=== PATIENT | male | born 1945 | race Caucasian/White ===

== ENCOUNTER → 2016-11-18 | Outpatient (CLI) | payer MEDICARE ==
--- NOTE | 2016-11-18 10:12 | US ---
EXAMINATION TYPE: US abdomen complete DATE OF EXAM: 11/18/2016 COMPARISON: NONE CLINICAL HISTORY: R10.0 Abdominal Pain. EXAM MEASUREMENTS: Liver Length: 15.4 cm Gallbladder Wall: 0.2 cm CBD: 0.5 cm Spleen: 8.6 cm Right Kidney: 9.5 x 4.6 x 5.7 cm Left Kidney: 10.1 x 4.3 x 6.9 cm overlying bowel gas limits exam Pancreas: limited views appear wnl Liver: intercostal imaging only, wnl Gallbladder: single mobile stone seen with sludge noted, no wall thickness Evidence for sonographic Powell's sign: no CBD: wnl Spleen: unable to fully assess due to gas even with inspiration and rolled patient Right Kidney: 2.2cm mid/inferior pole cyst seen Left Kidney: limited views due to bowel gas, otherwise wnl Upper IVC: wnl Abd Aorta: wnl Limited views of the pancreas are unremarkable. The liver is normal in size without biliary dilatation. There is a solitary 1.4 cm calculus within the gallbladder. The gallbladder wall measures 2 mm. The d istal common hepatic duct measures 5 mm. There is no sonographic Powell's sign. The spleen is normal in size. There is a 2.2 cm cystic lesion in the mid polar region of the right kidney. This does not meet the r equirements of a simple cyst. The left kidney is normal. Visualized portions of aorta and IVC are unremarkable. IMPRESSION: 1. CHOLELITHIASIS. 2. CYSTIC LESION IN THE MID POLAR REGION OF THE RIGHT KIDNEY DOES NOT MEET THE REQUIREMENTS OF A SIMP LE CYST. FURTHER INVESTIGATION WITH CT OR MR WOULD BE SUGGESTED.
== END | disposition home or self-care (01) ==
LOC: RADUSWWP 09:24
PROVIDERS: ATTEND Family Medicine
DX: K80.20 Calculus of gallbladder without cholecystitis without obstruction (principal); N28.9 Disorder of kidney and ureter, unspecified
CPT/HCPCS: 76700

== ENCOUNTER 2017-01-01 08:46 | Day surgery (SDC) | payer MEDICARE ==
[2016-12-28 15:14] VITALS: BMI 25.8
[~2017-01-01 08:46] MED LIST: LACTATED RINGERS 1,000 ML IV SCH; SODIUM CHLORIDE 0.9% 1,000 ML IV SCH
[2017-01-01 09:46] LABS: INR 3.6 (<1.2); Prothrombin Time 35.3 sec (9.0-12.0)
[2017-01-01] MEDS ORDERED: PROPOFOL 10 MG/ML 20 ML VIAL IV ONE (10:13)
[2017-01-01] MEDS ORDERED: MIDAZOLAM 2 MG/2 ML VIAL ONE (10:13)
[2017-01-01] MEDS ORDERED: LIDOCAINE 1% INJ 10MG/ML (20 ML MDV) ONE (10:13)
[2017-01-01] MEDS ORDERED: IV FLUID CONTINUATION 500 ML IV ONE (10:31)
[2017-01-01 10:44] VITALS: TEMP 98.1
[2017-01-01 10:56] VITALS: RESP 16
[2017-01-01 12:21] VITALS: BP 132/78; PULSE 75
--- NOTE | 2017-01-02 10:16 | PCN ---
PROCEDURE: Electrical cardioversion. DATE OF SERVICE: 01/01/2017 INDICATION: Persistent atrial fibrillation, unresponsive to pharmacological efforts. Mr. Aubrey Harris is a gentleman with a persistent atrial fib who was advised to have electrical cardioversion. Risks, benefits, options and rationale were explained. He was well anticoagulated. PROCEDURE NOTE: Under the influence of an ultra short acting intravenous anesthetic agent, with the anesthesiologist in attendance, a single 200 joule synchronized shock was delivered with anterior and posterior patches. Patient converted to sinus rhythm. He remained neurologically intact, hemodynamically stable. This was a successful cardioversion. He will be discharged later on today if he remains stable. He has an office visit with me He has an office visit with me next Wednesday. He will be going home on the same medications except metoprolol tartrate will be 50 mg daily instead of b.i.d. MTDD
== END 2017-01-01 13:11 | disposition home or self-care (01) ==
LOC: CATHCVL 08:46
PROVIDERS: ATTEND Internal Medicine Interventional Cardiology
DX: I48.1 Persistent atrial fibrillation (principal); I10 Essential (primary) hypertension; E07.9 Disorder of thyroid, unspecified; Z87.891 Personal history of nicotine dependence; Z79.01 Long term (current) use of anticoagulants; Z79.899 Other long term (current) drug therapy
CPT/HCPCS: 93005; 92960; 85610; J2250; J2001; J2704

== ENCOUNTER 2017-01-17 08:45 | Emergency (ER) | payer MEDICARE ==
[2017-01-17] MEDS ORDERED: DILTIAZEM 5 MG/ML 5 ML VIAL IV STA (09:19)
--- NOTE | 2017-01-17 09:22 | ED ---
General Adult HPI - General Chief complaint: Arrhythmia/Palpitations Stated complaint: irreg pulse Time Seen by Provider: 01/17/17 09:08 Source: patient, RN notes reviewed Mode of arrival: ambulatory Limitations: no limitations - History of Present Illness Initial comments: Patient is a pleasant 71-year-old male with history of atrial fibrillation presenting to the emergency department for palpitations. Patient is on Coumadin. Patient was cardioverted 3 weeks ago atrial fibrillation. Patient states the past 3 days his heart rate has been high. Heart rate has been as high as 140. Patient does have palpitations. No chest pain. No dyspnea. No other complaints. - Related Data Home Medications Medication Instructions Recorded Confirmed ALPRAZolam [Xanax] 0.25 mg PO TID PRN 12/28/16 01/17/17 Levothyroxine Sodium [Synthroid] 150 mcg PO DAILY 12/28/16 01/17/17 Metoprolol Tartrate [Lopressor] 25 mg PO DAILY 12/28/16 01/17/17 Multivitamin [Men's Multi-Vitamin] 1 tab PO DAILY 12/28/16 01/17/17 Warfarin [Coumadin] 5 mg PO HS 12/28/16 01/17/17 Allergies Allergy/AdvReac Type Severity Reaction Status Date / Time No Known Allergies Allergy Verified 01/17/17 09:34 Review of Systems ROS Statement: Those systems with pertinent positive or pertinent negative responses have been documented in the HPI. ROS Other: All systems not noted in ROS Statement are negative. Constitutional: Denies: fever Eyes: Denies: eye pain ENT: Denies: ear pain Respiratory: Denies: cough, dyspnea Cardiovascular: Reports: palpitations. Denies: chest pain Endocrine: Denies: fatigue Gastrointestinal: Denies: abdominal pain Genitourinary: Denies: dysuria Musculoskeletal: Denies: back pain Skin: Denies: rash Neurological: Denies: weakness Past Medical History Past Medical History: Hypertension, Pneumonia, Thyroid Disorder Additional Past Medical History / Comment(s): irregular heartbeat History of Any Multi-Drug Resistant Organisms: None Reported Additional Past Surgical History / Comment(s): CYST REMOVED,COLONOSCOPY, CATARACT SURGERY BILATERAL EYES Past Anesthesia/Blood Transfusion Reactions: No Reported Reaction Past Psychological History: Anxiety Smoking Status: Former smoker Past Alcohol Use History: Daily Past Drug Use History: None Reported - Past Family History Mother Family Medical History: No Reported History General Exam Limitations: no limitations General appearance: alert, in no apparent distress Head exam: Present: atraumatic Eye exam: Present: normal appearance, PERRL ENT exam: Present: normal oropharynx Neck exam: Present: normal inspection Respiratory exam: Present: normal lung sounds bilaterally Cardiovascular Exam: Present: tachycardia, irregular rhythm GI/Abdominal exam: Present: soft. Absent: tenderness Extremities exam: Present: normal inspection. Absent: pedal edema, calf tenderness Neurological exam: Present: alert Psychiatric exam: Present: normal affect, normal mood Skin exam: Present: normal color Course Vital Signs 01/17/17 01/17/17 01/17/17 08:45 09:11 09:37 Temperature 97.8 F Pulse Rate 134 H 115 H Pulse Rate [ 135 H Brim Shaper ] Respiratory 18 20 Rate Blood Pressure 162/106 143/100 O2 Sat by Pulse 97 96 Oximetry EKG Findings - EKG Comments: EKG Findings:: Atrial flutter with a rate of 111. QRS 94. QT 336. QTc 46. Left axis. Q wave in leads V1 and V3. No acute ST change. Medical Decision Making - Medical Decision Making Patient reevaluated and symptom-free. Patient does remain in atrial flutter however heart rate is between 70 and 87. Patient requests discharge home. Patient is updated on results and the fact that he still is in atrial flutter and need for follow-up. - Lab Data Result diagrams: 01/17/17 09:03 01/17/17 09:03 Lab Results 01/17/17 01/17/17 01/17/17 Range/Units 09:03 09:03 09:03 WBC 12.5 H (3.8-10.6) k/uL RBC 5.49 (4.30-5.90) m/uL Hgb 17.2 (13.0-17.5) gm/dL Hct 52.4 (39.0-53.0) % MCV 95.5 (80.0-100.0) fL MCH 31.3 (25.0-35.0) pg MCHC 32.8 (31.0-37.0) g/dL RDW 14.3 (11.5-15.5) % Plt Count 456 H (150-450) k/uL Neutrophils % 67 % Lymphocytes % 18 % Monocytes % 9 % Eosinophils % 3 % Basophils % 1 % Neutrophils # 8.4 H (1.3-7.7) k/uL Lymphocytes # 2.2 (1.0-4.8) k/uL Monocytes # 1.1 H (0-1.0) k/uL Eosinophils # 0.3 (0-0.7) k/uL Basophils # 0.1 (0-0.2) k/uL PT (9.0-12.0) sec INR (<1.2) APTT (22.0-30.0) sec Sodium 143 (137-145) mmol/L Potassium 4.5 (3.5-5.1) mmol/L Chloride 108 H (98-107) mmol/L Carbon Dioxide 25 (22-30) mmol/L Anion Gap 10 mmol/L BUN 11 (9-20) mg/dL Creatinine 0.70 (0.66-1.25) mg/dL Est GFR (MDRD) Af Amer >60 (>60 ml/min/1.73 sqM) Est GFR (MDRD) Non-Af >60 (>60 ml/min/1.73 sqM) Glucose 76 (74-99) mg/dL Calcium 9.3 (8.4-10.2) mg/dL Magnesium 1.6 (1.6-2.3) mg/dL Total Bilirubin 0.8 (0.2-1.3) mg/dL AST 29 (17-59) U/L ALT 37 (21-72) U/L Alkaline Phosphatase 79 (38-126) U/L Total Creatine Kinase 63 (55-170) U/L CK-MB (CK-2) 2.1 (0.0-2.4) ng/mL CK-MB (CK-2) Rel Index 3.3 Troponin I <0.012 (0.000-0.034) ng/mL Total Protein 7.5 (6.3-8.2) g/dL Albumin 4.2 (3.5-5.0) g/dL TSH <0.015 L (0.465-4.680) mIU/L Free T4 1.41 (0.78-2.19) ng/dL 01/17/17 Range/Units 09:03 WBC (3.8-10.6) k/uL RBC (4.30-5.90) m/uL Hgb (13.0-17.5) gm/dL Hct (39.0-53.0) % MCV (80.0-100.0) fL MCH (25.0-35.0) pg MCHC (31.0-37.0) g/dL RDW (11.5-15.5) % Plt Count (150-450) k/uL Neutrophils % % Lymphocytes % % Monocytes % % Eosinophils % % Basophils % % Neutrophils # (1.3-7.7) k/uL Lymphocytes # (1.0-4.8) k/uL Monocytes # (0-1.0) k/uL Eosinophils # (0-0.7) k/uL Basophils # (0-0.2) k/uL PT 19.0 H (9.0-12.0) sec INR 2.0 H (<1.2) APTT 30.3 H (22.0-30.0) sec Sodium (137-145) mmol/L Potassium (3.5-5.1) mmol/L Chloride (98-107) mmol/L Carbon Dioxide (22-30) mmol/L Anion Gap mmol/L BUN (9-20) mg/dL Creatinine (0.66-1.25) mg/dL Est GFR (MDRD) Af Amer (>60 ml/min/1.73 sqM) Est GFR (MDRD) Non-Af (>60 ml/min/1.73 sqM) Glucose (74-99) mg/dL Calcium (8.4-10.2) mg/dL Magnesium (1.6-2.3) mg/dL Total Bilirubin (0.2-1.3) mg/dL AST (17-59) U/L ALT (21-72) U/L Alkaline Phosphatase (38-126) U/L Total Creatine Kinase (55-170) U/L CK-MB (CK-2) (0.0-2.4) ng/mL CK-MB (CK-2) Rel Index Troponin I (0.000-0.034) ng/mL Total Protein (6.3-8.2) g/dL Albumin (3.5-5.0) g/dL TSH (0.465-4.680) mIU/L Free T4 (0.78-2.19) ng/dL - Radiology Data Radiology results: image reviewed (Chest x-ray shows right perihilar atelectasis or infiltrate.) Disposition Clinical Impression: Atrial flutter Disposition: HOME SELF-CARE Condition: Stable Instructions: Atrial Fibrillation (ED) Additional Instructions: Please follow-up with Dr. Alfonso and your primary care physician tomorrow. Please keep a log of your heart rate to provide and follow-up. Return for increased heart rate, chest pain or difficulty breathing, worsening symptoms or other concerns. If heart rate does increase extra dose of metoprolol. Referrals: Duy De Leon MD [Primary Care Provider] - 1-2 days Logan Alfonso MD [STAFF PHYSICIAN] - 1-2 days Time of Disposition: 10:51
[2017-01-17 09:46] LABS: Basophils # (A) 0.1 k/uL (0-0.2); Basophils % (A) 1 %; CH 32.4; CHCM 34.1; Eosinophils # (A) 0.3 k/uL (0-0.7); Eosinophils % (A) 3 %; HCT 52.4 % (39.0-53.0); HDW 2.25; HGB 17.2 gm/dL (13.0-17.5); Luc % (Auto) 3; Lymphocytes # (A) 2.2 k/uL (1.0-4.8); Lymphocytes % (A) 18 %; MCH 31.3 pg (25.0-35.0); MCHC 32.8 g/dL (31.0-37.0); MCV 95.5 fL (80.0-100.0); Mean Platelet Volume 7.3; Monocytes # (A) 1.1 k/uL (0-1.0); Monocytes % (A) 9 %; Neutrophils # (A) 8.4 k/uL (1.3-7.7); Neutrophils % (A) 67 %; RBC 5.49 m/uL (4.30-5.90); RDW 14.3 % (11.5-15.5); WBC 12.5 k/uL (3.8-10.6); WBC (Perox) 11.78
[2017-01-17 09:55] LABS: Partial Thromboplastin Time 30.3 sec (22.0-30.0)
--- NOTE | 2017-01-17 09:56 | XR ---
EXAMINATION TYPE: XR chest 2V DATE OF EXAM: 01/17/2017 COMPARISON: NONE TECHNIQUE: PA and lateral views submitted. HISTORY: Dysrhythmia and hypertension FINDINGS: Hyperinflation suggests COPD and there is right perihilar infiltrate. No pleural effusion or pneumoth orax. Arthropathy of the shoulders. Heart is within normal size and is atherosclerotic change aorta. Degenerative change spine. IMPRESSION: 1. Linear right perihilar changes may be on the basis of atelectasis rather than pneumonia. Correlate clinically. Correlate for COPD
[2017-01-17 10:00] LABS: ALT 37 U/L (21-72); AST 29 U/L (17-59); Alkaline Phosphatase 79 U/L (38-126); Anion Gap 10 mmol/L; Blood Urea Nitrogen 11 mg/dL (9-20); Calcium 9.3 mg/dL (8.4-10.2); Carbon Dioxide 25 mmol/L (22-30); Chloride 108 mmol/L (98-107); Glucose 76 mg/dL (74-99); Magnesium 1.6 mg/dL (1.6-2.3); Non-African American GFR(MDRD) >60 (>60 ml/min/1.73 sqM); Potassium 4.5 mmol/L (3.5-5.1); Sodium 143 mmol/L (137-145); Total Bilirubin 0.8 mg/dL (0.2-1.3); Total Protein 7.5 g/dL (6.3-8.2)
[2017-01-17 10:04] LABS: Creatine Kinase 63 U/L (55-170)
[2017-01-17 10:17] LABS: Creatine Kinase MB 2.1 ng/mL (0.0-2.4); Troponin I <0.012 ng/mL (0.000-0.034)
[2017-01-17 10:52] VITALS: RESP 18
[2017-01-17 10:58] VITALS: BP 155/70; PULSE 82; TEMP 97.4
== END 2017-01-17 10:58 | disposition home or self-care (01) ==
LOC: EC 08:45
DX: I48.92 Unspecified atrial flutter (principal); R00.2 Palpitations; I10 Essential (primary) hypertension; E07.9 Disorder of thyroid, unspecified; F41.9 Anxiety disorder, unspecified; Z87.891 Personal history of nicotine dependence; Z79.01 Long term (current) use of anticoagulants; Z79.899 Other long term (current) drug therapy
CPT/HCPCS: 36415; 71020; 80053; 82550; 82553; 83735; 84439; 84443; 84481; 84484; 85025; 85610; 85730; 93005; 96374; 99285

== ENCOUNTER 2017-02-12 06:04 | Day surgery (SDC) | payer MEDICARE ==
[~2017-02-12 06:04] MED LIST changes: -LACTATED RINGERS 1,000 ML IV SCH
[2017-02-12] MEDS ORDERED: LACTATED RINGERS 1,000 ML IV SCH (06:07)
[2017-02-12 06:53] LABS: INR 3.5 (<1.2); Prothrombin Time 34.2 sec (9.0-12.0)
[2017-02-12] MEDS ORDERED: PROPOFOL 10 MG/ML 20 ML VIAL IV ONE (07:21)
[2017-02-12] MEDS ORDERED: LIDOCAINE 1% INJ 10MG/ML (20 ML MDV) ONE (07:21)
[2017-02-12] MEDS ORDERED: SODIUM CHLORIDE 0.9% 1,000 ML IV SCH (07:30)
[2017-02-12 07:37] VITALS: TEMP 98
--- NOTE | 2017-02-12 07:43 | CE ---
CARDIAC ELECTROPHYSIOLOGY REPORT ELECTRICAL CARDIOVERSION NOTE DATE OF SERVICE: 02/12/2017. PROCEDURE: Electrical cardioversion. INDICATION: Persistent atrial fibrillation. CLINICAL INFORMATION: This patient has developed relatively new onset atrial fibrillation, had a previous cardioversion with which he converted to sinus rhythm but then he went back into atrial fibrillation. He was pretreated for nearly 2 weeks with Rythmol 150 mg t.i.d., brought back for the procedure. PROCEDURE NOTE: Under the influence of ultra short-acting intravenous anesthetic agent, with the attendance of the anesthesiologist, Dr. Payan, a single 200 joule shock was delivered to the chest wall with anterior and posterior patches. The patient converted to sinus rhythm with a long pause. He remained hemodynamically stable. Neurological intact. This was a successful cardioversion. He will be discharged later on today if he remains stable. MMODL / IJN: [id number] /
[2017-02-12 10:41] VITALS: BP 117/61; RESP 16
[2017-02-12 11:49] VITALS: PULSE 62
== END 2017-02-12 11:47 | disposition home or self-care (01) ==
LOC: CATHCVL 06:04
PROVIDERS: ATTEND Internal Medicine Interventional Cardiology
DX: I48.1 Persistent atrial fibrillation (principal); Z79.01 Long term (current) use of anticoagulants; I10 Essential (primary) hypertension; Z87.891 Personal history of nicotine dependence; Z79.899 Other long term (current) drug therapy
CPT/HCPCS: 93005; 92960; 85610; J2001; J2704

== ENCOUNTER 2017-02-13 10:43 | Inpatient (IN) | payer MEDICARE ==
[2017-02-13] MEDS ORDERED: hydrALAZINE HCL 20 MG/ML 1 ML VIAL IVP STA (11:15)
--- NOTE | 2017-02-13 11:17 | ED ---
General Adult HPI - General Chief complaint: Shortness of Breath Stated complaint: diff breathing,htn, post op Time Seen by Provider: 02/13/17 10:55 Source: patient, RN notes reviewed, old records reviewed Mode of arrival: wheelchair Limitations: no limitations - History of Present Illness Initial comments: 71-year-old male with history of hypertension and atrial fibrillation presents with worsening dyspnea over the past 24 hours. Patient had cardioversion yesterday for atrial fibrillation. This was successful according to the patient. Over the nighttime hours patient became more short of breath. Denies chest pain. Denies fever or chills. Denies cough. Denies past medical history of congestive heart failure or asthma. Denies palpitations. Patient is currently on metoprolol, propranolol, and Coumadin. Patient's blood pressure is normally controlled with these medications. - Related Data Home Medications Medication Instructions Recorded Confirmed ALPRAZolam [Xanax] 0.25 mg PO TID PRN 12/28/16 02/13/17 Levothyroxine Sodium [Synthroid] 150 mcg PO QAM 12/28/16 02/13/17 Multivitamin [Men's Multi-Vitamin] 1 tab PO DAILY 12/28/16 02/13/17 Warfarin [Coumadin] 5 mg PO HS 12/28/16 02/13/17 Propafenone [Rythmol] 150 mg PO TID 02/11/17 02/13/17 Metoprolol Tartrate [Lopressor] 50 mg PO BID 02/13/17 02/13/17 Allergies Allergy/AdvReac Type Severity Reaction Status Date / Time No Known Allergies Allergy Verified 02/13/17 11:52 Review of Systems ROS Statement: Those systems with pertinent positive or pertinent negative responses have been documented in the HPI. ROS Other: All systems not noted in ROS Statement are negative. Past Medical History Past Medical History: Hypertension, Pneumonia, Thyroid Disorder Additional Past Medical History / Comment(s): SEE DR[facility] P FOR CARDIOVASCULAR DETAIL. Irregular heartbeat History of Any Multi-Drug Resistant Organisms: None Reported Additional Past Surgical History / Comment(s): CYST REMOVED,COLONOSCOPY, CATARACT SURGERY BILATERAL EYES, cardioversion x2. Past Anesthesia/Blood Transfusion Reactions: No Reported Reaction Past Psychological History: Anxiety Smoking Status: Former smoker Past Alcohol Use History: Daily Past Drug Use History: None Reported - Past Family History Mother Family Medical History: No Reported History General Exam Limitations: no limitations General appearance: alert, in no apparent distress Head exam: Present: atraumatic, normocephalic Eye exam: Present: normal appearance, PERRL ENT exam: Present: normal exam, mucous membranes moist Neck exam: Present: normal inspection, full ROM. Absent: tenderness, meningismus Respiratory exam: Present: decreased breath sounds. Absent: wheezes, rales Cardiovascular Exam: Present: regular rate, normal rhythm GI/Abdominal exam: Present: soft. Absent: distended, tenderness, guarding Extremities exam: Present: normal inspection, normal capillary refill. Absent: pedal edema Back exam: Present: normal inspection Neurological exam: Present: alert, oriented X3, CN II-XII intact. Absent: motor sensory deficit Psychiatric exam: Present: normal affect, normal mood Skin exam: Present: warm, dry. Absent: cyanosis, diaphoretic Course Vital Signs 02/13/17 02/13/17 10:51 12:20 Temperature 97.9 F Pulse Rate 54 L 59 L Respiratory 18 18 Rate Blood Pressure 212/88 136/68 O2 Sat by Pulse 94 L 96 Oximetry - Reevaluation(s) Reevaluation #1: 02/13/17 13:04 Patient's blood pressure significantly improved with 1 dose of IV hydralazine EKG Findings - EKG Comments: EKG Findings:: EKG shows sinus rhythm with first-degree AV block, ventricular rate 62, purulent 34, QRS duration 90, QTC 434, no signs of ST segment elevation or depression Medical Decision Making - Medical Decision Making 71-year-old male presenting with a four-hour history of dyspnea. Patient is found to be hypertensive upon arrival 220/90. Patient is given IV hydralazine for this blood pressure. He does have history of blood pressure as well as atrial fibrillation. He received cardioversion yesterday. EKG is obtained, shows normal sinus rhythm with no signs of ischemia or infarction. Chest x-ray shows hyperinflation consistent with COPD. Patient does have a remote history of tobacco but no current history of asthma or COPD. There is no focal pneumonia. No pulmonary edema. Hemoglobin stable at 15.3, INR is supratherapeutic at 4.0, Coumadin will be held. Potassium is 5.4 which is treated with IV fluids and IV calcium, as well as albuterol. Magnesium is 1.3 and is replaced. Troponin is negative as are 0.014, BMP is 660. Patient's dyspnea may be related to hypertension. Case discussed with cardiology and the patient will be placed in observation for further evaluation and treatment. Patient is agreeable with this plan. Diagnosis: Dyspnea, hypertension, hypomagnesemia, hyperkalemia - Lab Data Result diagrams: 02/13/17 11:25 02/13/17 11:25 Lab Results 02/13/17 02/13/17 02/13/17 Range/Units 11:25 11:25 11:25 WBC 7.5 (3.8-10.6) k/uL RBC 4.91 (4.30-5.90) m/uL Hgb 15.3 (13.0-17.5) gm/dL Hct 47.7 (39.0-53.0) % MCV 97.1 (80.0-100.0) fL MCH 31.1 (25.0-35.0) pg MCHC 32.0 (31.0-37.0) g/dL RDW 14.4 (11.5-15.5) % Plt Count 368 (150-450) k/uL Neutrophils % 74 % Lymphocytes % 9 % Monocytes % 8 % Eosinophils % 6 % Basophils % 1 % Neutrophils # 5.5 (1.3-7.7) k/uL Lymphocytes # 0.7 L (1.0-4.8) k/uL Monocytes # 0.6 (0-1.0) k/uL Eosinophils # 0.5 (0-0.7) k/uL Basophils # 0.0 (0-0.2) k/uL PT (9.0-12.0) sec INR (<1.2) APTT (22.0-30.0) sec Sodium 139 (137-145) mmol/L Potassium 5.4 H (3.5-5.1) mmol/L Chloride 107 (98-107) mmol/L Carbon Dioxide 23 (22-30) mmol/L Anion Gap 9 mmol/L BUN 13 (9-20) mg/dL Creatinine 0.78 (0.66-1.25) mg/dL Est GFR (MDRD) Af Amer >60 (>60 ml/min/1.73 sqM) Est GFR (MDRD) Non-Af >60 (>60 ml/min/1.73 sqM) Glucose 96 (74-99) mg/dL Calcium 10.1 (8.4-10.2) mg/dL Magnesium 1.3 L (1.6-2.3) mg/dL Total Bilirubin 0.6 (0.2-1.3) mg/dL AST 52 (17-59) U/L ALT 41 (21-72) U/L Alkaline Phosphatase 67 (38-126) U/L Total Creatine Kinase 44 L (55-170) U/L CK-MB (CK-2) 1.2 (0.0-2.4) ng/mL CK-MB (CK-2) Rel Index 2.7 Troponin I 0.014 (0.000-0.034) ng/mL NT-Pro-B Natriuret Pep pg/mL Total Protein 7.4 (6.3-8.2) g/dL Albumin 4.1 (3.5-5.0) g/dL 02/13/17 02/13/17 Range/Units 11:25 11:25 WBC (3.8-10.6) k/uL RBC (4.30-5.90) m/uL Hgb (13.0-17.5) gm/dL Hct (39.0-53.0) % MCV (80.0-100.0) fL MCH (25.0-35.0) pg MCHC (31.0-37.0) g/dL RDW (11.5-15.5) % Plt Count (150-450) k/uL Neutrophils % % Lymphocytes % % Monocytes % % Eosinophils % % Basophils % % Neutrophils # (1.3-7.7) k/uL Lymphocytes # (1.0-4.8) k/uL Monocytes # (0-1.0) k/uL Eosinophils # (0-0.7) k/uL Basophils # (0-0.2) k/uL PT 39.4 H (9.0-12.0) sec INR 4.0 H (<1.2) APTT 35.0 H (22.0-30.0) sec Sodium (137-145) mmol/L Potassium (3.5-5.1) mmol/L Chloride (98-107) mmol/L Carbon Dioxide (22-30) mmol/L Anion Gap mmol/L BUN (9-20) mg/dL Creatinine (0.66-1.25) mg/dL Est GFR (MDRD) Af Amer (>60 ml/min/1.73 sqM) Est GFR (MDRD) Non-Af (>60 ml/min/1.73 sqM) Glucose (74-99) mg/dL Calcium (8.4-10.2) mg/dL Magnesium (1.6-2.3) mg/dL Total Bilirubin (0.2-1.3) mg/dL AST (17-59) U/L ALT (21-72) U/L Alkaline Phosphatase (38-126) U/L Total Creatine Kinase (55-170) U/L CK-MB (CK-2) (0.0-2.4) ng/mL CK-MB (CK-2) Rel Index Troponin I (0.000-0.034) ng/mL NT-Pro-B Natriuret Pep 666 pg/mL Total Protein (6.3-8.2) g/dL Albumin (3.5-5.0) g/dL Critical Care Time Critical Care Time: Yes Total Critical Care Time: 35 Disposition Clinical Impression: Hypertension, Hypomagnesemia, Dyspnea Disposition: ADMITTED IP TO THIS [facility] Condition: Stable Referrals: Duy De Leon MD [Primary Care Provider] - 1-2 days Decision to Admit Reason: Admit from EC Decision Date: 02/13/17 Decision Time: 13:07
[2017-02-13 11:40] LABS: Basophils % (A) 1 %; CH 32.1; CHCM 33.2; Eosinophils # (A) 0.5 k/uL (0-0.7); Eosinophils % (A) 6 %; HCT 47.7 % (39.0-53.0); HDW 2.37; HGB 15.3 gm/dL (13.0-17.5); Luc # (Auto) 0.19; Luc % (Auto) 3; Lymphocytes # (A) 0.7 k/uL (1.0-4.8); Lymphocytes % (A) 9 %; MCH 31.1 pg (25.0-35.0); MCV 97.1 fL (80.0-100.0); Mean Platelet Volume 7.3; Monocytes # (A) 0.6 k/uL (0-1.0); Monocytes % (A) 8 %; Neutrophils # (A) 5.5 k/uL (1.3-7.7); Neutrophils % (A) 74 %; RBC 4.91 m/uL (4.30-5.90); RDW 14.4 % (11.5-15.5); WBC 7.5 k/uL (3.8-10.6); WBC (Perox) 7.73
[2017-02-13 11:50] LABS: Prothrombin Time 39.4 sec (9.0-12.0)
[2017-02-13 11:58] LABS: ALT 41 U/L (21-72); AST 52 U/L (17-59); Alkaline Phosphatase 67 U/L (38-126); Anion Gap 9 mmol/L; Blood Urea Nitrogen 13 mg/dL (9-20); Calcium 10.1 mg/dL (8.4-10.2); Carbon Dioxide 23 mmol/L (22-30); Chloride 107 mmol/L (98-107); Glucose 96 mg/dL (74-99); Magnesium 1.3 mg/dL (1.6-2.3); Non-African American GFR(MDRD) >60 (>60 ml/min/1.73 sqM); Potassium 5.4 mmol/L (3.5-5.1); Sodium 139 mmol/L (137-145); Total Bilirubin 0.6 mg/dL (0.2-1.3); Total Protein 7.4 g/dL (6.3-8.2)
[2017-02-13 12:15] LABS: Creatine Kinase MB 1.2 ng/mL (0.0-2.4); Troponin I 0.014 ng/mL (0.000-0.034)
[2017-02-13] MEDS: MAGNESIUM SULFATE-D5W PMX 1 GM in DEXTROSE/WATER 1 100ML.BAG IVPB SCH ×2 (12:37→16:41)
[2017-02-13] MEDS: SODIUM CHLORIDE 0.9% 1,000 ML IV SCH (12:38)
--- NOTE | 2017-02-13 12:43 | XR ---
EXAMINATION TYPE: XR chest 2V DATE OF EXAM: 02/13/2017 HISTORY: difficulty breathing. REFERENCE: Previous study dated 01/17/2017. FINDINGS: Lung volumes are mildly prominent. The lungs are clear. Pleural spaces are clear. Heart siz e is upper limits of normal. IMPRESSION: 1. COPD. 2. BORDERLINE CARDIOMEGALY.
[2017-02-13] MEDS ORDERED: ALBUTEROL NEBULIZED 2.5 MG/3 ML INHALATION STA (12:48)
[2017-02-13] MEDS ORDERED: IPRATROPIUM 0.5 MG/2.5 ML NEBU INHALATION STA (12:48)
[2017-02-13] MEDS ORDERED: ONDANSETRON 4 MG/2 ML VIAL IVP PRN (12:55)
[2017-02-13] MEDS ORDERED: NALOXONE 0.4 MG/ML 1 ML VIAL IV PRN (12:55)
[2017-02-13 15:37] VITALS: BMI 26.5
[2017-02-13] MEDS: PROPAFENONE 150 MG TAB PO SCH ×2 (15:41→20:48)
[2017-02-13 18:33] LABS: Creatine Kinase MB 0.8 ng/mL (0.0-2.4); Troponin I 0.018 ng/mL (0.000-0.034)
[2017-02-13] MEDS ORDERED: THIAMINE 100 MG/ML 2 ML VIAL IM STA (20:06)
[2017-02-13] MEDS ORDERED: LORazepam 2 MG/ML INJ IV PRN ×3 (20:06)
[2017-02-13] MEDS: THIAMINE 100 MG TAB PO SCH (20:47)
[2017-02-13] MEDS: METOPROLOL TARTRATE 50 MG TAB PO SCH (20:48)
[2017-02-13] MEDS: ALPRAZolam 0.25 MG TAB PO PRN (23:57)
[2017-02-14 01:08] LABS: Creatine Kinase MB 0.7 ng/mL (0.0-2.4); Troponin I 0.015 ng/mL (0.000-0.034)
[2017-02-14] MEDS: SODIUM CHLORIDE 0.9% 1,000 ML IV SCH ×2 (03:07→14:31)
[2017-02-14] MEDS: LEVOTHYROXINE 75 MCG TAB PO SCH (06:06)
[2017-02-14 06:32] LABS: Basophils # (A) 0.1 k/uL (0-0.2); Basophils % (A) 1 %; CH 31.3; Eosinophils # (A) 0.4 k/uL (0-0.7); Eosinophils % (A) 4 %; HCT 45.1 % (39.0-53.0); HDW 2.19; HGB 14.8 gm/dL (13.0-17.5); Luc # (Auto) 0.37; Luc % (Auto) 4; Lymphocytes % (A) 10 %; MCH 32.2 pg (25.0-35.0); MCHC 32.8 g/dL (31.0-37.0); Mean Platelet Volume 7.4; Monocytes # (A) 0.9 k/uL (0-1.0); Monocytes % (A) 9 %; Neutrophils # (A) 6.8 k/uL (1.3-7.7); Neutrophils % (A) 72 %; RDW 13.2 % (11.5-15.5); WBC 9.4 k/uL (3.8-10.6); WBC (Perox) 9.89
[2017-02-14 06:41] LABS: INR 2.7 (<1.2); Prothrombin Time 26.2 sec (9.0-12.0)
[2017-02-14 07:01] LABS: ALT 42 U/L (21-72); AST 30 U/L (17-59); Alkaline Phosphatase 75 U/L (38-126); Anion Gap 5 mmol/L; Blood Urea Nitrogen 13 mg/dL (9-20); Calcium 9.2 mg/dL (8.4-10.2); Carbon Dioxide 27 mmol/L (22-30); Chloride 104 mmol/L (98-107); Glucose 114 mg/dL (74-99); Magnesium 1.6 mg/dL (1.6-2.3); Non-African American GFR(MDRD) >60 (>60 ml/min/1.73 sqM); Potassium 4.5 mmol/L (3.5-5.1); Sodium 136 mmol/L (137-145); Total Bilirubin 0.9 mg/dL (0.2-1.3); Total Protein 6.5 g/dL (6.3-8.2)
[2017-02-14 07:11] LABS: Creatine Kinase MB 0.6 ng/mL (0.0-2.4); Troponin I 0.018 ng/mL (0.000-0.034)
--- NOTE | 2017-02-14 07:24 | HP ---
HISTORY AND PHYSICAL I am covering for Dr. De Leon. CHIEF COMPLAINTS: 1. Shortness of breath. 2. Weakness. HISTORY OF PRESENT ILLNESS: This 71-year-old gentleman with a past medical history of multiple medical problems, including hypertension, history of pneumonia, hypothyroidism and anxiety being followed by Dr. De Leon in the outpatient setting, recently had cardioversion by Dr. Alfonso for persistent atrial fibrillation. The patient was doing fine but today the patient is complaining of shortness of breath especially on ambulation. Patient came to [facility] and admitted for further evaluation and treatment. There is no history of fever, rigors. No history of headache, loss of consciousness or seizures. The INR was found to be 4. D. dimer not available. Troponin 0.014. NT proBNP was 66 and a chest x-ray done in the ER showed borderline cardiomegaly and possible COPD. The EKG showed normal sinus rhythm and ST-T changes. There is no history of fever, rigors or chills. No history of headache, loss of consciousness or seizures. PAST MEDICAL HISTORY: Hypertension, pneumonia, hypothyroidism. MEDICATIONS PRIOR TO ADMISSION: Include: 1. Coumadin 5 mg p.o. q.h.s. 2. Rythmol 150 mg p.o. t.i.d. 3. Multivitamins one p.o. daily. 4. Lopressor 50 mg p.o. b.i.d. 5. Synthroid 150 mcg p.o. q.a.m. 6. Xanax 0.25 t.i.d. p.r.n. ALLERGIES: Allergies are none. FAMILY HISTORY: No history of heart disease or strokes in the family. SOCIAL HISTORY: History of alcohol, 2 drinks per night according to him. Previous history of smoking. REVIEW OF SYSTEMS: ENT: No diminished vision. No diminished hearing. Cardiovascular as mentioned earlier. Respiratory: As mentioned earlier. GI no nausea or vomiting. no dysuria. Nervous system: No numbness, weakness. ALLERGY/IMMUNOLOGY: No asthma or hayfever. Musculoskeletal as mentioned earlier. Hematology as mentioned earlier. Endocrine: No history of diabetes, hypothyroidism. Constitutional: As mentioned earlier. DERMATOLOGY: Negative. Rheumatology: Negative. Psychiatric: As mentioned earlier. PHYSICAL EXAMINATION: Alert oriented times three, pulse 59, blood pressure 136/80, respiration 18, temperature 96.4, pulse ox 96% on 2 L. HEENT conjunctivae normal. Oral mucosa moist. Neck is no jugular venous distention. No carotid bruit. No lymph node enlargement. CARDIOVASCULAR: S1, S2 muffled. No S3, no S4. Breath sounds diminished at the bases. A few scattered rhonchi. No crackles. ABDOMEN: Soft, nontender. Legs no edema. No swelling. NERVOUS SYSTEM: Higher functions as mentioned earlier. Moves all 4 limbs. No focal motor or sensory deficits. Lymphatics: No lymph nodes palpable in the neck, axillae or groin. Skin no ulcer, rash, bleeding. LABS: At this time shows CBC within normal limits. INR is 4 and sodium 138, potassium 5.4, magnesium 1.3. ASSESSMENT: 1. Shortness of breath for evaluation. Rule out chronic obstructive pulmonary disease acute exacerbation or pulmonary embolism. 2. Status post recent atrial fibrillation. 3. High INR. 4. Hypokalemia. 5. Hypomagnesemia. 6. History of EtOH possibly. 7. Hypertension. 8. Hypothyroidism. 9. History pneumonia. 10.History of anxiety. 11.FULL CODE. RECOMMENDATIONS AND DISCUSSION: In this 71-year-old gentleman presented with multiple complex medical issues. We will monitor the patient closely. Continue the current management. Continue symptomatic treatment. I recommend resume home medications. We will obtain cardiology consultation. 2D echo with Doppler has been ordered. Otherwise monitor fluid and electrolytes balance closely. There is no overt signs of cardiac heart failure but however will continue to monitor. I would also recommend hold the Coumadin at this time. Monitor PT and INR closely. Otherwise, I would also recommend, monitor the PT/INR and as well as some repeat labs as well. Otherwise prognosis guarded because of multiple complex medical issues and we will supplement magnesium and we will recheck magnesium as well. CIWA protocol will be used as well for alcohol withdrawal. Guarded prognosis because of multiple complex medical issues. Further recommendations to follow. A copy of this dictation will be forwarded to Dr. De Leon who is the primary care physician. MMODL / IJN: [id number] /
[2017-02-14] MEDS: METOPROLOL TARTRATE 50 MG TAB PO SCH (08:12)
[2017-02-14] MEDS: PROPAFENONE 150 MG TAB PO SCH ×3 (08:12→20:21)
[2017-02-14 08:32] LABS: Appearance,Urine Clear (Clear); Bilirubin,Urine Negative (Negative); Glucose,Urine (UA) Negative (Negative); Ketones,Urine Negative (Negative); Leukocyte Esterase,Urine Negative (Negative); Nitrite,Urine Negative (Negative); PH, Urine 5.5 (5.0-8.0); Protein,Urine Negative (Negative); Specific Gravity,Urine 1.016 (1.001-1.035); UA Billing (MACRO vs. MICRO) CHEM; Urobilinogen,Urine <2.0 mg/dL (<2.0)
[2017-02-14] MEDS ORDERED: Magnesium Replacement Protocol 1 EACH MISC MISCELLANE PRN (10:21)
--- NOTE | 2017-02-14 10:26 | P.CRDCN ---
History of Present Illness Consult date: 02/14/17 Chief complaint: Shortness of breath History of present illness: This is a pleasant 71-year-old gentleman who sees Dr. LETICIA Garcia in the office on regular basis with a past medical history significant for paroxysmal atrial fibrillation who underwent cardioversion just 2 days ago presented to the emergency room complaining of shortness of breath. He was in his usual state of health until yesterday when he developed sudden onset of shortness of breath. He did not have any symptom of chest pain or discomfort, dizziness or lightheadedness, or syncope. He did not have any edema in the lower extremities. No change in the weight. The EKG showed sinus rhythm with first-degree AV block. During his hospitalization he has been experiencing intermittent episodes of sinus pauses with the longest of 2 seconds. The chest x-ray did not show any acute abnormalities. The d-dimer came in to be within normal limits. The patient stated that he just underwent a stress test about 6 months ago in [place] and that was normal. He also stated that he underwent an echocardiogram came in to be unremarkable. Past Medical History Past Medical History: Hypertension, Pneumonia, Thyroid Disorder Additional Past Medical History / Comment(s): SEE DR. GARCIA'S H & P FOR CARDIOVASCULAR DETAIL. Irregular heartbeat History of Any Multi-Drug Resistant Organisms: None Reported Additional Past Surgical History / Comment(s): CYST REMOVED,COLONOSCOPY, CATARACT SURGERY BILATERAL EYES, cardioversion x2. Past Anesthesia/Blood Transfusion Reactions: No Reported Reaction Past Psychological History: Anxiety Smoking Status: Former smoker Past Alcohol Use History: Daily Additional Past Alcohol Use History / Comment(s): STARTED SMOKING AT AGE 17 QUIT SMOKING AT AGE 34 SMOKED 3/4 -1PPD /. 2 DRINKS PER DAY Past Drug Use History: None Reported - Past Family History Mother Family Medical History: No Reported History Medications and Allergies Home Medications Medication Instructions Recorded Confirmed Type ALPRAZolam [Xanax] 0.25 mg PO TID PRN 12/28/16 02/13/17 History Levothyroxine Sodium [Synthroid] 150 mcg PO QAM 12/28/16 02/13/17 History Multivitamin [Men's Multi-Vitamin] 1 tab PO DAILY 12/28/16 02/13/17 History Warfarin [Coumadin] 5 mg PO HS 12/28/16 02/13/17 History Propafenone [Rythmol] 150 mg PO TID 02/11/17 02/13/17 History Metoprolol Tartrate [Lopressor] 50 mg PO BID 02/13/17 02/13/17 History Allergies Allergy/AdvReac Type Severity Reaction Status Date / Time No Known Allergies Allergy Verified 02/13/17 11:52 Physical Exam Vitals: Vital Signs Temp Pulse Pulse Pulse Resp BP BP 02/14/17 08:00 98.1 F 62 18 148/70 02/14/17 04:00 98.3 F 64 20 111/53 02/14/17 00:00 98.8 F 72 24 151/73 02/13/17 20:00 98.8 F 75 75 20 145/70 02/13/17 15:12 97.5 F L 67 18 146/66 02/13/17 13:27 64 02/13/17 13:14 64 02/13/17 12:20 59 L 18 136/68 02/13/17 10:51 97.9 F 54 L 18 212/88 Pulse Ox 02/14/17 08:00 98 02/14/17 04:00 97 02/14/17 00:00 97 02/13/17 20:00 96 02/13/17 15:12 97 02/13/17 13:27 02/13/17 13:14 02/13/17 12:20 96 02/13/17 10:51 94 L Intake and Output 02/13/17 02/14/17 02/14/17 22:59 06:59 14:59 Other: # Voids 0 Weight 83.8 kg - Constitutional General appearance: no acute distress - Respiratory Respiratory: bilateral: CTA - Cardiovascular Rhythm: regular Heart sounds: normal: S1, S2 Results 02/14/17 06:06 02/14/17 06:06 Cardiac Enzymes 02/13/17 02/13/17 02/13/17 Range/Units 11:25 11:25 17:49 AST 52 (17-59) U/L CK-MB (CK-2) 1.2 0.8 (0.0-2.4) ng/mL Troponin I 0.014 0.018 (0.000-0.034) ng/mL 02/14/17 02/14/17 02/14/17 Range/Units 00:17 06:06 06:06 AST 30 (17-59) U/L CK-MB (CK-2) 0.7 0.6 (0.0-2.4) ng/mL Troponin I 0.015 0.018 (0.000-0.034) ng/mL Coagulation 02/13/17 02/14/17 Range/Units 11:25 06:06 PT 39.4 H 26.2 H (9.0-12.0) sec APTT 35.0 H (22.0-30.0) sec CBC 02/13/17 02/14/17 Range/Units 11:25 06:06 WBC 7.5 9.4 (3.8-10.6) k/uL RBC 4.91 4.60 (4.30-5.90) m/uL Hgb 15.3 14.8 (13.0-17.5) gm/dL Hct 47.7 45.1 (39.0-53.0) % Plt Count 368 337 (150-450) k/uL Comprehensive Metabolic Panel 02/13/17 02/14/17 Range/Units 11:25 06:06 Sodium 139 136 L (137-145) mmol/L Potassium 5.4 H 4.5 (3.5-5.1) mmol/L Chloride 107 104 (98-107) mmol/L Carbon Dioxide 23 27 (22-30) mmol/L BUN 13 13 (9-20) mg/dL Creatinine 0.78 0.90 (0.66-1.25) mg/dL Glucose 96 114 H (74-99) mg/dL Calcium 10.1 9.2 (8.4-10.2) mg/dL AST 52 30 (17-59) U/L ALT 41 42 (21-72) U/L Alkaline Phosphatase 67 75 (38-126) U/L Total Protein 7.4 6.5 (6.3-8.2) g/dL Albumin 4.1 3.6 (3.5-5.0) g/dL Current Medications Generic Name Dose Route Start Last Admin Trade Name Freq PRN Reason Stop Dose Admin Alprazolam 0.25 mg 02/13/17 20:43 02/13/17 23:57 Xanax PO 0.25 mg TID PRN Administration Anxiety Sodium Chloride 1,000 mls @ 75 mls/hr 02/13/17 12:30 02/14/17 03:07 Saline 0.9% IV 75 mls/hr .[id number] [facility] Administration Levothyroxine Sodium 150 mcg 02/14/17 06:30 02/14/17 06:06 Synthroid PO 150 mcg 0630 [facility] Administration Lorazepam 1 mg 02/13/17 20:06 Ativan IV Q2HR PRN CIWA 8 or 9 Lorazepam 1 mg 02/13/17 20:06 Ativan IV Q1HR PRN CIWA 10 to 15 Lorazepam 2 mg 02/13/17 20:06 Ativan IV 02/15/17 20:07 Q10M PRN CIWA 16 or higher Metoprolol Tartrate 25 mg 02/14/17 21:00 Lopressor PO BID [facility] Multivitamins 1 each 02/14/17 12:00 Theragran PO 1200 [facility] Naloxone HCl 0.2 mg 02/13/17 12:55 Narcan IV Q2M PRN Opioid Reversal Ondansetron HCl 4 mg 02/13/17 12:55 Zofran IVP Q8HR PRN Nausea And Vomiting Propafenone HCl 150 mg 02/13/17 16:00 02/14/17 08:12 Rythmol PO 150 mg TID [facility] Administration Thiamine HCl 100 mg 02/13/17 17:00 02/13/17 20:47 Vitamin B-1 PO 100 mg BID@1200,1700 [facility] Administration Intake and Output 02/13/17 02/14/17 02/14/17 22:59 06:59 14:59 Other: # Voids 0 Weight 83.8 kg 02/14/17 06:06 02/14/17 06:06 Assessment and Plan Plan: This is a pleasant 71-year-old gentleman was known paroxysmal atrial fibrillation presented to the hospital complaining of sudden onset of shortness of breath. The cardiac workup came in to be unremarkable. D-dimer came in to be unremarkable as well. During his hospitalization he has been experiencing sinus pauses of 2 seconds. The baseline EKG showed first-degree AV block. I'm going to decrease the dose of metoprolol to 25 mg by mouth twice a day. Continue monitoring the patient for additional 24 hours. And follow-up with the patient. Possible discharge home tomorrow.
[2017-02-14] MEDS: THIAMINE 100 MG TAB PO SCH ×2 (11:28→17:23)
[2017-02-14] MEDS: MULTIVITAMINS, THERA 1 EACH TAB PO SCH (11:28)
[2017-02-14] MEDS: MAGNESIUM SULFATE-D5W PMX 1 GM in DEXTROSE/WATER 1 100ML.BAG IVPB SCH ×2 (11:28→14:28)
[2017-02-14] MEDS: ACETAMINOPHEN TAB 325 MG TAB PO PRN (18:02)
--- NOTE | 2017-02-14 19:48 | PN ---
PROGRESS NOTE DATE OF SERVICE: 02/14/2017 I am covering for Dr. De Leon. This 71-year-old gentleman was admitted with shortness of breath and weakness. Still has significant shortness of breath. Dr. Dorsey has seen the patient. The EKG showed first-degree AV block, sinus pause was suspected. The SD interval is 234 ms. Patient recently had a cardioversion. A D-dimer is within normal limits. Cardiomegaly is visualized in the chest x-ray. INR is 2.7. PAST MEDICAL HISTORY: Reviewed. REVIEW OF SYSTEMS: CARDIOVASCULAR: As mentioned earlier. RESPIRATORY: As mentioned earlier. GI: No nausea. : No dysuria. NERVOUS SYSTEM: No numbness or weakness. CURRENT MEDICATIONS: Current medications are reviewed and include: 1. Xanax 0.5 t.i.d. 2. Synthroid 150 mcg p.o. daily. 3. Ativan 1 mg p.o. p.r.n. 4. Lopressor 25 mg b.i.d. 5. Multivitamins. 6. Narcan. 7. Zofran. 8. Rythmol. PHYSICAL EXAM: Patient is alert, oriented x3. Pulse 62, blood pressure 140/70, respiration 18, temperature 98.1, pulse ox 94% on room air. HEENT: Conjunctivae normal. Oral mucosa moist. NECK: No jugular venous distention. No carotid bruit. No lymph node enlargement. CARDIOVASCULAR: S1, S2. No S3, no S4. RESPIRATORY: Breathing efforts increased. Bilateral scattered rhonchi. No crackles. ABDOMEN: Soft, nontender. No mass palpable. LEGS: No edema. No swelling. NERVOUS SYSTEM: Higher function as mentioned. Moves all four limbs. No focal motor deficits. LYMPHATIC: No lymphadenopathy in the neck, axillae, groin. SKIN: No ulcers, rash or bleeding. LAB STUDIES: Sodium 130, CBC within normal limits. INR is 2.7. ASSESSMENT: 1. Shortness of breath for evaluation, rule out chronic obstructive pulmonary disease. Pulmonary embolism unlikely. 2. Status post recent cardioversion for atrial fibrillation. 3. High INR present on admission. 4. Hypokalemia. 5. Hypomagnesia. 6. History EtOH possibly. 7. Hypertension. 8. Hypothyroidism. 9. History pneumonia. 10.History of anxiety. 11.FULL CODE. RECOMMENDATIONS AND DISCUSSION: I recommend to continue current medications. Continue to monitor. Continue symptomatic treatment. Otherwise at this time I will follow the patient closely with Cardiology. If the patient continues to be symptomatic and short of breath, Pulmonary consultation may be sought. Otherwise continue to monitor. The prognosis is guarded. Discussed with the patient, continue with C[facility] protocol and Dr. De Leon will follow. Discussed with the patient who understands. MMFABRICIO / LOUIEN: [id number] /
[2017-02-14] MEDS: METOPROLOL TARTRATE 25 MG TAB PO SCH (20:22)
[2017-02-14] MEDS: ALPRAZolam 0.25 MG TAB PO PRN (22:49)
[2017-02-15] MEDS: SODIUM CHLORIDE 0.9% 1,000 ML IV SCH ×2 (04:55→18:16)
[2017-02-15] MEDS: LEVOTHYROXINE 75 MCG TAB PO SCH (05:42)
[2017-02-15] MEDS: METOPROLOL TARTRATE 25 MG TAB PO SCH ×2 (08:02→12:15)
[2017-02-15] MEDS: ACETAMINOPHEN TAB 325 MG TAB PO PRN ×3 (08:02→21:43)
[2017-02-15] MEDS: PROPAFENONE 150 MG TAB PO SCH ×3 (08:03→21:44)
[2017-02-15 08:57] LABS: Basophils % (A) 0 %; CH 31.3; Eosinophils # (A) 0.2 k/uL (0-0.7); Eosinophils % (A) 2 %; HCT 42.6 % (39.0-53.0); HDW 2.22; HGB 13.7 gm/dL (13.0-17.5); Luc # (Auto) 0.48; Luc % (Auto) 4; Lymphocytes % (A) 9 %; MCH 31.6 pg (25.0-35.0); MCHC 32.1 g/dL (31.0-37.0); MCV 98.4 fL (80.0-100.0); Mean Platelet Volume 7.1; Monocytes # (A) 0.9 k/uL (0-1.0); Monocytes % (A) 8 %; Neutrophils # (A) 8.6 k/uL (1.3-7.7); Neutrophils % (A) 76 %; RBC 4.33 m/uL (4.30-5.90); RDW 13.4 % (11.5-15.5); WBC 11.2 k/uL (3.8-10.6); WBC (Perox) 11.71
[2017-02-15 09:09] LABS: INR 1.6 (<1.2); Prothrombin Time 15.6 sec (9.0-12.0)
[2017-02-15 09:22] LABS: Anion Gap 9 mmol/L; Blood Urea Nitrogen 12 mg/dL (9-20); Calcium 8.6 mg/dL (8.4-10.2); Carbon Dioxide 23 mmol/L (22-30); Chloride 107 mmol/L (98-107); Glucose 101 mg/dL (74-99); Magnesium 1.8 mg/dL (1.6-2.3); Non-African American GFR(MDRD) >60 (>60 ml/min/1.73 sqM); Potassium 4.1 mmol/L (3.5-5.1); Sodium 139 mmol/L (137-145)
--- NOTE | 2017-02-15 11:36 | P.CNPUL ---
History of Present Illness Consult date: 02/15/17 Requesting physician: Duy De Leon Reason for consult: dyspnea Chief complaint: shortness of breath History of present illness: This is a 71-year-old male patient being seen examined and evaluated today on rounds. The patient apparently underwent a cardioversion on 02/10/2017 for atrial fibrillation and was discharged home. However overnight the patient became quite dyspneic even came into the emergency room for further evaluation and treatment. The patient was noted to have hypertension with a blood pressure of 212/88 and was given 1 dose of IV hydralazine which improved the patient's blood pressure to 136/68. EKG shows sinus rhythm with first-degree AV block and has been having intermittent sinus pauses lasting approximately 2 seconds. Cardiology on consult. Chest x-ray showed hyperinflation consistent with COPD. The patient does have a role history of tobacco use but no current tobacco use. Patient did note to have some low oxygen saturations that were improved with 2 L of supplemental oxygen. He does have a significant history for asthma and COPD. Hemoglobin stable at 15.3, INR is supratherapeutic at 4.0, Coumadin will be held. Potassium is 5.4 which is treated with IV fluids and IV calcium, as well as albuterol. Magnesium is 1.3 and is replaced. Troponin is negative as are 0.014, BMP is 660. Review of Systems 14 point review of systems was completed and negative unless noted above in the HPI. Past Medical History Past Medical History: Hypertension, Pneumonia, Thyroid Disorder Additional Past Medical History / Comment(s): SEE DR. GARCIA'S H & P FOR CARDIOVASCULAR DETAIL. Irregular heartbeat History of Any Multi-Drug Resistant Organisms: None Reported Additional Past Surgical History / Comment(s): CYST REMOVED,COLONOSCOPY, CATARACT SURGERY BILATERAL EYES, cardioversion x2. Past Anesthesia/Blood Transfusion Reactions: No Reported Reaction Past Psychological History: Anxiety Smoking Status: Former smoker Past Alcohol Use History: Daily Additional Past Alcohol Use History / Comment(s): STARTED SMOKING AT AGE 17 QUIT SMOKING AT AGE 34 SMOKED 3/4 -1PPD /. 2 DRINKS PER DAY Past Drug Use History: None Reported - Past Family History Mother Family Medical History: No Reported History Medications and Allergies Home Medications Medication Instructions Recorded Confirmed Type ALPRAZolam [Xanax] 0.25 mg PO TID PRN 12/28/16 02/13/17 History Levothyroxine Sodium [Synthroid] 150 mcg PO QAM 12/28/16 02/13/17 History Multivitamin [Men's Multi-Vitamin] 1 tab PO DAILY 12/28/16 02/13/17 History Warfarin [Coumadin] 5 mg PO HS 12/28/16 02/13/17 History Propafenone [Rythmol] 150 mg PO TID 02/11/17 02/13/17 History Metoprolol Tartrate [Lopressor] 50 mg PO BID 02/13/17 02/13/17 History Allergies Allergy/AdvReac Type Severity Reaction Status Date / Time No Known Allergies Allergy Verified 02/13/17 11:52 Physical Exam Vitals: Vital Signs Temp Pulse Resp BP BP Pulse Ox 02/15/17 09:10 99.3 F 02/15/17 08:00 79 16 02/15/17 07:54 101.7 F H 79 16 136/65 93 L 02/15/17 01:46 99.4 F 71 17 134/67 95 02/15/17 00:00 98.3 F 73 18 129/68 93 L 02/14/17 20:00 98.2 F 75 18 132/67 94 L 02/14/17 19:08 98.8 F 02/14/17 16:00 99.5 F 78 18 149/71 95 02/14/17 12:00 68 18 162/74 94 L Intake and Output 02/14/17 02/15/17 02/15/17 22:59 06:59 14:59 Intake Total 600 Balance 600 Intake: Intake, IV Titration 600 Amount Sodium Chloride 0.9% 1, 600 000 ml @ 75 mls/hr IV . [id number] [facility] Rx#:[id number] Other: Voiding Method Toilet Toilet Toilet GENERAL EXAM: Alert, active, comfortable in no apparent distress. HEAD: Normocephalic. EYES: Normal reaction of pupils, equal size. NOSE: Clear with pink turbinates. THROAT: No erythema or exudates. NECK: No masses, no JVD. CHEST: No chest wall deformity. LUNGS: Lungs noted to be coarse throughout, patient does have bilaterally scattered rhonchi throughout. Bases diminished. CVS: S1 and S2 normal with no audible mumurs, regular rhythm. ABDOMEN: No hepatosplenomegaly, normal bowel sounds, no guarding or rigidity. EXTREMITIES: No edema noted, pedal pulses palpable. SKIN: No rashes, slightly clammy, correlate for possible EtOH withdrawal CENTRAL NERVOUS SYSTEM: No focal deficits, tone is normal in all 4 extremities. Results - Laboratory Findings CBC and BMP: 02/15/17 07:55 02/15/17 07:55 PT/INR, D-dimer PT 15.6 sec (9.0-12.0) H 02/15/17 07:55 INR 1.6 (<1.2) H 02/15/17 07:55 D-Dimer 0.33 mg/L FEU (<0.60) 02/13/17 20:21 Abnormal lab findings: Abnormal Labs 02/13/17 02/13/17 02/13/17 11:25 11:25 11:25 WBC Neutrophils # Lymphocytes # 0.7 L PT INR APTT Sodium Potassium 5.4 H Glucose Magnesium 1.3 L Total Creatine Kinase 44 L 02/13/17 02/13/17 02/14/17 11:25 17:49 06:06 WBC Neutrophils # Lymphocytes # PT 39.4 H INR 4.0 H APTT 35.0 H Sodium 136 L Potassium Glucose 114 H Magnesium Total Creatine Kinase 39 L 02/14/17 02/15/17 02/15/17 06:06 07:55 07:55 WBC 11.2 H Neutrophils # 8.6 H Lymphocytes # PT 26.2 H 15.6 H INR 2.7 H 1.6 H APTT Sodium Potassium Glucose Magnesium Total Creatine Kinase 02/15/17 07:55 WBC Neutrophils # Lymphocytes # PT INR APTT Sodium Potassium Glucose 101 H Magnesium Total Creatine Kinase - Diagnostic Findings Chest x-ray: report reviewed, image reviewed Assessment and Plan Plan: Assessment Acute exacerbation of COPD Acute hypoxic respiratory failure Status post recent cardioversion for atrial fibrillation Elevated INR on admission Hyperkalemia Hypomagnesemia History of EtOH use Hypothyroidism Hypertension Anxiety Plan Patient would benefit from a workup in the outpatient setting with a full PFT as well as a possible sleep study. Medications have been reviewed and will be continued as ordered. Continue on CIWA protocol. Continue with pulmonary hygiene, coughing and deep breathing exercises, and supportive care. Supplemental oxygen to maintain oxygen saturations of 92% or better. Add nebulizer treatments. GI and DVT prophylaxis. We will continue to monitor labs/ results and adjust treatment as necessary. Further recommendations pending. I performed an examination of the patient and discussed their management with the nurse practitioner. I have reviewed the nurse practitioner's note and agree with the documented findings and plan of care.
[2017-02-15] MEDS: MULTIVITAMINS, THERA 1 EACH TAB PO SCH (12:15)
[2017-02-15] MEDS: THIAMINE 100 MG TAB PO SCH ×2 (12:15→16:07)
[2017-02-15] MEDS: IPRATROPIUM-ALBUTEROL 3 ML NEB INHALATION SCH ×2 (12:27→19:26)
--- NOTE | 2017-02-15 19:13 | ECHOF ---
Referral Reason:sob MEASUREMENTS -------- HEIGHT: 177.8 cm WEIGHT: 83.5 kg BP: 134/67 RVIDd: 3.5 cm (< 3.3) IVSd: 1.3 cm (0.6 - 1.1) LVIDd: 4.0 cm (3.9 - 5.3) LVPWd: 1.3 cm (0.6 - 1.1) IVSs: 1.8 cm LVIDs: 2.9 cm LVPWs: 1.8 cm LAESV Index (A-L): 21.68 ml/m Ao Diam: 3.4 cm (2.0 - 3.7) AV Cusp: 1.4 cm (1.5 - 2.6) LA Diam: 4.1 cm (2.7 - 3.8) MV EXCURSION: 15.271 mm (> 18.000) MV EF SLOPE: 101 mm/s (70 - 150) EPSS: 1.0 cm MV E Darrian: 0.90 m/s MV DecT: 215 ms MV A Darrian: 0.28 m/s MV E/A Ratio: 3.18 RAP: 10.00 mmHg RVSP: 45.98 mmHg FINDINGS -------- Sinus rhythm. This was a technically good study. The left ventricular size is normal. There is mild concentric left ventricular hypertrophy. Overall left ventricular systolic function is normal with, an EF between 55 - 60 %. The right ventricle is mild to moderately enlarged. The right ventricular systolic function is normal. Normal LA size by volume 22+/-6 ml/m2. The right atrium is normal in size. The aortic valve is trileaflet and appears structurally normal. There is no evidence of aortic regurgitation. There is no evidence of aortic stenosis. The mitral valve leaflets are mildly thickened. There is trace to mild mitral regurgitation. Trace tricuspid regurgitation present. There is mild pulmonary hypertension. The right ventricular systolic pressure, as measured by Doppler, is 45.98mmHg. Trace/mild (physiologic) pulmonic regurgitation. The aortic root size is normal. The inferior vena cava is mildly dilated. The pericardium is normal. There is no pericardial effusion. CONCLUSIONS -------- 1. Sinus rhythm. 2. There is trace to mild mitral regurgitation. 3. Trace tricuspid regurgitation present. 4. There is mild pulmonary hypertension. 5. The right ventricular systolic pressure, as measured by Doppler, is 45.98mmHg. 6. Trace/mild (physiologic) pulmonic regurgitation. 7. The aortic root size is normal. 8. The inferior vena cava is mildly dilated. 9. There is no pericardial effusion. 10. This was a technically good study. 11. The left ventricular size is normal. 12. There is mild concentric left ventricular hypertrophy. 13. Overall left ventricular systolic function is normal with, an EF between 55 - 60 %. 14. The right ventricle is mild to moderately enlarged. 15. Normal LA size by volume 22+/-6 ml/m2. 16. The aortic valve is trileaflet and appears structurally normal. 17. The mitral valve leaflets are mildly thickened. [employer]CH SUPERVISOR: Darwin Ling RDCS
[2017-02-15] MEDS: ALPRAZolam 0.25 MG TAB PO PRN (21:43)
--- NOTE | 2017-02-15 23:19 | P.PN ---
Subjective Principal diagnosis: Worsening shortness of breath/continuing care. The patient is seen this morning after a weekend long of dyspnea on breathing. D-dimer was negative. Element of tachypnea is noted. He hasn't history of asthma/COPD there is no voiding difficulties otherwise stated. Objective - Vital Signs Vital signs: Vital Signs Temp 99.4 F 02/15/17 21:14 Pulse 81 02/15/17 21:14 Resp 18 02/15/17 21:14 BP 133/66 02/15/17 21:14 Pulse Ox 92 L 02/15/17 21:14 Intake & Output 02/15/17 02/15/17 02/16/17 06:59 18:59 06:59 Intake Total 600 525 Balance 600 525 Intake: Intake, IV Titration 600 525 Amount Sodium Chloride 0.9% 1, 600 525 000 ml @ 75 mls/hr IV . [id number] [facility] Rx#:[id number] Other: Voiding Method Toilet Toilet # Voids 3 - Constitutional General appearance: Present: average body habitus, mild distress - EENT Eyes: Absent: abnormal pupil - Respiratory Respiratory: bilateral: diminished - Cardiovascular Rhythm: regular Heart sounds: normal: S1, S2 - Gastrointestinal General gastrointestinal: Present: soft. Absent: tenderness - Neurologic Neurologic: Present: CNII-XII intact - Labs CBC & Chem 7: 02/15/17 07:55 02/15/17 07:55 Labs: Abnormal Lab Results - Last 24 Hours (Table) 02/15/17 02/15/17 02/15/17 Range/Units 07:55 07:55 07:55 WBC 11.2 H (3.8-10.6) k/uL Neutrophils # 8.6 H (1.3-7.7) k/uL PT 15.6 H (9.0-12.0) sec INR 1.6 H (<1.2) Glucose 101 H (74-99) mg/dL Assessment and Plan (1) Dyspnea Status: Acute (2) Atrial flutter Status: Acute Plan: Given his overall tachypnea today, we will go ahead and consult pulmonology. Check CBC and CMP in a.m. I reviewed labs from the weekend, no overt findings are noted to explain his dyspnea which has been worsening. Pulmonology has been overalls consulted. See orders otherwise.
[2017-02-16] MEDS: LEVOTHYROXINE 75 MCG TAB PO SCH (06:12)
[2017-02-16] MEDS: SODIUM CHLORIDE 0.9% 1,000 ML IV SCH ×2 (07:39→20:45)
[2017-02-16] MEDS: IPRATROPIUM-ALBUTEROL 3 ML NEB INHALATION SCH ×3 (07:42→19:30)
--- NOTE | 2017-02-16 08:23 | P.PN ---
Subjective Principal diagnosis: Worsening shortness of breath/continuing care. This is a continue progress on a 71-year-old white male essentially admitted for dyspnea and breathing. I suspect element of COPD. Appreciate pulmonology input. We will go ahead and add Pulmicort to his regimen today. Objective - Vital Signs Vital signs: Vital Signs Temp 99.4 F 02/15/17 21:14 Pulse 80 02/16/17 07:56 Resp 20 02/16/17 07:00 BP 165/74 02/16/17 07:00 Pulse Ox 100 02/16/17 07:00 Intake & Output 02/15/17 02/16/17 02/16/17 18:59 06:59 18:59 Intake Total 525 1600 Balance 525 1600 Intake: Intake, IV Titration 525 1200 Amount Sodium Chloride 0.9% 1, 525 1200 000 ml @ 75 mls/hr IV . [id number] [facility] Rx#:[id number] Oral 400 Other: Voiding Method Toilet Toilet # Voids 3 2 - Constitutional General appearance: Present: average body habitus - Respiratory Details: He seems somewhat tachypneic today. However, this is improved since yesterday. Respiratory: bilateral: CTA - Cardiovascular Rhythm: regular Heart sounds: normal: S1, S2 - Gastrointestinal General gastrointestinal: Present: soft. Absent: tenderness - Integumentary Integumentary: Absent: cellulitis - Neurologic Neurologic: Present: CNII-XII intact - Labs CBC & Chem 7: 02/15/17 07:55 02/15/17 07:55 Labs: Abnormal Lab Results - Last 24 Hours (Table) 02/15/17 02/15/17 02/15/17 Range/Units 07:55 07:55 07:55 WBC 11.2 H (3.8-10.6) k/uL Neutrophils # 8.6 H (1.3-7.7) k/uL PT 15.6 H (9.0-12.0) sec INR 1.6 H (<1.2) Glucose 101 H (74-99) mg/dL Assessment and Plan (1) Dyspnea Status: Acute (2) Atrial flutter Status: Acute Plan: We'll going continue current regimen with Pulmicort in addition. Appreciate pulmonology input. If the patient stabilizes, I anticipate discharge in the next 24 hours.
[2017-02-16] MEDS: METOPROLOL TARTRATE 25 MG TAB PO SCH ×2 (08:50→20:41)
[2017-02-16] MEDS: ACETAMINOPHEN TAB 325 MG TAB PO PRN ×2 (08:50→16:31)
[2017-02-16] MEDS: PROPAFENONE 150 MG TAB PO SCH ×3 (08:50→22:21)
[2017-02-16 08:59] LABS: Basophils % (A) 0 %; CH 31.9; CHCM 32.6; Eosinophils # (A) 0.4 k/uL (0-0.7); Eosinophils % (A) 5 %; HCT 45.2 % (39.0-53.0); HDW 2.37; INR 1.5 (<1.2); Luc # (Auto) 0.38; Luc % (Auto) 4; Lymphocytes # (A) 1.1 k/uL (1.0-4.8); Lymphocytes % (A) 13 %; MCH 30.5 pg (25.0-35.0); MCV 98.2 fL (80.0-100.0); Mean Platelet Volume 7.6; Monocytes % (A) 11 %; Neutrophils % (A) 67 %; Prothrombin Time 14.3 sec (9.0-12.0); RBC 4.61 m/uL (4.30-5.90); RDW 13.9 % (11.5-15.5); WBC (Perox) 9.07
[2017-02-16 09:26] LABS: ALT 46 U/L (21-72); AST 33 U/L (17-59); Alkaline Phosphatase 87 U/L (38-126); Anion Gap 11 mmol/L; Blood Urea Nitrogen 11 mg/dL (9-20); Calcium 8.3 mg/dL (8.4-10.2); Carbon Dioxide 22 mmol/L (22-30); Chloride 107 mmol/L (98-107); Glucose 86 mg/dL (74-99); Non-African American GFR(MDRD) >60 (>60 ml/min/1.73 sqM); Sodium 140 mmol/L (137-145); Total Bilirubin 1.5 mg/dL (0.2-1.3); Total Protein 6.4 g/dL (6.3-8.2)
--- NOTE | 2017-02-16 11:47 | P.PN ---
Subjective 02/16/17- patient is being seen in evaluated and examined today on rounds. Patient is resting up in bed on room air denies any cough or congestion today is occasional shortness of breath with exertion. Patient states the nebulizer treatments have helped him significantly. Patient does not have a nebulizer machine at home a prescription will be provided. Apparently the patient did have a fever this morning with a temperature of 101.2 which responded very well to oral Tylenol, repeat temp 97.1. Blood cultures have been drawn. Patient also on CIWA protocol for impending DTs. No further complaints. 02/15/17- This is a 71-year-old male patient being seen examined and evaluated today on rounds. The patient apparently underwent a cardioversion on 2016 for atrial fibrillation and was discharged home. However overnight the patient became quite dyspneic even came into the emergency room for further evaluation and treatment. The patient was noted to have hypertension with a blood pressure of 212/88 and was given 1 dose of IV hydralazine which improved the patient's blood pressure to 136/68. EKG shows sinus rhythm with first- degree AV block and has been having intermittent sinus pauses lasting approximately 2 seconds. Cardiology on consult. Chest x-ray showed hyperinflation consistent with COPD. The patient does have a role history of tobacco use but no current tobacco use. Patient did note to have some low oxygen saturations that were improved with 2 L of supplemental oxygen. He does have a significant history for asthma and COPD. Hemoglobin stable at 15.3, INR is supratherapeutic at 4.0, Coumadin will be held. Potassium is 5.4 which is treated with IV fluids and IV calcium, as well as albuterol. Magnesium is 1.3 and is replaced. Troponin is negative as are 0.014, BMP is 660. Objective - Vital Signs Vital signs: Vital Signs Temp 97.1 F L 02/16/17 10:02 Pulse 80 02/16/17 07:56 Resp 20 02/16/17 08:53 BP 165/74 02/16/17 07:00 Pulse Ox 100 02/16/17 07:00 Intake & Output 02/15/17 02/16/17 02/16/17 18:59 06:59 18:59 Intake Total 525 1600 Balance 525 1600 Intake: Intake, IV Titration 525 1200 Amount Sodium Chloride 0.9% 1, 525 1200 000 ml @ 75 mls/hr IV . [id number] MATIAS Rx#:[id number] Oral 400 Other: Voiding Method Toilet Toilet Toilet # Voids 3 2 - Exam GENERAL EXAM: Alert, active, comfortable in no apparent distress. HEAD: Normocephalic. EYES: Normal reaction of pupils, equal size. NOSE: Clear with pink turbinates. THROAT: No erythema or exudates. NECK: No masses, no JVD. CHEST: No chest wall deformity. LUNGS: Lungs noted to be coarse throughout, patient does have bilaterally scattered rhonchi throughout. Bases diminished. CVS: S1 and S2 normal with no audible mumurs, regular rhythm. ABDOMEN: No hepatosplenomegaly, normal bowel sounds, no guarding or rigidity. EXTREMITIES: No edema noted, pedal pulses palpable. SKIN: No rashes, slightly clammy, correlate for possible EtOH withdrawal CENTRAL NERVOUS SYSTEM: No focal deficits, tone is normal in all 4 extremities. - Labs CBC & Chem 7: 02/16/17 08:13 02/16/17 08:13 Labs: Abnormal Lab Results - Last 24 Hours (Table) 02/16/17 02/16/17 Range/Units 08:13 08:13 PT 14.3 H (9.0-12.0) sec INR 1.5 H (<1.2) Calcium 8.3 L (8.4-10.2) mg/dL Total Bilirubin 1.5 H (0.2-1.3) mg/dL Albumin 3.3 L (3.5-5.0) g/dL Assessment and Plan Plan: Assessment Acute exacerbation of COPD Acute hypoxic respiratory failure Status post recent cardioversion for atrial fibrillation Elevated INR on admission Hyperkalemia Hypomagnesemia History of EtOH use Hypothyroidism Hypertension Anxiety Plan Patient would benefit from a workup in the outpatient setting with a full PFT as well as a possible sleep study. Medications have been reviewed and will be continued as ordered. Continue on CIWA protocol. Continue with pulmonary hygiene, coughing and deep breathing exercises, and supportive care. Supplemental oxygen to maintain oxygen saturations of 92% or better. Add nebulizer treatments. Increase activity as tolerated. GI and DVT prophylaxis. We will continue to monitor labs/results and adjust treatment as necessary. Further recommendations pending. I performed an examination of the patient and discussed their management with the nurse practitioner. I have reviewed the nurse practitioner's note and agree with the documented findings and plan of care.
[2017-02-16] MEDS: MULTIVITAMINS, THERA 1 EACH TAB PO SCH (12:38)
[2017-02-16] MEDS: THIAMINE 100 MG TAB PO SCH ×2 (12:38→16:03)
[2017-02-16] MEDS: BUDESONIDE 0.5 MG/2 ML NEBU INHALATION SCH (19:30)
[2017-02-16] MEDS ORDERED: WARFARIN 5 MG TAB PO SCH (20:00)
[2017-02-16] MEDS: ALPRAZolam 0.25 MG TAB PO PRN (22:21)
[2017-02-17 00:38] VITALS: RESP 16
[2017-02-17] MEDS: LEVOTHYROXINE 75 MCG TAB PO SCH (06:27)
[2017-02-17 07:30] VITALS: BP 161/80; TEMP 99.6
[2017-02-17] MEDS: BUDESONIDE 0.5 MG/2 ML NEBU INHALATION SCH (07:54)
[2017-02-17] MEDS: IPRATROPIUM-ALBUTEROL 3 ML NEB INHALATION SCH (07:54)
--- NOTE | 2017-02-17 08:05 | P.DS ---
Providers Date of admission: 02/13/17 12:55 Attending physician: Duy De Leon Consults: 02/14/17 17:27 Consult Physician Routine Consulting Provider: Wayne Gutierrez Consult Reason/Comments: sob Do you want consulting provider notified?: Yes 02/15/17 07:54 Consult Physician Routine Consulting Provider: Wayne Gutierrez Consult Reason/Comments: respiratory distress Do you want consulting provider notified?: Yes Primary care physician: Duy De Leon - Discharge Diagnosis(es) (1) Dyspnea Current Visit: Yes Status: Acute (2) Atrial flutter Current Visit: No Status: Inactive Hospital Course: This is a discharge summary on a 71-year-old white male essentially admitted for dyspnea and breathing. He was found to have exacerbation of COPD and has not been stabilized. I placed him on appropriate steroid inhalant and pulmonology was consulted. The patient now seems much better. No withdrawal symptoms. He was placed on ciwa scale. I would like to follow-up with him in about 3-5 days. Patient Condition at Discharge: Stable Plan - Discharge Summary New Discharge Prescriptions: New Losartan [Cozaar] 50 mg PO DAILY #30 tab Continue Warfarin [Coumadin] 5 mg PO HS Levothyroxine Sodium [Synthroid] 150 mcg PO QAM ALPRAZolam [Xanax] 0.25 mg PO TID PRN PRN Reason: Anxiety Multivitamin [Men's Multi-Vitamin] 1 tab PO DAILY Propafenone [Rythmol] 150 mg PO TID Metoprolol Tartrate [Lopressor] 50 mg PO BID Discharge Medication List ALPRAZolam [Xanax] 0.25 mg PO TID PRN 12/28/16 [History] Levothyroxine Sodium [Synthroid] 150 mcg PO QAM 12/28/16 [History] Multivitamin [Men's Multi-Vitamin] 1 tab PO DAILY 12/28/16 [History] Warfarin [Coumadin] 5 mg PO HS 12/28/16 [History] Propafenone [Rythmol] 150 mg PO TID 02/11/17 [History] Metoprolol Tartrate [Lopressor] 50 mg PO BID 02/13/17 [History] Losartan [Cozaar] 50 mg PO DAILY #30 tab 02/17/17 [Rx] Follow up Appointment(s)/Referral(s): Duy De Leon MD [Primary Care Provider] - 1-2 days Wayne Gutierrez MD [STAFF PHYSICIAN] - 1 Week
[2017-02-17 08:14] LABS: INR 1.4 (<1.2); Prothrombin Time 13.5 sec (9.0-12.0)
[2017-02-17] MEDS ORDERED: LOSARTAN 50 MG TAB PO SCH (09:00)
[2017-02-17] MEDS: SODIUM CHLORIDE 0.9% 1,000 ML IV SCH (09:36)
[2017-02-17] MEDS: METOPROLOL TARTRATE 25 MG TAB PO SCH (09:38)
[2017-02-17] MEDS: PROPAFENONE 150 MG TAB PO SCH (09:38)
[2017-02-17 09:47] VITALS: PULSE 74
--- NOTE | 2017-02-17 10:28 | P.PN ---
Subjective 02/17/17- patient has been seen examined and evaluated today on rounds. Patient is resting up in bed on room air he states his shortness of breath has significantly improved. Denies any cough or congestion. The patient is being prepared for discharge today. We have discussed with the patient the need for follow-up in the outpatient setting. The patient will need a full PFT and a possible obstructive sleep apnea workup. Patient agrees. 02/16/17- patient is being seen in evaluated and examined today on rounds. Patient is resting up in bed on room air denies any cough or congestion today is occasional shortness of breath with exertion. Patient states the nebulizer treatments have helped him significantly. Patient does not have a nebulizer machine at home a prescription will be provided. Apparently the patient did have a fever this morning with a temperature of 101.2 which responded very well to oral Tylenol, repeat temp 97.1. Blood cultures have been drawn. Patient also on CIWA protocol for impending DTs. No further complaints. 02/15/17- This is a 71-year-old male patient being seen examined and evaluated today on rounds. The patient apparently underwent a cardioversion on 2016 for atrial fibrillation and was discharged home. However overnight the patient became quite dyspneic even came into the emergency room for further evaluation and treatment. The patient was noted to have hypertension with a blood pressure of 212/88 and was given 1 dose of IV hydralazine which improved the patient's blood pressure to 136/68. EKG shows sinus rhythm with first- degree AV block and has been having intermittent sinus pauses lasting approximately 2 seconds. Cardiology on consult. Chest x-ray showed hyperinflation consistent with COPD. The patient does have a role history of tobacco use but no current tobacco use. Patient did note to have some low oxygen saturations that were improved with 2 L of supplemental oxygen. He does have a significant history for asthma and COPD. Hemoglobin stable at 15.3, INR is supratherapeutic at 4.0, Coumadin will be held. Potassium is 5.4 which is treated with IV fluids and IV calcium, as well as albuterol. Magnesium is 1.3 and is replaced. Troponin is negative as are 0.014, BMP is 660. Objective - Vital Signs Vital signs: Vital Signs Temp 99.6 F 02/17/17 07:20 Pulse 76 02/17/17 08:08 Resp 16 02/17/17 07:52 BP 161/80 02/17/17 07:20 Pulse Ox 93 L 02/17/17 07:20 Intake & Output 02/16/17 02/17/17 02/17/17 18:59 06:59 18:59 Intake Total 600 1190 Balance 600 1190 Weight 83.8 kg Intake: Intake, IV Titration 600 600 Amount Sodium Chloride 0.9% 1, 600 600 000 ml @ 75 mls/hr IV . [id number] MATIAS Rx#:[id number] Oral 590 Other: Voiding Method Toilet Toilet Toilet # Voids 2 - Exam GENERAL EXAM: Alert, active, comfortable in no apparent distress. HEAD: Normocephalic. EYES: Normal reaction of pupils, equal size. NOSE: Clear with pink turbinates. THROAT: No erythema or exudates. NECK: No masses, no JVD. CHEST: No chest wall deformity. LUNGS: Lungs noted to be slightly coarse throughout. Bases diminished. CVS: S1 and S2 normal with no audible mumurs, regular rhythm. ABDOMEN: No hepatosplenomegaly, normal bowel sounds, no guarding or rigidity. EXTREMITIES: No edema noted, pedal pulses palpable. SKIN: No rashes, slightly clammy, correlate for possible EtOH withdrawal CENTRAL NERVOUS SYSTEM: No focal deficits, tone is normal in all 4 extremities. - Labs CBC & Chem 7: 02/16/17 08:13 02/16/17 08:13 Labs: Abnormal Lab Results - Last 24 Hours (Table) 02/17/17 Range/Units 07:18 PT 13.5 H (9.0-12.0) sec INR 1.4 H (<1.2) Assessment and Plan Plan: Assessment Acute exacerbation of COPD Acute hypoxic respiratory failure Status post recent cardioversion for atrial fibrillation Elevated INR on admission Hyperkalemia Hypomagnesemia History of EtOH use Hypothyroidism Hypertension Anxiety Plan Patient cleared for discharge from pulmonary standpoint. Patient would benefit from a workup in the outpatient setting with a full PFT as well as a possible sleep study. Medications have been reviewed and will be continued as ordered. Continue on CIWA protocol. Continue with pulmonary hygiene, coughing and deep breathing exercises, and supportive care. Supplemental oxygen to maintain oxygen saturations of 92% or better. Add nebulizer treatments. Increase activity as tolerated. GI and DVT prophylaxis. We will continue to monitor labs /results and adjust treatment as necessary. Further recommendations pending. I performed an examination of the patient and discussed their management with the nurse practitioner. I have reviewed the nurse practitioner's note and agree with the documented findings and plan of care.
--- NOTE | 2017-02-23 16:40 | CDI ---
In responding to this query, please exercise your independent professional judgment. The [facility] Coding Staff and Clinical Documentation Specialists appreciate your assistance in clarifying documentation, maintaining compliance with coding guidelines, accurately documenting patients condition and capturing severity of illness. The fact that a question is asked does not imply that any particular answer is desired or expected. Communication forms are a method of clarifying documentation and are not made part of the Legal Health Record. Thank you in advance for your clarification. Last Revision, March 2015 Oscar Hanson [address] [place] [address] Documentation Clarification Form Date: 02/23/2017 4:10:00 PM From: Lorraine Carri Admit Date: 02/13/2017 12:55:00 PM Patient Name: Aubrey Harris Visit Number: [id number] Discharge Date: Dr. Wayne Gutierrez/Margarita Green NP-[place] Acute hypoxic respiratory failure is in your consult and progress notes. Patient history/risk factors: COPD, Atrial fibrillation, ETOH use, Hypertension Clinical Indicators: Patient present with complaints of dyspnea, shortness of breath. He his a history of COPD and tobacco use. Radiology findings: COPD, [place] cardiomegaly Vital Signs: 212/88 54 138 97.9 94 % RA, 96 % 2/L NC Lungs noted to be coarse through, with bilaterally scattered rhonchi throughout bases, diminished. Other Clinical Indicators: ED evaluation: present with worsening dyspnea over the past 24 hours. Respiratory assessment: Short of breath with activity, breath sounds clear, diminished, respiratory effort was nonlabored Treatment: Monitor O2 Sat's (titrate) In your professional opinion, can you please clarify acute hypoxic respiratory failure and provide your clinical support for this diagnosis. Or clarify if the acute respiratory failure has been ruled out. Other (specify) Please document as an addendum in your progress notes in order to capture severity of illness and risk of mortality. Include clinical findings that support your diagnosis. FYI: Press F11 to launch patient chart. ALICE
== END 2017-02-17 11:45 | disposition home or self-care (01) | DRG 190 ==
LOC: EC 10:43 → 6SEL 12:55 → 5MS5E 02-15 01:31
PROVIDERS: ADMIT Family Medicine; ATTEND Family Medicine
DX: J44.1 Chronic obstructive pulmonary disease with (acute) exacerbation (principal); J96.01 Acute respiratory failure with hypoxia; I48.1 Persistent atrial fibrillation; I48.92 Unspecified atrial flutter; I11.9 Hypertensive heart disease without heart failure; E87.5 Hyperkalemia; I44.0 Atrioventricular block, first degree; I48.0 Paroxysmal atrial fibrillation; E83.42 Hypomagnesemia; I49.5 Sick sinus syndrome; R53.1 Weakness; R79.1 Abnormal coagulation profile; E03.9 Hypothyroidism, unspecified; F41.9 Anxiety disorder, unspecified; Z87.01 Personal history of pneumonia (recurrent); Z79.01 Long term (current) use of anticoagulants; Z79.899 Other long term (current) drug therapy; Z87.891 Personal history of nicotine dependence; Z71.3 Dietary counseling and surveillance; Z98.890 Other specified postprocedural states; Z98.42 Cataract extraction status, left eye; Z98.41 Cataract extraction status, right eye; Z51.81 Encounter for therapeutic drug level monitoring; Z72.89 Other problems related to lifestyle
CPT/HCPCS: 36415; 71020; 80048; 80053; 81003; 82550; 82553; 83735; 83880; 84484; 85025; 85379; 85610; 85730; 87040; 93005; 93306; 94640; 96365; 96375; 99291

== ENCOUNTER → 2017-12-08 | Outpatient (CLI) | payer MEDICARE ==
[2017-12-08 15:06] LABS: HCT 47.7 % (39.0-53.0); HGB 15.4 gm/dL (13.0-17.5); MCH 30.3 pg (25.0-35.0); MCHC 32.2 g/dL (31.0-37.0); MCV 94.1 fL (80.0-100.0); Mean Platelet Volume 6.6; Platelet Count 430 k/uL (150-450); RBC 5.07 m/uL (4.30-5.90); RDW 13.6 % (11.5-15.5); WBC 6.5 k/uL (3.8-10.6)
[2017-12-08 15:23] LABS: Anion Gap 10 mmol/L; Blood Urea Nitrogen 20 mg/dL (9-20); Calcium 9.8 mg/dL (8.4-10.2); Carbon Dioxide 31 mmol/L (22-30); Chloride 100 mmol/L (98-107); Glucose 91 mg/dL (74-99); Sodium 141 mmol/L (137-145)
== END | disposition home or self-care (01) ==
LOC: LABWHC1 14:28
PROVIDERS: ATTEND Internal Medicine Interventional Cardiology
DX: I48.0 Paroxysmal atrial fibrillation (principal)
CPT/HCPCS: 36415; 80048; 85027

== ENCOUNTER → 2017-12-15 | Outpatient (CLI) | payer MEDICARE ==
--- NOTE | 2017-12-15 12:13 | MR ---
EXAMINATION TYPE: MR lumbar spine wo con DATE OF EXAM: 12/15/2017 11:19 AM COMPARISON: NONE HISTORY: Anterior spinal artery compression syn, osteoarthritis, pain Multiplanar, MultiSpin echo imaging of the lumbar spine was performed. L1-L2: Moderate disc desiccation noted. Extruded disc herniation with disc material extending posteri or centrally and towards the left. Disc material is noted to extend posterior to the L2 segment and m easures 1.7 cm in length by 0.5 cm. There is a mild central stenosis and left lateral recess stenosis . Left foraminal encroachment identified. L2-L3: Severe disc desiccation. Grade 1 retrolisthesis of L2 on L3 measuring 6 mm. Moderate posterior disc bulge with hypertrophy of the ligamentum flavum and facet joint arthropathy. Moderate canal davonte nosis. L3-L4: Mild to moderate disc desiccation. Circumferential disc bulging greatest posteriorly. Effaceme nt ventral thecal sac with borderline central stenosis. Left lateral recess stenosis noted. L4-L5: Severe disc desiccation with circumferential disc bulge greatest posteriorly. Partial encapsul ating spur noted. Left lateral recess stenosis and bilateral foraminal encroachment left greater than right. Severe facet joint arthropathy. L5-S1: Severe disc desiccation vacuum disc. Posterior disc bulge. Mild effacement ventral thecal sac. Facet joint arthropathy with moderate to severe bilateral foraminal encroachment right greater than left. No evidence for central stenosis or disc herniation. Lumbar segments are intact. No paraspinal masses are identified. Conus medullaris has a normal appe arance. Simple cyst right kidney. IMPRESSION: 1. Multilevel degenerative disc disease. 2. Extruded disc herniation with moderate central stenosis at L2-3. 3. Varying degrees of lateral recess stenosis and foraminal encroachment as noted above.
== END | disposition home or self-care (01) ==
LOC: RADMRIMAIN 10:30
PROVIDERS: ATTEND Family Medicine
DX: M48.061 Spinal stenosis, lumbar region without neurogenic claudication (principal); M51.26 Other intervertebral disc displacement, lumbar region; M51.36 Other intervertebral disc degeneration, lumbar region
CPT/HCPCS: 72148

== ENCOUNTER 2017-12-31 06:53 | Day surgery (SDC) | payer MEDICARE ==
[2017-12-27 15:14] VITALS: BMI 25.8
[~2017-12-31 06:53] MED LIST changes: +LACTATED RINGERS 1,000 ML IV SCH
[2017-12-31] MEDS ORDERED: PROPOFOL 10 MG/ML 20 ML VIAL IV ONE (07:42)
[2017-12-31] MEDS ORDERED: LIDOCAINE 1% INJ 10MG/ML (20 ML MDV) ONE (07:42)
[2017-12-31 07:46] LABS: INR 2.7 (<1.2); Prothrombin Time 23.9 sec (9.0-12.0)
--- NOTE | 2017-12-31 08:12 | CE ---
CARDIAC ELECTROPHYSIOLOGY REPORT DATE OF SERVICE: 12/31/2017 PROCEDURE: Electrical cardioversion. INDICATION: Persistent atrial fibrillation. PERFORMED BY: Dr. Jose Alfonso. CLINICAL INFORMATION: Mr. Aubrey Harris is a 72-year-old gentleman with history of hypertension, hyperlipidemia, and persistent atrial fibrillation who underwent electrical cardioversion that was performed in December of 2016 was back in atrial fib. I switched him from propafenone to sotalol. His rate was controlled, but remained in atrial fib. He was on Coumadin with a PT, INR of 2.7. He was brought in for the procedure electively after due discussion of risks, benefits, and options. PROCEDURE NOTE: Under the influence of ultra short-acting intravenous anesthetic agent with the attendance of the anesthesiologist, a single 200 joule shock was delivered with anterior and posterior patches. Patient converted to sinus rhythm, remained hemodynamically stable and neurologically intact. This was a successful cardioversion. He will be discharged later on today when he is up and about and will follow up with me on January 07 at 9:15 a.m. This was a successful electrical cardioversion. MMODL / IJN: [id number] /
[2017-12-31 08:20] VITALS: TEMP 98
[2017-12-31 08:59] VITALS: RESP 18
[2017-12-31 10:28] VITALS: BP 138/72; PULSE 54
== END 2017-12-31 10:22 | disposition home or self-care (01) ==
LOC: CATHCVL 06:53
PROVIDERS: ATTEND Internal Medicine Interventional Cardiology
DX: I48.1 Persistent atrial fibrillation (principal); I10 Essential (primary) hypertension; E78.5 Hyperlipidemia, unspecified; Z87.891 Personal history of nicotine dependence; Z79.01 Long term (current) use of anticoagulants; Z79.890 Hormone replacement therapy; Z79.899 Other long term (current) drug therapy
CPT/HCPCS: 92960; 85610; J2001; J2704

== ENCOUNTER → 2018-12-14 | Outpatient (CLI) | payer MEDICARE ==
[2018-12-14 11:42] LABS: HCT 55.9 % (39.0-53.0); HGB 17.7 gm/dL (13.0-17.5); MCH 30.9 pg (25.0-35.0); MCHC 31.8 g/dL (31.0-37.0); MCV 97.1 fL (80.0-100.0); Mean Platelet Volume 6.9; Platelet Count 430 k/uL (150-450); RBC 5.75 m/uL (4.30-5.90); RDW 13.2 % (11.5-15.5); WBC 6.4 k/uL (3.8-10.6)
[2018-12-14 11:53] LABS: African American GFR (CKD) >90 (>60 ml/min/1.73 sqM); Anion Gap 9 mmol/L; Blood Urea Nitrogen 12 mg/dL (9-20); Carbon Dioxide 32 mmol/L (22-30); Chloride 101 mmol/L (98-107); Glucose 113 mg/dL (74-99); Potassium 5.2 mmol/L (3.5-5.1); Sodium 142 mmol/L (137-145)
== END | disposition home or self-care (01) ==
LOC: LABPAT 11:07
PROVIDERS: ATTEND Internal Medicine Clinical Cardiac Electrophysiology
DX: Z01.812 Encounter for preprocedural laboratory examination (principal); I48.1 Persistent atrial fibrillation; I49.5 Sick sinus syndrome
CPT/HCPCS: 36415; 80051; 82565; 82947; 84520; 85027

== ENCOUNTER 2018-12-19 07:30 | Day surgery (SDC) | payer MEDICARE ==
[2018-12-13 15:29] VITALS: BMI 27.2
[2018-12-19] MEDS ORDERED: MIDAZOLAM 2 MG/2 ML VIAL IV PRN (08:03)
[2018-12-19] MEDS ORDERED: SODIUM CHLORIDE 0.9% 1,000 ML IV SCH (08:03)
[2018-12-19] MEDS ORDERED: LACTATED RINGERS 1,000 ML IV SCH (08:03)
[2018-12-19] MEDS ORDERED: LIDOCAINE 1% 20 ML VIAL (10MG/ML) FOR IV START INTRADERMA PRN (08:03)
[2018-12-19] MEDS ORDERED: fentaNYL (PF) 50 MCG/ML 2 ML AMP IV PRN (08:03)
[2018-12-19] MEDS ORDERED: DEXAMETHASONE SOD PHOSPHATE 10 MG/ML 1 ML VIAL IV ONE (08:03)
[2018-12-19 14:23] LABS: INR 3.2 (<1.2); Prothrombin Time 30.4 sec (9.0-12.0)
[2018-12-19] MEDS ORDERED: HEPARIN SODIUM,PORCINE 5,000 UNIT/ML 1 ML VIAL ONE (16:01)
[2018-12-19] MEDS ORDERED: ATROPINE SULFATE 0.1 MG/ML 10ML SYRINGE ONE (16:01)
[2018-12-19] MEDS ORDERED: PROPOFOL 10 MG/ML 20 ML VIAL IV ONE (16:01)
[2018-12-19] MEDS ORDERED: PROTAMINE SULFATE 10 MG/ML 5 ML VIAL IV ONE ×3 (16:01→18:53)
[2018-12-19] MEDS ORDERED: fentaNYL (PF) 50 MCG/ML 2 ML AMP ONE (16:01)
[2018-12-19] MEDS ORDERED: ePHEDrine SULFATE/0.9% NACL/PF 50 MG/5 ML SYRINGE IV ONE (16:01)
[2018-12-19] MEDS ORDERED: SUCCINYLCHOLINE CHLORIDE 100 MG/5 ML SYR IV ONE (16:01)
[2018-12-19] MEDS ORDERED: MIDAZOLAM 2 MG/2 ML VIAL ONE (16:01)
--- NOTE | 2018-12-19 16:11 | P.HPCAR ---
History of Present Illness This is Dr. Walker dictating an admission H&P on this patient The patient was interviewed and examined by me IMPRESSION / ASSESSMENT: Persistent atrial fibrillation, symptomatic Failed electrical cardioversion on 4 separate occasions as well as sotalol 80 mg twice daily Twelve-lead ECG shows sinus bradycardia with a mildly prominent LA interval Essential hypertension History of nicotine use Sick Sinus Syndrome HERNAN VASC score of at least 2, anticoagulated with Coumadin PLAN: A. fib ablation, pulmonary vein isolation for management of drug refractory symptomatic atrial fibrillation with sick sinus syndrome/sinus bradycardia Proceed with pulmonary vein isolation HPI Patient has a history of recurrent, persistent atrial fibrillation and is undergone electrical cardioversion on 4 separate occasions. He completed his of palpitation shortness of breath and atrial fibrillation. When in sinus rhythm he feels better with less tiredness and fatigue He is on losartan and amlodipine At this point he denies any chest discomfort dizziness lightheadedness or palpitations. He has no fever chills cough expectoration ROS: No fever chills or rigors, no cough, phlegm or expectoration, no nausea, vomiting or diarrhea, no hematuria, dysuria, no musculoskeletal complaints, no strokes or seizures, no skin lesions. EXAMINATION: 98.9F pulse rate in the 60s, blood pressure 159/80 mmHg pulse ox 93% on room air Breath sounds are reduced bilaterally no rhonchi no crackles Heart sounds are regular no murmurs no gallops no rub Abdomen soft nontender Extremities are warm no edema REVIEW OF LABS, ECG & MEDICAL DATA INR 3.2 Hemoglobin 17 White count 6.4 Potassium 5.2, sodium 142, BUN 12, creatinine 0.74 GFR greater than 90 Physical Exam Vitals: Vital Signs Temp Pulse Resp BP Pulse Ox 12/19/18 08:20 98.9 F 61 18 159/80 93 L Intake and Output 12/19/18 12/19/18 12/19/18 06:59 14:59 22:59 Intake Total 75 Balance 75 Intake: IV 75 Past Medical History Past Medical History: Atrial Fibrillation, Hypertension, Osteoarthritis (OA), Thyroid Disorder Additional Past Medical History / Comment(s): SEE DR. WALKER'S H & P. "Don't have good balance." History of Any Multi-Drug Resistant Organisms: None Reported Additional Past Surgical History / Comment(s): CYST REMOVED, COLONOSCOPY, BILATERAL CATARACT SURGERY, cardioversion X4. Past Anesthesia/Blood Transfusion Reactions: No Reported Reaction Past Psychological History: Anxiety Smoking Status: Former smoker Past Alcohol Use History: Daily Additional Past Alcohol Use History / Comment(s): STARTED SMOKING AT AGE 17, QUIT AT AGE 34, SMOKED 3/4 -1 PPD. Currently has 2 drinks per day. Past Drug Use History: None Reported - Past Family History Mother Family Medical History: No Reported History Physical Examination Vital Signs Temp Pulse Resp BP Pulse Ox 12/19/18 08:20 98.9 F 61 18 159/80 93 L Intake and Output 12/19/18 12/19/18 12/19/18 06:59 14:59 22:59 Intake Total 75 Balance 75 Intake: IV 75 Results Coagulation 12/19/18 Range/Units 13:00 PT 30.4 H (9.0-12.0) sec Current Medications Generic Name Dose Route Start Last Admin Trade Name Freq PRN Reason Stop Dose Admin Fentanyl Citrate 50 mcg 12/19/18 08:03 Sublimaze IV 12/20/18 08:04 Q3M PRN Pain Control Lactated Ringer's 1,000 mls @ 20 mls/hr 12/19/18 08:03 Lactated Ringers IV .Q24H MATIAS Sodium Chloride 1,000 mls @ 20 mls/hr 12/19/18 08:03 12/19/18 13:25 Saline 0.9% IV 75 mls .Q24H MATIAS Administration Lidocaine HCl 0.1 ml 12/19/18 08:03 .Xylocaine 1% Inj (10mg/Ml) For Iv Start INTRADERMA PER PROTOCOL PRN IV Start Midazolam HCl 2 mg 12/19/18 08:03 Versed IV 12/20/18 08:04 ONCE PRN Anxiety Intake and Output 12/19/18 12/19/18 12/19/18 06:59 14:59 22:59 Intake Total 75 Balance 75 Intake: IV 75
[2018-12-19] MEDS ORDERED: LIDOCAINE 1% INJ 10MG/ML (20 ML MDV) ONE (16:20)
[2018-12-19] MEDS ORDERED: LIDOCAINE 1% INJ 10MG/ML (20 ML MDV) SQ ONE (16:47)
[2018-12-19] MEDS ORDERED: HEPARIN SOD,PORK IN 0.45% NACL 25,000 UNIT in 0.45% NACL 1 250ML.BAG IV ONE (17:06)
[2018-12-19] MEDS ORDERED: ACETAMINOPHEN TAB 325 MG TAB PO PRN (18:43)
[2018-12-19] MEDS ORDERED: ACETAMINOPHEN IV (For NPO) 1,000 MG in EMPTY BAG 1 BAG IVPB ONE (18:43)
[2018-12-19] MEDS ORDERED: HYDROcodone/APAP 5-325MG 1 EACH TAB PO PRN (18:43)
[2018-12-19] MEDS ORDERED: ALPRAZolam 0.25 MG TAB PO PRN (18:45)
[2018-12-19] MEDS ORDERED: IPRATROPIUM-ALBUTEROL 3 ML NEB INHALATION PRN (18:45)
[2018-12-19] MEDS ORDERED: IOPAMIDOL-370 100ML BTL INJ ONE (19:02)
--- NOTE | 2018-12-19 19:10 | P.PCN ---
Preoperative Diagnosis: Diagnosis Atrial fibrillation, symptomatic, refractory to therapy Persistent A. fib Result Successful pulmonary vein isolation of all veins using cryo-ablation Complete entrance block in all 4 veins confirmed No evidence for phrenic nerve injury Esophageal deflection YES Electrical cardioversion with a synchronized shock across the chest NO Procedure details Patient was brought to the EP lab in a fasting state. Written informed consent was obtained prior to the procedure. Procedure performed under general anesthesia After initial muscle relaxant use, muscle relaxants were not given thereafter in order to assess phrenic nerve during procedure. Patient prepped and draped as per protocol Full cryo-set up with standard preparation of the cryoablation tools done. Femoral Venous access obtained on the right and left groins Venous and arterial Sheaths placed. Diagnostic catheters for the high right atrium, phrenic nerve stimulation and pacing, His bundle, RV and coronary sinus placed Intracardiac echo catheter placed. Long sheath placed in the right atrium Left and right transseptal catheterization performed under intracardiac echo guidance. Intravenous heparin with aCT above 300 Later, catheter positioning and balloon positioning in the left atrium, under intracardiac echo guidance Diagnostic EP study with Drug infusion Coronary sinus pacing and recording Baseline measurements Sinus bradycardia in the 40s Sinus node recovery time 1293 ms AV node Wenckebach block 400 ms VA Wenckebach block on Isuprel 290 ms Burst ablation from the coronary sinus from 4 ms down to 300 ms Atrial pacing performed from the high right atrium and the coronary sinus RV pacing. Wenckebach block to 90 ms on Isuprel Transseptal catheterization performed RA pressure 8/3/5 LA pressure 12/3/7 Transseptal catheterization performed with standard sheath. The cryoablation sheath was then placed with an over the wire exchange without any acute complications. All 4 pulmonary veins were isolated in the following sequence: Left superior followed by left inferior followed by right superior followed by right inferior The cryo-ablation balloon was placed at the os of each vein 1.5 mL of IV dye was injected to confirm an occluded vein Goal during cryoablation was to achieve complete occlusion of the pulmonary vein, achieve -30 degrees C at 30 seconds and achieve -40 degrees C at 60 seconds and a time to effect of less than 60-90 seconds, . If not the balloon was repositioned to obtain this result After completion of Cryoblation with durations from 180-240 seconds, entrance block was confirmed with the Attain circular catheter in a roving fashion around the antrum of the pulmonary veins Phrenic nerve pacing was performed from the SVC, right innominate vein area and diaphragm voltage was monitored. Diaphragmatic contractions were also monitored manually for strength of contraction. Parameter goals for each cryo freeze Complete occlusion of the appropriate vein -30 degrees C by 30 seconds -40 degrees C by 60 seconds Minimum between minus 40-55 degrees C Thaw time greater than 10 seconds Balloon visualized by intracardiac echo The esophagus was intubated. Esophageal Temperature monitoring with a CIRCA catheter formed. Esophageal deflection for hypothermia of the esophagus below 30 degrees C Left superior pulmonary vein Complete isolation, entrance block Left inferior pulmonary vein Complete isolation, entrance block Right superior pulmonary vein, during phrenic nerve pacing Complete isolation, entrance block Right inferior pulmonary vein, during phrenic nerve pacing Complete isolation, entrance block At the end of the procedure the Achieve catheter was once again used to check for entrance block Phrenic nerve stimulation was performed to confirm diaphragmatic stimulation the end of the procedure Cine fluoroscopy was performed at the very end of the procedure to confirm movement of both diaphragms with inspiration and expiration At the end of the procedure the patient was extubated Heparin was reversed Venous sheaths were removed and hemostasis assured Procedures performed (PVI - CRYO Ablation) Diagnostic EP study with attempted arrhythmia induction CS pacing and recording Left and right transseptal catheterization Catheter the mapping of the tachycardia (NOT 3D mapping) Intracardiac echocardiography Pulmonary vein isolation with transseptal and comprehensive EPS, [id number] Drug Infusion [id number] Anesthesia: GETA
--- NOTE | 2018-12-19 19:15 | P.PRLE ---
RE: Aubrey Harris Date October Aubrey Robles underwent successful cryoablation of the pulmonary veins. He is on low-dose sotalol 80 mg twice daily but is quite bradycardic in the mid 40s even when he is awake. I'm reducing the dose of sotalol to 40 mg twice daily In addition his potassium is 5.2 therefore I'm reducing the dose of losartan to 50 mrem today and doubling the dose of amlodipine to 5 mg twice daily Coumadin will continue unchanged since his HERNAN VASC was at least 2 He will continue to follow with you and Dr. Alfonso as before Thank you for entrusting me with the care of the patient Warm regards Sincerely Edvin Walker
[2018-12-19] MEDS ORDERED: WARFARIN 7.5 MG TAB PO ONE (21:00)
[2018-12-19] MEDS: amLODIPine 5 MG TAB PO SCH (21:20)
[2018-12-19] MEDS ORDERED: GABAPENTIN PO SCH (22:00)
[2018-12-20] MEDS ORDERED: SOTALOL 80 MG TAB PO SCH (06:00)
[2018-12-20] MEDS ORDERED: LEVOTHYROXINE 125 MCG TAB PO SCH (06:30)
[2018-12-20 07:15] LABS: African American GFR (CKD) >90 (>60 ml/min/1.73 sqM); Anion Gap 7 mmol/L; Blood Urea Nitrogen 16 mg/dL (9-20); Calcium 9.7 mg/dL (8.4-10.2); Carbon Dioxide 32 mmol/L (22-30); Chloride 100 mmol/L (98-107); Glucose 122 mg/dL (74-99); Non-African American GFR(CKD) >90 (>60 ml/min/1.73 sqM); Sodium 139 mmol/L (137-145)
[2018-12-20 07:19] LABS: INR 2.2 (<1.2); Prothrombin Time 21.3 sec (9.0-12.0)
--- NOTE | 2018-12-20 07:36 | P.DS ---
Providers Attending physician: Edvin Walker Primary care physician: Duy De Leon [facility] Course: Patient is doing well. He is lying comfortably in bed. He has a sore throat but he does not have any chest discomfort dizziness lightheadedness or palpitations. His rhythm is regular heart rates in the 50s His grandson is a bit sore but there is no swelling no hematoma minimal tenderness Heart sounds are normal normal S1 normal S2 no murmurs or gallops or rub It sounds are clear no rhonchi no crackles air entry is reduced bilaterally Abdomen soft nontender Extremity is warm no edema No JVD Blood pressure 156/81 mmHg respirations normal pulse rate in the 50s and 60s afebrile 98F Impression Persistent atrial fibrillation, symptomatic and failed antiarrhythmic therapies in the past Status post cryoablation of MAY veins successfully Patient stable from a cardiac vascular standpoint post ablation Sick Sinus Syndrome Hypertension Mild hyperkalemia potassium 5.2 Suggest Increase amlodipine to 5 mg twice daily Losartan, reduced to 50 mrem by mouth daily Sotalol 40 g twice daily Ambulate in the hallways Discharge home by 5 PM Follow-up with Dr. Alfonso in a week Continue anticoagulation lifelong Patient Condition at Discharge: Stable Plan - Discharge Summary Discharge Rx Participant: No New Discharge Prescriptions: New Sotalol [Betapace] 40 mg PO BID #90 tablet Losartan [Cozaar] 50 mg PO DAILY #90 tab amLODIPine [Norvasc] 5 mg PO BID #90 tablet Discontinued Sotalol [Betapace] 80 mg PO BID Losartan [Cozaar] 75 mg PO DAILY amLODIPine [Norvasc] 5 mg PO DAILY No Action Warfarin [Coumadin] 5 mg PO DIRECTED ALPRAZolam [Xanax] 0.25 mg PO TID PRN PRN Reason: Anxiety Multivitamin [Men's Multi-Vitamin] 1 tab PO DAILY Ipratropium-Albuterol Nebulize [Duoneb 0.5 mg-3 mg/3 ml Soln] 3 ml INHALATION QID PRN PRN Reason: Shortness Of Breath Warfarin [Coumadin] 7.5 mg PO DIRECTED Levothyroxine Sodium [Synthroid] 125 mcg PO QAM Gabapentin (Unknown Dose) 1 tab PO TID Discharge Medication List ALPRAZolam [Xanax] 0.25 mg PO TID PRN 12/28/16 [History] Multivitamin [Men's Multi-Vitamin] 1 tab PO DAILY 12/28/16 [History] Warfarin [Coumadin] 5 mg PO DIRECTED 12/28/16 [History] Ipratropium-Albuterol Nebulize [Duoneb 0.5 mg-3 mg/3 ml Soln] 3 ml INHALATION QID PRN 12/27/17 [History] Levothyroxine Sodium [Synthroid] 125 mcg PO QAM 12/27/17 [History] Warfarin [Coumadin] 7.5 mg PO DIRECTED 12/27/17 [History] Gabapentin (Unknown Dose) 1 tab PO TID 12/13/18 [History] Losartan [Cozaar] 50 mg PO DAILY #90 tab 12/19/18 [Rx] Sotalol [Betapace] 40 mg PO BID #90 tablet 12/19/18 [Rx] amLODIPine [Norvasc] 5 mg PO BID #90 tablet 12/19/18 [Rx] Follow up Appointment(s)/Referral(s): Edvin Walker MD [STAFF PHYSICIAN] - 1 Week (Follow-up with Dr. Alfonso in 1-2 weeks) Activity/Diet/Wound Care/Special Instructions: Post EP study - Ablation instructions 1. Keep access sites dry for 2 days. 2. No heavy lifting or straining for 2 days. 3. Avoid bending the hips repeatedly for 2 days. 4. You may go up and down stairs slowly Call if the following is noted 1. Bleeding, increasing swelling or pain at the access sites. 2. Increasing chest discomfort, especially upon taking a deep breath. 3. Increasing shortness of breath, at rest or with exertion. 4. Undue cough / phlegm 5. Difficulty or pain while swallowing. 6. Pain or change in color in the extremities. 7. Fever, chills, rigors. 8. Increasing headache or neurologic symptoms. 9. Dizziness, fainting, palpitations Decrease losartan to 50 mg daily, decrease sotalol to 40 mg twice a day, increase amlodipine to 5 mg twice a day, continue all other medications including Coumadin
[2018-12-20] MEDS: amLODIPine 5 MG TAB PO SCH (08:43)
[2018-12-20] MEDS ORDERED: LOSARTAN 50 MG TAB PO SCH (09:00)
[2018-12-20 11:40] VITALS: BP 152/80; PULSE 70; RESP 16; TEMP 99.2
[2018-12-20] MEDS ORDERED: WARFARIN 5 MG TAB PO SCH (18:00)
[2018-12-21] MEDS ORDERED: WARFARIN 7.5 MG TAB PO SCH (18:00)
== END 2018-12-20 16:55 | disposition home or self-care (01) ==
LOC: CATHEP 07:30 → 1SOBS 15:00 → CATHEP 12-20 16:55
PROVIDERS: ATTEND Internal Medicine Clinical Cardiac Electrophysiology
DX: I48.1 Persistent atrial fibrillation (principal); I10 Essential (primary) hypertension; I49.5 Sick sinus syndrome; Z87.891 Personal history of nicotine dependence; M19.90 Unspecified osteoarthritis, unspecified site; E07.9 Disorder of thyroid, unspecified; Z98.42 Cataract extraction status, left eye; Z98.41 Cataract extraction status, right eye; F41.9 Anxiety disorder, unspecified; Z79.01 Long term (current) use of anticoagulants; Z79.899 Other long term (current) drug therapy
CPT/HCPCS: 85347; 93623; 93662; 93609; 93656; 80048; 85610 ×2; C1894 ×2; C1769 ×5; C1759; C1893; C1733; C1766; C1730; J2250; J2720; J1644 ×2; J2001; J0461; J3010; J0330; J2704; Q9967

== ENCOUNTER → 2019-10-13 | Outpatient (CLI) | payer MEDICARE ==
--- NOTE | 2019-10-17 08:00 | PE ---
Nuclear medicine PET/CT HISTORY: Head and neck carcinoma, initial Patient received 13.3 mCi F-18 FDG intravenously in delayed scanning was performed from the skull bas e to the mid thighs. Localization and attenuation correction CT scan was performed. Small field-of-vi ew images performed through the head and neck. Correlation to CT chest 09/27/2019 from outside is fusion There is a left-sided neck mass in the submandibular location at the level of the hyoid bone which sh ows some mixed attenuation and measures approximately 3.8 cm in greatest AP dimension. There is assoc iated hypermetabolic uptake, SUV 23.3. Some central decreased uptake may be due to necrosis. There is an additional node just cephalad which is not enlarged but shows hypermetabolic uptake along the ant erior cervical chain SUV 19. There is no supraclavicular adenopathy. Chest shows no lung mass. No mediastinal, axillary, or hilar adenopathy. There is no pleural pericard ial effusion. No suspicious hypermetabolic uptake. There are dense coronary artery calcifications pre sent. ABDOMEN: No adrenal or liver mass. No retroperitoneal adenopathy. Dependent hyperdensity gallbladder compatible with stones. Bowel uptake is likely physiologic. No ascites. Extensive diverticular change associated with the sigmoid colon. Osseous structures show degenerative disc change and facet arthropathy in the lower lumbar spine. No suspicious uptake. IMPRESSION: Findings compatible with patient's history of head and neck carcinoma.
== END | disposition home or self-care (01) ==
LOC: RADPETMAIN 11:41
PROVIDERS: ATTEND Internal Medicine Hematology & Oncology
DX: C76.0 Malignant neoplasm of head, face and neck (principal)
CPT/HCPCS: 78815; A9552

== ENCOUNTER → 2019-10-30 | Outpatient (CLI) | payer MEDICARE ==
--- NOTE | 2019-10-30 11:08 | XR ---
EXAM TYPE: LUMBAR SPINE X RAY SERIES COMPARISON: 04/28/2017 HISTORY: Low back pain TECHNIQUE: #3 views are submitted. FINDINGS: Alignment is anatomic. The pedicles are intact. The transverse processes are intact. There is scol iotic curvature with multilevel severe degenerative disc disease and facet arthropathy with hypertrop hic changes. Suspect multilevel foraminal encroachment. Findings appear progressed from prior exam. S mulligan bifida occulta lumbosacral junction. Vascular calcifications of the aorta. IMPRESSION: 1. Scoliosis with multilevel severe degenerative disc disease and suspected foraminal encroachment.
== END | disposition home or self-care (01) ==
LOC: RADXRMAIN 10:45
PROVIDERS: ATTEND Podiatrist
DX: M51.16 Intervertebral disc disorders with radiculopathy, lumbar region (principal); M41.86 Other forms of scoliosis, lumbar region
CPT/HCPCS: 72100

== ENCOUNTER 2019-11-28 09:36 | Day surgery (SDC) | payer MEDICARE ==
[2019-11-27 12:14] VITALS: BMI 28.0
[~2019-11-28 09:36] MED LIST changes: +LIDOCAINE 1% (10MG/ML) FOR IV START INTRADERMA PRN; +MIDAZOLAM 2 MG/2 ML VIAL IV PRN; -SODIUM CHLORIDE 0.9% 1,000 ML IV SCH
[2019-11-28 11:13] VITALS: TEMP 97.6
[2019-11-28] MEDS ORDERED: PROPOFOL 10 MG/ML 20 ML VIAL IV ONE (11:35)
[2019-11-28] MEDS ORDERED: NALOXONE 0.4 MG/ML 1 ML VIAL IV PRN (11:56)
--- NOTE | 2019-11-28 11:56 | P.PCN ---
Date of Procedure: 11/28/19 Procedure(s) Performed: PREOPERATIVE DIAGNOSIS: Malnutrition, head and neck cancer POSTOPERATIVE DIAGNOSIS: Same PROCEDURE: EGD with PEG tube placement SURGEON: Larry EBL: Minimal ANESTHESIA: Sedation COMPLICATIONS: None OPERATIVE PROCEDURE: The patient was placed in the supine position on the endoscopy table. The patient was sedated per anesthesia that time. The Olympus gastroscope was inserted into the oropharynx and passed under direct visualization to the region of the duodenum. No obstruction was seen. The pylorus was widely patent. The stomach was carefully inspected. There was diffuse gastritis present. A biopsy of the antrum took place. The stomach was fully insufflated with air. The abdominal wall was inspected. The light was seen shining through the abdominal wall in the left upper quadrant. This site was chosen for PEG tube placement. The area was prepped in the usual sterile fashion. This area was then localized with lidocaine. A small vertical incision was made using the scalpel. The Seldinger needle was advanced into the lumen of the stomach the wire was advanced. The wire was grasped with an endoscopic snare. The wire was pulled through the oropharynx. The catheter was then threaded over the guidewire and the guidewire and catheter were pulled anteriorly until the hub of the PEG tube catheter was seated against the anterior wall the stomach. The circular bolster was applied and tightened down. The endoscope was then readvanced into the stomach. There was no evidence of any bleeding and there was appropriate tightness on the bolster. The catheter was cut appropriately. The dual port feeding adapter was applied. DISPOSITION: Stable to recovery room
[2019-11-28 12:08] VITALS: RESP 18
[2019-11-28 12:39] VITALS: BP 153/84; PULSE 73
== END 2019-11-28 13:09 | disposition home or self-care (01) ==
LOC: ORWHC2ENDO 09:36
PROVIDERS: ATTEND Surgery
DX: E46 Unspecified protein-calorie malnutrition (principal); K29.70 Gastritis, unspecified, without bleeding; K31.9 Disease of stomach and duodenum, unspecified; C76.0 Malignant neoplasm of head, face and neck; I48.91 Unspecified atrial fibrillation; E03.9 Hypothyroidism, unspecified; K21.9 Gastro-esophageal reflux disease without esophagitis; F41.9 Anxiety disorder, unspecified; I10 Essential (primary) hypertension; I25.10 Atherosclerotic heart disease of native coronary artery without angina pectoris; Z79.01 Long term (current) use of anticoagulants; Z79.899 Other long term (current) drug therapy; Z79.890 Hormone replacement therapy; Z98.890 Other specified postprocedural states; Z90.89 Acquired absence of other organs; Z87.891 Personal history of nicotine dependence
CPT/HCPCS: 43239; 43246; J2704; B4087; 88305

== ENCOUNTER → 2020-01-10 | Outpatient (CLI) | payer MEDICARE ==
--- NOTE | 2020-01-10 12:31 | XR ---
EXAMINATION TYPE: XR chest 2V DATE OF EXAM: 01/10/2020 COMPARISON: NONE TECHNIQUE: PA and lateral views submitted. HISTORY: Cough FINDINGS: Elevated left hemidiaphragm with subsegmental consolidation. No pleural effusion or pneumothorax. No overt failure. Atherosclerotic change aorta. Arthropathy of the shoulders. IMPRESSION: 1. Elevated left hemidiaphragm with left basilar atelectasis or infiltrate. Correlate clinically.
== END | disposition home or self-care (01) ==
LOC: RADXRMAIN 12:12
PROVIDERS: ATTEND Internal Medicine Hematology & Oncology
DX: J98.6 Disorders of diaphragm (principal); I10 Essential (primary) hypertension; C76.0 Malignant neoplasm of head, face and neck; M19.90 Unspecified osteoarthritis, unspecified site
CPT/HCPCS: 71046

== ENCOUNTER → 2020-01-22 | Outpatient (CLI) | payer MEDICARE ==
--- NOTE | 2020-01-22 17:28 | FL ---
EXAMINATION TYPE: FL barium swallow w video DATE OF EXAM: 01/22/2020 MODIFIED BARIUM SWALLOW FLUOROSCOPY EXAM CLINICAL HISTORY: Dysphagia. Head and neck cancer status post chemotherapy and radiation therapy. TECHNIQUE: Notified barium swallow study is performed utilizing thin liquid barium, honey and nectar thick liquid barium, barium thick puree. COMPARISON: None. FINDINGS: There is penetration seen with all liquid consistencies and puree, which is decreased with chin tuck. There is silent aspiration seen with thin liquid. No significant pharyngeal residue was ap preciated. Total fluoroscopy time 1 minute 40 seconds IMPRESSION: Silent aspiration with thin liquid. Penetration with all tested consistencies, which dec reased with chin tuck. Please refer to speech therapist notes for further details if necessary.
== END | disposition home or self-care (01) ==
LOC: RADFLMAIN 11:17
PROVIDERS: ATTEND Internal Medicine Hematology & Oncology
DX: R47.02 Dysphasia (principal)
CPT/HCPCS: 74230

== ENCOUNTER 2020-01-30 09:18 | Inpatient (IN) | payer MEDICARE ==
[2020-01-30] MEDS ORDERED: SODIUM CHLORIDE 0.9% 500 ML 500 ML IV STA (09:53)
[2020-01-30 10:09] LABS: Anisocytosis Slight; Basophils % (A) 0 %; Eosinophils # (A) 0.2 k/uL (0-0.7); Eosinophils % (A) 1 %; HCT 37.3 % (39.0-53.0); HGB 12.7 gm/dL (13.0-17.5); Lymphocytes # (A) 0.4 k/uL (1.0-4.8); Lymphocytes % (A) 3 %; MCH 27.1 pg (25.0-35.0); MCHC 34.2 g/dL (31.0-37.0); MCV 79.5 fL (80.0-100.0); Mean Platelet Volume 6.3; Microcytosis Slight; Monocytes # (A) 1.3 k/uL (0-1.0); Monocytes % (A) 9 %; Neutrophils # (A) 12.6 k/uL (1.3-7.7); Neutrophils % (A) 85 %; Platelet Count 378 k/uL (150-450); RBC 4.69 m/uL (4.30-5.90); RDW 16.8 % (11.5-15.5); WBC 14.8 k/uL (3.8-10.6)
--- NOTE | 2020-01-30 10:10 | ED ---
Weakness HPI - General Chief complaint: Weakness Stated complaint: Fall/Confused Time Seen by Provider: 01/30/20 09:32 Source: patient, RN notes reviewed Mode of arrival: ambulatory Limitations: no limitations - History of Present Illness Initial comments: This is a 74-year-old male presents emergency Department chief complaint weakness. Patient is here caregiver who states that he spent the weekend with his girlfriend. Patient probably had a fall this morning that multiple people to get him back up. Patient is normally in bleeding with no difficulty but now needs full assistance. Patient does take Coumadin but states he has no current headache with the fall. He denies any loss conscious. 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 Patient's oncologist is Dr. Fisher. They state that he seems to be very weak is concerned that he's had recent pneumonia and may be recurrent. He has no complaints of abdominal pain, chest pain, back pain, neck pain, headache, dizziness, leg pain or leg swelling. - Related Data Home Medications Medication Instructions Recorded Confirmed ALPRAZolam [Xanax] 0.25 mg PO TID PRN 12/28/16 11/27/19 Multivitamin [Men's Multi-Vitamin] 1 tab PO DAILY 12/28/16 11/27/19 Warfarin [Coumadin] 5 mg PO DIRECTED 12/28/16 11/27/19 Levothyroxine Sodium [Synthroid] 112 mcg PO QAM 12/27/17 11/27/19 Warfarin [Coumadin] 7.5 mg PO DIRECTED 12/27/17 11/27/19 Gabapentin [Neurontin] 400 mg PO TID 11/27/19 11/27/19 Previous Rx's Medication Instructions Recorded Losartan [Cozaar] 50 mg PO DAILY #90 tab 12/19/18 Sotalol [Betapace] 40 mg PO BID #90 tablet 12/19/18 amLODIPine [Norvasc] 5 mg PO BID #90 tablet 12/19/18 Omeprazole [PriLOSEC] 20 mg PO AC-BRKFST #90 cap 11/28/19 Allergies Allergy/AdvReac Type Severity Reaction Status Date / Time No Known Allergies Allergy Verified 01/30/20 09:30 Review of Systems ROS Statement: Those systems with pertinent positive or pertinent negative responses have been documented in the HPI. ROS Other: All systems not noted in ROS Statement are negative. Past Medical History Past Medical History: Atrial Fibrillation, Cancer, Hypertension, Osteoarthritis (OA), Thyroid Disorder Additional Past Medical History / Comment(s): "Don't have good balance.". neck cancer with difficulty swallowing. receiving radiation and chemo History of Any Multi-Drug Resistant Organisms: None Reported Past Surgical History: Ablation Additional Past Surgical History / Comment(s): CYST REMOVED, COLONOSCOPY, BILATERAL CATARACT SURGERY, cardioversion X4, . Past Anesthesia/Blood Transfusion Reactions: No Reported Reaction Past Psychological History: Anxiety Smoking Status: Never smoker Past Alcohol Use History: None Reported Past Drug Use History: None Reported - Past Family History Mother Family Medical History: No Reported History General Exam Limitations: no limitations General appearance: alert, in no apparent distress Head exam: Present: atraumatic, normocephalic, normal inspection Eye exam: Present: normal appearance, PERRL, EOMI. Absent: scleral icterus, conjunctival injection, periorbital swelling ENT exam: Present: mucous membranes moist, TM's normal bilaterally. Absent: normal exam (Dental erosion, mild swelling,), normal oropharynx Neck exam: Present: normal inspection, full ROM. Absent: tenderness, meningismus, lymphadenopathy Respiratory exam: Present: rales, rhonchi, prolonged expiratory. Absent: normal lung sounds bilaterally, respiratory distress, wheezes, stridor, decreased breath sounds Cardiovascular Exam: Present: regular rate, normal rhythm, normal heart sounds. Absent: systolic murmur, diastolic murmur, rubs, gallop, clicks GI/Abdominal exam: Present: soft, normal bowel sounds. Absent: distended, tenderness, guarding, rebound, rigid Extremities exam: Present: full ROM, normal capillary refill. Absent: pedal edema, joint swelling Back exam: Present: full ROM. Absent: tenderness Neurological exam: Present: alert, oriented X3, CN II-XII intact Skin exam: Present: warm, dry, intact, normal color. Absent: rash Course Vital Signs 01/30/20 01/30/20 09:21 10:09 Temperature 97.3 F L Pulse Rate 68 85 Respiratory 18 18 Rate Blood Pressure 131/67 137/64 O2 Sat by Pulse 96 96 Oximetry EKG Findings - EKG Comments: EKG Findings:: EKG performed at 9 53 A. fib with a rate of 85 QRS 72 QT/QTC 38/461 Medical Decision Making - Medical Decision Making Patient's case discussed with Dr. De Leon. Patient will be admitted for hyponatremia with consult to nephrology requests osmolarities. Patient was given fluid bolus, maintenance fluids patient also started on Rocephin for evidence of pneumonia. - Lab Data Result diagrams: 01/30/20 09:58 01/30/20 09:58 Lab Results 01/30/20 01/30/20 01/30/20 Range/Units 09:58 09:58 09:58 WBC 14.8 H (3.8-10.6) k/uL RBC 4.69 (4.30-5.90) m/uL Hgb 12.7 L (13.0-17.5) gm/dL Hct 37.3 L (39.0-53.0) % MCV 79.5 L (80.0-100.0) fL MCH 27.1 (25.0-35.0) pg MCHC 34.2 (31.0-37.0) g/dL RDW 16.8 H (11.5-15.5) % Plt Count 378 (150-450) k/uL Neutrophils % 85 % Lymphocytes % 3 % Monocytes % 9 % Eosinophils % 1 % Basophils % 0 % Neutrophils # 12.6 H (1.3-7.7) k/uL Lymphocytes # 0.4 L (1.0-4.8) k/uL Monocytes # 1.3 H (0-1.0) k/uL Eosinophils # 0.2 (0-0.7) k/uL Basophils # 0.0 (0-0.2) k/uL Anisocytosis Slight Microcytosis Slight PT 13.7 H (9.0-12.0) sec INR 1.4 H (<1.2) APTT 26.5 (22.0-30.0) sec Sodium 108 L* (137-145) mmol/L Potassium 4.6 (3.5-5.1) mmol/L Chloride 73 L* (98-107) mmol/L Carbon Dioxide 27 (22-30) mmol/L Anion Gap 8 mmol/L BUN 15 (9-20) mg/dL Creatinine 0.45 L (0.66-1.25) mg/dL Est GFR (CKD-EPI)AfAm >90 (>60 ml/min/1.73 sqM) Est GFR (CKD-EPI)NonAf >90 (>60 ml/min/1.73 sqM) Glucose 132 H (74-99) mg/dL Plasma Lactic Acid Javed (0.7-2.0) mmol/L Calcium 8.1 L (8.4-10.2) mg/dL Magnesium 1.2 L (1.6-2.3) mg/dL Total Bilirubin 0.5 (0.2-1.3) mg/dL AST 31 (17-59) U/L ALT 25 (4-49) U/L Alkaline Phosphatase 71 (38-126) U/L Creatine Kinase 49 L (55-170) U/L Troponin I (0.000-0.034) ng/mL Total Protein 5.6 L (6.3-8.2) g/dL Albumin 2.8 L (3.5-5.0) g/dL 01/30/20 01/30/20 Range/Units 09:58 09:58 WBC (3.8-10.6) k/uL RBC (4.30-5.90) m/uL Hgb (13.0-17.5) gm/dL Hct (39.0-53.0) % MCV (80.0-100.0) fL MCH (25.0-35.0) pg MCHC (31.0-37.0) g/dL RDW (11.5-15.5) % Plt Count (150-450) k/uL Neutrophils % % Lymphocytes % % Monocytes % % Eosinophils % % Basophils % % Neutrophils # (1.3-7.7) k/uL Lymphocytes # (1.0-4.8) k/uL Monocytes # (0-1.0) k/uL Eosinophils # (0-0.7) k/uL Basophils # (0-0.2) k/uL Anisocytosis Microcytosis PT (9.0-12.0) sec INR (<1.2) APTT (22.0-30.0) sec Sodium (137-145) mmol/L Potassium (3.5-5.1) mmol/L Chloride (98-107) mmol/L Carbon Dioxide (22-30) mmol/L Anion Gap mmol/L BUN (9-20) mg/dL Creatinine (0.66-1.25) mg/dL Est GFR (CKD-EPI)AfAm (>60 ml/min/1.73 sqM) Est GFR (CKD-EPI)NonAf (>60 ml/min/1.73 sqM) Glucose (74-99) mg/dL Plasma Lactic Acid Javed 1.5 (0.7-2.0) mmol/L Calcium (8.4-10.2) mg/dL Magnesium (1.6-2.3) mg/dL Total Bilirubin (0.2-1.3) mg/dL AST (17-59) U/L ALT (4-49) U/L Alkaline Phosphatase (38-126) U/L Creatine Kinase (55-170) U/L Troponin I <0.012 (0.000-0.034) ng/mL Total Protein (6.3-8.2) g/dL Albumin (3.5-5.0) g/dL Critical Care Time Critical Care Time: Yes Total Critical Care Time: 35 Critical Care Time: Total 35 minutes of critical care time were used initially evaluated the patient, reviewed past medical history, discuss case with family member in the room patient had labs, EKG, chest x-ray, CT brain and C-spine. Patient found to have hyponatremia most likely causing his confusion along with evidence of pneumonia. Patient was started on broad-spectrum antibiotics, blood cultures were obtained. Case discussed with admitting physician Dr. De Leon who requests nephrology consult. Disposition Clinical Impression: Confusion, Hyponatremia, Hypomagnesemia, Generalized weakness, Pneumonia Disposition: ADMITTED IP TO THIS HOSP Condition: Serious Referrals: Duy De Leon MD [Primary Care Provider] - 1-2 days
[2020-01-30 10:20] LABS: INR 1.4 (<1.2); Partial Thromboplastin Time 26.5 sec (22.0-30.0); Prothrombin Time 13.7 sec (9.0-12.0)
[2020-01-30 10:33] LABS: ALT 25 U/L (4-49); AST 31 U/L (17-59); African American GFR (CKD) >90 (>60 ml/min/1.73 sqM); Albumin 2.8 g/dL (3.5-5.0); Alkaline Phosphatase 71 U/L (38-126); Anion Gap 8 mmol/L; Blood Urea Nitrogen 15 mg/dL (9-20); Calcium 8.1 mg/dL (8.4-10.2); Carbon Dioxide 27 mmol/L (22-30); Creatine Kinase 49 U/L (55-170); Glucose 132 mg/dL (74-99); Magnesium 1.2 mg/dL (1.6-2.3); Non-African American GFR(CKD) >90 (>60 ml/min/1.73 sqM); Potassium 4.6 mmol/L (3.5-5.1); Total Bilirubin 0.5 mg/dL (0.2-1.3); Total Protein 5.6 g/dL (6.3-8.2)
[2020-01-30 10:40] LABS: Chloride 73 mmol/L (98-107); Sodium 108 mmol/L (137-145)
[2020-01-30] MEDS ORDERED: SODIUM CHLORIDE 0.9% 500 ML 500 ML IV ONE (10:46)
--- NOTE | 2020-01-30 10:53 | XR ---
EXAMINATION TYPE: XR chest 2V DATE OF EXAM: 01/30/2020 COMPARISON: Chest CT September 27, 2019. Chest x-ray January 10, 2020. HISTORY: Weakness and fall. TECHNIQUE: Frontal and lateral views of the chest are obtained. FINDINGS: Low lung volumes and elevated left hemidiaphragm are redemonstrated. There is some chronic parenchymal change with patchy new right basilar opacity on 2 views. No pleural effusion or pneumoth orax seen bilaterally. The cardiac silhouette size is stable and mildly enlarged with atherosclerotic aorta. Degenerative change bilateral shoulders. IMPRESSION: New Posterior right lower lobe acute infiltrate and atelectasis. Progress study advised.
[2020-01-30] MEDS ORDERED: MAGNESIUM SULFATE-D5W PMX 1 GM in DEXTROSE/WATER 1 100ML.BAG IVPB ONE (10:57)
[2020-01-30] MEDS ORDERED: NALOXONE 0.4 MG/ML 1 ML VIAL IV PRN (10:58)
[2020-01-30] MEDS ORDERED: SODIUM CHLORIDE 0.9% 1,000 ML IV SCH (11:00)
[2020-01-30] MEDS ORDERED: AZITHROMYCIN 500 MG in SODIUM CHLORIDE 0.9% 250 ML IVPB STA (11:01)
--- NOTE | 2020-01-30 11:19 | CT ---
EXAMINATION TYPE: CT brain omar parr con DATE OF EXAM: 01/30/2020 COMPARISON: None HISTORY: Fall/confusion, headache CT DLP: 1440.4 mGycm, Automated exposure control for dose reduction was used. CONTRAST: Patient injected with 0 mL of Isovue 300. CT of the brain is performed utilizing 3 mm thick sections through the posterior fossa and 3 mm thick sections through the remaining calvarium. Study is performed within 24 hours of arrival to the hospital. No abnormal hyperdensity is present to suggest an acute intracranial hemorrhage. No mass lesion is evident. No acute infarcts are evident. Ventricles and sulci are mildly prominent for the patient age. Paranasal sinuses and mastoid air cells within the [id number] are clear. IMPRESSIONS: 1. Mild age-related atrophy. No acute intracranial process evident CT cervical spine. COMPARISON: None CT of the cervical spine is performed in the axial plane at 2 mm thick sections. Reconstructed image s in the coronal, and sagittal plane are reviewed on the computer. No acute fractures are evident. There is a cervical kyphosis present. Very subtle retrolisthesis of C5 on C6 is present. No AP spinal canal stenosis is present. Anterior vertebral body spurring is noted C4, C5, C6. There is narrowing of disc height present C5-6 C6-7. Vertebral body heights are preserved. No spinal canal stenosis is evident. Uncovertebral joint hypertrophy is contributing to bilateral foraminal stenosis C5-6, greater on the left. IMPRESSIONS: 1. No acute osseous abnormality. 2. Degenerative disc changes C5-6 C6-7. 3. Cervical kyphosis with a minimal grade 1 retrolisthesis of C5 on C6. 4. Degenerative changes at the C5-6 uncovertebral joints contributing to foraminal narrowing.
[2020-01-30 11:31] LABS: African American GFR (CKD) >90 (>60 ml/min/1.73 sqM); Anion Gap 8 mmol/L; Blood Urea Nitrogen 15 mg/dL (9-20); Carbon Dioxide 27 mmol/L (22-30); Glucose 104 mg/dL (74-99); Non-African American GFR(CKD) >90 (>60 ml/min/1.73 sqM); Potassium 4.6 mmol/L (3.5-5.1)
[2020-01-30 11:33] LABS: Chloride 74 mmol/L (98-107); Sodium 109 mmol/L (137-145)
[2020-01-30 11:35] LABS: Appearance,Urine Clear (Clear); Bilirubin,Urine Negative (Negative); Blood,Urine Negative (Negative); Color,Urine Yellow; Glucose,Urine (UA) Negative (Negative); Ketones,Urine Negative (Negative); Leukocyte Esterase,Urine Negative (Negative); Nitrite,Urine Negative (Negative); PH, Urine 6.5 (5.0-8.0); Protein,Urine Negative (Negative); Specific Gravity,Urine 1.012 (1.001-1.035); Urobilinogen,Urine <2.0 mg/dL (<2.0)
[2020-01-30] MEDS ORDERED: SODIUM CHLORIDE 3%(HYPERTONIC) 500 ML IV SCH (12:30)
[2020-01-30] MEDS ORDERED: LIDOCAINE URO-JET JELLY 2% 5 ML KIT URETHRAL ONE (12:36)
[2020-01-30 13:32] LABS: Glucose,Whole Blood 97 mg/dL (75-99)
[2020-01-30] MEDS ORDERED: Magnesium Replacement Protocol 1 EACH MISC MISCELLANE PRN (13:37)
[2020-01-30] MEDS: MAGNESIUM SULFATE-D5W PMX 1 GM in DEXTROSE/WATER 1 100ML.BAG IVPB SCH ×3 (14:12→21:07)
[2020-01-30] MEDS ORDERED: IPRATROPIUM-ALBUTEROL 3 ML NEB INHALATION PRN (15:19)
[2020-01-30] MEDS: LEVOFLOXACIN 500MG-D5W PMX 500 MG in DEXTROSE/WATER 1 100ML.BAG IVPB SCH (17:17)
--- NOTE | 2020-01-30 20:10 | CONS ---
CONSULTATION PULMONARY/CRITICAL CARE CONSULTATION: DATE OF SERVICE: 01/30/2020 REASON FOR CONSULTATION: Weakness and hyponatremia. This is a 74-year-old male with a history of salivary cancer. The patient has undergone chemo and radiation by Dr. Danis Garcia and Dr. Daniel recently, and he apparently completed chemoradiation in December. Apparently more recently, he has spent time with his girlfriend and apparently she has been giving him water in his PEG tube recently. He apparently also developed severe hyponatremia primarily because of that reason. The patient has apparently been dehydrated and has also had multiple episodes of diarrhea. Anyway, the patient was seen in the emergency room for weakness and for the falling and apparently was found to have significant hyponatremia with a sodium of 109. He does have a history of salivary cancer and finished treatment just 3 or 4 weeks ago[address] He sees Dr. Garcia for his radiation and Dr. Daniel for his chemotherapy. Currently he is feeling still very weak and a bit confused. Family member is at the bedside and filled in some information and history for me. In addition, the patient has been having shortness of breath, cough, chest congestion and occasional phlegm production. She states that he is a silent aspirator. He has been receiving tube feeds via PEG tube. He is supposed to be n.p.o. The tube feeds have apparently been bolus feeds, which is probably contributing to the aspiration. HOME MEDICATIONS: His home medications include Xanax, multiple vitamins, Coumadin, Synthroid and Neurontin. Previous medications include Cozaar, sotalol, amlodipine, Prilosec. ALLERGIES: DENIED. MEDICAL HISTORY: Medical history includes atrial fibrillation, salivary cancer, hypertension, DJD, hypothyroidism and chronic aspiration with dysphagia. He is also status post chemo radiation, recently completed in December. SURGICAL HISTORY: Surgical history includes ablation for his atrial fibrillation, colonoscopy, bilateral cataract surgery and cyst removal. SOCIAL HISTORY: Negative for tobacco use. Denies any alcohol use or illicit drug use. FAMILY HISTORY: Significant for mother who is healthy. REVIEW OF SYSTEMS: CONSTITUTIONAL: Negative. NEUROLOGIC: Weakness and confusion. HEENT: Difficulty swallowing. That is why the patient has a PEG tube and is n.p.o. CARDIOVASCULAR: Negative. PULMONARY: Shortness of breath, chest congestion, cough, sputum production. GI: Negative. : Negative. RHEUMATOLOGIC: Negative. IMMUNOLOGIC: Negative. ENDOCRINOLOGIC: Negative. DERMATOLOGIC: Negative. PHYSICAL EXAMINATION: VITAL SIGNS: Current vital signs are reviewed. Temperature is 98.5, heart rate 89, respiratory rate 13, blood pressure 143/83, mean 103. Saturations on room air between 93% and 95%. GENERAL APPEARANCE: Appears in no acute distress. HEENT: Examination is grossly unremarkable. NECK: Supple. Full range of motion. No adenopathy. Neck veins are flat. CARDIOVASCULAR: Examination reveals regular rhythm and rate. S1, S2 normal. No S3, S4 or murmur. LUNGS: Lungs reveal coarse inspiratory and expiratory rhonchi. Breath sounds are rather coarse. No wheezes or crackles. Breath sounds equal. ABDOMEN: Soft. No bowel sounds. PEG tube noted. EXTREMITIES: Intact. Mild edema. SKIN: Without rash. NEUROLOGIC: Neurologic examination is nonfocal. CURRENT LAB DATA: White count of 14.8, hemoglobin 12.7, hematocrit 37.3, platelet count 378,000. PT 13.7, INR 1.4, PTT 26.5. Sodium is now 111, potassium 4.6, chloride 74, CO2 27. Anion gap is 8. BUN and creatinine are 15 and 0.38. Glucose is 104. Osmolarity is 231. Calcium 8, magnesium 1.2, CK 49, albumin 2.8. Urine is negative. EKG shows atrial fibrillation. Head CT and cervical spine CT shows mild age-related atrophy. No acute intracranial process and no acute abnormality in the cervical spine other than some degenerative changes at C5-C6 and C6 and C7. Chest x-ray shows minimal infiltrate in the posterior right lower lobe. This probably relates to an episode of aspiration. CURRENT MEDICATIONS: Current medications are reviewed. He is on subcutaneous heparin, magnesium, Narcan, Protonix. ASSESSMENT: 1. Hyponatremia, severe, likely related to hypervolemic hyponatremia or dilutional hyponatremia from excess water being introduced into the patient's PEG tube. 2. Possible aspiration pneumonia, right lower lobe. 3. Salivary cancer, status post chemoradiation recently. 4. History of chronic atrial fibrillation. 5. Hypertension. 6. Degenerative joint disease. 7. Hypothyroidism. 8. Dysphagia. 9. Chronic silent aspiration. PLAN: I will add some antibiotics to the patient's regimen. No additional recommendations are made. We will continue to follow. Prognosis is guarded. N.p.o. for now. Head of bed elevated at all times. Aspiration precautions. Will get Dietary to provide him with adequate nutrition with continuous feeds rather than bolus feeding, which is what he is getting at home. Nephrology is involved in the patient's hyponatremia. Currently 3% saline has been turned off. A repeat sodium is pending. Will continue to follow. MMODL / IJN: [id number] /
[2020-01-30] MEDS: IPRATROPIUM-ALBUTEROL 3 ML NEB INHALATION SCH (20:51)
[2020-01-30] MEDS: HEPARIN SODIUM,PORCINE 5,000 UNIT/ML 1 ML VIAL SQ SCH (21:07)
[2020-01-30] MEDS ORDERED: DESMOPRESSIN ACETATE 1 MCG in SODIUM CHLORIDE 0.9% 50 ML IVPB ONE (22:04)
[2020-01-31] MEDS: DEXTROSE 5% IN WATER 1,000 ML IV SCH ×2 (04:05→21:42)
[2020-01-31 05:42] LABS: Anisocytosis Slight; Basophils # (A) 0.1 k/uL (0-0.2); Basophils % (A) 1 %; Eosinophils # (A) 0.2 k/uL (0-0.7); Eosinophils % (A) 1 %; HCT 38.7 % (39.0-53.0); HGB 12.4 gm/dL (13.0-17.5); Lymphocytes # (A) 0.2 k/uL (1.0-4.8); Lymphocytes % (A) 2 %; MCH 25.9 pg (25.0-35.0); MCHC 32.1 g/dL (31.0-37.0); MCV 80.9 fL (80.0-100.0); Mean Platelet Volume 6.9; Monocytes % (A) 9 %; Neutrophils # (A) 10.1 k/uL (1.3-7.7); Neutrophils % (A) 85 %; Platelet Count 329 k/uL (150-450); RBC 4.78 m/uL (4.30-5.90); RDW 17.3 % (11.5-15.5); WBC 11.8 k/uL (3.8-10.6)
[2020-01-31 05:43] LABS: African American GFR (CKD) >90 (>60 ml/min/1.73 sqM); Anion Gap 6 mmol/L; Blood Urea Nitrogen 12 mg/dL (9-20); Calcium 8.2 mg/dL (8.4-10.2); Carbon Dioxide 27 mmol/L (22-30); Chloride 82 mmol/L (98-107); Glucose 108 mg/dL (74-99); Magnesium 1.7 mg/dL (1.6-2.3); Non-African American GFR(CKD) >90 (>60 ml/min/1.73 sqM); Potassium 4.8 mmol/L (3.5-5.1)
[2020-01-31 05:46] LABS: Sodium 115 mmol/L (137-145)
[2020-01-31] MEDS: IPRATROPIUM-ALBUTEROL 3 ML NEB INHALATION SCH ×3 (07:18→19:36)
--- NOTE | 2020-01-31 08:17 | P.HPIM ---
History of Present Illness H&P Date: 01/31/20 Chief Complaint: Generalized weakness. This is a history of physical 74-year-old white male with known history of hypertension who states for the last several weeks she's been feeling poorly. Strength has been waning and his appetite was poor. He states no excessive liquid use. However, evaluation emergency room did show severe hyponatremia. He is now admitted for appropriate correction of this. No fever or chills. No chest painand nausea or vomiting stated. No diarrhea noted. He has an underlying history of atrial fibrillation which is stable. Review of Systems Constitutional: Denies chills, Denies fever Eyes: denies blurred vision, denies pain Ears, nose, mouth and throat: Denies headache, Denies sore throat Cardiovascular: Denies chest pain, Denies shortness of breath Respiratory: Denies cough Gastrointestinal: Denies abdominal pain, Denies diarrhea, Denies nausea, Denies vomiting Musculoskeletal: Denies myalgias Past Medical History Past Medical History: Atrial Fibrillation, Cancer, Hypertension, Osteoarthritis (OA), Thyroid Disorder Additional Past Medical History / Comment(s): "Don't have good balance.". neck cancer with difficulty swallowing. receiving radiation and chemo History of Any Multi-Drug Resistant Organisms: None Reported Past Surgical History: Ablation Additional Past Surgical History / Comment(s): CYST REMOVED, COLONOSCOPY, BILATERAL CATARACT SURGERY, cardioversion X4, . Past Anesthesia/Blood Transfusion Reactions: No Reported Reaction Past Psychological History: Anxiety Smoking Status: Former smoker Past Alcohol Use History: None Reported Additional Past Alcohol Use History / Comment(s): STARTED SMOKING AT AGE 17, QUIT AT AGE 34, SMOKED 3/4 -1 PPD. Currently has 2 drinks per day. Past Drug Use History: None Reported - Past Family History Mother Family Medical History: No Reported History Medications and Allergies Home Medications Medication Instructions Recorded Confirmed Type Warfarin [Coumadin] 5 mg PEG/G-TUBE QAM 12/28/16 01/30/20 History Levothyroxine Sodium [Synthroid] 112 mcg PEG/G-TUBE QAM 12/27/17 01/30/20 Histor y Losartan [Cozaar] 50 mg PEG/G-TUBE QAM 01/30/20 01/30/20 History Magnesium Oxide [Mag-Ox] 400 mg PEG/G-TUBE TID 01/30/20 01/30/20 History Sotalol [Betapace] 40 mg PEG/G-TUBE QAM 01/30/20 01/30/20 History Allergies Allergy/AdvReac Type Severity Reaction Status Date / Time No Known Allergies Allergy Verified 01/30/20 11:12 Physical Exam Vitals: Vital Signs Temp Pulse Resp BP Pulse Ox 01/31/20 07:29 104 H 01/31/20 07:18 98 01/31/20 07:00 102 H 22 135/93 94 L 01/31/20 06:00 93 15 146/76 94 L 01/31/20 05:00 93 19 141/83 94 L 01/31/20 04:00 98.4 F 95 12 143/73 91 L 01/31/20 03:00 97 20 136/77 93 L 01/31/20 02:00 89 17 127/76 91 L 01/31/20 01:00 99 20 126/79 91 L 01/31/20 00:00 98.7 F 96 16 138/68 93 L 01/30/20 23:00 104 H 17 127/73 92 L 01/30/20 22:00 94 21 116/81 91 L 01/30/20 21:00 92 19 127/85 93 L 01/30/20 20:58 104 H 01/30/20 20:52 102 H 01/30/20 20:00 98.6 F 105 H 13 112/78 92 L 01/30/20 19:00 97 24 125/61 93 L 01/30/20 18:00 90 16 125/71 01/30/20 17:00 93 17 132/94 93 L 01/30/20 16:00 100 13 145/89 91 L 01/30/20 15:29 27 H 01/30/20 15:00 104 H 27 H 141/87 90 L 01/30/20 14:00 89 13 143/83 93 L 01/30/20 13:50 89 12 143/83 92 L 01/30/20 13:40 98.5 F 97 17 143/83 94 L 01/30/20 13:30 91 15 93 L 01/30/20 13:27 93 25 H 01/30/20 13:02 97.7 F 92 18 126/92 95 01/30/20 11:58 98 F 89 20 158/92 95 01/30/20 10:09 85 18 137/64 96 01/30/20 09:21 97.3 F L 68 18 131/67 96 Intake and Output 01/30/20 01/31/20 01/31/20 22:59 06:59 14:59 Intake Total 410 240 Output Total 1680 705 Balance -1270 -465 Intake: IV 200 Dextrose 5% in Water 1, 200 000 ml @ 100 mls/hr IV . Q10H [facility] Rx#:[id number] Intake, IV Titration 300 Amount Levofloxacin 500Mg-D5w 100 Pmx 500 mg In Dextrose/ Water 1 100ml.bag @ 100 mls/hr IVPB Q24H [facility]IAS Rx#: [id number] Magnesium Sulfate-D5w Pmx 200 1 gm In Dextrose/Water 1 100ml.bag @ 100 mls/hr IVPB Q1H [facility]IAS Rx#: [id number] Tube Feeding 80 40 Other 30 0 Output: Urine 1680 705 Other: Voiding Method Indwelling Catheter Indwelling Catheter Weight 80.6 kg - Constitutional General appearance: no acute distress - EENT Eyes: EOMI - Neck Neck: no lymphadenopathy - Respiratory Respiratory: bilateral: CTA - Cardiovascular Rhythm: irregularly irregular Heart sounds: normal: S1, S2 Abnormal Heart Sounds: no S3 Gallop - Gastrointestinal General gastrointestinal: soft, no tenderness - Neurologic Neurologic: CNII-XII intact - Musculoskeletal Musculoskeletal: generalized weakness - Psychiatric Psychiatric: A&O x's 3 Results CBC & Chem 7: 01/31/20 05:17 01/31/20 05:17 Labs: Abnormal Lab Results - Last 24 Hours (Table) 01/30/20 01/30/20 01/30/20 Range/Units 09:58 09:58 09:58 WBC 14.8 H (3.8-10.6) k/uL Hgb 12.7 L (13.0-17.5) gm/dL Hct 37.3 L (39.0-53.0) % MCV 79.5 L (80.0-100.0) fL RDW 16.8 H (11.5-15.5) % Neutrophils # 12.6 H (1.3-7.7) k/uL Lymphocytes # 0.4 L (1.0-4.8) k/uL Monocytes # 1.3 H (0-1.0) k/uL PT 13.7 H (9.0-12.0) sec INR 1.4 H (<1.2) Sodium 108 L* (137-145) mmol/L Chloride 73 L* (98-107) mmol/L Creatinine 0.45 L (0.66-1.25) mg/dL Glucose 132 H (74-99) mg/dL Osmolality (280-301) mosm/kg Calcium 8.1 L (8.4-10.2) mg/dL Magnesium 1.2 L (1.6-2.3) mg/dL Creatine Kinase 49 L (55-170) U/L Total Protein 5.6 L (6.3-8.2) g/dL Albumin 2.8 L (3.5-5.0) g/dL 01/30/20 01/30/20 01/30/20 Range/Units 11:03 13:02 17:55 WBC (3.8-10.6) k/uL Hgb (13.0-17.5) gm/dL Hct (39.0-53.0) % MCV (80.0-100.0) fL RDW (11.5-15.5) % Neutrophils # (1.3-7.7) k/uL Lymphocytes # (1.0-4.8) k/uL Monocytes # (0-1.0) k/uL PT (9.0-12.0) sec INR (<1.2) Sodium 109 L* 111 L* 113 L* (137-145) mmol/L Chloride 74 L* (98-107) mmol/L Creatinine 0.38 L (0.66-1.25) mg/dL Glucose 104 H (74-99) mg/dL Osmolality 231 L* (280-301) mosm/kg Calcium 8.0 L (8.4-10.2) mg/dL Magnesium (1.6-2.3) mg/dL Creatine Kinase (55-170) U/L Total Protein (6.3-8.2) g/dL Albumin (3.5-5.0) g/dL 01/30/20 01/31/20 01/31/20 Range/Units 20:37 01:04 05:17 WBC (3.8-10.6) k/uL Hgb (13.0-17.5) gm/dL Hct (39.0-53.0) % MCV (80.0-100.0) fL RDW (11.5-15.5) % Neutrophils # (1.3-7.7) k/uL Lymphocytes # (1.0-4.8) k/uL Monocytes # (0-1.0) k/uL PT (9.0-12.0) sec INR (<1.2) Sodium 114 L* 115 L* 115 L* (137-145) mmol/L Chloride 82 L (98-107) mmol/L Creatinine 0.38 L (0.66-1.25) mg/dL Glucose 108 H (74-99) mg/dL Osmolality (280-301) mosm/kg Calcium 8.2 L (8.4-10.2) mg/dL Magnesium (1.6-2.3) mg/dL Creatine Kinase (55-170) U/L Total Protein (6.3-8.2) g/dL Albumin (3.5-5.0) g/dL 01/31/20 Range/Units 05:17 WBC 11.8 H (3.8-10.6) k/uL Hgb 12.4 L (13.0-17.5) gm/dL Hct 38.7 L (39.0-53.0) % MCV (80.0-100.0) fL RDW 17.3 H (11.5-15.5) % Neutrophils # 10.1 H (1.3-7.7) k/uL Lymphocytes # 0.2 L (1.0-4.8) k/uL Monocytes # (0-1.0) k/uL PT (9.0-12.0) sec INR (<1.2) Sodium (137-145) mmol/L Chloride (98-107) mmol/L Creatinine (0.66-1.25) mg/dL Glucose (74-99) mg/dL Osmolality (280-301) mosm/kg Calcium (8.4-10.2) mg/dL Magnesium (1.6-2.3) mg/dL Creatine Kinase (55-170) U/L Total Protein (6.3-8.2) g/dL Albumin (3.5-5.0) g/dL Thrombosis Risk Factor Assmnt - Choose All That Apply Each Factor Represents 1 point: Medical pt on bed rest Each Risk Factor Represents 2 Points: Patient confined to bed, Malignancy Each Risk Factor Represents 3 Points: Age 75 years or older Thrombosis Risk Factor Assessment Total Risk Factor Score: 8 Thrombosis Risk Factor Assessment Level: High Risk Assessment and Plan (1) Atrial fibrillation Current Visit: Yes Status: Acute Code(s): I48.91 - UNSPECIFIED ATRIAL FIBRILLATION SNOMED Code(s): 87813160 (2) Confusion Current Visit: Yes Status: Acute Code(s): R41.0 - DISORIENTATION, UNSPECIFIED SNOMED Code(s): 178068327 (3) Generalized weakness Current Visit: Yes Status: Acute Code(s): R53.1 - WEAKNESS SNOMED Code(s): 83498842 (4) Hypomagnesemia Current Visit: Yes Status: Acute Code(s): E83.42 - HYPOMAGNESEMIA SNOMED Code(s): 121033915 (5) Hyponatremia Current Visit: Yes Status: Acute Code(s): E87.1 - HYPO-OSMOLALITY AND HYPONATREMIA SNOMED Code(s): 96613063 (6) Dyspnea Current Visit: No Status: Acute Code(s): R06.00 - DYSPNEA, UNSPECIFIED SNOMED Code(s): 644101286 Plan: We will go ahead and reconcile home medications. Appreciate nephrology input. Gingerly increase his sodium level. Check CBC, CMP PT/INR in a.m. See orders otherwise. Time with Patient: Greater than 30
[2020-01-31] MEDS: PANTOPRAZOLE 40 MG/10 ML VIAL IV SCH (08:57)
[2020-01-31] MEDS: HEPARIN SODIUM,PORCINE 5,000 UNIT/ML 1 ML VIAL SQ SCH ×2 (08:57→22:24)
[2020-01-31] MEDS: MAGNESIUM SULFATE-D5W PMX 1 GM in DEXTROSE/WATER 1 100ML.BAG IVPB SCH ×2 (08:57→13:02)
--- NOTE | 2020-01-31 09:03 | XR ---
EXAMINATION TYPE: XR chest 1V DATE OF EXAM: 01/31/2020 CLINICAL HISTORY: Pneumonia TECHNIQUE: Semiupright portable view of the chest obtained COMPARISON: 01/30/2020 and 01/10/2020 chest regressed. FINDINGS: The cardiomediastinal silhouette is within normal limits for size. Pulmonary vasculature i s normal. There is improved aeration of the right lower lobe. No pleural effusion, or pneumothorax se en. The osseous structures are intact. Round calcifications over the left upper quadrant redemonstrat ed from 01/30/2020, of unknown etiology, and not demonstrated on 01/10/2020. IMPRESSION: Improved aeration of the right lower lobe. Findings on 01/30/2020 comparison may have repre sented atelectasis.
--- NOTE | 2020-01-31 09:26 | P.NPCON ---
History of Present Illness - Reason for Consult hyponatremia - History of Present Illness reason for consultation: Hyponatremia History of present illness: Patient is a 74-year-old male seen in the consultation for hyponatremia. Patient's sodium level on admission was 108. He did receive 3% initially and was subsequently started on D5 W to prevent rapid correction. Sodium level this morning was 115. patient has history of throat cancer and does not eat or drink by mouth. He has a PEG tube and states he's been receiving his tube feedings as prescribed but was receiving an extra liter of water the last few days as prescribed by his physician. He denies vomiting or diarrhea. No chest pain or shortness of breath. No edema. Patient states he's not active bleeding being treated for his malignancy and has completed the treatment. urine output has been about 40-60 mL an hour.he did receive 1 g of DDAVP last night.denies use of nonsteroidals. Blood sugar controlled. Denies any personal or family history of renal disease. GFR at baseline. Hemodynamically stable. He is awake and alert. Vital signs are stable. General: The patient appeared well nourished and normally developed. HEENT: Head exam is unremarkable. Neck is without jugular venous distension. LUNGS: Lungs are clear to auscultation and percussion. Breath sounds decreased. HEART: Rate and Rhythm are regular. ABDOMEN: soft, nontender. EXTREMITITES: No clubbing, cyanosis, or edema. Past Medical History Past Medical History: Atrial Fibrillation, Cancer, Hypertension, Osteoarthritis (OA), Thyroid Disorder Additional Past Medical History / Comment(s): "Don't have good balance.". neck cancer with difficulty swallowing. receiving radiation and chemo History of Any Multi-Drug Resistant Organisms: None Reported Past Surgical History: Ablation Additional Past Surgical History / Comment(s): CYST REMOVED, COLONOSCOPY, BILATERAL CATARACT SURGERY, cardioversion X4, . Past Anesthesia/Blood Transfusion Reactions: No Reported Reaction Past Psychological History: Anxiety Smoking Status: Former smoker Past Alcohol Use History: None Reported Additional Past Alcohol Use History / Comment(s): STARTED SMOKING AT AGE 17, QUIT AT AGE 34, SMOKED 3/4 -1 PPD. Currently has 2 drinks per day. Past Drug Use History: None Reported - Past Family History Mother Family Medical History: No Reported History Medications and Allergies Home Medications Medication Instructions Recorded Confirmed Type Warfarin [Coumadin] 5 mg PEG/G-TUBE QAM 12/28/16 01/30/20 History Levothyroxine Sodium [Synthroid] 112 mcg PEG/G-TUBE QAM 12/27/17 01/30/20 History Losartan [Cozaar] 50 mg PEG/G-TUBE QAM 01/30/20 01/30/20 History Magnesium Oxide [Mag-Ox] 400 mg PEG/G-TUBE TID 01/30/20 01/30/20 History Sotalol [Betapace] 40 mg PEG/G-TUBE QAM 01/30/20 01/30/20 History Allergies Allergy/AdvReac Type Severity Reaction Status Date / Time No Known Allergies Allergy Verified 01/30/20 11:12 Physical Exam Vitals: Vital Signs Temp Pulse Resp BP Pulse Ox 01/31/20 09:00 98.9 F 96 21 149/69 95 01/31/20 08:00 98 17 140/76 01/31/20 07:29 104 H 01/31/20 07:18 98 01/31/20 07:00 102 H 22 135/93 94 L 01/31/20 06:00 93 15 146/76 94 L 01/31/20 05:00 93 19 141/83 94 L 01/31/20 04:00 98.4 F 95 12 143/73 91 L 01/31/20 03:00 97 20 136/77 93 L 01/31/20 02:00 89 17 127/76 91 L 01/31/20 01:00 99 20 126/79 91 L 01/31/20 00:00 98.7 F 96 16 138/68 93 L 01/30/20 23:00 104 H 17 127/73 92 L 01/30/20 22:00 94 21 116/81 91 L 01/30/20 21:00 92 19 127/85 93 L 01/30/20 20:58 104 H 01/30/20 20:52 102 H 01/30/20 20:00 98.6 F 105 H 13 112/78 92 L 01/30/20 19:00 97 24 125/61 93 L 01/30/20 18:00 90 16 125/71 01/30/20 17:00 93 17 132/94 93 L 01/30/20 16:00 100 13 145/89 91 L 01/30/20 15:29 27 H 01/30/20 15:00 104 H 27 H 141/87 90 L 01/30/20 14:00 89 13 143/83 93 L 01/30/20 13:50 89 12 143/83 92 L 01/30/20 13:40 98.5 F 97 17 143/83 94 L 01/30/20 13:30 91 15 93 L 01/30/20 13:27 93 25 H 01/30/20 13:02 97.7 F 92 18 126/92 95 01/30/20 11:58 98 F 89 20 158/92 95 01/30/20 10:09 85 18 137/64 96 01/30/20 09:21 97.3 F L 68 18 131/67 96 Intake and Output 01/30/20 01/31/20 01/31/20 22:59 06:59 14:59 Intake Total 410 240 300 Output Total 1680 705 100 Balance -1270 -465 200 Intake: IV 200 200 Dextrose 5% in Water 1, 200 200 000 ml @ 100 mls/hr IV . Q10H [facility] Rx#:[id number] Intake, IV Titration 300 100 Amount Levofloxacin 500Mg-D5w 100 Pmx 500 mg In Dextrose/ Water 1 100ml.bag @ 100 mls/hr IVPB Q24H [facility] Rx#: [id number] Magnesium Sulfate-D5w Pmx 200 1 gm In Dextrose/Water 1 100ml.bag @ 100 mls/hr IVPB Q1H [facility] Rx#: [id number] Magnesium Sulfate-D5w Pmx 100 1 gm In Dextrose/Water 1 100ml.bag @ 100 mls/hr IVPB Q1H [facility] Rx#: [id number] Tube Feeding 80 40 Other 30 0 Output: Urine 1680 705 100 Other: Voiding Method Indwelling Catheter Indwelling Catheter Weight 80.6 kg Results - Lab Results Most recent lab results Calcium 8.2 mg/dL (8.4-10.2) L 01/31/20 05:17 Magnesium 1.7 mg/dL (1.6-2.3) 01/31/20 05:17 01/31/20 05:17 01/31/20 05:17 Assessment and Plan Plan: assessment: 1. Hypotonic hyponatremia secondary to excess fluid intake. Patient was receiving an extra liter of water through his PEG tube the last few days.sodium level 108 on admission and is up to 115 this morning. urine osmolality 438. 2. History of throat cancer. Receiving tube feeding via PEG tube. 3. Benign hypertension. Controlled. plan: Maintain D5W at 100 mL an hour. repeat sodium level at 9 AM. Goal rate of correction 6-8 mEq per 24 hours. check TSH. Thank you for the consultation.I will continue to follow the patient with you during his hospital stay.
--- NOTE | 2020-01-31 10:56 | PN ---
PROGRESS NOTE PULMONARY/CRITICAL CARE PROGRESS NOTE: DATE OF SERVICE: 01/31/2020 This is a 74-year-old male who was seen yesterday in consultation. He has a history of salivary cancer, status post recent chemotherapy and radiation therapy by Dr. Danis Garcia and Dr. Daniel respectively, recently. He completed chemoradiation in December. More recently, he had a PEG tube placed because he is n.p.o. Apparently, he has developed some hyponatremia. Apparently his girlfriend has been giving him significant amounts of free water through his PEG tube. In addition, the patient has a history of chronic sinus aspiration and may have aspiration pneumonia. The patient also presented with dehydration as he has had multiple episodes of diarrhea. His initial sodium was 109 on presentation. Currently, he is feeling a lot better. His sodium is up to 115. He is on 2 L nasal cannula. He is getting D5W at 100 mL an hour. He is also getting Vital high-protein at 20 mL an hour. Dietary is yet to determine what his goal rate is. Finally, he is on saline at KVO. He is much more awake and alert. We did institute aspiration precautions yesterday with head of bed elevated at all times and the patient being n.p.o. Current vital signs reviewed. Temperature is 98.9, heart rate 96, respiratory rate 21, blood pressure 149/69 mean 95, 2 L saturation 95%. Appears in no acute distress. HEENT: Examination is grossly unremarkable. Nasal O2 in place. NECK: Supple. There is a bandage on the left side. No adenopathy. CARDIOVASCULAR: Examination reveals regular rhythm and rate. Heart rate about 90 beats per minute. S1, S2 normal. LUNGS: Reveal coarse congested breath sounds bilaterally. We hear them on both inspiration and exhalation. No wheezes or crackles. ABDOMEN: Soft. PEG tube noted. Bowel sounds noted. EXTREMITIES: Intact. No significant edema. SKIN: Without rash. NEUROLOGIC: Examination is nonfocal. LABS: Reviewed. White count 11.8, hemoglobin 12.4, hematocrit 38.7, platelet count 329,000, sodium up to 115 from 109 as the baseline, potassium 4.8, chloride 82, CO2 is 27, anion gap 6. BUN and creatinine were 12 and 0.38. The rest of the labs look okay. Urine is clean. Microbiology is negative. A chest x-ray shows some improved aeration to the right lower lobe. Medications are reviewed. ASSESSMENT: 1. Hyponatremia, severe, likely related to hypervolemic hyponatremia or dilutional hyponatremia from excess water being introduced into the patient's PEG tube. 2. Possible aspiration pneumonia, right lower lobe, with improved overall x-ray pattern. 3. Salivary cancer, status post chemoradiation recently. 4. History of chronic atrial fibrillation. 5. Essential hypertension. 6. Degenerative joint disease. 7. Hypothyroidism. 8. Dysphagia. 9. Chronic silent aspiration. PLAN: Currently, the patient's sodium is up to 115. He is doing much better. He is much more awake and alert. Chest x-ray is improved. The abnormality seen on x-ray could be only atelectasis. The patient does have a very coarse sounding chest. Will continue to follow. Prognosis is guarded. No additional recommendations are made at this time. Patient being followed by Nephrology. MMODL / IJN: [id number] /
[2020-01-31 11:10] LABS: INR 1.2 (<1.2); Prothrombin Time 12.2 sec (9.0-12.0)
[2020-01-31] MEDS ORDERED: SODIUM CHLORIDE 3%(HYPERTONIC) 500 ML IV SCH (16:00)
[2020-01-31] MEDS: LEVOFLOXACIN 500MG-D5W PMX 500 MG in DEXTROSE/WATER 1 100ML.BAG IVPB SCH (16:49)
[2020-02-01] MEDS ORDERED: DESMOPRESSIN ACETATE 4 MCG/ML VIAL (MDV) IV ONE (02:55)
[2020-02-01 06:03] LABS: Anisocytosis Slight; Basophils % (A) 0 %; Eosinophils # (A) 0.1 k/uL (0-0.7); Eosinophils % (A) 1 %; HCT 36.4 % (39.0-53.0); HGB 11.7 gm/dL (13.0-17.5); Lymphocytes # (A) 0.3 k/uL (1.0-4.8); Lymphocytes % (A) 3 %; MCH 26.5 pg (25.0-35.0); MCHC 32.3 g/dL (31.0-37.0); MCV 82.1 fL (80.0-100.0); Mean Platelet Volume 6.6; Monocytes # (A) 0.8 k/uL (0-1.0); Monocytes % (A) 8 %; Neutrophils # (A) 8.2 k/uL (1.3-7.7); Neutrophils % (A) 85 %; Platelet Count 322 k/uL (150-450); RBC 4.43 m/uL (4.30-5.90); RDW 17.1 % (11.5-15.5); WBC 9.6 k/uL (3.8-10.6)
[2020-02-01 06:06] LABS: ALT 22 U/L (4-49); AST 22 U/L (17-59); African American GFR (CKD) >90 (>60 ml/min/1.73 sqM); Albumin 2.5 g/dL (3.5-5.0); Alkaline Phosphatase 69 U/L (38-126); Anion Gap 6 mmol/L; Blood Urea Nitrogen 12 mg/dL (9-20); Calcium 8.1 mg/dL (8.4-10.2); Carbon Dioxide 30 mmol/L (22-30); Chloride 88 mmol/L (98-107); Glucose 124 mg/dL (74-99); Magnesium 1.5 mg/dL (1.6-2.3); Non-African American GFR(CKD) >90 (>60 ml/min/1.73 sqM); Potassium 4.5 mmol/L (3.5-5.1); Sodium 124 mmol/L (137-145); Total Bilirubin 0.4 mg/dL (0.2-1.3); Total Protein 5.4 g/dL (6.3-8.2)
[2020-02-01] MEDS ORDERED: DEXTROSE 5% IN WATER 1,000 ML IV ONE (06:32)
[2020-02-01] MEDS: MAGNESIUM SULFATE-D5W PMX 1 GM in DEXTROSE/WATER 1 100ML.BAG IVPB SCH ×2 (06:44→08:38)
[2020-02-01] MEDS: IPRATROPIUM-ALBUTEROL 3 ML NEB INHALATION SCH ×3 (07:46→19:50)
--- NOTE | 2020-02-01 08:35 | P.PN ---
Subjective Principal diagnosis: Electrolyte imbalance This is a continue progress on a 74-year-old white male essentially admitted for hyponatremia of severe type. The patient has been feeling better. Appreciate multiple consultants input in the ICU. He still tachycardic but feels improved. No overt shortness of breath. No new voiding difficulties otherwise stated. Objective - Vital Signs Vital signs: Vital Signs Temp 97.6 F 02/01/20 04:00 Pulse 115 H 02/01/20 07:57 Resp 20 02/01/20 07:00 BP 125/68 02/01/20 07:00 Pulse Ox 94 L 02/01/20 07:00 Intake & Output 01/31/20 02/01/20 02/01/20 18:59 06:59 18:59 Intake Total 1115 920 80 Output Total 1115 1775 75 Balance 0 -855 5 Weight 80.6 kg 78.6 kg Intake: IV 400 25 Dextrose 5% in Water 1, 400 000 ml @ 100 mls/hr IV . Q10H [facility] Rx#:[id number] Sodium Chloride 3%( 25 Hypertonic) 500 ml @ 25 mls/hr IV .Q20H [facility] Rx#: [id number] Intake, IV Titration 275 25 Amount Magnesium Sulfate-D5w Pmx 200 1 gm In Dextrose/Water 1 100ml.bag @ 100 mls/hr IVPB Q1H [facility] Rx#: [id number] Sodium Chloride 3%( 75 25 Hypertonic) 500 ml @ 25 mls/hr IV .Q20H [facility] Rx#: [id number] Tube Feeding 440 840 80 Other 30 Output: Urine 1115 1775 75 Other: Voiding Method Indwelling Catheter Indwelling Catheter - Constitutional General appearance: Present: average body habitus - EENT Eyes: Absent: abnormal pupil - Respiratory Respiratory: bilateral: CTA - Cardiovascular Rhythm: regular Heart sounds: normal: S1, S2 Abnormal Heart Sounds: Absent: S3 Gallop - Gastrointestinal General gastrointestinal: Present: soft. Absent: splenomegaly, tenderness - Integumentary Integumentary: Absent: cellulitis - Neurologic Neurologic: Absent: focal deficits - Labs CBC & Chem 7: 02/01/20 05:10 02/01/20 05:10 Labs: Abnormal Lab Results - Last 24 Hours (Table) 01/31/20 01/31/20 01/31/20 Range/Units 10:07 10:07 14:56 Hgb (13.0-17.5) gm/dL Hct (39.0-53.0) % RDW (11.5-15.5) % Neutrophils # (1.3-7.7) k/uL Lymphocytes # (1.0-4.8) k/uL PT 12.2 H (9.0-12.0) sec INR 1.2 H (<1.2) Sodium 115 L* 115 L* (137-145) mmol/L Chloride (98-107) mmol/L Creatinine (0.66-1.25) mg/dL Glucose (74-99) mg/dL Calcium (8.4-10.2) mg/dL Magnesium (1.6-2.3) mg/dL Total Protein (6.3-8.2) g/dL Albumin (3.5-5.0) g/dL 01/31/20 01/31/20 02/01/20 Range/Units 18:36 23:24 02:12 Hgb (13.0-17.5) gm/dL Hct (39.0-53.0) % RDW (11.5-15.5) % Neutrophils # (1.3-7.7) k/uL Lymphocytes # (1.0-4.8) k/uL PT (9.0-12.0) sec INR (<1.2) Sodium 117 L* 119 L* 121 L (137-145) mmol/L Chloride (98-107) mmol/L Creatinine (0.66-1.25) mg/dL Glucose (74-99) mg/dL Calcium (8.4-10.2) mg/dL Magnesium (1.6-2.3) mg/dL Total Protein (6.3-8.2) g/dL Albumin (3.5-5.0) g/dL 02/01/20 02/01/20 Range/Units 05:10 05:10 Hgb 11.7 L (13.0-17.5) gm/dL Hct 36.4 L (39.0-53.0) % RDW 17.1 H (11.5-15.5) % Neutrophils # 8.2 H (1.3-7.7) k/uL Lymphocytes # 0.3 L (1.0-4.8) k/uL PT (9.0-12.0) sec INR (<1.2) Sodium 124 L (137-145) mmol/L Chloride 88 L (98-107) mmol/L Creatinine 0.46 L (0.66-1.25) mg/dL Glucose 124 H (74-99) mg/dL Calcium 8.1 L (8.4-10.2) mg/dL Magnesium 1.5 L (1.6-2.3) mg/dL Total Protein 5.4 L (6.3-8.2) g/dL Albumin 2.5 L (3.5-5.0) g/dL Microbiology - Last 24 Hours (Table) 01/30/20 11:31 Blood Culture - Preliminary Blood No Growth after 24 hours Assessment and Plan (1) Atrial fibrillation Current Visit: Yes Status: Acute Code(s): I48.91 - UNSPECIFIED ATRIAL FIBRILLATION SNOMED Code(s): 93282340 (2) Confusion Current Visit: Yes Status: Acute Code(s): R41.0 - DISORIENTATION, UNSPECIFIED SNOMED Code(s): 971792908 (3) Generalized weakness Current Visit: Yes Status: Acute Code(s): R53.1 - WEAKNESS SNOMED Code(s): 81134566 (4) Hypomagnesemia Current Visit: Yes Status: Acute Code(s): E83.42 - HYPOMAGNESEMIA SNOMED Code(s): 406036987 (5) Hyponatremia Current Visit: Yes Status: Acute Code(s): E87.1 - HYPO-OSMOLALITY AND HYPONATREMIA SNOMED Code(s): 22748677 (6) Dyspnea Current Visit: No Status: Acute Code(s): R06.00 - DYSPNEA, UNSPECIFIED SNOMED Code(s): 545077437 Plan: Check CBC CMP and PT/INR in a.m. Hyponatremia as improving. Still has hypomagnesemia. We'll continue appropriate protocols. See orders otherwise.
[2020-02-01] MEDS: HEPARIN SODIUM,PORCINE 5,000 UNIT/ML 1 ML VIAL SQ SCH ×2 (08:38→20:25)
[2020-02-01] MEDS: PANTOPRAZOLE 40 MG/10 ML VIAL IV SCH (08:38)
[2020-02-01] MEDS ORDERED: LEVOTHYROXINE 125 MCG TAB PEG/G-TUBE SCH (09:15)
--- NOTE | 2020-02-01 09:33 | P.PN ---
Subjective patient is seen in follow-up for hyponatremia. sodium level 125 this morning. Patient is maintained on D5 W at 100 mL an hour. He also received a dose of DDAVP last night. awake and alert. Receiving tube feeding. Hemodynamically stable. Vital signs are stable. General: The patient appeared well nourished and normally developed. HEENT: Head exam is unremarkable. Neck is without jugular venous distension. LUNGS: Lungs are clear to auscultation and percussion. Breath sounds decreased. HEART: Rate and Rhythm are regular. ABDOMEN: soft, nontender. EXTREMITITES: No clubbing, cyanosis, or edema. Objective - Vital Signs Vital signs: Vital Signs Temp 97.6 F 02/01/20 04:00 Pulse 115 H 02/01/20 07:57 Resp 20 02/01/20 07:00 BP 125/68 02/01/20 07:00 Pulse Ox 94 L 02/01/20 07:00 Intake & Output 01/31/20 02/01/20 02/01/20 18:59 06:59 18:59 Intake Total 1115 920 80 Output Total 1115 1775 75 Balance 0 -855 5 Weight 80.6 kg 78.6 kg Intake: IV 400 25 Dextrose 5% in Water 1, 400 000 ml @ 100 mls/hr IV . Q10H [facility] Rx#:[id number] Sodium Chloride 3%( 25 Hypertonic) 500 ml @ 25 mls/hr IV .Q20H [facility] Rx#: [id number] Intake, IV Titration 275 25 Amount Magnesium Sulfate-D5w Pmx 200 1 gm In Dextrose/Water 1 100ml.bag @ 100 mls/hr IVPB Q1H [facility] Rx#: [id number] Sodium Chloride 3%( 75 25 Hypertonic) 500 ml @ 25 mls/hr IV .Q20H [facility] Rx#: [id number] Tube Feeding 440 840 80 Other 30 Output: Urine 1115 1775 75 Other: Voiding Method Indwelling Catheter Indwelling Catheter - Labs CBC & Chem 7: 02/01/20 05:10 02/01/20 05:10 Labs: Abnormal Lab Results - Last 24 Hours (Table) 01/31/20 01/31/20 01/31/20 Range/Units 10:07 10:07 14:56 Hgb (13.0-17.5) gm/dL Hct (39.0-53.0) % RDW (11.5-15.5) % Neutrophils # (1.3-7.7) k/uL Lymphocytes # (1.0-4.8) k/uL PT 12.2 H (9.0-12.0) sec INR 1.2 H (<1.2) Sodium 115 L* 115 L* (137-145) mmol/L Chloride (98-107) mmol/L Creatinine (0.66-1.25) mg/dL Glucose (74-99) mg/dL Calcium (8.4-10.2) mg/dL Magnesium (1.6-2.3) mg/dL Total Protein (6.3-8.2) g/dL Albumin (3.5-5.0) g/dL 01/31/20 01/31/20 02/01/20 Range/Units 18:36 23:24 02:12 Hgb (13.0-17.5) gm/dL Hct (39.0-53.0) % RDW (11.5-15.5) % Neutrophils # (1.3-7.7) k/uL Lymphocytes # (1.0-4.8) k/uL PT (9.0-12.0) sec INR (<1.2) Sodium 117 L* 119 L* 121 L (137-145) mmol/L Chloride (98-107) mmol/L Creatinine (0.66-1.25) mg/dL Glucose (74-99) mg/dL Calcium (8.4-10.2) mg/dL Magnesium (1.6-2.3) mg/dL Total Protein (6.3-8.2) g/dL Albumin (3.5-5.0) g/dL 02/01/20 02/01/20 Range/Units 05:10 05:10 Hgb 11.7 L (13.0-17.5) gm/dL Hct 36.4 L (39.0-53.0) % RDW 17.1 H (11.5-15.5) % Neutrophils # 8.2 H (1.3-7.7) k/uL Lymphocytes # 0.3 L (1.0-4.8) k/uL PT (9.0-12.0) sec INR (<1.2) Sodium 124 L (137-145) mmol/L Chloride 88 L (98-107) mmol/L Creatinine 0.46 L (0.66-1.25) mg/dL Glucose 124 H (74-99) mg/dL Calcium 8.1 L (8.4-10.2) mg/dL Magnesium 1.5 L (1.6-2.3) mg/dL Total Protein 5.4 L (6.3-8.2) g/dL Albumin 2.5 L (3.5-5.0) g/dL Microbiology - Last 24 Hours (Table) 01/30/20 11:31 Blood Culture - Preliminary Blood No Growth after 24 hours Assessment and Plan Plan: assessment: 1. Hypotonic hyponatremia secondary to excess fluid intake. Patient was receiving an extra liter of water through his PEG tube the last few days. sodium level 108 on admission and is up to 124 this morning. urine osmolality 438. TSH normal. 2. History of throat cancer. Receiving tube feeding via PEG tube. 3. Benign hypertension. Controlled. 4. Hypomagnesemia from poor intake. plan: Maintain D5W at 100 mL an hour. repeat sodium level at 9 AM. Goal rate of correction 6-8 mEq per 24 hours. magnesium being replaced.
[2020-02-01] MEDS: MAGNESIUM OXIDE 400 MG TAB PEG/G-TUBE SCH ×3 (09:56→20:25)
[2020-02-01] MEDS: SOTALOL 80 MG TAB PEG/G-TUBE SCH (09:57)
[2020-02-01] MEDS: LEVOTHYROXINE 112 MCG TAB PEG/G-TUBE SCH (09:57)
--- NOTE | 2020-02-01 14:15 | P.PN ---
Subjective Progress Note Date: 02/01/20 74-year-old male patient with known history of saliva the gland tumor post chemoradiation therapy currently has a PEG tube for enteral feeding interstitial supported the patient has lost his ability to swallow following his radiation therapy. He came into the hospital because of diarrhea/dehydration addition to severe hyponatremia. His sodium level is gradually improving and he is being managed by nephrology. 2 avoid rapid correction, he was placed on D5 water and his sodium level is being monitored and the level has, from 109, 114, 115, 119 and is currently up to 122. Mental status improved. His following commands and answering questions appropriately. Denies having any shortness of breath. No reported cough sputum production chest that is so wheezing. There is some soreness and erythema across the left anterior neck area more so laterally at the site of radiation therapy. He is in atrial fibrillation. He has chronic atrial fibrillation. His rate is some bulging 115 and 147 beats per minute. This is to be under better control. Note that the patient has issues with chronic atrial fibrillation. Currently is on 2 L about 2 by nasal cannula. He is receiving enteral feeding for nutritional support and he is on vital AF at the rate of 80 mL an hour. No other complaints otherwise for now. Objective - Vital Signs Vital signs: Vital Signs Temp 98.0 F 02/01/20 08:00 Pulse 73 02/01/20 13:00 Resp 14 02/01/20 13:00 BP 120/58 02/01/20 13:00 Pulse Ox 93 L 02/01/20 13:00 Intake & Output 01/31/20 02/01/20 02/01/20 18:59 06:59 18:59 Intake Total 1115 920 990 Output Total 1115 1775 580 Balance 0 -855 410 Weight 80.6 kg 78.6 kg Intake: IV 400 25 300 Dextrose 5% in Water 1, 400 300 000 ml @ 100 mls/hr IV . Q10H [facility] Rx#:[id number] Sodium Chloride 3%( 25 Hypertonic) 500 ml @ 25 mls/hr IV .Q20H [facility] Rx#: [id number] Intake, IV Titration 275 25 100 Amount Magnesium Sulfate-D5w Pmx 200 1 gm In Dextrose/Water 1 100ml.bag @ 100 mls/hr IVPB Q1H [facility] Rx#: [id number] Magnesium Sulfate-D5w Pmx 100 1 gm In Dextrose/Water 1 100ml.bag @ 100 mls/hr IVPB Q1H [facility] Rx#: [id number] Sodium Chloride 3%( 75 25 Hypertonic) 500 ml @ 25 mls/hr IV .Q20H [facility] Rx#: [id number] Tube Feeding 440 840 560 Other 30 30 Output: Urine 1115 1775 580 Other: Voiding Method Indwelling Catheter Indwelling Catheter Indwelling Catheter - Exam Gen. appearance, comfortable and he is do not acute distress Head exam was generally normal. There was no scleral icterus or corneal arcus. Mucous membranes were moist. Examination of the neck shows erythema and the radiation-induced skin burn across the left lateral chest. Lung examination is within normal limits. Few rales in the lung bases otherwise clear breath sounds are equal and symmetrical. Heart sounds are irregular consistent with atrial fibrillation. Positive S1-S2 and there is no significant murmurs appreciated. Abdominal exam revealed normal bowel sounds. The abdomen was soft, non-tender, and without masses, organomegaly, or appreciable enlargement of the abdominal aorta. The patient has a PEG tube site in place which is dry clean and intact and the exit site is clean. Examination of the extremities revealed easily palpable radial, femoral and pedal pulses. There was no cyanosis, clubbing or edema. Examination of the skin revealed no evidence of significant rashes, suspicious appearing nevi or other concerning lesions. Radiation-induced changes over the left lateral neck Neurologically the patient is awake and alert and is no focal neurological deficits. - Labs CBC & Chem 7: 02/01/20 05:10 02/01/20 09:07 Labs: Abnormal Lab Results - Last 24 Hours (Table) 01/31/20 01/31/20 01/31/20 Range/Units 14:56 18:36 23:24 Hgb (13.0-17.5) gm/dL Hct (39.0-53.0) % RDW (11.5-15.5) % Neutrophils # (1.3-7.7) k/uL Lymphocytes # (1.0-4.8) k/uL Sodium 115 L* 117 L* 119 L* (137-145) mmol/L Chloride (98-107) mmol/L Creatinine (0.66-1.25) mg/dL Glucose (74-99) mg/dL Calcium (8.4-10.2) mg/dL Magnesium (1.6-2.3) mg/dL Total Protein (6.3-8.2) g/dL Albumin (3.5-5.0) g/dL 02/01/20 02/01/20 02/01/20 Range/Units 02:12 05:10 05:10 Hgb 11.7 L (13.0-17.5) gm/dL Hct 36.4 L (39.0-53.0) % RDW 17.1 H (11.5-15.5) % Neutrophils # 8.2 H (1.3-7.7) k/uL Lymphocytes # 0.3 L (1.0-4.8) k/uL Sodium 121 L 124 L (137-145) mmol/L Chloride 88 L (98-107) mmol/L Creatinine 0.46 L (0.66-1.25) mg/dL Glucose 124 H (74-99) mg/dL Calcium 8.1 L (8.4-10.2) mg/dL Magnesium 1.5 L (1.6-2.3) mg/dL Total Protein 5.4 L (6.3-8.2) g/dL Albumin 2.5 L (3.5-5.0) g/dL 02/01/20 Range/Units 09:07 Hgb (13.0-17.5) gm/dL Hct (39.0-53.0) % RDW (11.5-15.5) % Neutrophils # (1.3-7.7) k/uL Lymphocytes # (1.0-4.8) k/uL Sodium 122 L (137-145) mmol/L Chloride (98-107) mmol/L Creatinine (0.66-1.25) mg/dL Glucose (74-99) mg/dL Calcium (8.4-10.2) mg/dL Magnesium (1.6-2.3) mg/dL Total Protein (6.3-8.2) g/dL Albumin (3.5-5.0) g/dL Microbiology - Last 24 Hours (Table) 01/30/20 11:31 Blood Culture - Preliminary Blood No Growth after 48 hours Assessment and Plan Plan: 1 severe hyponatremia, hypotonic hyponatremia probably related to excess intake of water, improving and the sodium level is up to 122. No altered mentation this point in time. The sodium level is gradually improving. 2 aspiration pneumonia right more than left, currently inactive in stable, on IV Zosyn 3 Salivary gland tumor post-chemoradiation therapy 4 dysphagia secondary to above, the patient currently has a PEG tube in place 5 chronic atrial fibrillation 6 hypertension 7 hypothyroidism 8 suspect silent chronic aspiration Plan Monitor sodium level which is gradually improving is currently up to 122 Continue IV Levaquin Aspiration precautions Continue enteral feeding for nutritional support Restart the patient on sotalol 40 mg by mouth daily Restart the patient on warfarin 5 mg by mouth daily and monitor PT/INR We'll continue to follow.
[2020-02-01] MEDS: LEVOFLOXACIN 500MG-D5W PMX 500 MG in DEXTROSE/WATER 1 100ML.BAG IVPB SCH (16:36)
[2020-02-01 16:49] LABS: INR 1.1 (<1.2)
[2020-02-01] MEDS ORDERED: WARFARIN 5 MG TAB PEG/G-TUBE SCH (18:00)
[2020-02-02 04:59] LABS: INR 1.1 (<1.2); Prothrombin Time 11.3 sec (9.0-12.0)
[2020-02-02 05:05] LABS: ALT 20 U/L (4-49); AST 21 U/L (17-59); African American GFR (CKD) >90 (>60 ml/min/1.73 sqM); Albumin 2.6 g/dL (3.5-5.0); Alkaline Phosphatase 71 U/L (38-126); Anion Gap 4 mmol/L; Blood Urea Nitrogen 14 mg/dL (9-20); Calcium 8.4 mg/dL (8.4-10.2); Carbon Dioxide 31 mmol/L (22-30); Chloride 86 mmol/L (98-107); Glucose 121 mg/dL (74-99); Magnesium 1.5 mg/dL (1.6-2.3); Non-African American GFR(CKD) >90 (>60 ml/min/1.73 sqM); Potassium 4.5 mmol/L (3.5-5.1); Sodium 121 mmol/L (137-145); Total Bilirubin 0.6 mg/dL (0.2-1.3); Total Protein 5.4 g/dL (6.3-8.2)
[2020-02-02] MEDS ORDERED: SODIUM CHLORIDE 3%(HYPERTONIC) 500 ML IV SCH ×2 (05:30→20:30)
[2020-02-02] MEDS: MAGNESIUM SULFATE-D5W PMX 1 GM in DEXTROSE/WATER 1 100ML.BAG IVPB SCH ×2 (05:57→08:21)
[2020-02-02] MEDS: LEVOTHYROXINE 112 MCG TAB PEG/G-TUBE SCH (06:11)
[2020-02-02 06:49] LABS: Anisocytosis Slight; HCT 34.9 % (39.0-53.0); HGB 11.2 gm/dL (13.0-17.5); Hypochromasia Slight; MCH 26.7 pg (25.0-35.0); MCHC 32.1 g/dL (31.0-37.0); MCV 83.2 fL (80.0-100.0); Mean Platelet Volume 7.7; Platelet Count 344 k/uL (150-450); RDW 17.2 % (11.5-15.5); WBC 10.7 k/uL (3.8-10.6)
--- NOTE | 2020-02-02 08:03 | P.PN ---
Subjective Principal diagnosis: Electrolyte imbalance This is a continue progress on a 74-year-old white male essentially admitted for hyponatremia of severe type. The patient has been feeling better. Appreciate multiple consultants input in the ICU. He still tachycardic but feels improved. No overt shortness of breath. No new voiding difficulties otherwise stated. The patient is now back on 3% normal saline and we are slowly collecting his electrolyte imbalance. Objective - Vital Signs Vital signs: Vital Signs Temp 96.1 F L 02/02/20 04:00 Pulse 88 02/02/20 07:00 Resp 19 02/02/20 07:00 BP 130/63 02/02/20 07:00 Pulse Ox 96 02/02/20 07:00 Intake & Output 02/01/20 02/02/20 02/02/20 18:59 06:59 18:59 Intake Total 1680 1130 80 Output Total 970 950 60 Balance 710 180 20 Weight 78.2 kg Intake: IV 300 Dextrose 5% in Water 1, 300 000 ml @ 100 mls/hr IV . Q10H [facility] Rx#:[id number] Intake, IV Titration 200 Amount Levofloxacin 500Mg-D5w 100 Pmx 500 mg In Dextrose/ Water 1 100ml.bag @ 100 mls/hr IVPB Q24H [facility] Rx#: [id number] Magnesium Sulfate-D5w Pmx 100 1 gm In Dextrose/Water 1 100ml.bag @ 100 mls/hr IVPB Q1H [facility] Rx#: [id number] Tube Feeding 1120 1040 80 Other 60 90 Output: Urine 970 950 60 Other: Voiding Method Indwelling Catheter Indwelling Catheter # Bowel Movements 1 - Constitutional General appearance: Present: average body habitus - EENT Eyes: Absent: abnormal pupil - Neck Neck: Absent: lymphadenopathy - Respiratory Respiratory: bilateral: CTA - Cardiovascular Details: Still some tachycardia. Rhythm: regular Heart sounds: normal: S1, S2 Abnormal Heart Sounds: Absent: S3 Gallop - Gastrointestinal General gastrointestinal: Present: soft. Absent: tenderness - Integumentary Integumentary: Absent: cyanotic - Labs CBC & Chem 7: 02/02/20 05:30 02/02/20 04:22 Labs: Abnormal Lab Results - Last 24 Hours (Table) 02/01/20 02/01/20 02/02/20 Range/Units 09:07 16:10 01:00 WBC (3.8-10.6) k/uL RBC (4.30-5.90) m/uL Hgb (13.0-17.5) gm/dL Hct (39.0-53.0) % RDW (11.5-15.5) % Sodium 122 L 122 L 120 L (137-145) mmol/L Chloride (98-107) mmol/L Carbon Dioxide (22-30) mmol/L Creatinine (0.66-1.25) mg/dL Glucose (74-99) mg/dL Magnesium (1.6-2.3) mg/dL Total Protein (6.3-8.2) g/dL Albumin (3.5-5.0) g/dL 02/02/20 02/02/20 Range/Units 04:22 05:30 WBC 10.7 H (3.8-10.6) k/uL RBC 4.20 L (4.30-5.90) m/uL Hgb 11.2 L (13.0-17.5) gm/dL Hct 34.9 L (39.0-53.0) % RDW 17.2 H (11.5-15.5) % Sodium 121 L (137-145) mmol/L Chloride 86 L (98-107) mmol/L Carbon Dioxide 31 H (22-30) mmol/L Creatinine 0.50 L (0.66-1.25) mg/dL Glucose 121 H (74-99) mg/dL Magnesium 1.5 L (1.6-2.3) mg/dL Total Protein 5.4 L (6.3-8.2) g/dL Albumin 2.6 L (3.5-5.0) g/dL Microbiology - Last 24 Hours (Table) 01/30/20 11:31 Blood Culture - Preliminary Blood No Growth after 48 hours Assessment and Plan (1) Atrial fibrillation Current Visit: Yes Status: Acute Code(s): I48.91 - UNSPECIFIED ATRIAL FIBRILLATION SNOMED Code(s): 30026805 (2) Confusion Current Visit: Yes Status: Acute Code(s): R41.0 - DISORIENTATION, UN SPECIFIED SNOMED Code(s): 813151960 (3) Generalized weakness Current Visit: Yes Status: Acute Code(s): R53.1 - WEAKNESS SNOMED Code(s): 42345181 (4) Hypomagnesemia Current Visit: Yes Status: Acute Code(s): E83.42 - HYPOMAGNESEMIA SNOMED Code(s): 665828216 (5) Hyponatremia Current Visit: Yes Status: Acute Code(s): E87.1 - HYPO-OSMOLALITY AND HYPONATREMIA SNOMED Code(s): 60780092 (6) Dyspnea Current Visit: No Status: Acute Code(s): R06.00 - DYSPNEA, UNSPECIFIED SNOMED Code(s): 073661472 Plan: Check CBC CMP and PT/INR in a.m. Hyponatremia Still has hypomagnesemia. We'll continue appropriate protocols. See orders otherwise. Appreciate multiple consultants input.
[2020-02-02] MEDS: MAGNESIUM OXIDE 400 MG TAB PEG/G-TUBE SCH ×3 (08:21→21:14)
[2020-02-02] MEDS: SOTALOL 80 MG TAB PEG/G-TUBE SCH (08:21)
[2020-02-02] MEDS: HEPARIN SODIUM,PORCINE 5,000 UNIT/ML 1 ML VIAL SQ SCH ×2 (08:21→21:14)
[2020-02-02] MEDS: PANTOPRAZOLE 40 MG/10 ML VIAL IV SCH (08:21)
[2020-02-02] MEDS: IPRATROPIUM-ALBUTEROL 3 ML NEB INHALATION SCH ×3 (08:26→20:40)
--- NOTE | 2020-02-02 09:26 | P.PN ---
Subjective patient is seen in follow-up for hyponatremia. sodium level 121 this morning. he is currently maintained on 3% saline which was started about 3 hours ago. Awake and alert. Receiving tube feeding. Nonoliguric. hemodynamically stable. Vital signs are stable. General: The patient appeared well nourished and normally developed. HEENT: Head exam is unremarkable. Neck is without jugular venous distension. LUNGS: Lungs are clear to auscultation and percussion. Breath sounds decreased. HEART: Rate and Rhythm are regular. ABDOMEN: soft, nontender. EXTREMITITES: No clubbing, cyanosis, or edema. Objective - Vital Signs Vital signs: Vital Signs Temp 98.4 F 02/02/20 08:00 Pulse 95 02/02/20 08:36 Resp 25 H 02/02/20 08:00 BP 132/51 02/02/20 08:00 Pulse Ox 95 02/02/20 08:26 Intake & Output 02/01/20 02/02/20 02/02/20 18:59 06:59 18:59 Intake Total 1680 1130 80 Output Total 970 950 60 Balance 710 180 20 Weight 78.2 kg Intake: IV 300 Dextrose 5% in Water 1, 300 000 ml @ 100 mls/hr IV . Q10H [facility] Rx#:[id number] Intake, IV Titration 200 Amount Levofloxacin 500Mg-D5w 100 Pmx 500 mg In Dextrose/ Water 1 100ml.bag @ 100 mls/hr IVPB Q24H [facility] Rx#: [id number] Magnesium Sulfate-D5w Pmx 100 1 gm In Dextrose/Water 1 100ml.bag @ 100 mls/hr IVPB Q1H [facility] Rx#: [id number] Tube Feeding 1120 1040 80 Other 60 90 Output: Urine 970 950 60 Other: Voiding Method Indwelling Catheter Indwelling Catheter # Bowel Movements 1 - Labs CBC & Chem 7: 02/02/20 05:30 02/02/20 04:22 Labs: Abnormal Lab Results - Last 24 Hours (Table) 02/01/20 02/01/20 02/02/20 Range/Units 09:07 16:10 01:00 WBC (3.8-10.6) k/uL RBC (4.30-5.90) m/uL Hgb (13.0-17.5) gm/dL Hct (39.0-53.0) % RDW (11.5-15.5) % Sodium 122 L 122 L 120 L (137-145) mmol/L Chloride (98-107) mmol/L Carbon Dioxide (22-30) mmol/L Creatinine (0.66-1.25) mg/dL Glucose (74-99) mg/dL Magnesium (1.6-2.3) mg/dL Total Protein (6.3-8.2) g/dL Albumin (3.5-5.0) g/dL 02/02/20 02/02/20 Range/Units 04:22 05:30 WBC 10.7 H (3.8-10.6) k/uL RBC 4.20 L (4.30-5.90) m/uL Hgb 11.2 L (13.0-17.5) gm/dL Hct 34.9 L (39.0-53.0) % RDW 17.2 H (11.5-15.5) % Sodium 121 L (137-145) mmol/L Chloride 86 L (98-107) mmol/L Carbon Dioxide 31 H (22-30) mmol/L Creatinine 0.50 L (0.66-1.25) mg/dL Glucose 121 H (74-99) mg/dL Magnesium 1.5 L (1.6-2.3) mg/dL Total Protein 5.4 L (6.3-8.2) g/dL Albumin 2.6 L (3.5-5.0) g/dL Microbiology - Last 24 Hours (Table) 01/30/20 11:31 Blood Culture - Preliminary Blood No Growth after 48 hours Assessment and Plan Plan: assessment: 1. Hypotonic hyponatremia secondary to excess fluid intake. Patient was receiving an extra liter of water through his PEG tube the last few days. sodium level 121 this morning. urine osmolality 438. TSH normal. 2. History of throat cancer. Receiving tube feeding via PEG tube. 3. Benign hypertension. Controlled. 4. Hypomagnesemia from poor intake. plan: hold 3% for now. Follow-up 9 AM sodium level. Maintain tube feeding. magnesium replaced.
--- NOTE | 2020-02-02 11:25 | P.PN ---
Subjective Progress Note Date: 02/02/20 On today's evaluation of 02/02/2020, the patient is back on 3% hypertonic saline at the rate of 25 mL an hour. After some progress with a sodium level, the sodium level dropped to 120 and based on that the patient was started back on 3% hypertonic saline. He did have some limited altered mental status yesterday and this improved and the patient's mentation is back to normal. The patient is currently tolerating enteral feeding for nutritional support. Is unable to swallow. 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 No fever. No chills. No night sweats. His A. fib is under better control and the patient is currently on sotalol 40 mg by mouth daily he was also started on warfarin. PT/INR is being monitored on a regular basis. The patient is on 2 L of oxygen by nasal cannula with pulse ox of 95%. This morning he was quite appropriate. He is receiving vital high protein at the rate of 80 mL an hour. No other new complaints otherwise for now. Objective - Vital Signs Vital signs: Vital Signs Temp 98.4 F 02/02/20 08:00 Pulse 95 02/02/20 08:36 Resp 25 H 02/02/20 08:00 BP 132/51 02/02/20 08:00 Pulse Ox 95 02/02/20 08:26 Intake & Output 02/01/20 02/02/20 02/02/20 18:59 06:59 18:59 Intake Total 1680 1130 80 Output Total 970 950 60 Balance 710 180 20 Weight 78.2 kg 78.2 kg Intake: IV 300 Dextrose 5% in Water 1, 300 000 ml @ 100 mls/hr IV . Q10H [facility] Rx#:[id number] Intake, IV Titration 200 Amount Levofloxacin 500Mg-D5w 100 Pmx 500 mg In Dextrose/ Water 1 100ml.bag @ 100 mls/hr IVPB Q24H [facility] Rx#: [id number] Magnesium Sulfate-D5w Pmx 100 1 gm In Dextrose/Water 1 100ml.bag @ 100 mls/hr IVPB Q1H [facility] Rx#: [id number] Tube Feeding 1120 1040 80 Other 60 90 Output: Urine 970 950 60 Other: Voiding Method Indwelling Catheter Indwelling Catheter # Bowel Movements 1 - Exam Gen. appearance, comfortable and he is do not acute distress Head exam was generally normal. There was no scleral icterus or corneal arcus. Mucous membranes were moist. Examination of the neck shows erythema and the radiation-induced skin burn across the left lateral chest. Lung examination is within normal limits. Few rales in the lung bases otherwise clear breath sounds are equal and symmetrical. Heart sounds are irregular consistent with atrial fibrillation. Positive S1-S2 and there is no significant murmurs appreciated. Abdominal exam revealed normal bowel sounds. The abdomen was soft, non-tender, and without masses, organomegaly, or appreciable enlargement of the abdominal aorta. The patient has a PEG tube site in place which is dry clean and intact and the exit site is clean. Examination of the extremities revealed easily palpable radial, femoral and pedal pulses. There was no cyanosis, clubbing or edema. Examination of the skin revealed no evidence of significant rashes, suspicious appearing nevi or other concerning lesions. Radiation-induced changes over the left lateral neck Neurologically the patient is awake and alert and is no focal neurological deficits. - Labs CBC & Chem 7: 02/02/20 05:30 02/02/20 09:01 Labs: Abnormal Lab Results - Last 24 Hours (Table) 02/01/20 02/02/20 02/02/20 Range/Units 16:10 01:00 04:22 WBC (3.8-10.6) k/uL RBC (4.30-5.90) m/uL Hgb (13.0-17.5) gm/dL Hct (39.0-53.0) % RDW (11.5-15.5) % Sodium 122 L 120 L 121 L (137-145) mmol/L Chloride 86 L (98-107) mmol/L Carbon Dioxide 31 H (22-30) mmol/L Creatinine 0.50 L (0.66-1.25) mg/dL Glucose 121 H (74-99) mg/dL Magnesium 1.5 L (1.6-2.3) mg/dL Total Protein 5.4 L (6.3-8.2) g/dL Albumin 2.6 L (3.5-5.0) g/dL 02/02/20 02/02/20 Range/Units 05:30 09:01 WBC 10.7 H (3.8-10.6) k/uL RBC 4.20 L (4.30-5.90) m/uL Hgb 11.2 L (13.0-17.5) gm/dL Hct 34.9 L (39.0-53.0) % RDW 17.2 H (11.5-15.5) % Sodium 124 L (137-145) mmol/L Chloride (98-107) mmol/L Carbon Dioxide (22-30) mmol/L Creatinine (0.66-1.25) mg/dL Glucose (74-99) mg/dL Magnesium (1.6-2.3) mg/dL Total Protein (6.3-8.2) g/dL Albumin (3.5-5.0) g/dL Microbiology - Last 24 Hours (Table) 01/30/20 11:31 Blood Culture - Preliminary Blood No Growth after 48 hours Assessment and Plan Plan: 1 severe hyponatremia, hypotonic hyponatremia probably related to excess intake of water. The patient's sodium level has been fluctuating. Most recently the sodium dropped down to 120 the patient is back on 3% saline and he is being followed up by nephrology is making the adjustments on the solutions and the sodium correction rate. No altered mentation this morning. 2 aspiration pneumonia right more than left, currently inactive in stable, on IV Zosyn 3 Salivary gland tumor post-chemoradiation therapy 4 dysphagia secondary to above, the patient currently has a PEG tube in place 5 chronic atrial fibrillation, heart rate is under better control and the patient was started on evaluation with warfarin. 6 hypertension 7 hypothyroidism 8 suspect silent chronic aspiration Plan Monitor sodium level Continue IV Levaquin Aspiration precautions Continue enteral feeding for nutritional support Restart the patient on sotalol 40 mg by mouth daily Restart the patient on warfarin 5 mg by mouth daily and monitor PT/INR Currently on 3% hypertonic saline and sodium level is pending for now We'll continue to follow.
[2020-02-02] MEDS: LEVOFLOXACIN 500MG-D5W PMX 500 MG in DEXTROSE/WATER 1 100ML.BAG IVPB SCH (15:28)
[2020-02-02] MEDS ORDERED: WARFARIN 7.5 MG TAB PEG/G-TUBE ONE (18:00)
[2020-02-03 05:31] LABS: Anisocytosis Slight; HCT 34.2 % (39.0-53.0); HGB 10.5 gm/dL (13.0-17.5); MCH 25.7 pg (25.0-35.0); MCHC 30.7 g/dL (31.0-37.0); MCV 83.7 fL (80.0-100.0); Mean Platelet Volume 6.5; Platelet Count 386 k/uL (150-450); RBC 4.08 m/uL (4.30-5.90); RDW 17.7 % (11.5-15.5); WBC 9.2 k/uL (3.8-10.6)
[2020-02-03 05:34] LABS: INR 1.1 (<1.2); Prothrombin Time 11.5 sec (9.0-12.0)
[2020-02-03 05:41] LABS: ALT 22 U/L (4-49); AST 22 U/L (17-59); African American GFR (CKD) >90 (>60 ml/min/1.73 sqM); Albumin 2.7 g/dL (3.5-5.0); Alkaline Phosphatase 71 U/L (38-126); Anion Gap 4 mmol/L; Blood Urea Nitrogen 16 mg/dL (9-20); Calcium 8.6 mg/dL (8.4-10.2); Carbon Dioxide 33 mmol/L (22-30); Chloride 88 mmol/L (98-107); Glucose 137 mg/dL (74-99); Magnesium 1.5 mg/dL (1.6-2.3); Non-African American GFR(CKD) >90 (>60 ml/min/1.73 sqM); Potassium 4.6 mmol/L (3.5-5.1); Sodium 125 mmol/L (137-145); Total Bilirubin 0.3 mg/dL (0.2-1.3); Total Protein 5.7 g/dL (6.3-8.2)
[2020-02-03] MEDS: MAGNESIUM SULFATE-D5W PMX 1 GM in DEXTROSE/WATER 1 100ML.BAG IVPB SCH ×2 (06:45→08:58)
[2020-02-03] MEDS: LEVOTHYROXINE 112 MCG TAB PEG/G-TUBE SCH (06:45)
[2020-02-03] MEDS: IPRATROPIUM-ALBUTEROL 3 ML NEB INHALATION SCH ×3 (08:42→19:43)
[2020-02-03] MEDS: SOTALOL 80 MG TAB PEG/G-TUBE SCH (08:58)
[2020-02-03] MEDS: HEPARIN SODIUM,PORCINE 5,000 UNIT/ML 1 ML VIAL SQ SCH ×2 (08:58→21:20)
[2020-02-03] MEDS: PANTOPRAZOLE 40 MG/10 ML VIAL IV SCH (08:58)
[2020-02-03] MEDS: MAGNESIUM OXIDE 400 MG TAB PEG/G-TUBE SCH ×3 (08:58→21:20)
[2020-02-03] MEDS ORDERED: FUROSEMIDE 10 MG/ML 4 ML VIAL IV STA (08:59)
--- NOTE | 2020-02-03 09:22 | P.PN ---
Subjective patient is seen in follow-up for hyponatremia. sodium level 125 this morning. Awake and alert. Receiving tube feeding. Nonoliguric. hemodynamically stable. no changes overnight. Vital signs are stable. General: The patient appeared well nourished and normally developed. HEENT: Head exam is unremarkable. Neck is without jugular venous distension. LUNGS: Lungs are clear to auscultation and percussion. Breath sounds decreased. HEART: Rate and Rhythm are regular. ABDOMEN: soft, nontender. EXTREMITITES: No clubbing, cyanosis, or edema. Objective - Vital Signs Vital signs: Vital Signs Temp 97.6 F 02/03/20 04:00 Pulse 92 02/03/20 08:42 Resp 22 02/03/20 07:00 BP 125/78 02/03/20 07:00 Pulse Ox 94 L 02/03/20 07:00 Intake & Output 02/02/20 02/03/20 02/03/20 18:59 06:59 18:59 Intake Total 670 535 150 Output Total 515 805 75 Balance 155 -270 75 Weight 78.2 kg Intake: IV 50 75 100 Magnesium Sulfate-D5w Pmx 100 1 gm In Dextrose/Water 1 100ml.bag @ 100 mls/hr IVPB Q1H [facility] Rx#: [id number] Sodium Chloride 3%( 50 75 Hypertonic) 500 ml @ 25 mls/hr IV .Q20H [facility] Rx#: [id number] Tube Feeding 560 400 50 Other 60 60 Output: Urine 515 805 75 Other: Voiding Method Indwelling Catheter Indwelling Catheter - Labs CBC & Chem 7: 02/03/20 04:52 02/03/20 04:52 Labs: Abnormal Lab Results - Last 24 Hours (Table) 02/02/20 02/02/20 02/03/20 Range/Units 09:01 17:16 00:24 RBC (4.30-5.90) m/uL Hgb (13.0-17.5) gm/dL Hct (39.0-53.0) % MCHC (31.0-37.0) g/dL RDW (11.5-15.5) % Sodium 124 L 122 L 125 L (137-145) mmol/L Chloride (98-107) mmol/L Carbon Dioxide (22-30) mmol/L Creatinine (0.66-1.25) mg/dL Glucose (74-99) mg/dL Magnesium (1.6-2.3) mg/dL Total Protein (6.3-8.2) g/dL Albumin (3.5-5.0) g/dL 02/03/20 02/03/20 Range/Units 04:52 04:52 RBC 4.08 L (4.30-5.90) m/uL Hgb 10.5 L (13.0-17.5) gm/dL Hct 34.2 L (39.0-53.0) % MCHC 30.7 L (31.0-37.0) g/dL RDW 17.7 H (11.5-15.5) % Sodium 125 L (137-145) mmol/L Chloride 88 L (98-107) mmol/L Carbon Dioxide 33 H (22-30) mmol/L Creatinine 0.51 L (0.66-1.25) mg/dL Glucose 137 H (74-99) mg/dL Magnesium 1.5 L (1.6-2.3) mg/dL Total Protein 5.7 L (6.3-8.2) g/dL Albumin 2.7 L (3.5-5.0) g/dL Microbiology - Last 24 Hours (Table) 01/30/20 11:31 Blood Culture - Preliminary Blood No Growth after 72 hours Assessment and Plan Plan: assessment: 1. Hypotonic hyponatremia secondary to excess fluid intake. Patient was receiving an extra liter of water through his PEG tube the last few days. sodium level 121 this morning. urine osmolality 570. TSH normal. 2. History of throat cancer. Receiving tube feeding via PEG tube. 3. Benign hypertension. Controlled. 4. Hypomagnesemia from poor intake. plan: Maintain tube feeding. magnesium replaced - consider increasing amount in tube feeds. Lasix 40 mg IV once today. Repeat sodium level this evening.
--- NOTE | 2020-02-03 11:55 | P.PN ---
Subjective Progress Note Date: 02/03/20 On 02/03/2020, the patient is doing well. As mentioned earlier, yesterday morning the patient was placed on 3% hypertonic saline. Sodium level improved up to 124. The saline was discontinued. The most recent sodium level is at 125. Her function is stable. The patient's mental status is stable. He is tolerating enteral feeding for the depression support. His atrial fibrillation. PT/INR is subtherapeutic and the patient is on anticoagulation with warfarin. He remains on 2 L of oxygen by nasal cannula. No other new complaints otherwise for now. Hemoglobin is stable at 10.5 with a white cell, 0.2. He is still on vital high protein at the rate of 80 mL an hour. No aspiration. No fever or chills. Objective - Vital Signs Vital signs: Vital Signs Temp 98.1 F 02/03/20 08:00 Pulse 95 02/03/20 09:00 Resp 22 02/03/20 09:00 BP 128/81 02/03/20 09:00 Pulse Ox 94 L 02/03/20 09:00 Intake & Output 02/02/20 02/03/20 02/03/20 18:59 06:59 18:59 Intake Total 670 535 480 Output Total 515 805 225 Balance 155 -270 255 Weight 78.2 kg 77 kg Intake: IV 50 75 300 Magnesium Sulfate-D5w Pmx 100 1 gm In Dextrose/Water 1 100ml.bag @ 100 mls/hr IVPB Q1H [facility] Rx#: [id number] Magnesium Sulfate-D5w Pmx 200 1 gm In Dextrose/Water 1 100ml.bag @ 100 mls/hr IVPB Q1H [facility] Rx#: [id number] Sodium Chloride 3%( 50 75 Hypertonic) 500 ml @ 25 mls/hr IV .Q20H [facility] Rx#: [id number] Tube Feeding 560 400 150 Other 60 60 30 Output: Urine 515 805 225 Other: Voiding Method Indwelling Catheter Indwelling Catheter - Exam Gen. appearance, comfortable and he is do not acute distress Head exam was generally normal. There was no scleral icterus or corneal arcus. Mucous membranes were moist. Examination of the neck shows erythema and the radiation-induced skin burn across the left lateral chest. Lung examination is within normal limits. Few rales in the lung bases otherwise clear breath sounds are equal and symmetrical. Heart sounds are irregular consistent with atrial fibrillation. Positive S1-S2 and there is no significant murmurs appreciated. Abdominal exam revealed normal bowel sounds. The abdomen was soft, non-tender, and without masses, organomegaly, or appreciable enlargement of the abdominal aorta. The patient has a PEG tube site in place which is dry clean and intact and the exit site is clean. Examination of the extremities revealed easily palpable radial, femoral and pedal pulses. There was no cyanosis, clubbing or edema. Examination of the skin revealed no evidence of significant rashes, suspicious appearing nevi or other concerning lesions. Radiation-induced changes over the left lateral neck Neurologically the patient is awake and alert and is no focal neurological deficits. - Labs CBC & Chem 7: 02/03/20 04:52 02/03/20 04:52 Labs: Abnormal Lab Results - Last 24 Hours (Table) 02/02/20 02/03/20 02/03/20 Range/Units 17:16 00:24 04:52 RBC 4.08 L (4.30-5.90) m/uL Hgb 10.5 L (13.0-17.5) gm/dL Hct 34.2 L (39.0-53.0) % MCHC 30.7 L (31.0-37.0) g/dL RDW 17.7 H (11.5-15.5) % Sodium 122 L 125 L (137-145) mmol/L Chloride (98-107) mmol/L Carbon Dioxide (22-30) mmol/L Creatinine (0.66-1.25) mg/dL Glucose (74-99) mg/dL Magnesium (1.6-2.3) mg/dL Total Protein (6.3-8.2) g/dL Albumin (3.5-5.0) g/dL 02/03/20 Range/Units 04:52 RBC (4.30-5.90) m/uL Hgb (13.0-17.5) gm/dL Hct (39.0-53.0) % MCHC (31.0-37.0) g/dL RDW (11.5-15.5) % Sodium 125 L (137-145) mmol/L Chloride 88 L (98-107) mmol/L Carbon Dioxide 33 H (22-30) mmol/L Creatinine 0.51 L (0.66-1.25) mg/dL Glucose 137 H (74-99) mg/dL Magnesium 1.5 L (1.6-2.3) mg/dL Total Protein 5.7 L (6.3-8.2) g/dL Albumin 2.7 L (3.5-5.0) g/dL Microbiology - Last 24 Hours (Table) 01/30/20 11:31 Blood Culture - Preliminary Blood No Growth after 72 hours Assessment and Plan Plan: 1 severe hyponatremia, hypotonic hyponatremia , improving and the sodium level is up to 125, supplier quality specialist on the case 2 aspiration pneumonia right more than left, currently inactive in stable, on IV Levaquin 3 Salivary gland tumor post-chemoradiation therapy 4 dysphagia secondary to above, the patient currently has a PEG tube in place 5 chronic atrial fibrillation, heart rate is under better control and the patient was started on evaluation with warfarin. 6 hypertension 7 hypothyroidism 8 suspect silent chronic aspiration Plan Monitor sodium level , and the patient can be transferred out of the intensive care unit if the sodium level continues on the rise. Continue IV Levaquin Aspiration precautions Continue enteral feeding for nutritional support Continue sotalol 40 mg by mouth daily Continue warfarin 5 mg by mouth daily and monitor PT/INR Continue enteral feeding and aspiration precautions We'll continue to follow.
[2020-02-03] MEDS: LEVOFLOXACIN 500MG-D5W PMX 500 MG in DEXTROSE/WATER 1 100ML.BAG IVPB SCH (16:25)
--- NOTE | 2020-02-03 17:13 | P.PN ---
Subjective Progress Note Date: 02/03/20 Principal diagnosis: Acute metabolic encephalopathy Mr. 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 Patient was found to have severe hyponatremia, given 3% hypertonic saline and admitted to the ICU. On 02/03/2020- patient is comfortably sitting in a chair by the bedside appears to be in acute distress. Patient states that he does not have any cough or difficulty in breathing. But he complains of generalized weakness. Patient is dependent on PEG tube feeds for nutritional support due to side effect of radiation for his salivary gland tumor. Patient denies having any fevers chills or rigors. No abdominal pain nausea vomiting. He had 2 episodes of loose stools. Patient has a Carlton's catheter in place. On reviewing his vitals, afebrile for the past 24 hours heart rate is irregularly irregular, blood pressure 126/62, saturating 95% on 2 L of nasal cannula. On reviewing his labs his white count of 9.2, hemoglobin of 10.5, platelets of 386. His sodium is trending up and today it is at 126, potassium 4.6, chloride 88, bicarbonate 33, BNP 16, creatinine 0.51. Albumin low at 2.7. Active Medications Albuterol/Ipratropium (Duoneb 0.5 Mg-3 Mg/3 Ml Soln) 3 ml INHALATION RT-TID [facility] Last Admin: 02/03/20 12:10 Dose: 3 ml Documented by: Albuterol/Ipratropium (Duoneb 0.5 Mg-3 Mg/3 Ml Soln) 3 ml INHALATION RT-Q2H PRN PRN Reason: Shortness Of Breath Or Wheezing Heparin Sodium (Porcine) (Heparin) 5,000 unit SQ Q12HR [facility] Last Admin: 02/03/20 08:58 Dose: 5,000 unit Documented by: Levofloxacin 500 mg/ IV (Solution) 100 mls @ 100 mls/hr IVPB Q24H [facility] Last Admin: 02/03/20 16:25 Dose: 100 mls/hr Documented by: Levothyroxine Sodium (Levothyroxine 112 Mcg Tab) 112 mcg PEG/G-TUBE QAM@0630 [facility] Last Admin: 02/03/20 06:45 Dose: 112 mcg Documented by: Magnesium Oxide (Magnesium Oxide 400 Mg Tab) 400 mg PEG/G-TUBE TID [facility] Last Admin: 02/03/20 16:25 Dose: 400 mg Documented by: Miscellaneous Information (Magnesium Per Protocol) 1 each MISCELLANE DAILY PRN; Protocol PRN Reason: Per Protocol Miscellaneous Information (Warfarin Per Pharmacy) 0 each MISCELLANE DIRECTED PRN PRN Reason: Per Protocol Naloxone HCl (Narcan) 0.2 mg IV Q2M PRN PRN Reason: Opioid Reversal Pantoprazole Sodium (Protonix) 40 mg IV DAILY [facility] Last Admin: 02/03/20 08:58 Dose: 40 mg Documented by: Sotalol HCl (Sotalol 80 Mg Tab) 40 mg PEG/G-TUBE QAM [facility] Last Admin: 02/03/20 08:58 Dose: 40 mg Documented by: Warfarin Sodium (Warfarin 5 Mg Tab) 5 mg PEG/G-TUBE DAILY@1800 [facility]; Protocol Warfarin Sodium (Warfarin 7.5 Mg Tab) 7.5 mg PEG/G-TUBE ONCE ONE Stop: 02/03/20 18:01 Objective - Vital Signs Vital signs: Vital Signs Temp 98.2 F 02/03/20 12:00 Pulse 93 02/03/20 14:00 Resp 14 02/03/20 14:00 BP 111/68 02/03/20 14:00 Pulse Ox 96 02/03/20 14:00 Intake & Output 02/02/20 02/03/20 02/03/20 18:59 06:59 18:59 Intake Total 670 535 760 Output Total 596 385 0655 Balance 155 -270 -1050 Weight 78.2 kg 77 kg Intake: IV 50 75 300 Magnesium Sulfate-D5w Pmx 100 1 gm In Dextrose/Water 1 100ml.bag @ 100 mls/hr IVPB Q1H [facility] Rx#: [id number] Magnesium Sulfate-D5w Pmx 200 1 gm In Dextrose/Water 1 100ml.bag @ 100 mls/hr IVPB Q1H [facility] Rx#: [id number] Sodium Chloride 3%( 50 75 Hypertonic) 500 ml @ 25 mls/hr IV .Q20H [facility] Rx#: [id number] Tube Feeding 560 400 400 Other 60 60 60 Output: Urine 726 694 2304 Other: Voiding Method Indwelling Catheter Indwelling Catheter Indwelling Catheter - Exam PHYSICAL EXAM GEN. APPEARANCE: Patient is seen in the ICU. He is alert, in no apparent distress, cachectic HEENT: No pallor. No tenderness. No JVD. RESPIRATORY EXAM: Bilateral breath sounds are positive. Mildly diminished at the lower lung bases. CARDIOVASCULAR EXAM: Irregularly irregular GI/ABDOMINAL EXAM: PEG tube tube in place. Bowel sounds are normal. EXTREMITIES EXAM: Peripheral pulses felt. No edema. NEUROLOGICAL EXAM: alert, oriented X 2- 3, focal deficits PSYCHIATRIC EXAM: normal affect, normal mood SKIN EXAM: warm, dry, intact, normal color. Absent: rash - Labs CBC & Chem 7: 02/03/20 04:52 02/03/20 15:46 Labs: Abnormal Lab Results - Last 24 Hours (Table) 02/02/20 02/03/20 02/03/20 Range/Units 17:16 00:24 04:52 RBC 4.08 L (4.30-5.90) m/uL Hgb 10.5 L (13.0-17.5) gm/dL Hct 34.2 L (39.0-53.0) % MCHC 30.7 L (31.0-37.0) g/dL RDW 17.7 H (11.5-15.5) % Sodium 122 L 125 L (137-145) mmol/L Chloride (98-107) mmol/L Carbon Dioxide (22-30) mmol/L Creatinine (0.66-1.25) mg/dL Glucose (74-99) mg/dL Magnesium (1.6-2.3) mg/dL Total Protein (6.3-8.2) g/dL Albumin (3.5-5.0) g/dL 02/03/20 02/03/20 Range/Units 04:52 15:46 RBC (4.30-5.90) m/uL Hgb (13.0-17.5) gm/dL Hct (39.0-53.0) % MCHC (31.0-37.0) g/dL RDW (11.5-15.5) % Sodium 125 L 126 L (137-145) mmol/L Chloride 88 L (98-107) mmol/L Carbon Dioxide 33 H (22-30) mmol/L Creatinine 0.51 L (0.66-1.25) mg/dL Glucose 137 H (74-99) mg/dL Magnesium 1.5 L (1.6-2.3) mg/dL Total Protein 5.7 L (6.3-8.2) g/dL Albumin 2.7 L (3.5-5.0) g/dL Microbiology - Last 24 Hours (Table) 01/30/20 11:31 Blood Culture - Preliminary Blood No Growth after 96 hours Assessment and Plan Assessment: ASSESSMENT Severe hypotonic hyponatremia- sodium slowly trending up Aspiration pneumonia Salivary gland tumor status post chemoradiation therapy Dysphagia secondary to above PEG tube dependent for nutritional support Chronic atrial fibrillation Hypertension Moderate protein calorie malnutrition Hypothyroidism PLAN : Patient's hyponatremia slowly trending in the right direction. His sodium is 126 today. Patient has been started on levofloxacin for aspiration pneumonia. He is on Coumadin for anticoagulation. Overall prognosis is guarded. Further recommendations to follow depending on the progress of the patient.
[2020-02-03] MEDS ORDERED: WARFARIN 7.5 MG TAB PEG/G-TUBE ONE (18:00)
[2020-02-03] MEDS ORDERED: FUROSEMIDE 10 MG/ML 2 ML VIAL IV ONE (18:11)
[2020-02-04] MEDS: LEVOTHYROXINE 112 MCG TAB PEG/G-TUBE SCH (04:47)
[2020-02-04] MEDS: SOTALOL 80 MG TAB PEG/G-TUBE SCH (07:01)
[2020-02-04] MEDS: MAGNESIUM OXIDE 400 MG TAB PEG/G-TUBE SCH ×3 (07:01→21:14)
[2020-02-04] MEDS: PANTOPRAZOLE 40 MG/10 ML VIAL IV SCH (07:02)
[2020-02-04] MEDS: HEPARIN SODIUM,PORCINE 5,000 UNIT/ML 1 ML VIAL SQ SCH ×2 (07:02→21:14)
[2020-02-04 07:41] LABS: Anisocytosis Slight; Basophils # (A) 0.1 k/uL (0-0.2); Basophils % (A) 1 %; Eosinophils # (A) 0.2 k/uL (0-0.7); Eosinophils % (A) 2 %; HCT 35.8 % (39.0-53.0); HGB 11.3 gm/dL (13.0-17.5); Hypochromasia Slight; Lymphocytes # (A) 0.4 k/uL (1.0-4.8); Lymphocytes % (A) 4 %; MCH 26.5 pg (25.0-35.0); MCHC 31.4 g/dL (31.0-37.0); MCV 84.1 fL (80.0-100.0); Mean Platelet Volume 6.7; Monocytes # (A) 0.9 k/uL (0-1.0); Monocytes % (A) 9 %; Neutrophils # (A) 8.1 k/uL (1.3-7.7); Neutrophils % (A) 81 %; Platelet Count 396 k/uL (150-450); RBC 4.26 m/uL (4.30-5.90); RDW 17.6 % (11.5-15.5); WBC 9.9 k/uL (3.8-10.6)
[2020-02-04 07:55] LABS: INR 1.1 (<1.2); Prothrombin Time 11.2 sec (9.0-12.0)
[2020-02-04 07:56] LABS: ALT 27 U/L (4-49); AST 29 U/L (17-59); African American GFR (CKD) >90 (>60 ml/min/1.73 sqM); Albumin 2.8 g/dL (3.5-5.0); Alkaline Phosphatase 78 U/L (38-126); Anion Gap 6 mmol/L; Blood Urea Nitrogen 19 mg/dL (9-20); Calcium 8.7 mg/dL (8.4-10.2); Carbon Dioxide 33 mmol/L (22-30); Chloride 88 mmol/L (98-107); Glucose 141 mg/dL (74-99); Magnesium 1.5 mg/dL (1.6-2.3); Non-African American GFR(CKD) >90 (>60 ml/min/1.73 sqM); Potassium 4.7 mmol/L (3.5-5.1); Sodium 127 mmol/L (137-145); Total Bilirubin 0.4 mg/dL (0.2-1.3); Total Protein 6.2 g/dL (6.3-8.2)
[2020-02-04] MEDS: IPRATROPIUM-ALBUTEROL 3 ML NEB INHALATION SCH ×3 (08:13→19:46)
--- NOTE | 2020-02-04 10:08 | P.PN ---
Subjective patient is seen in follow-up for hyponatremia. sodium level 127 this morning. Awake and alert. Receiving tube feeding. Nonoliguric. hemodynamically stable. no changes overnight. Vital signs are stable. General: The patient appeared well nourished and normally developed. HEENT: Head exam is unremarkable. Neck is without jugular venous distension. LUNGS: Lungs are clear to auscultation and percussion. Breath sounds decreased. HEART: Rate and Rhythm are regular. ABDOMEN: soft, nontender. EXTREMITITES: No clubbing, cyanosis, or edema. Objective - Vital Signs Vital signs: Vital Signs Temp 98.6 F 02/04/20 07:00 Pulse 72 02/04/20 08:26 Resp 19 02/04/20 07:10 BP 121/72 02/04/20 07:00 Pulse Ox 93 L 02/04/20 07:00 Intake & Output 02/03/20 02/04/20 02/04/20 18:59 06:59 18:59 Intake Total 940 Output Total 1980 800 Balance -1040 -800 Weight 77.5 kg Intake: IV 300 Magnesium Sulfate-D5w Pmx 100 1 gm In Dextrose/Water 1 100ml.bag @ 100 mls/hr IVPB Q1H [facility] Rx#: [id number] Magnesium Sulfate-D5w Pmx 200 1 gm In Dextrose/Water 1 100ml.bag @ 100 mls/hr IVPB Q1H [facility] Rx#: [id number] Tube Feeding 550 Other 90 Output: Urine 1980 800 Other: Voiding Method Indwelling Catheter Indwelling Catheter Indwelling Catheter - Labs CBC & Chem 7: 02/04/20 07:02 02/04/20 07:02 Labs: Abnormal Lab Results - Last 24 Hours (Table) 02/03/20 02/04/20 02/04/20 Range/Units 15:46 07:02 07:02 RBC 4.26 L (4.30-5.90) m/uL Hgb 11.3 L (13.0-17.5) gm/dL Hct 35.8 L (39.0-53.0) % RDW 17.6 H (11.5-15.5) % Neutrophils # 8.1 H (1.3-7.7) k/uL Lymphocytes # 0.4 L (1.0-4.8) k/uL Sodium 126 L 127 L (137-145) mmol/L Chloride 88 L (98-107) mmol/L Carbon Dioxide 33 H (22-30) mmol/L Creatinine 0.53 L (0.66-1.25) mg/dL Glucose 141 H (74-99) mg/dL Magnesium 1.5 L (1.6-2.3) mg/dL Total Protein 6.2 L (6.3-8.2) g/dL Albumin 2.8 L (3.5-5.0) g/dL Microbiology - Last 24 Hours (Table) 01/30/20 11:31 Blood Culture - Preliminary Blood No Growth after 96 hours Assessment and Plan Plan: assessment: 1. Hypotonic hyponatremia secondary to excess fluid intake. Patient was receiving an extra liter of water through his PEG tube the last few days. sodium level 127 this morning. urine osmolality 570. TSH normal. 2. History of throat cancer. Receiving tube feeding via PEG tube. 3. Benign hypertension. Controlled. 4. Hypomagnesemia from poor intake. plan: Maintain tube feeding. replace magnesium 2 g IV today. maintain oral magnesium. Samsca 15 mg once today. Repeat sodium level this evening.
[2020-02-04] MEDS: MAGNESIUM SULFATE-D5W PMX 1 GM in DEXTROSE/WATER 1 100ML.BAG IVPB SCH ×2 (10:42→11:55)
--- NOTE | 2020-02-04 10:45 | P.PN ---
Subjective Progress Note Date: 02/04/20 Principal diagnosis: Severe hyponatremia, hypotonic hyponatremia The patient is seen today 02/04/2020 follow-up on the regular medical floor. He is awake and alert in no acute distress. Denies any worsening shortness of breath, cough or congestion. He is maintaining O2 saturation in the 90s on 2 L/m per nasal cannula. He's been afebrile. Hemodynamically stable. Blood cul ture reveals no growth. Sodium up to 127 today. Creatinine 0.53. White count 9.9. Hemoglobin 11.3. Continued on bronchodilators, Levaquin, anticoagulated with warfarin. The patient is initiated on Samsca. Objective - Vital Signs Vital signs: Vital Signs Temp 98.6 F 02/04/20 07:00 Pulse 72 02/04/20 08:26 Resp 19 02/04/20 07:10 BP 121/72 02/04/20 07:00 Pulse Ox 93 L 02/04/20 07:00 Intake & Output 02/03/20 02/04/20 02/04/20 18:59 06:59 18:59 Intake Total 940 Output Total 1979 800 Balance -1040 -800 Weight 77.5 kg Intake: IV 300 Magnesium Sulfate-D5w Pmx 100 1 gm In Dextrose/Water 1 100ml.bag @ 100 mls/hr IVPB Q1H [facility] Rx#: [id number] Magnesium Sulfate-D5w Pmx 200 1 gm In Dextrose/Water 1 100ml.bag @ 100 mls/hr IVPB Q1H [facility] Rx#: [id number] Tube Feeding 550 Other 90 Output: Urine 1979 Other: Voiding Method Indwelling Catheter Indwelling Catheter Indwelling Catheter - Exam Gen. appearance, awake alert pleasant 74-year-old gentleman, comfortable and he is in no acute distress Head exam was generally normal. There was no scleral icterus or corneal arcus. Mucous membranes were moist. Examination of the neck shows erythema and the radiation-induced skin burn across the left lateral chest. Lung examination is within normal limits. Few rales in the right base otherwise clear breath sounds are equal and symmetrical. Heart sounds are irregular consistent with atrial fibrillation. Positive S1-S2 and there is no significant murmurs appreciated. Abdominal exam revealed normal bowel sounds. The abdomen was soft, non-tender, and without masses, organomegaly, or appreciable enlargement of the abdominal aorta. The patient has a PEG tube site in place which is dry clean and intact and the exit site is clean. Examination of the extremities revealed easily palpable radial, femoral and pedal pulses. There was no cyanosis, clubbing or edema. Examination of the skin revealed no evidence of significant rashes, suspicious appearing nevi or other concerning lesions. Radiation-induced changes over the left lateral neck Neurologically the patient is awake and alert and is no focal neurological deficits. - Labs CBC & Chem 7: 02/04/20 07:02 02/04/20 07:02 Labs: Abnormal Lab Results - Last 24 Hours (Table) 02/03/20 02/04/20 02/04/20 Range/Units 15:46 07:02 07:02 RBC 4.26 L (4.30-5.90) m/uL Hgb 11.3 L (13.0-17.5) gm/dL Hct 35.8 L (39.0-53.0) % RDW 17.6 H (11.5-15.5) % Neutrophils # 8.1 H (1.3-7.7) k/uL Lymphocytes # 0.4 L (1.0-4.8) k/uL Sodium 126 L 127 L (137-145) mmol/L Chloride 88 L (98-107) mmol/L Carbon Dioxide 33 H (22-30) mmol/L Creatinine 0.53 L (0.66-1.25) mg/dL Glucose 141 H (74-99) mg/dL Magnesium 1.5 L (1.6-2.3) mg/dL Total Protein 6.2 L (6.3-8.2) g/dL Albumin 2.8 L (3.5-5.0) g/dL Microbiology - Last 24 Hours (Table) 01/30/20 11:31 Blood Culture - Preliminary Blood No Growth after 96 hours Assessment and Plan Assessment: 1 severe hyponatremia, hypotonic hyponatremia , improving and the sodium level is up to 125, cupola charger insulation on the case 2 aspiration pneumonia right more than left, currently inactive in stable, on IV Levaquin 3 Salivary gland tumor post-chemoradiation therapy 4 dysphagia secondary to above, the patient currently has a PEG tube in place 5 chronic atrial fibrillation, heart rate is under better control and the patient was started on evaluation with warfarin. 6 hypertension 7 hypothyroidism 8 suspect silent chronic aspiration Plan The patient was seen and evaluated by Dr. Marcial He is stable from the pulmonary and critical care standpoint Continue antibiotics Continue aspiration precautions Titrate down the FiO2 Sodium improved to 127 Anticoagulated with warfarin We'll continue to follow I, the cosigning physician, performed a history & physical examination of the patient. Lungs sounds with crackles in the right lower lobe. Maintaining good O2 saturations in the 90s on 2 L/m per nasal cannula. I discussed the assessment and plan of care with my nurse practitioner, Yue Redd. I attest to the above note as dictated by her.
[2020-02-04] MEDS ORDERED: TOLVAPTAN 15 MG 1/2 TABLET PO ONE (11:00)
[2020-02-04] MEDS: LEVOFLOXACIN 500MG-D5W PMX 500 MG in DEXTROSE/WATER 1 100ML.BAG IVPB SCH (14:29)
[2020-02-04] MEDS ORDERED: WARFARIN 10 MG TAB PEG/G-TUBE ONE (18:00)
[2020-02-04] MEDS ORDERED: WARFARIN 5 MG TAB PEG/G-TUBE SCH (18:00)
--- NOTE | 2020-02-04 18:06 | P.PN ---
Subjective Progress Note Date: 02/04/20 Principal diagnosis: Acute metabolic encephalopathy Mr. 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 Patient was found to have severe hyponatremia, given 3% hypertonic saline and admitted to the ICU. On 02/03/2020- patient is comfortably sitting in a chair by the bedside appears to be in acute distress. Patient states that he does not have any cough or difficulty in breathing. But he complains of generalized weakness. Patient is dependent on PEG tube feeds for nutritional support due to side effect of radiation for his salivary gland tumor. Patient denies having any fevers chills or rigors. No abdominal pain nausea vomiting. He had 2 episodes of loose stools. Patient has a Carlton's catheter in place. On reviewing his vitals, afebrile for the past 24 hours heart rate is irregularly irregular, blood pressure 126/62, saturating 95% on 2 L of nasal cannula. On reviewing his labs his white count of 9.2, hemoglobin of 10.5, platelets of 386. His sodium is trending up and today it is at 126, potassium 4.6, chloride 88, bicarbonate 33, BNP 16, creatinine 0.51. Albumin low at 2.7. On 02/04/2020- patient has been transferred out of the ICU. Patient is sitting up comfortably in bed appears to be in no acute distress. No acute events reported by nursing staff. Patient denies having any chest pain or difficulty in breathing. No cough or fevers or chills or rigors. No abdominal pain nausea vomiting or diarrhea. No dysuria or hematuria. Patient has a Carlton's catheter in place. Patient vital signs revealed a temperature 97.9, heart rate 82, respiratory rate 18, blood pressure 1 25 x 74, saturating at 95% on 2 L of nasal cannula. Active Medications Albuterol/Ipratropium (Duoneb 0.5 Mg-3 Mg/3 Ml Soln) 3 ml INHALATION RT-TID MATIAS Last Admin: 02/04/20 13:02 Dose: 3 ml Documented by: Albuterol/Ipratropium (Duoneb 0.5 Mg-3 Mg/3 Ml Soln) 3 ml INHALATION RT-Q2H PRN PRN Reason: Shortness Of Breath Or Wheezing Heparin Sodium (Porcine) (Heparin) 5,000 unit SQ Q12HR [facility] Last Admin: 02/04/20 07:02 Dose: 5,000 unit Documented by: Levofloxacin 500 mg/ IV (Solution) 100 mls @ 100 mls/hr IVPB Q24H [facility] Last Admin: 02/04/20 14:29 Dose: 100 mls/hr Documented by: Levothyroxine Sodium (Levothyroxine 112 Mcg Tab) 112 mcg PEG/G-TUBE QAM@0630 [facility] Last Admin: 02/04/20 04:47 Dose: 112 mcg Documented by: Magnesium Oxide (Magnesium Oxide 400 Mg Tab) 400 mg PEG/G-TUBE TID [facility] Last Admin: 02/04/20 14:30 Dose: 400 mg Documented by: Miscellaneous Information (Magnesium Per Protocol) 1 each MISCELLANE DAILY PRN; Protocol PRN Reason: Per Protocol Miscellaneous Information (Warfarin Per Pharmacy) 0 each MISCELLANE DIRECTED PRN PRN Reason: Per Protocol Naloxone HCl (Narcan) 0.2 mg IV Q2M PRN PRN Reason: Opioid Reversal Pantoprazole Sodium (Protonix) 40 mg IV DAILY [facility] Last Admin: 02/04/20 07:02 Dose: 40 mg Documented by: Sotalol HCl (Sotalol 80 Mg Tab) 40 mg PEG/G-TUBE QAM [facility] Last Admin: 02/04/20 07:01 Dose: 40 mg Documented by: Objective - Vital Signs Vital signs: Vital Signs Temp 97.9 F 02/04/20 14:17 Pulse 82 02/04/20 14:17 Resp 18 02/04/20 14:17 BP 125/74 02/04/20 14:17 Pulse Ox 95 02/04/20 14:17 Intake & Output 02/03/20 02/04/20 02/04/20 18:59 06:59 18:59 Intake Total 940 50 Output Total 6706 964 8624 Balance -1040 -800 -1400 Weight 77.5 kg Intake: IV 300 Magnesium Sulfate-D5w Pmx 100 1 gm In Dextrose/Water 1 100ml.bag @ 100 mls/hr IVPB Q1H [facility] Rx#: [id number] Magnesium Sulfate-D5w Pmx 200 1 gm In Dextrose/Water 1 100ml.bag @ 100 mls/hr IVPB Q1H [facility] Rx#: [id number] Tube Feeding 550 50 Other 90 Output: Urine 7031 491 7010 Other: Voiding Method Indwelling Catheter Indwelling Catheter Indwelling Catheter # Bowel Movements 1 - Exam PHYSICAL EXAM GEN. APPEARANCE: Patient is seen in the ICU. He is alert, in no apparent distress, cachectic HEENT: No pallor. No tenderness. No JVD. RESPIRATORY EXAM: Bilateral breath sounds are positive. Mildly diminished at the lower lung bases. CARDIOVASCULAR EXAM: Irregularly irregular GI/ABDOMINAL EXAM: PEG tube tube in place. Bowel sounds are normal. EXTREMITIES EXAM: Peripheral pulses felt. No edema. NEUROLOGICAL EXAM: alert, oriented X 2- 3, focal deficits PSYCHIATRIC EXAM: normal affect, normal mood SKIN EXAM: warm, dry, intact, normal color. Absent: rash - Labs CBC & Chem 7: 02/04/20 07:02 02/04/20 16:56 Labs: Abnormal Lab Results - Last 24 Hours (Table) 02/04/20 02/04/20 02/04/20 Range/Units 07:02 07:02 16:56 RBC 4.26 L (4.30-5.90) m/uL Hgb 11.3 L (13.0-17.5) gm/dL Hct 35.8 L (39.0-53.0) % RDW 17.6 H (11.5-15.5) % Neutrophils # 8.1 H (1.3-7.7) k/uL Lymphocytes # 0.4 L (1.0-4.8) k/uL Sodium 127 L 130 L (137-145) mmol/L Chloride 88 L (98-107) mmol/L Carbon Dioxide 33 H (22-30) mmol/L Creatinine 0.53 L (0.66-1.25) mg/dL Glucose 141 H (74-99) mg/dL Magnesium 1.5 L (1.6-2.3) mg/dL Total Protein 6.2 L (6.3-8.2) g/dL Albumin 2.8 L (3.5-5.0) g/dL Microbiology - Last 24 Hours (Table) 01/30/20 11:31 Blood Culture - Preliminary Blood No Growth after 120 hours Assessment and Plan Assessment: ASSESSMENT Severe hypotonic hyponatremia- sodium slowly trending up Aspiration pneumonia Salivary gland tumor status post chemoradiation therapy Dysphagia secondary to above PEG tube dependent for nutritional support Chronic atrial fibrillation Hypertension Moderate protein calorie malnutrition Hypothyroidism PLAN : Patient's hyponatremia slowly trending in the right direction. His sodium is 127 today, she received a dose of Samsca 15 mg once today, and a repeat sodium is 130. Patient has been started on levofloxacin for aspiration pneumonia. He is on Coumadin for anticoagulation. Overall prognosis is guarded. Further recommendations to follow depending on the progress of the patient.
[2020-02-05] MEDS: LEVOTHYROXINE 112 MCG TAB PEG/G-TUBE SCH (06:20)
--- NOTE | 2020-02-05 07:54 | P.PN ---
Subjective Principal diagnosis: Electrolyte imbalance This is a continue progress on a 74-year-old white male essentially admitted for hyponatremia of severe type. The patient has been feeling better. No overt shortness of breath. No new voiding difficulties otherwise stated. The patient is now back on 3% normal saline and we are slowly collecting his electrolyte imbalance. The patient is complaining of throat pain. Objective - Vital Signs Vital signs: Vital Signs Temp 99.6 F 02/05/20 01:30 Pulse 96 02/05/20 01:30 Resp 20 02/05/20 01:30 BP 125/79 02/05/20 01:30 Pulse Ox 93 L 02/05/20 01:30 Intake & Output 02/04/20 02/05/20 02/05/20 18:59 06:59 18:59 Intake Total 50 Output Total 1450 1000 Balance -1400 -1000 Weight 77 kg Intake: Tube Feeding 50 Output: Urine 1450 1000 Other: Voiding Method Indwelling Catheter Indwelling Catheter # Bowel Movements 1 - Constitutional General appearance: Present: thin - EENT Eyes: Absent: abnormal pupil - Neck Neck: Absent: lymphadenopathy - Respiratory Respiratory: bilateral: CTA - Cardiovascular Heart sounds: normal: S1, S2 Abnormal Heart Sounds: Absent: S3 Gallop - Gastrointestinal General gastrointestinal: Present: soft. Absent: tenderness - Integumentary Integumentary: Absent: cyanotic - Musculoskeletal Musculoskeletal: Present: generalized weakness - Labs CBC & Chem 7: 02/04/20 07:02 02/04/20 16:56 Labs: Abnormal Lab Results - Last 24 Hours (Table) 02/04/20 02/04/20 Range/Units 07:02 16:56 Sodium 127 L 130 L (137-145) mmol/L Chloride 88 L (98-107) mmol/L Carbon Dioxide 33 H (22-30) mmol/L Creatinine 0.53 L (0.66-1.25) mg/dL Glucose 141 H (74-99) mg/dL Magnesium 1.5 L (1.6-2.3) mg/dL Total Protein 6.2 L (6.3-8.2) g/dL Albumin 2.8 L (3.5-5.0) g/dL Microbiology - Last 24 Hours (Table) 01/30/20 11:31 Blood Culture - Preliminary Blood No Growth after 120 hours Assessment and Plan (1) Atrial fibrillation Current Visit: Yes Status: Acute Code(s): I48.91 - UNSPECIFIED ATRIAL FIBRILLATION SNOMED Code(s): 86744628 (2) Confusion Current Visit: Yes Status: Acute Code(s): R41.0 - DISORIENTATION, UNSPECIFIED SNOMED Code(s): 156053509 (3) Generalized weakness Current Visit: Yes Status: Acute Code(s): R53.1 - WEAKNESS SNOMED Code(s): 26930847 (4) Hypomagnesemia Current Visit: Yes Status: Acute Code(s): E83.42 - HYPOMAGNESEMIA SNOMED Code(s): 465782899 (5) Hyponatremia Current Visit: Yes Status: Acute Code(s): E87.1 - HYPO-OSMOLALITY AND HYPONATREMIA SNOMED Code(s): 51708940 (6) Dyspnea Current Visit: No Status: Acute Code(s): R06.00 - DYSPNEA, UNSPECIFIED SNOMED Code(s): 371199198 Plan: Hyponatremia is improving. still has hypomagnesemia. Continue appropriate protocols however I suspect we can give him magnesium IV today to see if that level will come up. Check CBC and CMP in a.m.
[2020-02-05 08:21] LABS: INR 1.1 (<1.2); Prothrombin Time 11.6 sec (9.0-12.0)
[2020-02-05 08:28] LABS: African American GFR (CKD) >90 (>60 ml/min/1.73 sqM); Anion Gap 5 mmol/L; Blood Urea Nitrogen 21 mg/dL (9-20); Calcium 9.1 mg/dL (8.4-10.2); Carbon Dioxide 35 mmol/L (22-30); Chloride 93 mmol/L (98-107); Glucose 134 mg/dL (74-99); Magnesium 1.6 mg/dL (1.6-2.3); Non-African American GFR(CKD) >90 (>60 ml/min/1.73 sqM); Sodium 133 mmol/L (137-145)
[2020-02-05] MEDS: IPRATROPIUM-ALBUTEROL 3 ML NEB INHALATION SCH ×3 (08:57→20:17)
[2020-02-05 08:59] VITALS: BMI 25.0
[2020-02-05] MEDS: HEPARIN SODIUM,PORCINE 5,000 UNIT/ML 1 ML VIAL SQ SCH ×2 (09:09→21:23)
[2020-02-05] MEDS: PANTOPRAZOLE 40 MG/10 ML VIAL IV SCH (09:09)
[2020-02-05] MEDS: SOTALOL 80 MG TAB PEG/G-TUBE SCH (09:10)
[2020-02-05] MEDS: MAGNESIUM OXIDE 400 MG TAB PEG/G-TUBE SCH ×3 (09:10→21:23)
--- NOTE | 2020-02-05 16:14 | PN ---
PROGRESS NOTE Patient is seen for followup for hyponatremia. His serum sodium has improved significantly up to 133 today. PHYSICAL EXAMINATION: Today, patient is comfortable, awake. He is not in any acute distress. Blood pressure 124/79, heart rate 82 per minute, he is afebrile. Examination shows patient is euvolemic with no evidence of edema bilateral lower extremities. LABS: Show sodium 133 today, serum creatinine 0.6. ASSESSMENT: 1. Hyponatremia, currently improved. This was more mostly associated with excessive free water intake. 2. History of throat cancer maintained on tube feedings. 3. Hypomagnesemia, status post replacement. Serum magnesium 1.6 today. PLAN: Continue with the tube feedings. Repeat labs in a.m. MMODL / IJN: [id number] /
[2020-02-05] MEDS: LEVOFLOXACIN 500MG-D5W PMX 500 MG in DEXTROSE/WATER 1 100ML.BAG IVPB SCH (16:57)
[2020-02-05] MEDS ORDERED: WARFARIN 10 MG TAB PEG/G-TUBE ONE (18:00)
[2020-02-06 05:54] LABS: Anisocytosis Slight; HCT 36.9 % (39.0-53.0); HGB 11.4 gm/dL (13.0-17.5); Hypochromasia Moderate; MCH 26.7 pg (25.0-35.0); MCHC 30.9 g/dL (31.0-37.0); MCV 86.5 fL (80.0-100.0); Mean Platelet Volume 6.4; Platelet Count 413 k/uL (150-450); RBC 4.26 m/uL (4.30-5.90); RDW 17.3 % (11.5-15.5); WBC 11.4 k/uL (3.8-10.6)
[2020-02-06] MEDS: LEVOTHYROXINE 112 MCG TAB PEG/G-TUBE SCH (05:54)
--- NOTE | 2020-02-06 08:25 | P.PN ---
Subjective Principal diagnosis: Electrolyte imbalance This is a continue progress on a 74-year-old white male essentially admitted for hyponatremia of severe type. The patient has been feeling better. No overt shortness of breath. No new voiding difficulties otherwise stated. Magnesium is stabilizing Discharge planning for ECF hopefully in the next 24 hours. Objective - Vital Signs Vital signs: Vital Signs Temp 98.4 F 02/06/20 07:11 Pulse 67 02/06/20 07:11 Resp 16 02/06/20 07:11 BP 131/74 02/06/20 07:11 Pulse Ox 97 02/06/20 07:11 Intake & Output 02/05/20 02/06/20 02/06/20 18:59 06:59 18:59 Intake Total 150 680 Output Total 1999 Balance 150 -1320 Weight 77 kg 75.5 kg Intake: Oral 0 Tube Feeding 150 500 Other 180 Output: Urine 1999 Other: Voiding Method Indwelling Catheter - Constitutional General appearance: Present: average body habitus - EENT Eyes: Absent: abnormal pupil - Respiratory Respiratory: bilateral: CTA - Cardiovascular Rhythm: regular Heart sounds: normal: S1, S2 Abnormal Heart Sounds: Absent: S3 Gallop - Gastrointestinal General gastrointestinal: Present: soft. Absent: tenderness - Labs CBC & Chem 7: 02/06/20 05:24 02/05/20 07:47 Labs: Abnormal Lab Results - Last 24 Hours (Table) 02/05/20 02/06/20 Range/Units 07:47 05:24 WBC 11.4 H (3.8-10.6) k/uL RBC 4.26 L (4.30-5.90) m/uL Hgb 11.4 L (13.0-17.5) gm/dL Hct 36.9 L (39.0-53.0) % MCHC 30.9 L (31.0-37.0) g/dL RDW 17.3 H (11.5-15.5) % Sodium 133 L (137-145) mmol/L Chloride 93 L (98-107) mmol/L Carbon Dioxide 35 H (22-30) mmol/L BUN 21 H (9-20) mg/dL Creatinine 0.60 L (0.66-1.25) mg/dL Glucose 134 H (74-99) mg/dL Microbiology - Last 24 Hours (Table) 01/30/20 11:31 Blood Culture - Final Blood No Growth after 144 hours Assessment and Plan (1) Atrial fibrillation Current Visit: Yes Status: Acute Code(s): I48.91 - UNSPECIFIED ATRIAL FIBRILLATION SNOMED Code(s): 92245081 (2) Confusion Current Visit: Yes Status: Acute Code(s): R41.0 - DISORIENTATION, UNSPECIFIED SNOMED Code(s): 412100040 (3) Generalized weakness Current Visit: Yes Status: Acute Code(s): R53.1 - WEAKNESS SNOMED Code(s): 04768993 (4) Hypomagnesemia Current Visit: Yes Status: Acute Code(s): E83.42 - HYPOMAGNESEMIA SNOMED Code(s): 256715118 (5) Hyponatremia Current Visit: Yes Status: Acute Code(s): E87.1 - HYPO-OSMOLALITY AND HYPONATREMIA SNOMED Code(s): 10264784 (6) Dyspnea Current Visit: No Status: Acute Code(s): R06.00 - DYSPNEA, UNSPECIFIED SNOMED Code(s): 889030166 Plan: Hyponatremia is improving. Magnesium is low normal Repeat bolus of magnesium 2 g Check CBC and CMP in a.m. With magnesium in a.m.
[2020-02-06] MEDS: IPRATROPIUM-ALBUTEROL 3 ML NEB INHALATION SCH ×3 (08:36→20:56)
[2020-02-06 08:47] LABS: INR 1.3 (<1.2); Prothrombin Time 12.6 sec (9.0-12.0)
[2020-02-06] MEDS: MAGNESIUM OXIDE 400 MG TAB PEG/G-TUBE SCH ×3 (09:20→21:14)
[2020-02-06] MEDS: SOTALOL 80 MG TAB PEG/G-TUBE SCH (09:21)
[2020-02-06] MEDS: PANTOPRAZOLE 40 MG/10 ML VIAL IV SCH (10:14)
[2020-02-06] MEDS: HEPARIN SODIUM,PORCINE 5,000 UNIT/ML 1 ML VIAL SQ SCH ×2 (10:14→21:08)
[2020-02-06] MEDS: MAGNESIUM SULFATE-D5W PMX 1 GM in DEXTROSE/WATER 1 100ML.BAG IVPB SCH ×2 (10:21→12:17)
[2020-02-06] MEDS: DOCUSATE ORAL SOLN 100 MG/10 ML CUP PO SCH (15:10)
[2020-02-06] MEDS: LEVOFLOXACIN 500MG-D5W PMX 500 MG in DEXTROSE/WATER 1 100ML.BAG IVPB SCH (15:20)
[2020-02-06] MEDS ORDERED: WARFARIN 7.5 MG TAB PEG/G-TUBE ONE (18:00)
--- NOTE | 2020-02-06 18:07 | PN ---
PROGRESS NOTE Patient is seen for followup for hyponatremia. His serum sodium has improved significantly. It is up to 133 from yesterday. Patient denies any significant complaints. On examination today, blood pressure was 131/74, heart rate of 88 per minute. Patient is afebrile. EXAMINATION OF THE HEART: S1 and S2. EXAMINATION OF LUNGS: Bilateral breath sounds are heard. ABDOMEN: Soft, non-tender. Examination of lower extremities shows no significant edema. DICE MAKER exam is grossly intact. Labs show sodium 133, potassium 5.0 from yesterday and serum creatinine was 0.6. ASSESSMENT: 1. Hyponatremia associated with excessive free water, currently improved. Continue with tube feedings and avoid free water down the feeding tube. 2. History of throat cancer, maintained on tube feedings. 3. Hypomagnesemia, status post replacement. PLAN: Check serum sodium in a.m. Continue with tube feedings. MMODL / IJN: [id number] /
[2020-02-06 18:14] LABS: Albumin 3.1 g/dL (3.80-4.90); Albumin/Globulin Ratio 1.07 (1.60-3.17); BUN/Creat Ratio 32.86 Ratio (12.00-20.00); Calcium 9.1 mg/dL (8.7-10.3); Globulin 2.9 g/dL (1.6-3.3); Non-African American GFR(CKD) 92.3 (60.0-200.0); Potassium 4.8 mmol/L (3.5-5.5); Total Bilirubin 0.3 mg/dL (0.2-1.2)
[2020-02-06 23:31] VITALS: RESP 16
[2020-02-07] MEDS: LEVOTHYROXINE 112 MCG TAB PEG/G-TUBE SCH (05:38)
[2020-02-07 07:05] VITALS: BP 149/84; TEMP 98.7
--- NOTE | 2020-02-07 07:48 | P.DS ---
Providers Date of admission: 01/30/20 11:48 Attending physician: Duy De Leon Consults: 01/30/20 10:55 Consult Physician Urgent Consulting Provider: Desmond Jordan Consult Reason/Comments: Hyponatremia Do you want consulting provider notified?: Yes 01/30/20 12:15 Consult Physician Routine Consulting Provider: Tim Samano Reason/Comments: icu Do you want consulting provider notified?: Already Contacted Primary care physician: Duy De Leon - Discharge Diagnosis(es) (1) Atrial fibrillation Current Visit: Yes Status: Acute (2) Confusion Current Visit: Yes Status: Acute (3) Generalized weakness Current Visit: Yes Status: Acute (4) Hypomagnesemia Current Visit: Yes Status: Acute (5) Hyponatremia Current Visit: Yes Status: Acute (6) Dyspnea Current Visit: No Status: Acute Hospital Course: This discharge summary 74-year-old white male essentially admitted for hyponatremia and hypomagnesemia. It was at a critical level and he was admitted to the ICU for appropriate treatment. The patient was restarted on feedings and using appropriate medical treatment his left lites have been stabilized on discharge. Poor by mouth intake is noted and due to his overall debility, he will be transferred to the ECF. The patient is medically stable for discharge once cleared by consultants and will follow-up with me in 1-2 weeks. Patient Condition at Discharge: Serious Plan - Discharge Summary Discharge Rx Participant: Yes New Discharge Prescriptions: New Docusate Oral Soln [Colace Oral Soln] 100 mg PO DAILY ml Ipratropium-Albuterol Nebulize [Duoneb 0.5 mg-3 mg/3 ml Soln] 3 ml INHALATION RT-TID ml Continue Warfarin [Coumadin] 5 mg PEG/G-TUBE QAM Levothyroxine Sodium [Synthroid] 112 mcg PEG/G-TUBE QAM Magnesium Oxide [Mag-Ox] 400 mg PEG/G-TUBE TID Losartan [Cozaar] 50 mg PEG/G-TUBE QAM Sotalol [Betapace] 40 mg PEG/G-TUBE QAM Discharge Medication List Warfarin [Coumadin] 5 mg PEG/G-TUBE QAM 12/28/16 [History] Levothyroxine Sodium [Synthroid] 112 mcg PEG/G-TUBE QAM 12/27/17 [History] Losartan [Cozaar] 50 mg PEG/G-TUBE QAM 01/30/20 [History] Magnesium Oxide [Mag-Ox] 400 mg PEG/G-TUBE TID 01/30/20 [History] Sotalol [Betapace] 40 mg PEG/G-TUBE QAM 01/30/20 [History] Docusate Oral Soln [Colace Oral Soln] 100 mg PO DAILY ml 02/07/20 [Rx] Ipratropium-Albuterol Nebulize [Duoneb 0.5 mg-3 mg/3 ml Soln] 3 ml INHALATION RT-TID ml 02/07/20 [Rx] Follow up Appointment(s)/Referral(s): [facility] [facility] [NON-STAFF] - [facility], [[facility] - 1-2 Days [facility], [REFERRING] - As Needed Duy De Leon MD [Primary Care Provider] - 1 Week Discharge Disposition: TRANSFER TO SNF/ECF Care Plan Goals (MU): Tube feeding regimen. Pt is strict NPO. Bolus 4(240ml) cans of Two adrian HN per day. Flush with 30 ml free water before and after each bolus feeding. Pt will need to bolus an addition 150 ml free water 4 times per day to meet fluid needs. This can be included as part of free water used with meds.
[2020-02-07] MEDS: IPRATROPIUM-ALBUTEROL 3 ML NEB INHALATION SCH ×2 (08:10→12:40)
[2020-02-07 08:18] VITALS: PULSE 92
[2020-02-07] MEDS: SOTALOL 80 MG TAB PEG/G-TUBE SCH (09:28)
[2020-02-07] MEDS: MAGNESIUM OXIDE 400 MG TAB PEG/G-TUBE SCH (09:28)
[2020-02-07] MEDS: DOCUSATE ORAL SOLN 100 MG/10 ML CUP PO SCH (09:28)
[2020-02-07 09:37] LABS: INR 1.18 (0.90-1.11); Prothrombin Time 12.5 sec (9.9-11.9)
[2020-02-07] MEDS: PANTOPRAZOLE 40 MG/10 ML VIAL IV SCH (09:44)
[2020-02-07 09:46] LABS: Anion Gap 7.5 mmol/L (4.00-12.00); Calcium 8.8 mg/dL (8.7-10.3); Carbon Dioxide 29.5 mmol/L (21.6-31.8); Non-African American GFR(CKD) 98.4 (60.0-200.0); Potassium 4.7 mmol/L (3.5-5.5)
[2020-02-07] MEDS: HEPARIN SODIUM,PORCINE 5,000 UNIT/ML 1 ML VIAL SQ SCH (09:46)
--- NOTE | 2020-02-07 17:41 | PN ---
PROGRESS NOTE Patient is seen for followup for hyponatremia. Serum sodium improved to 135 yesterday and today it is at 133. Patient is maintained on tube feedings. On examination today, blood pressure was 149/84, heart rate 92 per minute. He is afebrile. EXAMINATION OF THE HEART: S1 and S2. EXAMINATION OF LUNGS: Bilateral breath sounds are heard. ABDOMEN: Soft, non-tender. Examination of lower extremities shows no significant edema. Labs show sodium 133, potassium 4.7, BUN of 24, creatinine 0.6. ASSESSMENT: 1. Hyponatremia associated with excessive free water, currently improved with holding free water down the NG tube. 2. Hypomagnesemia, status post replacement. 3. History of throat cancer, currently maintained on tube feedings. PLAN: Continue with tube feedings. Monitor potassium as outpatient in 3-4 days' time. MMODL / IJN: [id number] /
[2020-02-07] MEDS ORDERED: WARFARIN 10 MG TAB PEG/G-TUBE ONE (18:00)
== END 2020-02-07 14:57 | DRG 640 ==
LOC: EC 09:18 → 2SICU 11:48 → 4SSUR 02-03 18:31
PROVIDERS: ADMIT Family Medicine; ATTEND Family Medicine
DX: E87.1 Hypo-osmolality and hyponatremia (principal); G93.41 Metabolic encephalopathy; J69.0 Pneumonitis due to inhalation of food and vomit; E44.0 Moderate protein-calorie malnutrition; I48.20 Chronic atrial fibrillation, unspecified; E87.70 Fluid overload, unspecified; C08.9 Malignant neoplasm of major salivary gland, unspecified; E03.9 Hypothyroidism, unspecified; E83.42 Hypomagnesemia; E86.0 Dehydration; I10 Essential (primary) hypertension; M19.90 Unspecified osteoarthritis, unspecified site; R13.10 Dysphagia, unspecified; R19.7 Diarrhea, unspecified; R79.1 Abnormal coagulation profile; Z68.24 Body mass index [BMI] 24.0-24.9, adult; Z79.01 Long term (current) use of anticoagulants; Z79.890 Hormone replacement therapy; Z79.899 Other long term (current) drug therapy; Z87.01 Personal history of pneumonia (recurrent); Z87.891 Personal history of nicotine dependence; Z92.21 Personal history of antineoplastic chemotherapy; Z92.3 Personal history of irradiation; Z93.1 Gastrostomy status; Z98.42 Cataract extraction status, left eye; Z98.41 Cataract extraction status, right eye; Z98.890 Other specified postprocedural states; Z87.2 Personal history of diseases of the skin and subcutaneous tissue
CPT/HCPCS: 36415; 70450; 71045; 71046; 72125; 80048; 80053; 81003; 82550; 83605; 83735; 83930; 83935; 84295; 84443; 84484; 85025; 85027; 85610; 85730; 87040; 93005; 94640; 94760; 96365; 96367; 99291

== ENCOUNTER → 2020-03-13 | Outpatient (CLI) | payer MEDICARE ==
--- NOTE | 2020-03-13 11:40 | FL ---
EXAMINATION TYPE: FL barium swallow w video DATE OF EXAM: 03/13/2020 MODIFIED SWALLOW / DEGLUTITION STUDY CLINICAL HISTORY: Dysphagia. History of prior throat neoplasm. TECHNIQUE: Deglutition study is performed utilizing thin liquid barium, honey and nectar thick liqui d barium, barium thick applesauce, and barium coated cracker. Roughly 1 minutes of fluoro time and 0 images saved to PACS. COMPARISON: Prior esophagram report January 22, 2020. FINDINGS: The oral and pharyngeal phases show satisfactory initiation. Poor epiglottis inversion. Sat isfactory mastication is seen with solid modalities tested. There is deep silent penetration with th in liquid barium that improves on chin tuck procedure. No penetration or aspiration with other modali ties tested. Patient has difficulty coughing up this material. Mild pharyngeal residue was appreciate d with more viscous modalities. IMPRESSION: Deep penetration with thin liquid barium. No aspiration. Please refer to speech therapist notes for further details if necessary.
== END | disposition home or self-care (01) ==
LOC: RADFLMAIN 10:32
PROVIDERS: ATTEND Family Medicine
DX: R13.12 Dysphagia, oropharyngeal phase (principal)
CPT/HCPCS: 74230

== ENCOUNTER → 2020-03-15 | Outpatient (CLI) | payer MEDICARE ==
--- NOTE | 2020-03-18 21:58 | PE ---
EXAMINATION TYPE: PET CT fusion skull to thigh DATE OF EXAM: 03/15/2020 COMPARISON: PET/CT 10/13/2019 HISTORY: Head and neck squamous cancer. Most recent chemotherapy and radiation 01/12/2020. TECHNIQUE: Following the intravenous administration of 13.0 mCi of F-18 FDG, whole body images are p erformed from the skull base to the midthigh. Images are reviewed on the computer in the coronal, ax ial, and sagittal planes. Reconstructed rotating images are created on independent workstation and r eviewed on the computer. A localization and attenuation correction CT is performed in conjunction w ith the PET scan. SCAN: Subsequent Scan Blood glucose: 102 mg/dL Average Mediastinum SUV: 1.6 Average Liver SUV: 2.05 FINDINGS: NECK: Significant interval decrease in size of the left submandibular mass measuring 2.2 x 1.6 cm pr eviously 3.8 x 3.0 cm, with decreased hypermetabolic activity max SUV 2.54 (image 55) previously SUV 23.3. The nonenlarged anterior cervical lymph node (image 52) demonstrates maximum SUV 2.44, previous ly max SUV 19. There is new hypermetabolic activity along the left pharyngeal soft tissue posteriorly (image 56), max SUV 3.99 THORAX: No hypermetabolic activity. ABDOMEN/PELVIS: Within the left lower quadrant in the region of extensive colonic diverticulosis, the re is new hypermetabolic activity (image 213) max SUV 4.88. OSSEOUS STRUCTURES: No hypermetabolic activity. LOCALIZATION CT: Calcified coronary artery disease. Calcified atherosclerotic disease. No pericardial or pleural effusion. No thoracic or abdominal lymphadenopathy. Cholelithiasis. Extensive colonic div erticulosis. Degenerative changes of the spine. IMPRESSION: Compared to 10/13/[address] comparison: 1. Significantly decreased size and metabolic activity of the left submandibular mass. Decreased meta bolic activity of the left cervical lymph node. 2. New hypermetabolic activity of the left posterior pharynx may be posttreatment change. Attention o n follow-up imaging. 3. New hypermetabolic activity of the sigmoid colon likely represents uncomplicated acute diverticuli tis. A Yellow level critical message alert has been initiated for Sonu Daniel MD~[id number] via the [employer] Critical Results System on 03/18/2020 9:55 PM. This message alert has been sent to Sonu Daniel MD ~[id number] via the preferences provided by the clinician for the receipt of Radiology Critical Findings. Message ID [id number].
== END | disposition home or self-care (01) ==
LOC: RADPETMAIN 11:16
PROVIDERS: ATTEND Internal Medicine Hematology & Oncology
DX: R93.89 Abnormal findings on diagnostic imaging of other specified body structures (principal); Z98.890 Other specified postprocedural states; C76.0 Malignant neoplasm of head, face and neck
CPT/HCPCS: 78815; A9552

== ENCOUNTER 2020-05-21 08:18 | Day surgery (SDC) | payer MEDICARE ==
[2020-05-15 08:55] VITALS: BMI 24.3
[~2020-05-21 08:18] MED LIST changes: -MIDAZOLAM 2 MG/2 ML VIAL IV PRN
[2020-05-21 08:55] VITALS: TEMP 97
[2020-05-21] MEDS ORDERED: PROPOFOL 10 MG/ML 20 ML VIAL IV ONE (09:27)
--- NOTE | 2020-05-21 09:28 | P.GSHP ---
History of Present Illness H&P Date: 05/21/20 Chief Complaint: Colon cancer screening Patient today for colonoscopy. Last colonoscopy 5 years ago. No bowel complaints. Recent PET scan shows some activity in the sigmoid colon. Denies rectal bleeding. Personal history of cancer. Known to our service from prior EGD with PEG tube placement. Past Medical History Past Medical History: Atrial Fibrillation, Cancer, Hypertension, Osteoarthritis (OA), Thyroid Disorder Additional Past Medical History / Comment(s): "Don't have good balance.". neck cancer with difficulty swallowing- radiation and chemo finished jan 13. diverticulosis, peg tube History of Any Multi-Drug Resistant Organisms: None Reported Past Surgical History: Cardiac Ablation Additional Past Surgical History / Comment(s): CYST REMOVED on back and arm , COLONOSCOPY, BILATERAL CATARACT SURGERY, cardioversion X4, . Past Anesthesia/Blood Transfusion Reactions: No Reported Reaction, Motion Sickness Smoking Status: Former smoker - Past Family History Mother Family Medical History: No Reported History Medications and Allergies Home Medications Medication Instructions Recorded Confirmed Type Warfarin [Coumadin] 7.5 mg PO QAM 12/28/16 05/15/20 History Levothyroxine Sodium [Synthroid] 112 mcg PO QAM 12/27/17 05/21/20 History Losartan [Cozaar] 50 mg PO QAM 01/30/20 05/15/20 History Magnesium Oxide [Mag-Ox] 400 mg PO DAILY 01/30/20 05/15/20 History Sotalol [Betapace] 40 mg PO QAM 01/30/20 05/15/20 History Cholecalciferol [Vitamin D3 (25 1,000 unit PO DAILY 05/15/20 05/15/20 History Mcg = 1000 Iu)] Allergies Allergy/AdvReac Type Severity Reaction Status Date / Time No Known Allergies Allergy Verified 05/21/20 09:23 Surgical - Exam Vital Signs Temp Pulse Resp BP Pulse Ox 97.0 F L 68 17 156/75 98 05/21/20 08:53 05/21/20 08:53 05/21/20 08:53 05/21/20 08:53 05/21/20 08:53 Physical exam: General: Well-developed, well-nourished HEENT: Normocephalic, sclerae nonicteric Abdomen: Nontender, nondistended, PEG tube in place Extremities: No edema Neuro: Alert and oriented Assessment and Plan (1) Colon cancer screening Narrative/Plan: Will proceed with colonoscopy at this time Current Visit: Yes Status: Acute Code(s): Z12.11 - ENCOUNTER FOR SCREENING FOR MALIGNANT NEOPLASM OF COLON SNOMED Code(s): 095783289
--- NOTE | 2020-05-21 09:48 | P.PCN ---
Date of Procedure: 05/21/20 Procedure(s) Performed: PREOPERATIVE DIAGNOSIS: Colon cancer screening, abnormal PET scan POSTOPERATIVE DIAGNOSIS: Extensive diverticulosis, mild right sided colitis PROCEDURE: Colonoscopy with biopsy ANESTHESIA: MAC SURGEON: Elias Juarez M.D. SPECIMENS: Right sided colitis ENDOSCOPIC PROCEDURE: The patient was placed on the endoscopy table in the left decubitus position. The Olympus colonoscope was inserted into the anus and passed under direct visualization to the base of the cecum. The appendiceal orifice was visualized. From that point the scope was slowly withdrawn inspecting all surfaces carefully. There were no neoplastic or polypoid lesions throughout the cecum, ascending, transverse, descending, sigmoid and rectum. There was mild right-sided colitis with mucosal inflammatory changes. Biopsies were taken. This was mild in degree. There was extensive diverticulosis seen scattered throughout the colon certainly more in the sigmoid region. Digital rectal examination was normal. The patient was taken to the recovery room in stable condition per anesthesia guidelines. RECOMMENDATIONS: Await biopsy results.
[2020-05-21 09:53] VITALS: RESP 16
[2020-05-21 10:12] VITALS: BP 138/83; PULSE 75
== END 2020-05-21 10:41 | disposition home or self-care (01) ==
LOC: ORWHC2ENDO 08:18
PROVIDERS: ATTEND Surgery
DX: K57.30 Diverticulosis of large intestine without perforation or abscess without bleeding (principal); K52.9 Noninfective gastroenteritis and colitis, unspecified; R13.10 Dysphagia, unspecified; R94.8 Abnormal results of function studies of other organs and systems; Z85.89 Personal history of malignant neoplasm of other organs and systems; Z92.21 Personal history of antineoplastic chemotherapy; Z92.3 Personal history of irradiation; I48.91 Unspecified atrial fibrillation; I10 Essential (primary) hypertension; M19.90 Unspecified osteoarthritis, unspecified site; Z87.891 Personal history of nicotine dependence; F41.9 Anxiety disorder, unspecified; E07.9 Disorder of thyroid, unspecified; Z93.1 Gastrostomy status; Z87.19 Personal history of other diseases of the digestive system; Z98.890 Other specified postprocedural states; Z98.42 Cataract extraction status, left eye; Z98.41 Cataract extraction status, right eye; Z97.2 Presence of dental prosthetic device (complete) (partial); Z79.01 Long term (current) use of anticoagulants; Z79.890 Hormone replacement therapy; Z79.899 Other long term (current) drug therapy
CPT/HCPCS: 88305; 45380; J2704

== ENCOUNTER 2020-06-03 10:14 | Emergency (ER) | payer MEDICARE ==
[2020-06-03] MEDS ORDERED: SODIUM CHLORIDE 0.9% 1,000 ML IV STA (10:32)
--- NOTE | 2020-06-03 10:43 | ED ---
Abdominal Pain HPI - General Chief Complaint: Abdominal Pain Stated Complaint: abd pain Time Seen by Provider: 06/03/20 10:28 Source: patient, RN notes reviewed Mode of arrival: wheelchair Limitations: no limitations - History of Present Illness Initial Comments: 75-year-old male presents emergency Department with chief complaint of lower abdominal pain and cramping. Patient states that he had a colostomy 2 weeks ago. Patient has severe diverticulosis he states he's never had a severe infections associated with this. Patient reports no fevers or chills no nausea vomiting. Patient states that he does is constipated some MiraLAX no relief of symptoms. Patient states is still cramping that waxes and wanes his lower abdomen no dysuria no hematuria - Related Data Home Medications Medication Instructions Recorded Confirmed Warfarin [Coumadin] 7.5 mg PO DAILY 12/28/16 06/03/20 Losartan [Cozaar] 50 mg PO DAILY 01/30/20 06/03/20 Magnesium Oxide [Mag-Ox] 400 mg PO DAILY 01/30/20 06/03/20 Sotalol [Betapace] 40 mg PO DAILY 01/30/20 06/03/20 Cholecalciferol [Vitamin D3 (25 1,000 unit PO DAILY 05/15/20 06/03/20 Mcg = 1000 Iu)] Levothyroxine Sodium [Synthroid] 112 mcg PO DAILY 06/03/20 06/03/20 Previous Rx's Medication Instructions Recorded Amoxic-Pot Clav 400-57Mg/5Ml 10 ml PO Q12H #200 ml 06/03/20 [Augmentin 400-57 mg/5 ml Liquid] Allergies Allergy/AdvReac Type Severity Reaction Status Date / Time No Known Allergies Allergy Verified 06/03/20 12:01 Review of Systems ROS Statement: Those systems with pertinent positive or pertinent negative responses have been documented in the HPI. ROS Other: All systems not noted in ROS Statement are negative. Past Medical History Past Medical History: Atrial Fibrillation, Cancer, Hypertension, Thyroid Disorder Additional Past Medical History / Comment(s): "Don't have good balance.". neck cancer in remission. DIVERTICULITIS History of Any Multi-Drug Resistant Organisms: None Reported Past Surgical History: Ablation Additional Past Surgical History / Comment(s): CYST REMOVED, COLONOSCOPY, BILATERAL CATARACT SURGERY, cardioversion X4, . cardiac ablation Past Anesthesia/Blood Transfusion Reactions: No Reported Reaction Past Psychological History: Anxiety Smoking Status: Former smoker Past Alcohol Use History: Daily Past Drug Use History: None Reported - Past Family History Mother Family Medical History: No Reported History General Exam Limitations: no limitations General appearance: alert, in no apparent distress Head exam: Present: atraumatic, normocephalic, normal inspection Neck exam: Present: normal inspection, full ROM. Absent: tenderness, meningis mus, lymphadenopathy Respiratory exam: Present: normal lung sounds bilaterally. Absent: respiratory distress, wheezes, rales, rhonchi, stridor Cardiovascular Exam: Present: regular rate, normal rhythm, normal heart sounds. Absent: systolic murmur, diastolic murmur, rubs, gallop, clicks GI/Abdominal exam: Present: soft, tenderness (Mild to moderate lower), normal bowel sounds. Absent: distended, guarding, rebound, rigid Course Vital Signs 06/03/20 10:21 Temperature 98 F Pulse Rate 88 Respiratory 16 Rate Blood Pressure 139/73 O2 Sat by Pulse 95 Oximetry Medical Decision Making - Medical Decision Making CT shows evidence of diverticulitis with no abscess or perforation. There is concerning for possible cancer though patient had colostomy 2 weeks ago. Patient will follow-up with surgeon and primary care physician return parameters were discussed. Patient has vital are stable be discharged on Augmentin. - Lab Data Result diagrams: 06/03/20 10:59 06/03/20 10:59 Lab Results 06/03/20 06/03/20 06/03/20 Range/Units 10:59 10:59 10:59 WBC 13.5 H (3.8-10.6) k/uL RBC 5.43 (4.30-5.90) m/uL Hgb 16.6 (13.0-17.5) gm/dL Hct 48.8 (39.0-53.0) % MCV 89.8 (80.0-100.0) fL MCH 30.5 (25.0-35.0) pg MCHC 34.0 (31.0-37.0) g/dL RDW 13.0 (11.5-15.5) % Plt Count 462 H (150-450) k/uL MPV 6.9 Neutrophils % 82 % Lymphocytes % 5 % Monocytes % 7 % Eosinophils % 3 % Basophils % 1 % Neutrophils # 11.0 H (1.3-7.7) k/uL Lymphocytes # 0.7 L (1.0-4.8) k/uL Monocytes # 1.0 (0-1.0) k/uL Eosinophils # 0.4 (0-0.7) k/uL Basophils # 0.2 (0-0.2) k/uL Sodium 133 L (137-145) mmol/L Potassium 4.6 (3.5-5.1) mmol/L Chloride 100 (98-107) mmol/L Carbon Dioxide 27 (22-30) mmol/L Anion Gap 6 mmol/L BUN 15 (9-20) mg/dL Creatinine 0.48 L (0.66-1.25) mg/dL Est GFR (CKD-EPI)AfAm >90 (>60 ml/min/1.73 sqM) Est GFR (CKD-EPI)NonAf >90 (>60 ml/min/1.73 sqM) Glucose 106 H (74-99) mg/dL Plasma Lactic Acid Javed 0.9 (0.7-2.0) mmol/L Calcium 9.5 (8.4-10.2) mg/dL Total Bilirubin 1.0 (0.2-1.3) mg/dL AST 24 (17-59) U/L ALT 13 (4-49) U/L Alkaline Phosphatase 72 (38-126) U/L Total Protein 7.1 (6.3-8.2) g/dL Albumin 3.9 (3.5-5.0) g/dL Lipase 48 (23-300) U/L Disposition Clinical Impression: Acute diverticulitis Disposition: HOME SELF-CARE Condition: Stable Instructions (If sedation given, give patient instructions): Diverticulitis (ED), Diverticulitis Diet (ED) Additional Instructions: Please return to the Emergency Department if symptoms worsen or any other concerns. Prescriptions: Amoxic-Pot Clav 400-57Mg/5Ml [Augmentin 400-57 mg/5 ml Liquid] 10 ml PO Q12H #200 ml Is patient prescribed a controlled substance at d/c from ED?: No Referrals: Duy De Leon MD [Primary Care Provider] - 1-2 days Elias Juarez MD [Medical Doctor] - 1-2 days Time of Disposition: 13:18
[2020-06-03 11:15] LABS: Basophils # (A) 0.2 k/uL (0-0.2); Basophils % (A) 1 %; Eosinophils # (A) 0.4 k/uL (0-0.7); Eosinophils % (A) 3 %; HCT 48.8 % (39.0-53.0); HGB 16.6 gm/dL (13.0-17.5); Lymphocytes # (A) 0.7 k/uL (1.0-4.8); Lymphocytes % (A) 5 %; MCH 30.5 pg (25.0-35.0); MCV 89.8 fL (80.0-100.0); Mean Platelet Volume 6.9; Monocytes % (A) 7 %; Neutrophils % (A) 82 %; Platelet Count 462 k/uL (150-450); RBC 5.43 m/uL (4.30-5.90); WBC 13.5 k/uL (3.8-10.6)
[2020-06-03 11:27] LABS: ALT 13 U/L (4-49); AST 24 U/L (17-59); African American GFR (CKD) >90 (>60 ml/min/1.73 sqM); Albumin 3.9 g/dL (3.5-5.0); Alkaline Phosphatase 72 U/L (38-126); Anion Gap 6 mmol/L; Blood Urea Nitrogen 15 mg/dL (9-20); Calcium 9.5 mg/dL (8.4-10.2); Carbon Dioxide 27 mmol/L (22-30); Chloride 100 mmol/L (98-107); Glucose 106 mg/dL (74-99); Lipase 48 U/L (23-300); Non-African American GFR(CKD) >90 (>60 ml/min/1.73 sqM); Potassium 4.6 mmol/L (3.5-5.1); Sodium 133 mmol/L (137-145); Total Protein 7.1 g/dL (6.3-8.2)
--- NOTE | 2020-06-03 12:30 | CT ---
EXAMINATION TYPE: CT abdomen pelvis w con DATE OF EXAM: 06/03/2020 COMPARISON: PET CT 03/15/2020 HISTORY: 75-year-old male recent diagnosis of diverticulitis, abdominal pain TECHNIQUE: Contiguous axial scanning of the abdomen and pelvis following administration of 100 ml Iso rusty 300 IV contrast. Delayed images through the kidneys and coronal/sagittal reconstructions perform ed. CT DLP: 855 mGycm Automated exposure control for dose reduction was used. FINDINGS: Heart upper limits of normal in size without pericardial effusion. Strandy atelectasis or scarring in the lower lungs without pleural effusion. Nonspecific tiny 7 mm hypodensity lateral right liver lobe [address] characterization, probable cyst. Portal venous system is patent. No biliary ductal dilatation. Gallstones measuring up to 7 mm. No abnormal gallbladder distention. Stable 9 mm nodularity left adrenal gland. Right adrenal gland, spleen, and pancreas show no gross abnormality. A couple duodenal diverticula are noted measuring 3.5 and 6.1 cm. 2.7 cm benign cortical cyst posterior right kidney. No dilated small bowel, free fluid, free air. Borderline and mildly enlarged left periaortic lymph nodes measuring up to 1.1 cm appear largely unch anged from 03/15/2020, probably chronic reactive postinflammatory etiology. Otherwise, no mesenteric or retroperitoneal lymphadenopathy seen. There is abnormal moderate to severe circumferential wall thickening with surrounding fat stranding a long the proximal sigmoid, axial image 63. Moderate surrounding inflammatory edema. Left-sided coloni c diverticulosis. Normal appendix. Redundant mid sigmoid colon. A PEG tube is demonstrated. Bladder is collapsed. Multiple pelvic phlebolith. No abnormal fluid collection in the pelvis or pelvi c lymphadenopathy. Bones: Mild degenerative change of the hips. Degenerated scoliotic curvature of the lumbar spine. Gra de 1 retrolisthesis L2-L3. IMPRESSION: 1. LEFT-SIDED COLONIC DIVERTICULOSIS. There are findings suggestive of acute diverticulitis along the proximal sigmoid colon with moderate to severe wall thickening and moderate surrounding inflammation . No abscess or free air. Given the small focus of increased uptake on the 03/15/2020 PET/CT, the POS SIBILITY OF AN INFLAMMATORY COLON CANCER IS NOT EXCLUDED. 2. No findings of metastatic disease in the abdomen or pelvis. 3. Cholelithiasis.
[2020-06-03 13:08] LABS: Appearance,Urine Clear (Clear); Bilirubin,Urine Negative (Negative); Blood,Urine Negative (Negative); Color,Urine Yellow; Glucose,Urine (UA) Negative (Negative); Ketones,Urine Trace (Negative); Leukocyte Esterase,Urine Negative (Negative); Nitrite,Urine Negative (Negative); PH, Urine 8.5 (5.0-8.0); Protein,Urine Negative (Negative); Urobilinogen,Urine <2.0 mg/dL (<2.0)
[2020-06-03 14:24] VITALS: RESP 18
[2020-06-03 14:36] VITALS: BP 137/71; PULSE 69; TEMP 98.6
== END 2020-06-03 14:23 | disposition home or self-care (01) ==
LOC: EC 10:14
DX: K57.32 Diverticulitis of large intestine without perforation or abscess without bleeding (principal); I48.91 Unspecified atrial fibrillation; I10 Essential (primary) hypertension; E07.9 Disorder of thyroid, unspecified; Z79.01 Long term (current) use of anticoagulants; Z79.899 Other long term (current) drug therapy; Z79.890 Hormone replacement therapy; Z99.3 Dependence on wheelchair; Z87.891 Personal history of nicotine dependence; Z85.89 Personal history of malignant neoplasm of other organs and systems
CPT/HCPCS: 36415; 80053; 83605; 83690; 85025; 81003; 74177; 99284; 96374; Q9967

== ENCOUNTER → 2020-06-11 | Outpatient (CLI) | payer MEDICARE ==
[2020-06-11 10:46] LABS: African American GFR (CKD) >90 (>60 ml/min/1.73 sqM); Blood Urea Nitrogen 21 mg/dL (9-20); Non-African American GFR(CKD) >90 (>60 ml/min/1.73 sqM)
--- NOTE | 2020-06-11 14:49 | CT ---
EXAMINATION TYPE: CT neck chest w con DATE OF EXAM: 06/11/2020 COMPARISON: PET CT 03/15/2020 HISTORY: Head and neck CA CT DLP: 706.8 mGycm CONTRAST: Patient injected with 100 mL of Isovue 300. TECHNIQUE: Axial images at 3 mm thick sections. Reconstructed images in the coronal plane and sagitt al plane are reviewed. FINDINGS: Limited CT sections are obtained the lung apices. The lung apices appear clear. CT neck: The torus tubarius and fossa of Rosenmuller are normal. Tree Doctor spaces are normal. Para nasal sinuses and mastoid air cells are clear. Parotid glands appear normal and symmetrical. Left submandibular gland is slightly more prominent salina n on the right. Borders are less distinct on the left. This does remain diminished compared to the PE T/CT. Parapharyngeal spaces are normal. No suspicious enlarged adenopathy is evident. The hypopharynx appears within normal limits. Left tonsillar pillar is somewhat thickened compared to the right. Vocal cord level is closed at the time of this exam Thyroid as visualized is normal. Osseous structures are normal. IMPRESSIONS: 1. Diminished on the left submandibular gland size. 2. Slight fullness within the left tonsillar pillar. 3. Suspicious metastatic disease is not identified. EXAMINATION TYPE: CT neck chest w con DATE OF EXAM: 06/11/2020 COMPARISON: PET CT 03/15/2020 HISTORY: Head and neck CA CT DLP: 706.8 mGycm, Automated exposure control for dose reduction was used. CONTRAST: Performed injected with 100 mL of Isovue 300. TECHNIQUE: Axial images were obtained at 5 mm thick sections. Reconstructed images are reviewed on [facility] computer in the coronal plane. FINDINGS: Portion of the thyroid visualized is normal. Minimal linear opacities in the posterior lateral right lung base compatible some streak atelectasis. Shotty lymphadenopathy is within the pretracheal space and periaortic regions. There is a prominent lymph node within the pretracheal space with an AP dimension 1.3 cm which is enlarged by CT criteria this has enlarged from comparison. The ascending aorta diameter at the level of the main pulmonary [place] is 3.2 cm. The main pulmonary artery diameter at the bifurcation is 2.9 cm. Coronary artery adrian cification is present. Limited CT sections are obtained through the upper abdomen. Right renal cyst is noted. IMPRESSIONS: 1. There is an enlarged pretracheal lymph node increased in size from comparison PET/CT
== END | disposition home or self-care (01) ==
LOC: RADCTMAIN 10:03
PROVIDERS: ATTEND Internal Medicine Hematology & Oncology
DX: R59.9 Enlarged lymph nodes, unspecified (principal); C76.0 Malignant neoplasm of head, face and neck
CPT/HCPCS: 82565; 84520; 70491; 71260; 36415; Q9967

== ENCOUNTER → 2020-09-10 | Outpatient (CLI) | payer MEDICARE ==
[2020-09-10 11:32] LABS: African American GFR (CKD) >90 (>60 ml/min/1.73 sqM); Blood Urea Nitrogen 17 mg/dL (9-20); Non-African American GFR(CKD) >90 (>60 ml/min/1.73 sqM)
--- NOTE | 2020-09-10 12:23 | CT ---
EXAMINATION TYPE: CT neck chest w con DATE OF EXAM: 09/10/2020 COMPARISON: Prior neck and chest CT June 11, 2020. Prior PET/CT March 15, 2020 and older studies HISTORY: follow up head/neck cancer CT DLP: 693.7 mGycm. Automated Exposure Control for Dose Reduction was Utilized. TECHNIQUE: CT scan of the neck and thorax are performed following with IV Contrast, patient injected with 100 mL of Isovue 300. FINDINGS: Neck: Airway: Curvilinear calcification just below the epiglottis extending inferiorly sagittal image 36 un changed from prior studies. Parotid/submandibular glands: Left submandibular mass and distinct from the inferior margin left subm andibular gland remains ill-defined and hypodense measuring roughly 1.6 x 1.2 cm axial image 42. No s ignificant change from most recent CT Carotid/Vascular Structures: Mild to moderate calcified plaque bilateral carotid bulb extends into th e proximal internal carotid arteries without significant stenosis. Osseous Structures: Moderate disc space narrowing and spurring C5-C6 and C6-C7 levels. Other: No new greater than 1 cm neck adenopathy. Mild 2 moderate subcutaneous edema submandibular reg ion is stable possible posttreatment change. Chest: LUNGS: Background [id number] underlying emphysematous change is redemonstrated. Dependent and l inear atelectasis in both bases. No concerning new nodules or masses. No pleural effusion or pneumoth orax seen bilaterally. MEDIASTINUM: There are no new greater than 1 cm hilar or mediastinal lymph nodes. Some prominent but subcentimeter thoracic lymph nodes are unchanged from most recent CT No cardiomegaly or pericardial effusion is seen. [id number] coronary artery calcification and/or stents. OTHER: Slight asymmetric thickening left adrenal gland is stable. Slight scoliotic curvature with mul tilevel spurring in the mid to lower thoracic spine. IMPRESSION: Stable treated neoplasm inferior left submandibular level. No new or enlarging mass or no dule to suggest active neoplastic recurrence.
== END | disposition home or self-care (01) ==
LOC: RADCTMAIN 10:50
PROVIDERS: ATTEND Internal Medicine Hematology & Oncology
DX: C76.0 Malignant neoplasm of head, face and neck (principal)
CPT/HCPCS: 82565; 84520; 70491; 71260; Q9967

== ENCOUNTER → 2020-10-04 | Outpatient (CLI) | payer MEDICARE ==
--- NOTE | 2020-10-08 06:23 | PE ---
EXAMINATION TYPE: PET CT fusion skull to thigh DATE OF EXAM: 10/04/2020 COMPARISON: Most recent CT September 10, 2020 and older CTs. Most recent PET/CT March 15, 2020. 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 Images are reviewed on the computer in the coronal, a xial, and sagittal planes. Reconstructed rotating images are created on independent workstation and reviewed on the computer. A localization and attenuation correction CT is performed in conjunction with the PET scan. Dedicated PET/CT of the head and neck. Blood glucose level equals 96. SCAN: Subsequent Scan FINDINGS: SKULL BASE AND NECK: Inferior left submandibular mass or residual neoplasm less well seen on this PE T CT versus recent CT. No suspicious hypermetabolic uptake at this level noted. No new areas of abnormal hypermetabolic uptake. CHEST, MEDIASTINUM, AND HILAR REGION: No new areas of abnormal hypermetabolic uptake. ABDOMEN AND PELVIS: No new areas of abnormal hypermetabolic uptake. OSSEOUS STRUCTURES: No new areas of abnormal hypermetabolic uptake. OTHER CT: Mild to moderate calcified plaque bilateral carotid bulb level. Mild underlying emphysematous change. Moderate coronary artery calcification and/or stents. Right bas ilar linear scarring and/or atelectasis. Dependent small calcified gallstones and/or gallbladder sludge. Scattered bilateral pelvic phlebolith s. Underlying scoliosis. Multilevel facet arthropathy. IMPRESSION: Complete positive treatment response. No residual or new areas of abnormal hypermetabolic uptake.
== END | disposition home or self-care (01) ==
LOC: RADPETMAIN 13:27
PROVIDERS: ATTEND Otolaryngology
DX: C44.321 Squamous cell carcinoma of skin of nose (principal)
CPT/HCPCS: 78815; A9552

== ENCOUNTER → 2020-12-10 | Outpatient (CLI) | payer MEDICARE ==
[2020-12-10 11:50] LABS: African American GFR (CKD) >90 (>60 ml/min/1.73 sqM); Blood Urea Nitrogen 16 mg/dL (9-20); Non-African American GFR(CKD) >90 (>60 ml/min/1.73 sqM)
--- NOTE | 2020-12-10 16:11 | CT ---
EXAMINATION TYPE: CT soft tissue neck wo/w con DATE OF EXAM: 12/10/2020 COMPARISON: 09/10/2020 HISTORY: Head and neck cancer CT DLP: 1685 mGycm CONTRAST: Patient injected with 100 ml mL of Isovue 300. TECHNIQUE: Axial images at 3 mm thick sections. Reconstructed images in the coronal plane and sagitt al plane are reviewed. FINDINGS: Limited CT sections are obtained the lung apices. The lung apices appear clear. CT neck: The torus tubarius and fossa of Rosenmuller are normal. Airplane Designer spaces are normal. Para nasal sinuses and mastoid air cells are clear. Below the left submandibular gland is an ill-defined density. This is at the level of the epiglottis and measures 2.2 x 1.1 cm. Series 4 image 47. Parotid glands appear normal and symmetrical. Submandibular glands, are normal. Parapharyngeal spac es are normal. No suspicious adenopathy is evident. Scattered shoddy lymphadenopathies in the superi or mediastinum The hypopharynx appears within normal limits. Calcification of the posterior epiglottis appears to re main present. Vocal cord level is closed during this examination Thyroid as visualized is normal. Osseous structures are normal. IMPRESSIONS: 1. Residual soft tissue left inferior submandibular region. Significant growth is not evident.
--- NOTE | 2020-12-10 16:40 | CT ---
EXAMINATION TYPE: CT chest w con DATE OF EXAM: 12/10/2020 COMPARISON: 09/10/2020 HISTORY: Head and neck cancer CT DLP: 1685 mGycm, Automated exposure control for dose reduction was used. CONTRAST: Performed injected with 100 ml mL of Isovue 300. TECHNIQUE: Axial images were obtained at 5 mm thick sections. Reconstructed images are reviewed on [employer] computer in the coronal plane. FINDINGS: Portion of the thyroid visualized is atrophic. No suspicious lung nodules or focal infiltrates are present. No enlarged mediastinal or hilar adenopathy is evident. Scattered small shotty lymph nodes are prese nt. The ascending aorta diameter at the level of the main pulmonary artery is 3.5 cm. The main pulmo nary artery diameter at the bifurcation is 2.9 cm. Coronary artery calcification is present. Limited CT sections are obtained through the upper abdomen. A posterior right renal cyst measuring 2. 5 cm 5 Hounsfield units is present. IMPRESSIONS: 1. No suspicious metastatic disease. 2. Right renal cyst
== END | disposition home or self-care (01) ==
LOC: RADCTMAIN 09:23
PROVIDERS: ATTEND Internal Medicine Hematology & Oncology
DX: C76.0 Malignant neoplasm of head, face and neck (principal)
CPT/HCPCS: 82565; 84520; 70492; 71260; 36415; Q9967

== ENCOUNTER → 2021-03-06 | Outpatient (CLI) | payer MEDICARE ==
[2021-03-06 22:48] LABS: Rheumatoid Factor, Qnt <10 IU/mL (0-15)
[2021-03-07 13:32] LABS: HLA B27 NEGATIVE
[2021-03-07 19:06] LABS: Uric Acid 5.3 mg/dL (3.7-8.7)
[2021-03-07 21:08] LABS: C Reactive Protein <0.30 mg/dL (0.00-0.80)
== END | disposition home or self-care (01) ==
LOC: LABWHC1 12:26
PROVIDERS: ATTEND Podiatrist
DX: M06.9 Rheumatoid arthritis, unspecified (principal)
CPT/HCPCS: 36415; 84550; 85652; 86038; 86140; 86431; 86812

== ENCOUNTER → 2021-04-08 | Outpatient (CLI) | payer MEDICARE ==
[2021-04-08 11:14] LABS: African American GFR (CKD) >90 (>60 ml/min/1.73 sqM); Blood Urea Nitrogen 18 mg/dL (9-20); Non-African American GFR(CKD) 89 (>60 ml/min/1.73 sqM)
--- NOTE | 2021-04-08 12:30 | CT ---
EXAMINATION TYPE: CT neck chest w con DATE OF EXAM: 04/08/2021 12:15 PM COMPARISON: 12/10/2020 HISTORY: Head and neck cancer CT DLP: 1252 mGycm Automated exposure control for dose reduction was used. CONTRAST: CT scan of the neck is performed following with IV Contrast, patient injected with 100 ml mL of Isovu e 300. Axial images are obtained, coronal and sagittal reformatted images are reviewed. FINDINGS: CT neck: The torus tubarius and fossa of Rosenmuller are normal. Knitted Garment Finisher spaces are normal. Parana amyur sinuses and mastoid air cells are clear. Below the left submandibular gland is an ill-defined den sity. This is at the level of the epiglottis and measures 2.2 x 1.1 cm. Parotid glands appear normal and symmetrical. Submandibular glands, are normal. Parapharyngeal spaces are normal. No suspicious adenopathy is evident. Scattered shoddy lymphadenopathies in the superior mediastinum. The hypopharynx appears within normal limits. Calcification of the posterior epiglottis appears to re main present. Vocal cord level is closed during this examination Thyroid as visualized is normal. Oss eous structures are normal. CHEST: Subsegmental consolidation involving the right lower lobe more typical of atelectasis. No pneumothora x or pleural effusion. 2 mm nodule superior segment left lower lobe axial image 34 No enlarged mediastinal or hilar adenopathy is evident. Scattered small shotty lymph nodes are presen t. The ascending aorta diameter at the level of the main pulmonary artery is 3.5 cm. The main pulmona ry artery diameter at the bifurcation is 2.9 cm. Coronary artery calcification is present. Limited CT sections are obtained through the upper abdomen. A posterior right renal cyst measuring 2. 5 cm 5 Hounsfield units is present. Gallstones noted. Osseous structures: Hypertrophic degenerative changes of the spine. Duodenal diverticulum suspected. Too small to characterize. IMPRESSION: 1. Previously described attenuation in the left submandibular region is stable no interval change. 2. There is asymmetry of the posterior hypopharynx on the left could be positional. Correlate with di rect visualization as clinically warranted. 3. 2 mm nodule superior segment left lower lobe too small to characterize. 4. Gallstones.
== END | disposition home or self-care (01) ==
LOC: RADCTMAIN 10:27
PROVIDERS: ATTEND Internal Medicine Hematology & Oncology
DX: C76.0 Malignant neoplasm of head, face and neck (principal); K80.20 Calculus of gallbladder without cholecystitis without obstruction; R91.1 Solitary pulmonary nodule
CPT/HCPCS: 82565; 84520; 70491; 71260; 36415; Q9967

== ENCOUNTER → 2021-09-30 | Outpatient (CLI) | payer MEDICARE ==
[2021-09-30 15:18] LABS: African American GFR (CKD) >90 (>60 ml/min/1.73 sqM); Blood Urea Nitrogen 17 mg/dL (9-20); Non-African American GFR(CKD) 88 (>60 ml/min/1.73 sqM)
--- NOTE | 2021-09-30 20:42 | CT ---
EXAMINATION TYPE: CT neck chest w con DATE OF EXAM: 09/30/2021 3:53 PM COMPARISON: CT dated 04/08/2021 HISTORY: Obs for Mets. Squamous cell ca CT DLP: 716 mGycm Automated exposure control for dose reduction was used. CONTRAST: CT scan of the neck and chest is performed following with IV Contrast, patient injected with 100 mL o f Isovue 300. Axial images are obtained, coronal and sagittal reformatted images are reviewed. FINDINGS: Neck: Grossly stable chronic changes centered over the left submandibular salivary gland. No interval progr ession seen at that location. Unremarkable right submandibular salivary gland. Symmetrical unremarkab le parotid glands. Persistent epiglottic calcifications. The focal thickening along the posterior aspect of the hypopharynx is grossly stable. Unremarkable re mainder of the pharynx, larynx and visualized portion of the esophagus. No pathologically enlarged ly mph nodes in the neck. Scattered arterial atherosclerotic calcifications. Degenerative changes of the cervical spine. CHEST: Slightly larger left lower lobe superior segment nodule measuring 4 mm compared to 2 mm previously. N ewly seen 3 mm faint nodule at the anterior aspect of the right upper lobe, nonspecific. Grossly stab le 3 mm nodule in the right lower lobe superior segment. Stable atelectasis in the lower lobes. COPD changes, appreciated previously. Patent central airways. Bronchial impaction is seen in the right lower lobe bronchi. No pleural or pericardial effusion. No g ross cardiomegaly. Coronary and arterial atherosclerotic calcifications. No progressive lymphadenopat hy in the chest. Cholelithiasis. Degenerative changes of the thoracic spine. IMPRESSION: 1. Stable condition in the neck as detailed above. 2. Slightly larger left lower lobe superior segment nodule with newly seen faint 3 mm nodule in the r ight upper lobe as described above. Subtle progressive metastatic lesions cannot be excluded. Recomme nd short-term follow-up CT scan. Alternatively, a follow-up by PET scan can be considered. Other inte rval changes and incidental findings as described above.
== END | disposition home or self-care (01) ==
LOC: RADCTMAIN 14:13
PROVIDERS: ATTEND Internal Medicine Hematology & Oncology
DX: C76.0 Malignant neoplasm of head, face and neck (principal); R91.1 Solitary pulmonary nodule
CPT/HCPCS: 82565; 84520; 70491; 71260; 36415; Q9967

== ENCOUNTER 2021-11-25 11:22 | Emergency (ER) | payer MEDICARE ==
[2021-11-25 11:28] VITALS: BP 136/64; PULSE 59; RESP 20; TEMP 98
[2021-11-25] MEDS ORDERED: LIDOCAINE 1% INJ 10MG/ML (5 ML VIAL-PF) SQ ONE (12:38)
--- NOTE | 2021-11-25 12:55 | ED ---
General Adult HPI - General Chief complaint: Skin/Abscess/Foreign Body Stated complaint: Spot on arm Time Seen by Provider: 11/25/21 11:34 Source: patient, RN notes reviewed Mode of arrival: ambulatory Limitations: no limitations - History of Present Illness Initial comments: Patient is a 76-year-old male who presents the emergency room with co mplaints of a sore to his left upper extremity that has been ongoing and getting worse for the last month. He reports pain from the site but no drainage or bleeding. He reports that he was concerned regarding infection and/or skin cancer. He denies any fevers, chills, surrounding tissue swelling or range of motion impairment. He has a history of squamous cell carcinoma of the neck, hypothyroidism, atrial fibrillation and hypertension. He is on Coumadin for his atrial fibrillation. He denies any skin cancer history. - Related Data Home Medications Medication Instructions Recorded Confirmed Warfarin [Coumadin] 7.5 mg PO DAILY 12/28/16 06/03/20 Losartan [Cozaar] 50 mg PO DAILY 01/30/20 06/03/20 Magnesium Oxide [Mag-Ox] 400 mg PO DAILY 01/30/20 06/03/20 Sotalol [Betapace] 40 mg PO DAILY 01/30/20 06/03/20 Cholecalciferol [Vitamin D3 (25 1,000 unit PO DAILY 05/15/20 06/03/20 Mcg = 1000 Iu)] Levothyroxine Sodium [Synthroid] 112 mcg PO DAILY 06/03/20 06/03/20 Previous Rx's Medication Instructions Recorded Amoxic-Pot Clav 400-57Mg/5Ml 10 ml PO Q12H #200 ml 06/03/20 [Augmentin 400-57 mg/5 ml Liquid] Allergies Allergy/AdvReac Type Severity Reaction Status Date / Time No Known Allergies Allergy Verified 11/25/21 11:28 Review of Systems ROS Statement: Those systems with pertinent positive or pertinent negative responses have been documented in the HPI. ROS Other: All systems not noted in ROS Statement are negative. Past Medical History Past Medical History: Atrial Fibrillation, Cancer, Hypertension, Thyroid Disorder Additional Past Medical History / Comment(s): "Don't have good balance.". neck cancer in remission. DIVERTICULITIS History of Any Multi-Drug Resistant Organisms: None Reported Past Surgical History: Ablation Additional Past Surgical History / Comment(s): CYST REMOVED, COLONOSCOPY, BILATERAL CATARACT SURGERY, cardioversion X4, . cardiac ablation Past Anesthesia/Blood Transfusion Reactions: No Reported Reaction Past Psychological History: Anxiety Smoking Status: Former smoker Past Alcohol Use History: Daily Past Drug Use History: None Reported - Past Family History Mother Family Medical History: No Reported History General Exam Limitations: no limitations General appearance: alert, in no apparent distress Head exam: Present: atraumatic, normocephalic, normal inspection Eye exam: Present: normal appearance, PERRL, EOMI. Absent: scleral icterus, conjunctival injection, periorbital swelling ENT exam: Present: normal exam, mucous membranes moist Neck exam: Present: normal inspection Respiratory exam: Present: normal lung sounds bilaterally. Absent: respiratory distress, wheezes, rales, rhonchi, stridor Cardiovascular Exam: Present: regular rate, irregular rhythm. Absent: systolic murmur, diastolic murmur GI/Abdominal exam: Present: soft, normal bowel sounds. Absent: distended, tenderness, guarding, rebound, rigid Extremities exam: Absent: pedal edema, joint swelling Back exam: Present: normal inspection Neurological exam: Present: alert, oriented X3, CN II-XII intact Psychiatric exam: Present: normal affect, normal mood Skin exam: Present: other (Encapsulated conodome with surrounding erythema to left upper arm approximately 1.25 cm in diameter. ) Course Vital Signs 11/25/21 11:26 Temperature 98 F Pulse Rate 59 L Respiratory 20 Rate Blood Pressure 136/64 O2 Sat by Pulse 97 Oximetry Procedures - Procedures Initial comment: Left upper arm with local anesthetic injected 1% lidocaine. Forceps utilized to remove comedome and capsule. Capsule sent for pathology. Procedure tolerated well with minimal blood loss. Dressing applied. Medical Decision Making - Medical Decision Making Due to pain and induration will remove comedone and send for pathology. Surrounding tissue without edema or erythema no indication for antibiotic therapy. Case discussed with Dr. Jones Disposition Clinical Impression: Superficial mixed comedonal and inflammatory acne vulgaris Disposition: HOME SELF-CARE Instructions (If sedation given, give patient instructions): Abscess Incision and Drainage (DC), Acute Wound Care (ED) Additional Instructions: Keep site clean and dry. Please follow-up with your primary care provider regarding further wound care and pathology results. Utilize Tylenol as needed for pain. Please return to the Emergency Department if symptoms worsen or any other concerns. Is patient prescribed a controlled substance at d/c from ED?: No Referrals: Duy De Leon MD [Primary Care Provider] - 1-2 days Time of Disposition: 13:52
== END 2021-11-25 14:01 | disposition home or self-care (01) ==
LOC: EC 11:22
DX: L70.0 Acne vulgaris (principal); I10 Essential (primary) hypertension; F41.9 Anxiety disorder, unspecified; E03.9 Hypothyroidism, unspecified; Z87.891 Personal history of nicotine dependence; Z79.01 Long term (current) use of anticoagulants; Z79.899 Other long term (current) drug therapy
CPT/HCPCS: 99282; 88305; J2001

== ENCOUNTER → 2022-01-08 | Outpatient (CLI) | payer MEDICARE ==
[2022-01-08 10:31] LABS: African American GFR (CKD) >90 (>60 ml/min/1.73 sqM); Blood Urea Nitrogen 11 mg/dL (9-20); Non-African American GFR(CKD) 88 (>60 ml/min/1.73 sqM)
--- NOTE | 2022-01-08 12:06 | CT ---
EXAMINATION TYPE: CT neck chest w con DATE OF EXAM: 01/08/2022 COMPARISON: 09/30/2021 HISTORY: 76-year-old male Malignant neoplasm of head, face and neck TECHNIQUE: Contiguous axial scanning of the soft tissues of the neck as well as the chest performed w ith IV Contrast, patient injected with 100 mL of Isovue 300. Coronal/sagittal reconstructions reconst ructions performed. CT DLP: 1229 mGycm Automated exposure control for dose reduction was used. FINDINGS: NECK: Moderate atherosclerotic calcifications and probable stenoses within the carotid siphons. Visualized intracranial structures otherwise show no gross abnormality. Visualized paranasal sinuses, mastoid ai r cells, and orbits and globes appear clear. Nasopharynx is clear. Limited oral cavity due to extensive dental amalgam artifact. Slight asymmetric effacement left vallecular space and circumferential soft tissue thickening at the level of the hypopharynx is unchanged. Linear calcifications along the epiglottis unchanged. Soft tissue stranding and indistinctness centered along the left submandibular space and left submand ibular gland are unchanged. No enlarging mass is identified here. Glottic structures as well as the tracheal column appear clear. No suspicious lymphadenopathy identified. The thyroid, parotid, and right semierect gland appears satisfactory. Moderate spondylotic change of the lower cervical spine. CHEST: r heart normal size without pericardial effusion. LAD and RCA coronary artery calcifications are pres ent. Borderline ectasia aortic root at 3.5 cm. Mild at this chronic calcifications aortic arch with c onventional arch vessel branching anatomy. Scattered nonenlarged mediastinal lymph nodes are unchanged. No developing thoracic lymphadenopathy. Unchanged strandy pleural parenchymal scarring at the posterior lung bases on both sides. Mild centrilobular emphysema. A 5 mm superior segment left lower lobe pulmonary nodule previously measured 4 mm, axial image 31. A punctate 3 mm area of nodularity right upper lobe is unchanged. No consolidation or pleural effusio n. Suspect some fatty infiltration of the liver. A few dependent gallstones are present measuring up to 7 mm. Partially visualized right renal cyst measuring up to 2.5 cm. Moderate atherosclerotic calcific ations infrarenal abdominal aorta. Generalized colonic diverticulosis noted. Partially visualized duo denal diverticulum projecting into the pancreatic head measuring 3.5 cm. Bones: Moderate degenerative disc disease throughout the thoracic spine. No osseous destructive proce ss. IMPRESSION: NECK: 1. UNCHANGED POSTTREATMENT CHANGES CENTERED ALONG THE LEFT SUBMANDIBULAR SPACE AND UNCHANGED MILD THI CKENING AT THE LEVEL OF THE HYPOPHARYNX WITH ASSOCIATED EPIGLOTTIS CALCIFICATIONS. 2. NO SUSPICIOUS NECK MASS OR DEVELOPING CERVICAL LYMPHADENOPATHY. CHEST: 3. COPD WITH MILD EMPHYSEMA. SIMILAR PLEURAL PARENCHYMAL SCARRING AT THE POSTERIOR LUNG BASES. 4. THE 5 MM LEFT LOWER LOBE PULMONARY NODULE IS MINIMALLY LARGER VERSUS 4 MM 3 MONTHS AGO. THIS CAN C ONTINUE TO BE FOLLOWED. 5. SOME PUNCTATE 3 MM RIGHT UPPER LOBE NODULARITY REMAINS STABLE FOR 3 MONTHS. 6. INCIDENTAL: CHOLELITHIASIS AND COLONIC DIVERTICULOSIS.
== END | disposition home or self-care (01) ==
LOC: RADCTMAIN 09:52
PROVIDERS: ATTEND Internal Medicine Hematology & Oncology
DX: C76.0 Malignant neoplasm of head, face and neck (principal); K80.20 Calculus of gallbladder without cholecystitis without obstruction; K57.30 Diverticulosis of large intestine without perforation or abscess without bleeding; R91.1 Solitary pulmonary nodule; J39.8 Other specified diseases of upper respiratory tract
CPT/HCPCS: 82565; 84520; 70491; 71260; 36415; Q9967

== ENCOUNTER → 2022-04-13 | Outpatient (CLI) | payer MEDICARE ==
[2022-04-13 10:10] LABS: African American GFR (CKD) >90 (>60 ml/min/1.73 sqM); Blood Urea Nitrogen 17 mg/dL (9-20); Non-African American GFR(CKD) 85 (>60 ml/min/1.73 sqM)
--- NOTE | 2022-04-13 11:49 | CT ---
EXAMINATION TYPE: CT neck chest w con DATE OF EXAM: 04/13/2022 10:50 AM COMPARISON: 01/08/[address] PET/CT 10/04/2020 HISTORY: Malignant neoplasm of head, face and neck-squamous cell CT DLP: 1149 mGycm Automated exposure control for dose reduction was used. CONTRAST: CT scan of the neck is performed following with IV Contrast, patient injected with 100 mL of Isovue 3 00. Axial images are obtained, coronal and sagittal reformatted images are reviewed. FINDINGS: NECK: Visualized portion of the neck demonstrate posttreatment changes. No definitive than 1.0 cm lym ph nodes in short axis. Atherosclerosis at the carotid bifurcations. Bilateral aphakia. Paranasal sin uses are clear visualized portions of the brain are grossly unremarkable. Vasculature of the neck is patent. Osseous structures appear intact. There is multilevel disc degeneration changes seen througho ut the spine. CHEST: Visualized portions of the lower Neck history and other soft tissues demonstrate no evidence for enla rged lymph nodes. The heart is mildly enlarged for size. There is atherosclerosis of the coronary art eries and arterial vasculature. No evidence of focal consolidation, pneumothorax or pleural effusion. Mild centrilobular emphysema changes are noted. Left lower lobe superior segment pulmonary nodule seen on prior is similar at 5 mm given differences in slice selection. This has been gradually getting larger in size since 06/11/2020. Stable right uppe r lobe parenchymal scarring series 9 image 20 which can be seen dating back to at least 06/11/2020. Incidental cholelithiasis and colonic diverticulosis and hepatic steatosis. IMPRESSION: Neck: * No significant change from prior 01/08/2022, No evidence of lymphadenopathy. Chest: 1. Left lower lobe superior segment 5 mm pulmonary nodule has been gradually been getting larger sin ce 06/11/[address] chest in 3 months is recommended. 2. Mild COPD and emphysema.
== END | disposition home or self-care (01) ==
LOC: RADCTMAIN 09:24
PROVIDERS: ATTEND Internal Medicine Hematology & Oncology
DX: C76.0 Malignant neoplasm of head, face and neck (principal); J43.9 Emphysema, unspecified; R91.1 Solitary pulmonary nodule
CPT/HCPCS: 82565; 84520; 70491; 71260; 36415; Q9967

== ENCOUNTER 2022-09-03 10:43 | Emergency (ER) | payer MEDICARE ==
--- NOTE | 2022-09-03 11:40 | ED ---
General Adult HPI - General Source: patient Mode of arrival: ambulatory Limitations: no limitations <Jeffery Neville - Last Filed: 09/03/22 15:29> <Carmen Chatman - Last Filed: 09/09/22 12:27> - General Chief complaint: Neuro Symptoms/Deficit Stated complaint: headache, facial numbness Time Seen by Provider: 09/03/22 10:59 - History of Present Illness Initial comments: Dictation was produced using [employer] dictation software. please excuse any grammatical, word or spelling errors. Chief Complaint: 69-year-old male presents to the emergency Department left- sided facial numbness History of Present Illness: Is a 69-year-old male presents emergency department for left-sided facial numbness. Patient states that symptoms have been ongoing for last 2-3 weeks. He does report a constant daily headache and his left forehead area. Patient states that his symptoms have been constant and not wa vaibhav and waning for the last 2-3 weeks. Patient denies any ocular symptoms. Denies any eye redness or eye tearing. Denies any facial weakness. No complaints regarding his upper and lower extremities bilaterally. States that he wakes up with a headache. He feels its worse at night. States that he's been taking a lot of Tylenol. Significant other at the bedside states that she knows the patient for 10 years. States that his face does not appear to be symmetrical. The ROS documented in this emergency department record has been reviewed and confirmed by me. Those systems with pertinent positive or negative responses have been documented in the HPI. All other systems are other negative and/or noncontributory. (Jeffery Neville) - Related Data Home Medications Medication Instructions Recorded Confirmed Warfarin [Coumadin] 7.5 mg PO MOFR@0900 12/28/16 09/03/22 Losartan [Cozaar] 50 mg PO DAILY 01/30/20 09/03/22 Magnesium Oxide [Mag-Ox] 400 mg PO DAILY 01/30/20 09/03/22 Sotalol [Betapace] 40 mg PO DAILY 01/30/20 09/03/22 Cholecalciferol [Vitamin D3 (25 25 mcg PO DAILY 05/15/20 09/03/22 Mcg = 1000 Iu)] Levothyroxine Sodium [Synthroid] 112 mcg PO DAILY 06/03/20 09/03/22 Warfarin [Coumadin] 5 mg PO SUTUWETHSA@0900 09/03/22 09/03/22 Allergies Allergy/AdvReac Type Severity Reaction Status Date / Time No Known Allergies Allergy Verified 09/03/22 13:33 Review of Systems ROS Other: All systems not noted in ROS Statement are negative. <Jeffery Neville - Last Filed: 09/03/22 15:29> ROS Other: All systems not noted in ROS Statement are negative. <Carmen Chatman - Last Filed: 09/09/22 12:27> ROS Statement: Those systems with pertinent positive or pertinent negative responses have been documented in the HPI. Past Medical History Past Medical History: Atrial Fibrillation, Cancer, Hypertension, Thyroid Disorder Additional Past Medical History / Comment(s): "Don't have good balance.". neck cancer in remission. DIVERTICULITIS History of Any Multi-Drug Resistant Organisms: None Reported Past Surgical History: Ablation Additional Past Surgical History / Comment(s): CYST REMOVED, COLONOSCOPY, BILATERAL CATARACT SURGERY, cardioversion X4, . cardiac ablation Past Anesthesia/Blood Transfusion Reactions: No Reported Reaction Past Psychological History: Anxiety Smoking Status: Former smoker Past Alcohol Use History: Daily Past Drug Use History: None Reported - Past Family History Mother Family Medical History: No Reported History <Jeffery Neville - Last Filed: 09/03/22 15:29> General Exam Limitations: no limitations <Jeffery Neville - Last Filed: 09/03/22 15:29> - General Exam Comments Initial Comments: PHYSICAL EXAM: General Impression: Alert and oriented x3, not in acute distress HEENT: Normocephalic atraumatic, extra-ocular movements intact, pupils equal and reactive to light bilaterally, mucous membranes moist. Cardiovascular: Heart regular rate and rhythm Chest: Able to complete full sentences, no retractions, no tachypnea Musculoskeletal: Pulses present and equal in all extremities, no peripheral edema Motor: no focal deficits noted Neurological: Reported sensory deficit to light touch on the left face extending from the forehead down to the chin. No facial palsy or left periorbital weakness. No extremity deficits to weakness or light touch. Extremities are non-ataxic Skin: Intact with no visualized rashes Psych: Normal affect and mood (Jeffery Neville) Course Vital Signs 09/03/22 09/03/22 09/03/22 10:47 15:09 17:20 Temperature 98.1 F 99.8 F H 99.5 F Pulse Rate 80 81 88 Respiratory 18 19 18 Rate Blood Pressure 173/94 177/98 175/89 O2 Sat by Pulse 96 97 99 Oximetry Medical Decision Making - Lab Data Result diagrams: 09/03/22 11:42 09/03/22 11:42 <Jeffery Neville - Last Filed: 09/03/22 15:29> - Lab Data Result diagrams: 09/03/22 11:42 09/03/22 11:42 <Carmen Chatman - Last Filed: 09/09/22 12:27> - Medical Decision Making Was pt. sent in by a medical professional or institution (Dr. PA, WOOL[facility] TESTER, urgent care, hospital, or group home...) When possible be specific @ -No Did you speak to anyone other than the patient for history (EMS, parent, family, police, friend...)? What history was obtained from this source @ -Significant other at the bedside confirms patient's HPI Did you review nursing and triage notes (agree or disagree)? Why? @ -I reviewed and agree with nursing and triage notes Were old charts reviewed (outside hosp., previous admission, EMS record, old EKG, old radiological studies, urgent care reports/EKG's, group home records)? Report findings @ -No old charts were reviewed Differential Diagnosis (chest pain, altered mental status, abdominal pain women, abdominal pain men, vaginal bleeding, musculoskeletal, weakness, fever, dyspnea, syncope, headache, dizziness, GI bleed, back pain, seizure, CVA, palpatations, mental health)? @ -Alvarez palsy, intracranial mass, trigeminal neuralgia, herpes zoster EKG interpreted by me (3pts min.). @ -None done X-rays interpreted by me (1pt min.). @ -None done CT interpreted by me (1pt min.). @ -Left-sided cerebellar pontine mass U/S interpreted by me (1pt. min.). @ -None done What testing was considered but not performed or refused? (CT, X-rays, U/S, labs)? Why? @ -None What meds were considered but not given or refused? Why? @ -None Did you discuss the management of the patient with other professionals (professionals i.e. , PA, WOOLEN TESTER, lab, RT, psych nurse, social media assistant, machine i trimmer, teacher, fire information officer, case assembler)? Give summary @ -Pending Was smoking cessation discussed for >3mins.? @ -No Was critical care preformed (if so, how long)? @ -No Were there social determinants of health that impacted care today? How? (Homelessness, low income, unemployed, alcoholism, drug addiction, transportation, low edu. Level, literacy, decrease access to med. care, shelter, rehab)? @ -No Was there de-escalation of care discussed even if they declined (Discuss DNR or withdrawal of care, Hospice)? DNR status @ -No What co-morbidities impacted this encounter? (DM, HTN, Smoking, COPD, CAD, Cancer, CVA, ARF, Chemo, Hep., AIDS, mental health diagnosis, sleep apnea, morbid obesity)? @ -None Was patient admitted / discharged? Hospital course, mention meds given and route, prescriptions, significant lab abnormalities, going to OR and other pertinent info. @ -77 Year-old male presents to the emergency department for left-sided facial numbness. CT shows mass at the cerebellar pontine angle. Radiology concerned of metastatic lesion. Patient given 10 mg of IV Decadron. Pending transfer to tertiary care facility. Undiagnosed new problem with uncertain prognosis? @ -yes Drug Therapy requiring intensive monitoring for toxicity (Heparin, Nitro, Insulin, Cardizem)? @ -No Were any procedures done? @ -No Diagnosis/symptom? Acute, or Chronic, or Acute on Chronic? Uncomplicated (without systemic symptoms) or Complicated (systemic symptoms)? @ -1. Acute facial numbness secondary to brainstem mass Side effects of treatment? @ -No Exacerbation, Progression, or Severe Exacerbation? @ -No Poses a threat to life or bodily function? How? (Chest pain, USA, LA, pneumonia, PE, COPD, DKA, ARF, appy, cholecystitis, CVA, Diverticulitis, Homicidal, Suicidal, threat to staff... and all critical care pts) @ -yes 3.20pm: Attempt was made to transfer patient to [facility]. They refuse stating that they do not have neurosurgery quality control lead. We'll make attempts to transfer to higher level of care. (Jeffery Neville) Patient signed out to me from Dr. Neville. [facility] Mcgraw did deny the patient. I did speak with [facility] in regards to the patient's care. They're willing to accept the patient to the ER. Accepting physician is Dr. Hayes. (Carmen Chatman) - Lab Data Lab Results 09/03/22 09/03/22 09/03/22 Range/Units 11:42 11:42 11:42 WBC 12.3 H (3.8-10.6) k/uL RBC 5.52 (4.30-5.90) m/uL Hgb 17.2 (13.0-17.5) gm/dL Hct 50.0 (39.0-53.0) % MCV 90.6 (80.0-100.0) fL MCH 31.1 (25.0-35.0) pg MCHC 34.3 (31.0-37.0) g/dL RDW 13.0 (11.5-15.5) % Plt Count 633 H (150-450) k/uL MPV 7.2 Neutrophils % 80 % Lymphocytes % 8 % Monocytes % 7 % Eosinophils % 1 % Basophils % 0 % Neutrophils # 9.9 H (1.3-7.7) k/uL Lymphocytes # 1.0 (1.0-4.8) k/uL Monocytes # 0.9 (0-1.0) k/uL Eosinophils # 0.2 (0-0.7) k/uL Basophils # 0.0 (0-0.2) k/uL PT 23.4 H (9.0-12.0) sec INR 2.4 H (<1.2) APTT 33.5 H (22.0-30.0) sec Sodium 127 L (137-145) mmol/L Potassium 4.9 (3.5-5.1) mmol/L Chloride 89 L (98-107) mmol/L Carbon Dioxide 30 (22-30) mmol/L Anion Gap 8 mmol/L BUN 17 (9-20) mg/dL Creatinine 0.66 (0.66-1.25) mg/dL Est GFR (CKD-EPI)AfAm >90 (>60 ml/min/1.73 sqM) Est GFR (CKD-EPI)NonAf >90 (>60 ml/min/1.73 sqM) Glucose 121 H (74-99) mg/dL Calcium 9.6 (8.4-10.2) mg/dL Total Bilirubin 1.2 (0.2-1.3) mg/dL AST 22 (17-59) U/L ALT 16 (4-49) U/L Alkaline Phosphatase 51 (38-126) U/L Total Protein 7.7 (6.3-8.2) g/dL Albumin 4.6 (3.5-5.0) g/dL Acetaminophen <10.0 ug/mL Disposition <Jeffery Neville - Last Filed: 09/03/22 15:29> Is patient prescribed a controlled substance at d/c from ED?: No - Out of Hospital Transfer - Req. Specs Out of Hospital Transfer - Requested Specifics: Other Emergency Center ([facility]) <Carmen Chatman - Last Filed: 09/09/22 12:27> Clinical Impression: Brain mass Disposition: OTHER INSTITUTION NOT DEFINED Condition: Serious Referrals: Duy De Leon MD [Primary Care Provider] - 1-2 days
[2022-09-03 11:55] LABS: Basophils % (A) 0 %; Eosinophils # (A) 0.2 k/uL (0-0.7); Eosinophils % (A) 1 %; HGB 17.2 gm/dL (13.0-17.5); Lymphocytes % (A) 8 %; MCH 31.1 pg (25.0-35.0); MCHC 34.3 g/dL (31.0-37.0); MCV 90.6 fL (80.0-100.0); Mean Platelet Volume 7.2; Monocytes # (A) 0.9 k/uL (0-1.0); Monocytes % (A) 7 %; Neutrophils # (A) 9.9 k/uL (1.3-7.7); Neutrophils % (A) 80 %; Platelet Count 633 k/uL (150-450); RBC 5.52 m/uL (4.30-5.90); WBC 12.3 k/uL (3.8-10.6)
[2022-09-03 12:10] LABS: ALT 16 U/L (4-49); AST 22 U/L (17-59); Acetaminophen <10.0 ug/mL; African American GFR (CKD) >90 (>60 ml/min/1.73 sqM); Albumin 4.6 g/dL (3.5-5.0); Alkaline Phosphatase 51 U/L (38-126); Anion Gap 8 mmol/L; Blood Urea Nitrogen 17 mg/dL (9-20); Calcium 9.6 mg/dL (8.4-10.2); Carbon Dioxide 30 mmol/L (22-30); Chloride 89 mmol/L (98-107); Glucose 121 mg/dL (74-99); INR 2.4 (<1.2); Non-African American GFR(CKD) >90 (>60 ml/min/1.73 sqM); Partial Thromboplastin Time 33.5 sec (22.0-30.0); Potassium 4.9 mmol/L (3.5-5.1); Prothrombin Time 23.4 sec (9.0-12.0); Sodium 127 mmol/L (137-145); Total Bilirubin 1.2 mg/dL (0.2-1.3); Total Protein 7.7 g/dL (6.3-8.2)
--- NOTE | 2022-09-03 12:30 | CT ---
EXAMINATION TYPE: CT brain wo con DATE OF EXAM: 09/03/2022 COMPARISON: 01/30/2020 INDICATION: Left side face numbness DLP: 1099.4 mGycm, Automated exposure control for dose reduction was used. CONTRAST: None CT of the brain is performed utilizing 3 mm thick sections through the posterior fossa and 3 mm thick sections through the remaining calvarium. Study is performed within 24 hours of arrival to the hosp [place]. No abnormal hyperdensity is present to suggest an acute intracranial hemorrhage. There is a high density 1.6 x 1.3 cm left cerebellar pontine angle mass. Metastasis is within the dif ferential. Consider meningioma. This is an interval finding. This extends adjacent to the brainstem w ith some mild mass effect. This is slightly displaced away from the internal auditory canal. No acute infarcts are evident. Quadrigeminal plate and ambient cisterns appear normal. Ventricles and sulci are prominent for the patient age. Paranasal sinuses and mastoid air cells within the [id number] are clear. IMPRESSIONS: 1. Left cerebellar pontine angle mass. This has some mild mass effect on the adjacent brain stem. Workup for metastasis.
[2022-09-03] MEDS ORDERED: DEXAMETHASONE SOD PHOSPHATE 10 MG/ML 1 ML VIAL IV STA (14:40)
[2022-09-03] MEDS ORDERED: SODIUM CHLORIDE 0.9% 1,000 ML IV STA (14:47)
[2022-09-03 18:41] VITALS: BP 175/89; PULSE 88; RESP 18; TEMP 99.5
== END 2022-09-03 18:41 | disposition other institution (70) ==
LOC: EC 10:43
DX: G93.9 Disorder of brain, unspecified (principal); I10 Essential (primary) hypertension; I48.91 Unspecified atrial fibrillation; E07.9 Disorder of thyroid, unspecified; Z79.01 Long term (current) use of anticoagulants; Z79.890 Hormone replacement therapy; Z79.899 Other long term (current) drug therapy; Z87.891 Personal history of nicotine dependence
CPT/HCPCS: 36415; 80053; 85025; 85610; 85730; 80143; 70450; 99285; 96374; 96361 ×3; J1100

== ENCOUNTER 2022-09-27 10:38 | Emergency (ER) | payer MEDICARE ==
[2022-09-27] MEDS ORDERED: ONDANSETRON 4 MG/2 ML VIAL IVP STA (11:20)
[2022-09-27] MEDS ORDERED: SODIUM CHLORIDE 0.9% 500 ML 500 ML IV STA (11:20)
[2022-09-27] MEDS ORDERED: SODIUM CHLORIDE 0.9% 1,000 ML IV STA (11:20)
--- NOTE | 2022-09-27 11:25 | ED ---
General Adult HPI - General Chief complaint: Weakness Stated complaint: weakness Time Seen by Provider: 09/27/22 11:05 Source: patient, RN notes reviewed, old records reviewed Mode of arrival: ambulatory Limitations: no limitations - History of Present Illness Initial comments: This is a 77-year-old male who presents emergency Department because of prog ressive weakness over the last 2 or 3 days. According to a few weeks ago he was in the hospital and diagnosed with a brain tumor she states she went to another hospital and they discharged him home and then she followed up with another neurosurgeon and she's not sure if it's benign or cancerous and she does not appear to know what the plan is in the future and doesn't know what the next step is. She states that the has been getting weaker over the last 2 days to the point where he can't walk on his own. He also has been having some vomiting over the last 2 days. Patient had some significant abdominal pain earlier today but he vomited and feels much better. Patient denies headache patient denies numbness weakness. Patient denies any chest pain difficulty breathing first breath per patient's any fever chills or cough. Patient denies any abdominal pain currently - Related Data Home Medications Medication Instructions Recorded Confirmed Warfarin [Coumadin] 7.5 mg PO MOFR@0912/28/16 09/03/22 Losartan [Cozaar] 50 mg PO DAILY 01/30/20 09/03/22 Magnesium Oxide [Mag-Ox] 400 mg PO DAILY 01/30/20 09/03/22 Sotalol [Betapace] 40 mg PO DAILY 01/30/20 09/03/22 Cholecalciferol [Vitamin D3 (25 25 mcg PO DAILY 05/15/20 09/03/22 Mcg = 1000 Iu)] Levothyroxine Sodium [Synthroid] 112 mcg PO DAILY 06/03/20 09/03/22 Warfarin [Coumadin] 5 mg PO SUTUWETHSA@0900 09/03/22 09/03/22 Allergies Allergy/AdvReac Type Severity Reaction Status Date / Time No Known Allergies Allergy Verified 09/27/22 11:02 Review of Systems ROS Statement: Those systems with pertinent positive or pertinent negative responses have been documented in the HPI. ROS Other: All systems not noted in ROS Statement are negative. Past Medical History Past Medical History: Atrial Fibrillation, Cancer, Hypertension, Thyroid Disorder Additional Past Medical History / Comment(s): "Don't have good balance.". neck cancer in remission. DIVERTICULITIS History of Any Multi-Drug Resistant Organisms: None Reported Past Surgical History: Ablation Additional Past Surgical History / Comment(s): CYST REMOVED, COLONOSCOPY, BILATERAL CATARACT SURGERY, cardioversion X4, . cardiac ablation Past Anesthesia/Blood Transfusion Reactions: No Reported Reaction Past Psychological History: Anxiety Smoking Status: Former smoker Past Alcohol Use History: Daily Past Drug Use History: None Reported - Past Family History Mother Family Medical History: No Reported History General Exam - General Exam Comments Initial Comments: GENERAL: Patient is well-developed and well-nourished. Patient is nontoxic and well- hydrated and is in mild distress. ENT: Neck is soft and supple. No significant lymphadenopathy is noted. Oropharynx is clear. Dry mucous membranes. Neck has full range of motion without eliciting any pain. EYES: The sclera were anicteric and conjunctiva were pink and moist. Extraocular movements were intact and pupils were equal round and reactive to light. E yelids were unremarkable. PULMONARY: Unlabored respirations. Good breath sounds bilaterally. No audible rales rhonchi or wheezing was noted. CARDIOVASCULAR: Patient is tachycardic at 125 beats a minute ABDOMEN: Soft and nontender with normal bowel sounds. SKIN: Skin is clear with no lesions or rashes and otherwise unremarkable. NEUROLOGIC: Patient is alert and oriented x3. Cranial nerves II through XII are grossly intact. Motor and sensory are also intact. Normal speech, volume and content. Symmetrical smile. MUSCULOSKELETAL: Normal extremities with adequate strength and full range of motion. No lower extremity swelling or edema. No calf tenderness. LYMPHATICS: No significant lymphadenopathy is noted PSYCHIATRIC: Normal psychiatric evaluation. Limitations: no limitations Course Vital Signs 09/27/22 09/27/22 09/27/22 10:59 12:00 12:30 Temperature 96.6 F L Pulse Rate 130 H 101 H 86 Respiratory 18 19 22 Rate Blood Pressure 73/40 105/55 97/45 O2 Sat by Pulse 92 L 95 96 Oximetry 09/27/22 09/27/22 13:00 13:30 Temperature Pulse Rate 100 67 Respiratory 18 15 Rate Blood Pressure 104/53 119/96 O2 Sat by Pulse 97 95 Oximetry Medical Decision Making - Medical Decision Making EKG was interpreted by myself shows supraventricular tachycardia at 125 bpm QRS is 91 QT interval is 270 QTC is 353. Patient's EKG shows no significant ST segment elevation. Was pt. sent in by a medical professional or institution (KYE Wall, PROPOSAL ANALYST, urgent care, hospital, or senior living...) When possible be specific @ -No Did you speak to anyone other than the patient for history (EMS, parent, family, police, friend...)? What history was obtained from this source @ -Patient's gives most of the history Did you review nursing and triage notes (agree or disagree)? Why? @ -I reviewed and agree with nursing and triage notes Were old charts reviewed (outside hosp., previous admission, EMS record, old EKG, old radiological studies, urgent care reports/EKG's, senior living records)? Report findings @ -I reviewed prior CTs prior radiological studies prior lab work in prior charts on this patient Differential Diagnosis (chest pain, altered mental status, abdominal pain women, abdominal pain men, vaginal bleeding, weakness, fever, dyspnea, syncope, headache, dizziness, GI bleed, back pain, seizure, CVA, palpatations, mental health, musculoskeletal)? @ -Differential Weakness: Hypoglycemia, shock, sepsis, hyponatremia, anemia, infection, GA, ETOH, adverse medicine reaction, overdose, stroke, this is not meant to be an all-inclusive list. EKG interpreted by me (3pts min.). @ -As above X-rays interpreted by me (1pt min.). @ -Chest x-ray was interpreted by me. Chest x-ray shows no acute abnormality CT interpreted by me (1pt min.). @ -CT of the brain was to return by me that shows a stirrup pontine hemorrhagic mass which is slightly larger mass detected [address] of the abdomen and pelvis showed possible cholecystitis and possible diverticulitis U/S interpreted by me (1pt. min.). @ -None done What testing was considered but not performed or refused? (CT, X-rays, U/S, labs)? Why? @ -None What meds were considered but not given or refused? Why? @ -None Did you discuss the management of the patient with other professionals (professionals i.e. KYE Wall, PROPOSAL ANALYST, lab, RT, psych nurse, social services director, sequins stringer, teacher, mobile patrol officer, rehabilitation case coordinator)? Give summary @ -I spoke with and she wanted patient be transferred out. I spoke with and she accepted the transfer this patient. Was smoking cessation discussed for >3mins.? @ -No Was critical care preformed (if so, how long)? @ -35 minutes Were there social determinants of health that impacted care today? How? (Homelessness, low income, unemployed, alcoholism, drug addiction, transportation, low edu. Level, literacy, decrease access to med. care, [facility], rehab)? @ -No Was there de-escalation of care discussed even if they declined (Discuss DNR or withdrawal of care, Hospice)? DNR status @ -No What co-morbidities impacted this encounter? (DM, HTN, Smoking, COPD, CAD, Cancer, CVA, ARF, Chemo, Hep., AIDS, mental health diagnosis, sleep apnea, morbid obesity)? @ -None Was patient admitted / discharged? Hospital course, mention meds given and route, prescriptions, significant lab abnormalities, going to OR and other pertinent info. @ -Patient's CAT scan of the head showed a cerebellar pontine hemorrhagic mass which was larger than it was a few weeks ago when she had a CAT scan then. Patient then had elevated liver enzymesconcern about metastatic disease to the liver a CAT scan the abdomen pelvis and that showed acute cholecystitis with an enlarged gallbladder and multiple stones patient was minimally tender the right upper quadrant CAT scan also showed possible diverticulitis patient did not have any lower abdominal tenderness. When patient arrived he was hypotensive patient received 2 and half liters of fluid and was feeling better and his blood pressure stabilized at that time. I spoke with [facility] they accepted the patient I transfer the patient down at [facility]. Patient also received a dose of Zosyn because of the abdominal diagnoses and the patient received Decadron because of the tumor in the brain. Undiagnosed new problem with uncertain prognosis? @ -No Drug Therapy requiring intensive monitoring for toxicity (Heparin, Nitro, Insulin, Cardizem)? @ -No Were any procedures done? @ -No Diagnosis/symptom? @ -Cerebellar pontine mass hemorrhagic Acute, or Chronic, or Acute on Chronic? @ -Acute on chronic Uncomplicated (without systemic symptoms) or Complicated (systemic symptoms)? @ -Complicated Side effects of treatment? @ -No Exacerbation, Progression, or Severe Exacerbation? @ -No Poses a threat to life or bodily function? How? (Chest pain, USA, GA, pneumonia, PE, COPD, DKA, ARF, appy, cholecystitis, CVA, Diverticulitis, Homicidal, Suicidal, threat to staff... and all critical care pts) @ -Yes this could lead to a mass effect and Diagnosis/symptom? @ -Cholecystitis Acute, or Chronic, or Acute on Chronic? @ -Acute Uncomplicated (without systemic symptoms) or Complicated (systemic symptoms)? @ -Complicated Side effects of treatment? @ -none Exacerbation, Progression, or Severe Exacerbation] @ -no Poses a threat to life or bodily function? @ -Yes this did lead to sepsis and Diagnosis/symptom? @ -Diverticulitis Acute, or Chronic, or Acute on Chronic? @ -Acute Uncomplicated (without systemic symptoms) or Complicated (systemic symptoms)? @ -Complicated Side effects of treatment? @ -none Exacerbation, Progression, or Severe Exacerbation] @ -no Poses a threat to life or bodily function? @ -no - Lab Data Result diagrams: 09/27/22 11:21 09/27/22 11:21 Lab Results 09/27/22 09/27/22 09/27/22 Range/Units 11:21 11:21 11:21 WBC 20.2 H (3.8-10.6) k/uL RBC 5.47 (4.30-5.90) m/uL Hgb 16.8 (13.0-17.5) gm/dL Hct 50.5 (39.0-53.0) % MCV 92.4 (80.0-100.0) fL MCH 30.7 (25.0-35.0) pg MCHC 33.3 (31.0-37.0) g/dL RDW 13.0 (11.5-15.5) % Plt Count 627 H (150-450) k/uL MPV 7.8 Neutrophils % 89 % Lymphocytes % 4 % Monocytes % 5 % Eosinophils % 1 % Basophils % 0 % Neutrophils # 17.9 H (1.3-7.7) k/uL Lymphocytes # 0.8 L (1.0-4.8) k/uL Monocytes # 1.0 (0-1.0) k/uL Eosinophils # 0.1 (0-0.7) k/uL Basophils # 0.0 (0-0.2) k/uL PT 22.9 H (9.0-12.0) sec INR 2.3 H (<1.2) APTT 27.9 (22.0-30.0) sec Sodium 134 L (137-145) mmol/L Potassium 5.4 H (3.5-5.1) mmol/L Chloride 97 L (98-107) mmol/L Carbon Dioxide 26 (22-30) mmol/L Anion Gap 11 mmol/L BUN 37 H (9-20) mg/dL Creatinine 1.06 (0.66-1.25) mg/dL Est GFR (CKD-EPI)AfAm 78 (>60 ml/min/1.73 sqM) Est GFR (CKD-EPI)NonAf 67 (>60 ml/min/1.73 sqM) Glucose 204 H (74-99) mg/dL Lactic Ac Sepsis Rflx Plasma Lactic Acid Javed (0.7-2.0) mmol/L Calcium 9.4 (8.4-10.2) mg/dL Magnesium 2.2 (1.6-2.3) mg/dL Total Bilirubin 3.8 H (0.2-1.3) mg/dL AST 1237 H (17-59) U/L ALT 636 H (4-49) U/L Alkaline Phosphatase 855 H (38-126) U/L Troponin I (0.000-0.034) ng/mL Total Protein 6.7 (6.3-8.2) g/dL Albumin 3.8 (3.5-5.0) g/dL Lipase (23-300) U/L TSH 0.635 (0.465-4.680) mIU/L 09/27/22 09/27/22 09/27/22 Range/Units 11:21 11:21 11:21 WBC (3.8-10.6) k/uL RBC (4.30-5.90) m/uL Hgb (13.0-17.5) gm/dL Hct (39.0-53.0) % MCV (80.0-100.0) fL MCH (25.0-35.0) pg MCHC (31.0-37.0) g/dL RDW (11.5-15.5) % Plt Count (150-450) k/uL MPV Neutrophils % % Lymphocytes % % Monocytes % % Eosinophils % % Basophils % % Neutrophils # (1.3-7.7) k/uL Lymphocytes # (1.0-4.8) k/uL Monocytes # (0-1.0) k/uL Eosinophils # (0-0.7) k/uL Basophils # (0-0.2) k/uL PT (9.0-12.0) sec INR (<1.2) APTT (22.0-30.0) sec Sodium (137-145) mmol/L Potassium (3.5-5.1) mmol/L Chloride (98-107) mmol/L Carbon Dioxide (22-30) mmol/L Anion Gap mmol/L BUN (9-20) mg/dL Creatinine (0.66-1.25) mg/dL Est GFR (CKD-EPI)AfAm (>60 ml/min/1.73 sqM) Est GFR (CKD-EPI)NonAf (>60 ml/min/1.73 sqM) Glucose (74-99) mg/dL Lactic Ac Sepsis Rflx Plasma Lactic Acid Javed 2.6 H* (0.7-2.0) mmol/L Calcium (8.4-10.2) mg/dL Magnesium (1.6-2.3) mg/dL Total Bilirubin (0.2-1.3) mg/dL AST (17-59) U/L ALT (4-49) U/L Alkaline Phosphatase (38-126) U/L Troponin I 0.013 (0.000-0.034) ng/mL Total Protein (6.3-8.2) g/dL Albumin (3.5-5.0) g/dL Lipase 145 (23-300) U/L TSH (0.465-4.680) mIU/L 09/27/22 Range/Units 11:58 WBC (3.8-10.6) k/uL RBC (4.30-5.90) m/uL Hgb (13.0-17.5) gm/dL Hct (39.0-53.0) % MCV (80.0-100.0) fL MCH (25.0-35.0) pg MCHC (31.0-37.0) g/dL RDW (11.5-15.5) % Plt Count (150-450) k/uL MPV Neutrophils % % Lymphocytes % % Monocytes % % Eosinophils % % Basophils % % Neutrophils # (1.3-7.7) k/uL Lymphocytes # (1.0-4.8) k/uL Monocytes # (0-1.0) k/uL Eosinophils # (0-0.7) k/uL Basophils # (0-0.2) k/uL PT (9.0-12.0) sec INR (<1.2) APTT (22.0-30.0) sec Sodium (137-145) mmol/L Potassium (3.5-5.1) mmol/L Chloride (98-107) mmol/L Carbon Dioxide (22-30) mmol/L Anion Gap mmol/L BUN (9-20) mg/dL Creatinine (0.66-1.25) mg/dL Est GFR (CKD-EPI)AfAm (>60 ml/min/1.73 sqM) Est GFR (CKD-EPI)NonAf (>60 ml/min/1.73 sqM) Glucose (74-99) mg/dL Lactic Ac Sepsis Rflx Y Plasma Lactic Acid Javed (0.7-2.0) mmol/L Calcium (8.4-10.2) mg/dL Magnesium (1.6-2.3) mg/dL Total Bilirubin (0.2-1.3) mg/dL AST (17-59) U/L ALT (4-49) U/L Alkaline Phosphatase (38-126) U/L Troponin I (0.000-0.034) ng/mL Total Protein (6.3-8.2) g/dL Albumin (3.5-5.0) g/dL Lipase (23-300) U/L TSH (0.465-4.680) mIU/L Critical Care Time Critical Care Time: Yes Total Critical Care Time: 35 Disposition Clinical Impression: Cerebellopontine angle tumor, Acute cholecystitis, Acute diverticulitis, Generalized weakness, Acute vomiting Disposition: OTHER INSTITUTION NOT DEFINED Referrals: Duy De Leon MD [Primary Care Provider] - 1-2 days Time of Disposition: 14:38 - Out of Hospital Transfer - Req. Specs Out of Hospital Transfer - Requested Specifics: Other Emergency Center ([facility])
[2022-09-27 11:44] LABS: INR 2.3 (<1.2); Partial Thromboplastin Time 27.9 sec (22.0-30.0); Prothrombin Time 22.9 sec (9.0-12.0)
--- NOTE | 2022-09-27 11:49 | XR ---
EXAMINATION TYPE: XR chest 2V DATE OF EXAM: 09/27/2022 11:39 AM COMPARISON: Chest radiographs from 01/02/2021 TECHNIQUE: XR chest 2V Frontal and lateral views of the chest. CLINICAL INDICATION:Male, 77 years old with history of Weakness; FINDINGS: Lungs/Pleura: There is flattening of the diaphragm with increased lucency of the lungs. No evidence o f pneumothorax, pleural effusion or focal consolidation. Chronic senescent parenchymal change. Pulmonary vascularity: Unremarkable. Heart/mediastinum: Cardiomediastinal silhouette is unremarkable. Atherosclerotic calcifications are seen in the aorta. Musculoskeletal: No acute osseous pathology. IMPRESSION: No acute cardiopulmonary disease/process.
[2022-09-27 11:53] LABS: Basophils % (A) 0 %; Eosinophils # (A) 0.1 k/uL (0-0.7); Eosinophils % (A) 1 %; HCT 50.5 % (39.0-53.0); HGB 16.8 gm/dL (13.0-17.5); Lymphocytes # (A) 0.8 k/uL (1.0-4.8); Lymphocytes % (A) 4 %; MCH 30.7 pg (25.0-35.0); MCHC 33.3 g/dL (31.0-37.0); MCV 92.4 fL (80.0-100.0); Mean Platelet Volume 7.8; Monocytes % (A) 5 %; Neutrophils # (A) 17.9 k/uL (1.3-7.7); Neutrophils % (A) 89 %; Platelet Count 627 k/uL (150-450); RBC 5.47 m/uL (4.30-5.90); WBC 20.2 k/uL (3.8-10.6)
[2022-09-27 12:02] LABS: Albumin 3.8 g/dL (3.5-5.0); Calcium 9.4 mg/dL (8.4-10.2); Total Bilirubin 3.8 mg/dL (0.2-1.3); Total Protein 6.7 g/dL (6.3-8.2)
[2022-09-27 12:10] LABS: Magnesium 2.2 mg/dL (1.6-2.3); Potassium 5.4 mmol/L (3.5-5.1)
--- NOTE | 2022-09-27 12:34 | CT ---
EXAMINATION TYPE: CT brain wo con CT DLP: 1202.4 mGycm, Automated exposure control for dose reduction was used. DATE OF EXAM: 09/27/2022 12:14 PM COMPARISON: 09/03/2022. CLINICAL INDICATION:Male, 77 years old with history of Weakness and inability to ambulate, AMS TECHNIQUE: Brain: Axial CT images of the brain were obtained with coronal and sagittal reformats created and rev iewed. Contrast used: None. Oral contrast used: None. FINDINGS: Brain: Extra-axial spaces: Redemonstration of left cerebellar pontine angle masslike area with mixed density now measuring 23 x 12 mm, previously 20 x 12 mm on 09/03/2022.High high density does appear to extend into the left cerebellar hemisphere series 2003 image 39. Unclear if the entire thing is extra-axial or just portions within the portion being intra-axial is well on this exam. Ventricular system: Within normal limits Cerebral parenchyma: No acute intraparenchymal hemorrhage or mass effect. The webster-white junction is well differentiated. Cerebellum: Hypodensity suspected blood products within the left cerebellar hemisphere superiorly. Th is small focus is new from prior Mass effect: No evidence of midline shift. Intracranial vasculature: unremarkable Soft tissues: Normal. Calvarium/osseous structures: No depressed skull fracture. Paranasal sinuses and mastoid air cells: Mild scattered paranasal sinus disease. Visualized orbits: Orbital contents are intact. IMPRESSION: Increasing size of left cerebellopontine angle mixed density lesion which is first seen on 09/03/2022. Findings could represent hemorrhage with a portion being intra-axial and a portion possibly being ex tra-axial blood products. Findings likely represent hemorrhagic metastatic focus given patient's hist ory of malignancy. Consider MRI IAC with IV contrast for further evaluation. Findings communicated to Dr. Sunil Whitt MD on 09/27/2022 12:[address] Tim Mullins.
[2022-09-27] MEDS ORDERED: SODIUM CHLORIDE 0.9% 1,000 ML IV ONE (12:36)
--- NOTE | 2022-09-27 13:30 | CT ---
EXAMINATION TYPE: CT abdomen pelvis w con CT DLP: 999.9 mGycm, Automated exposure control for dose reduction was used. DATE OF EXAM: 09/27/2022 1:16 PM COMPARISON: CT abdomen pelvis most recent from 06/03/2020, pet/CT 10/04/2020 CLINICAL INDICATION:Male, 77 years old with history of Elevated liver enzymes with possible metastati c di; ELEVATED LFT TECHNIQUE: Axial CT of the abdomen and pelvis. Sagittal and coronal reformats were created on a [address] workstation. Contrast used:100 mL of Isovue 300 with IV Contrast, Oral contrast used: without Oral Contrast FINDINGS: LOWER CHEST: Streaky atelectasis/scarring in the lung bases. ABDOMEN LIVER: Cuneiform homogenous enhancement of the liver. GALLBLADDER AND BILE DUCTS: The gallbladder is distended with layering gallstones. There is no ductal dilation. PANCREAS: Unremarkable. SPLEEN: Unremarkable. ADRENAL GLANDS: Unremarkable. KIDNEYS AND URETERS: No evidence of hydronephrosis or renal calculus. Right renal cyst. PELVIS BLADDER: Unremarkable REPRODUCTIVE: Unremarkable. ABDOMEN & PELVIS STOMACH AND BOWEL: Duodenal diverticula in the second and third portions. There is colonic diverticul a with left lower quadrant fat stranding changes. No evidence of bowel obstruction. There is fluid wi thin the distal esophagus. PERITONEUM/RETROPERITONEUM: No evidence of pneumoperitoneum or free fluid. VASCULATURE: No evidence of aortic aneurysm. MUSCULOSKELETAL: No acute osseous abnormalities LYMPH NODES: Multiple retroperitoneal lymph nodes are seen along the aorta measuring up torr 9 mm in short axis. SOFT TISSUE/ABDOMINAL WALL: Unremarkable IMPRESSION: 1. The liver is relatively unremarkable and enhances uniformly. No ductal dilation 2. Findings suggestive of colitis/diverticulitis of the sigmoid colon. 3. Distended gallbladder with gallstones correlate for signs and symptoms of acute cholecystitis. 4. Retroperitoneal lymphadenopathy some of which appears more prominent than prior in 2020.
[2022-09-27] MEDS ORDERED: DEXAMETHASONE SOD PHOSPHATE 10 MG/ML 1 ML VIAL IVP STA (13:51)
[2022-09-27] MEDS ORDERED: PIPERACILLIN-TAZOBACTAM 3.375 GM in SODIUM CHLORIDE 0.9% 100 ML IVPB STA (13:52)
[2022-09-27 15:23] VITALS: BP 116/59
[2022-09-27 15:26] VITALS: PULSE 78; RESP 16; TEMP 97.6
== END 2022-09-27 15:26 | disposition other institution (70) ==
LOC: EC 10:38
DX: C71.6 Malignant neoplasm of cerebellum (principal); K57.92 Diverticulitis of intestine, part unspecified, without perforation or abscess without bleeding; K81.0 Acute cholecystitis; I10 Essential (primary) hypertension; I48.91 Unspecified atrial fibrillation; E07.9 Disorder of thyroid, unspecified; F41.9 Anxiety disorder, unspecified; Z79.890 Hormone replacement therapy; Z87.891 Personal history of nicotine dependence; Z79.899 Other long term (current) drug therapy
CPT/HCPCS: 36415; 93005; 80053; 83605; 83690; 83735; 84443; 84484; 85025; 85610; 85730; 71046; 70450; 74177; 99291; 96374; 96375 ×2; 96361 ×3; J2543; J1100; J2405; Q9967; 87077; 87186

== ENCOUNTER 2022-10-09 00:06 | Inpatient (IN) | payer MEDICARE ==
[2022-10-09] MEDS ORDERED: SODIUM CHLORIDE 0.9% 1,000 ML IV STA (00:26)
[2022-10-09 01:17] LABS: HCT 44.9 % (39.0-53.0); HGB 14.8 gm/dL (13.0-17.5); MCH 30.5 pg (25.0-35.0); MCHC 32.9 g/dL (31.0-37.0); MCV 92.8 fL (80.0-100.0); Mean Platelet Volume 7.8; Platelet Count 672 k/uL (150-450); RBC 4.84 m/uL (4.30-5.90); RDW 13.3 % (11.5-15.5); WBC 47.7 k/uL (3.8-10.6)
--- NOTE | 2022-10-09 01:33 | XR ---
EXAM: XR Chest, 2 Views CLINICAL HISTORY: ITS.REASON XR Reason: pyrexia TECHNIQUE: Frontal and lateral views of the chest. COMPARISON: No relevant prior studies available. FINDINGS: Lungs: No consolidation or mass. Mildly elevated left hemidiaphragm Pleural space: No effusion. Heart: No cardiomegaly. Bones/joints: No acute findings. IMPRESSION: No acute cardiopulmonary process.
[2022-10-09 02:01] LABS: ALT 31 U/L (4-49); AST 19 U/L (17-59); African American GFR (CKD) >90 (>60 ml/min/1.73 sqM); Albumin 2.7 g/dL (3.5-5.0); Alkaline Phosphatase 125 U/L (38-126); Anion Gap 9 mmol/L; Blood Urea Nitrogen 24 mg/dL (9-20); Calcium 8.1 mg/dL (8.4-10.2); Carbon Dioxide 21 mmol/L (22-30); Chloride 102 mmol/L (98-107); Glucose 120 mg/dL (74-99); Non-African American GFR(CKD) 88 (>60 ml/min/1.73 sqM); Potassium 3.8 mmol/L (3.5-5.1); Sodium 132 mmol/L (137-145)
[2022-10-09 02:20] LABS: Band Neutrophils % 11 %; Lymphocytes # (M) 1.43 k/uL (1.0-4.8); Monocytes # (M) 2.39 k/uL (0-1.0); Neutrophils % (M) 82 %; Nucleated Red Blood Cells 0 /100 WBC (0-0); RBC Morphology Normal; Total Cells Counted 200; Toxic Granulation Present
--- NOTE | 2022-10-09 02:57 | CT ---
EXAM: CT Head Without Intravenous Contrast CLINICAL HISTORY: ITS.REASON CT Reason: brain mass TECHNIQUE: Axial computed tomography images of the head/brain without intravenous contrast. CTDI is 49.2 mGy and DLP is 1202.4 mGy-cm. This CT exam was performed using one or more of the following dose reduction techniques: automated exposure control, adjustment of the mA and/or kV according to patient size, and/or use of iterative reconstruction technique. COMPARISON: 5.7.23 IMPRESSION: No acute hemorrhage, hydrocephalus Similar left CPA hyperdense mass again seen.
--- NOTE | 2022-10-09 03:14 | ED ---
General Adult HPI - General Chief complaint: Recheck/Abnormal Lab/Rx Stated complaint: Elevated White Blood Count Time Seen by Provider: 10/09/22 00:15 Source: patient Mode of arrival: ambulatory Limitations: no limitations - History of Present Illness Initial comments: 77-year-old male with past history of A. fib, hypertension, cerebellar pontine angle mass who presents to the emergency department for leukocytosis. He is currently residing at [facility]. They sent the patient over for an elevated white blood cell count and diarrhea. White blood cell on was 17.4. Lab studies were conducted yesterday and was up to 32.9. Patient complains of some left lower quadrant abdominal cramping and diarrhea. He is not on any current antibiotics. He denies fevers. No nausea or vomiting. No chest pain or shortness of breath. No cough. Denies any urinary complaints. He was recently treated at [facility] for his brain mass. States that he has a follow-up with a neurosurgeon in [place] at the end of October. As of right now they are not doing anything for the brain mass. He was on Coumadin for his A. fib however was taken off because they were concerned that his brain was bleeding. He denies no neurologic complaints. No other alleviating, precipitating or modifying factors - Related Data Home Medications Medication Instructions Recorded Confirmed Losartan [Cozaar] 50 mg PO DAILY@0800 01/30/20 10/09/22 Magnesium Oxide [Mag-Ox] 400 mg PO DAILY@0800 01/30/20 10/09/22 Levothyroxine Sodium [Synthroid] 112 mcg PO DAILY@0600 06/03/20 10/09/22 Acetaminophen Tab [Tylenol] 650 mg PO Q4H PRN 10/09/22 10/09/22 Aspirin 81 mg PO DAILY 10/09/22 10/09/22 Ensure Enlive 237 ml PO TID@0800,1200,1700 10/09/22 10/09/22 Lidocaine 5% Patch [Lidoderm 5% 1 patch TOPICAL DAILY@1700 10/09/22 10/09/22 Patch] Magnesium Hydroxide [Milk of 7,200 mg PO DAILY PRN 10/09/22 10/09/22 Magnesia Concentrate] Multivitamins, Thera [Multivitamin 1 tab PO DAILY@1200 10/09/22 10/09/22 (formulary)] Na Phos,M-B/Na Phos,Di-Ba [Fleet 133 ml RECTAL DAILY PRN 10/09/22 10/09/22 Adult] Pantoprazole [Protonix] 40 mg PO DAILY@0800 10/09/22 10/09/22 bisacodyL [Dulcolax] 10 mg RECTAL DAILY PRN 10/09/22 10/09/22 Previous Rx's Medication Instructions Recorded Vancomycin Oral Solution 250 mg PO QID 7 Days #140 ml 10/13/22 Allergies Allergy/AdvReac Type Severity Reaction Status Date / Time No Known Allergies Allergy Verified 10/09/22 08:22 Review of Systems ROS Statement: Those systems with pertinent positive or pertinent negative responses have been documented in the HPI. ROS Other: All systems not noted in ROS Statement are negative. Past Medical History Past Medical History: Atrial Fibrillation, Cancer, Hypertension, Thyroid Disorder Additional Past Medical History / Comment(s): "Don't have good balance.". neck cancer in remission. DIVERTICULITIS History of Any Multi-Drug Resistant Organisms: None Reported Past Surgical History: Ablation Additional Past Surgical History / Comment(s): CYST REMOVED, COLONOSCOPY, BILATERAL CATARACT SURGERY, cardioversion X4, . cardiac ablation Past Anesthesia/Blood Transfusion Reactions: No Reported Reaction Past Psychological History: Anxiety Smoking Status: Former smoker Past Alcohol Use History: Daily Past Drug Use History: None Reported - Past Family History Mother Family Medical History: No Reported History General Exam Limitations: no limitations General appearance: alert, in no apparent distress Head exam: Present: atraumatic, normocephalic, normal inspection Eye exam: Present: normal appearance, PERRL, EOMI. Absent: scleral icterus, conjunctival injection, periorbital swelling ENT exam: Present: normal exam, mucous membranes moist Neck exam: Present: normal inspection. Absent: tenderness, meningismus, lymphadenopathy Respiratory exam: Present: normal lung sounds bilaterally. Absent: respiratory distress, wheezes, rales, rhonchi, stridor Cardiovascular Exam: Present: normal rhythm, tachycardia, normal heart sounds. Absent: systolic murmur, diastolic murmur, rubs, gallop, clicks GI/Abdominal exam: Present: soft, normal bowel sounds. Absent: distended, tenderness, guarding, rebound, rigid Extremities exam: Present: normal inspection, full ROM, normal capillary refill. Absent: tenderness, pedal edema, joint swelling, calf tenderness Back exam: Present: normal inspection Neurological exam: Present: alert, oriented X3, CN II-XII intact Psychiatric exam: Present: normal affect, normal mood Skin exam: Present: warm, dry, intact, normal color. Absent: rash Course Vital Signs 10/09/22 10/09/22 10/09/22 00:09 01:01 01:08 Temperature 97.6 F Pulse Rate 123 H 95 Respiratory 20 18 Rate Blood Pressure 105/54 102/49 O2 Sat by Pulse 94 L 92 L 99 Oximetry 10/09/22 10/09/22 10/09/22 02:00 03:00 04:00 Temperature Pulse Rate 99 98 Respiratory 21 20 20 Rate Blood Pressure 119/53 116/75 120/55 O2 Sat by Pulse 93 L 96 95 Oximetry 10/09/22 15:28 Temperature 97.3 F L Pulse Rate 90 Respiratory 16 Rate Blood Pressure 126/89 O2 Sat by Pulse 95 Oximetry - Reevaluation(s) Reevaluation #1: Source of fever is still not identified as CT has not been read. Zosyn ordered empirically for white count 10/09/22 04:13 EKG Findings - EKG Comments: EKG Findings:: EKG interpreted myself and demonstrates sinus rhythm with PACs. Rate of 105. QRS 88. QTC 422. No acute ST segment elevations. ST depression in leads V2 Medical Decision Making - Medical Decision Making Was pt. sent in by a medical professional or institution (, PA, KNITTING MACHINE OPERATOR AUTOMATIC, urgent care, hospital, or intermediate...) When possible be specific @ -correction Did you speak to anyone other than the patient for history (EMS, parent, family, police, friend...)? What history was obtained from this source @ -EMS provide history Did you review nursing and triage notes (agree or disagree)? Why? @ -I reviewed and agree with nursing and triage notes Were old charts reviewed (outside hosp., previous admission, EMS record, old EKG, old radiological studies, urgent care reports/EKG's, intermediate records)? Report findings @ -old charts were reviewed - two recent ER visits where patient was evaluated in ED and transferred out Differential Diagnosis (chest pain, altered mental status, abdominal pain women, abdominal pain men, vaginal bleeding, weakness, fever, dyspnea, syncope, headache, dizziness, GI bleed, back pain, seizure, CVA, palpatations, mental health, musculoskeletal)? @ -pneumonia, covid, influenza, uti, bedsores, colitis, diverticulitis, c.diff EKG interpreted by me (3pts min.). @ -Yes - afib X-rays interpreted by me (1pt min.). @ -None done CT interpreted by me (1pt min.). @ -yes - protocolitis U/S interpreted by me (1pt. min.). @ -None done What testing was considered but not performed or refused? (CT, X-rays, U/S, labs)? Why? @ -None What meds were considered but not given or refused? Why? @ -None Did you discuss the management of the patient with other professionals (aury dodd iNavjoteNavjot Wall, PA, KNITTING MACHINE OPERATOR [employer]ATIC, lab, RT, psych nurse, social security assessor, remediation project engineer, teacher, hospital security officer, case management associate)? Give summary @ -Dr. De Leon Was smoking cessation discussed for >3mins.? @ -No Was critical care preformed (if so, how long)? @ -No Were there social determinants of health that impacted care today? How? (Homelessness, low income, unemployed, alcoholism, drug addiction, trans portation, low edu. Level, literacy, decrease access to med. care, senior living, rehab)? @ -Patient in rehab Was there de-escalation of care discussed even if they declined (Discuss DNR or withdrawal of care, Hospice)? DNR status @ -No What co-morbidities impacted this encounter? (DM, HTN, Smoking, COPD, CAD, Cancer, CVA, ARF, Chemo, Hep., AIDS, mental health diagnosis, sleep apnea, morbid obesity)? @ -brain mass, afib Was patient admitted / discharged? Hospital course, mention meds given and route, prescriptions, significant lab abnormalities, going to OR and other pertinent info. @ -Upon arrival patient was placed into room 18. A thorough history and physical exam was performed. Patient's has no complaints. Laboratory studies are repeated and demonstrated a white count of 47.7. He is able to give me a stool sample which is positive for C. diff. I originally ordered Zosyn as the patient's CT and lab studies were taking an extended period of time to come back. As soon as the C. diff is positive the Zosyn was stopped and patient was started on Vanco. Called and spoke with Dr. De Leon able to admit the patient to hospital as his brain mass is unchanged. Patient awaiting a bed on the floor in stable condition Undiagnosed new problem with uncertain prognosis? @ -Yes Drug Therapy requiring intensive monitoring for toxicity (Heparin, Nitro, Insulin, Cardizem)? @ -No Were any procedures done? @ -No Diagnosis/symptom? @ -leukocytosis, diarrhea, c.diff colitis, afib with rvr Acute, or Chronic, or Acute on Chronic? @ -acute Uncomplicated (without systemic symptoms) or Complicated (systemic symptoms)? @ -complicated Side effects of treatment? @ -No Exacerbation, Progression, or Severe Exacerbation? @ -No Poses a threat to life or bodily function? How? (Chest pain, USA, DE, pneumonia, PE, COPD, DKA, ARF, appy, cholecystitis, CVA, Diverticulitis, Homicidal, Suicidal, threat to staff... and all critical care pts) @ -no - Lab Data Result diagrams: 10/13/22 04:41 10/13/22 04:41 Lab Results 10/09/22 10/09/22 10/09/22 Range/Units 00:50 00:50 01:44 WBC 47.7 H (3.8-10.6) k/uL RBC 4.84 (4.30-5.90) m/uL Hgb 14.8 (13.0-17.5) gm/dL Hct 44.9 (39.0-53.0) % MCV 92.8 (80.0-100.0) fL MCH 30.5 (25.0-35.0) pg MCHC 32.9 (31.0-37.0) g/dL RDW 13.3 (11.5-15.5) % Plt Count 672 H (150-450) k/uL MPV 7.8 Neutrophils % (Manual) 82 % Band Neuts % (Manual) 11 % Lymphocytes % (Manual) 3 % Monocytes % (Manual) 5 % Neutrophils # (Manual) 44.30 H (1.3-7.7) k/uL Lymphocytes # (Manual) 1.43 (1.0-4.8) k/uL Monocytes # (Manual) 2.39 H (0-1.0) k/uL Nucleated RBCs 0 (0-0) /100 WBC Manual Slide Review Performed Toxic Granulation Present RBC Morphology Normal Sodium 132 L (137-145) mmol/L Potassium 3.8 (3.5-5.1) mmol/L Chloride 102 (98-107) mmol/L Carbon Dioxide 21 L (22-30) mmol/L Anion Gap 9 mmol/L BUN 24 H (9-20) mg/dL Creatinine 0.76 (0.66-1.25) mg/dL Est GFR (CKD-EPI)AfAm >90 (>60 ml/min/1.73 sqM) Est GFR (CKD-EPI)NonAf 88 (>60 ml/min/1.73 sqM) Glucose 120 H (74-99) mg/dL Plasma Lactic Acid Javed 1.4 (0.7-2.0) mmol/L Calcium 8.1 L (8.4-10.2) mg/dL Total Bilirubin 1.0 (0.2-1.3) mg/dL AST 19 (17-59) U/L ALT 31 (4-49) U/L Alkaline Phosphatase 125 (38-126) U/L Total Protein 5.0 L (6.3-8.2) g/dL Albumin 2.7 L (3.5-5.0) g/dL Stool Lactoferrin (NEGATIVE) C. difficile (EIA) Intrp (Negative) Influenza Type A (PCR) (Not Detectd) Influenza Type B (PCR) (Not Detectd) RSV (PCR) (Not Detectd) SARS-CoV-2 (PCR) (Not Detectd) 10/09/22 10/09/22 10/09/22 Range/Units 01:48 03:45 03:45 WBC (3.8-10.6) k/uL RBC (4.30-5.90) m/uL Hgb (13.0-17.5) gm/dL Hct (39.0-53.0) % MCV (80.0-100.0) fL MCH (25.0-35.0) pg MCHC (31.0-37.0) g/dL RDW (11.5-15.5) % Plt Count (150-450) k/uL MPV Neutrophils % (Manual) % Band Neuts % (Manual) % Lymphocytes % (Manual) % Monocytes % (Manual) % Neutrophils # (Manual) (1.3-7.7) k/uL Lymphocytes # (Manual) (1.0-4.8) k/uL Monocytes # (Manual) (0-1.0) k/uL Nucleated RBCs (0-0) /100 WBC Manual Slide Review Toxic Granulation RBC Morphology Sodium (137-145) mmol/L Potassium (3.5-5.1) mmol/L Chloride (98-107) mmol/L Carbon Dioxide (22-30) mmol/L Anion Gap mmol/L BUN (9-20) mg/dL Creatinine (0.66-1.25) mg/dL Est GFR (CKD-EPI)AfAm (>60 ml/min/1.73 sqM) Est GFR (CKD-EPI)NonAf (>60 ml/min/1.73 sqM) Glucose (74-99) mg/dL Plasma Lactic Acid Javed (0.7-2.0) mmol/L Calcium (8.4-10.2) mg/dL Total Bilirubin (0.2-1.3) mg/dL AST (17-59) U/L ALT (4-49) U/L Alkaline Phosphatase (38-126) U/L Total Protein (6.3-8.2) g/dL Albumin (3.5-5.0) g/dL Stool Lactoferrin POSITIVE A (NEGATIVE) C. difficile (EIA) Intrp Positive A (Negative) Influenza Type A (PCR) Not Detected (Not Detectd) Influenza Type B (PCR) Not Detected (Not Detectd) RSV (PCR) Not Detected (Not Detectd) SARS-CoV-2 (PCR) Not Detected (Not Detectd) Disposition Clinical Impression: Leukocytosis, C. difficile colitis Disposition[facility] Condition: Stable Is patient prescribed a controlled substance at d/c from ED?: No Time of Disposition: 05:44 Decision to Admit Reason: Admit from EC Decision Date: 10/09/22 Decision Time: 05:44
[2022-10-09] MEDS ORDERED: PIPERACILLIN-TAZOBACTAM 3.375 GM in SODIUM CHLORIDE 0.9% 100 ML IVPB STA (04:12)
--- NOTE | 2022-10-09 04:53 | CT ---
EXAM: CT Abdomen and Pelvis With Intravenous Contrast CLINICAL HISTORY: ITS.REASON CT Reason: elevated wbc, abd pain TECHNIQUE: Axial computed tomography images of the abdomen and pelvis with intravenous contrast. CTDI is 17.4 mGy and DLP is 888 mGy-cm. This CT exam was performed using one or more of the following dose reduction techniques: automated exposure control, adjustment of the mA and/or kV according to patient size, and/or use of iterative reconstruction technique. COMPARISON: No relevant prior studies available. FINDINGS: ABDOMEN: Liver: Cysts. Gallbladder and bile ducts: Cholelithiasis. Pancreas: Unremarkable. Spleen: Unremarkable. Adrenals: Unremarkable. Kidneys and ureters: No hydronephrosis. Cysts. Stomach and bowel: No bowel obstruction. Thickened distal descending colon, sigmoid colon, and rectum. Underlying diverticulosis. PELVIS: Appendix: No evidence of appendicitis. Bladder: Unremarkable. Reproductive: Mildly enlarged. ABDOMEN and PELVIS: Intraperitoneal space: Unremarkable. Bones/joints: No acute fractures. Soft tissues: Unremarkable. Vasculature: No abdominal aortic aneurysm. Lymph nodes: No enlarged lymph nodes. IMPRESSION: Infectious/inflammatory proctocolitis. Colonic diverticulosis. Cholelithiasis.
[2022-10-09] MEDS ORDERED: NALOXONE 0.4 MG/ML 1 ML VIAL IV PRN (05:44)
[2022-10-09] MEDS ORDERED: ACETAMINOPHEN TAB 325 MG TAB PO PRN (05:44)
[2022-10-09] MEDS ORDERED: IBUPROFEN 400 MG TAB PO PRN (05:44)
[2022-10-09] MEDS: VANCOMYCIN ORAL SOLUTION 250 MG/5 ML BOTTLE PO SCH ×5 (06:24→20:39)
[2022-10-09] MEDS: CHERRY FLAVOR 60 ML BOTTLE PO SCH ×5 (06:24→20:39)
--- NOTE | 2022-10-09 08:07 | P.HPIM ---
History of Present Illness H&P Date: 10/09/22 Chief Complaint: Diarrhea This 77-year-old white male with known history of pontine mass who see neurosurgery next month who had significant leukocytosis. Septic workup is pe nding but cluster difficile is positive he said significant diarrhea over the last 48 hours. Fortunately the patient wishes to go home I have tried to tell the patient that he should get IV hydration with appropriate antibiotic treatment. No fever but bodyaches are stated. Review of Systems Constitutional: Denies chills, Denies fever Eyes: denies blurred vision, denies pain Ears, nose, mouth and throat: Denies headache, Denies sore throat Cardiovascular: Denies chest pain, Denies shortness of breath Respiratory: Denies cough Gastrointestinal: Reports diarrhea Musculoskeletal: Denies myalgias Integumentary: Denies pruritus, Denies rash Past Medical History Past Medical History: Atrial Fibrillation, Cancer, Hypertension, Thyroid Disord er Additional Past Medical History / Comment(s): "Don't have good balance.". neck cancer in remission. DIVERTICULITIS History of Any Multi-Drug Resistant Organisms: None Reported Past Surgical History: Ablation Additional Past Surgical History / Comment(s): CYST REMOVED, COLONOSCOPY, BILATERAL CATARACT SURGERY, cardioversion X4, . cardiac ablation Past Anesthesia/Blood Transfusion Reactions: No Reported Reaction Past Psychological History: Anxiety Smoking Status: Former smoker Past Alcohol Use History: Daily Past Drug Use History: None Reported - Past Family History Mother Family Medical History: No Reported History Occupational Seizure History - Commerical Driving History Currently uses [employer] for employment (including self-employed).: No Medications and Allergies Home Medications Medication Instructions Recorded Confirmed Type Warfarin [Coumadin] 7.5 mg PO MOFR@0900 12/28/16 09/03/22 History Losartan [Cozaar] 50 mg PO DAILY 01/30/20 09/03/22 History Magnesium Oxide [Mag-Ox] 400 mg PO DAILY 01/30/20 09/03/22 History Sotalol [Betapace] 40 mg PO DAILY 01/30/20 09/03/22 History Cholecalciferol [Vitamin D3 (25 25 mcg PO DAILY 05/15/20 09/03/22 History Mcg = 1000 Iu)] Levothyroxine Sodium [Synthroid] 112 mcg PO DAILY 06/03/20 09/03/22 History Warfarin [Coumadin] 5 mg PO SUTUWETHSA@0900 09/03/22 09/03/22 History Allergies Allergy/AdvReac Type Severity Reaction Status Date / Time No Known Allergies Allergy Verified 10/09/22 00:13 Physical Exam Vitals: Vital Signs Temp Pulse Resp BP Pulse Ox 10/09/22 04:00 20 120/55 95 10/09/22 03:00 98 20 116/75 96 10/09/22 02:00 99 21 119/53 93 L 10/09/22 01:08 95 18 102/49 99 10/09/22 01:01 92 L 10/09/22 00:09 97.6 F 123 H 20 105/54 94 L Intake and Output 10/08/22 10/09/22 10/09/22 22:59 06:59 14:59 Other: Weight 74.843 kg - Constitutional General appearance: no acute distress - EENT Eyes: EOMI - Neck Neck: no lymphadenopathy - Respiratory Respiratory: bilateral: diminished - Cardiovascular Rhythm: irregularly irregular Heart sounds: normal: S1, S2 Abnormal Heart Sounds: no S3 Gallop - Gastrointestinal General gastrointestinal: distended, soft, no tenderness - Integumentary Integumentary: no cellulitis - Psychiatric Psychiatric: A&O x's 3, appropriate affect Results CBC & Chem 7: 10/09/22 00:50 10/09/22 01:44 Labs: Abnormal Lab Results - Last 24 Hours (Table) 10/09/22 10/09/22 10/09/22 Range/Units 00:50 01:44 03:45 WBC 47.7 H (3.8-10.6) k/uL Plt Count 672 H (150-450) k/uL Neutrophils # (Manual) 44.30 H (1.3-7.7) k/uL Monocytes # (Manual) 2.39 H (0-1.0) k/uL Sodium 132 L (137-145) mmol/L Carbon Dioxide 21 L (22-30) mmol/L BUN 24 H (9-20) mg/dL Glucose 120 H (74-99) mg/dL Calcium 8.1 L (8.4-10.2) mg/dL Total Protein 5.0 L (6.3-8.2) g/dL Albumin 2.7 L (3.5-5.0) g/dL C. difficile (EIA) Intrp Positive A (Negative) Assessment and Plan (1) C. difficile colitis Current Visit: Yes Status: Acute Code(s): A04.72 - ENTEROCOLITIS D/T CLOSTRIDIUM DIFFICILE, NOT SPCF RECUR SNOMED Code(s): 209695274 (2) Leukocytosis Current Visit: Yes Status: Acute Code(s): D72.829 - ELEVATED WHITE BLOOD CELL COUNT, UNSPECIFIED SNOMED Code(s): 555155004 (3) Atrial fibrillation Current Visit: No Status: Acute Code(s): I48.91 - UNSPECIFIED ATRIAL FIBRILLATION SNOMED Code(s): 57131398 (4) Cerebellopontine angle tumor Current Visit: No Status: Acute Code(s): D33.3 - BENIGN NEOPLASM OF CRANIAL NERVES SNOMED Code(s): 509323993 (5) Generalized weakness Current Visit: No Status: Acute Code(s): R53.1 - WEAKNESS SNOMED Code(s): 78457761 (6) Hypertension Current Visit: No Status: Acute Code(s): I10 - ESSENTIAL (PRIMARY) HYPERTENSION SNOMED Code(s): 66420403 Plan: Continue antibiotic treatment. Reconcile home medications. Check CBC and CMP in a.m. Again, I reiterated that he should stay for treatment. Prognosis is guarded.
[2022-10-09] MEDS ORDERED: SOTALOL 80 MG TAB PO SCH (09:00)
[2022-10-09] MEDS: MAGNESIUM OXIDE 400 MG TAB PO SCH (11:53)
[2022-10-09] MEDS: SODIUM CHLORIDE 0.9% 1,000 ML IV SCH ×2 (11:53→20:42)
[2022-10-09] MEDS: LEVOTHYROXINE 112 MCG TAB PO SCH (11:53)
[2022-10-09] MEDS: LOSARTAN 50 MG TAB PO SCH (11:53)
[2022-10-09] MEDS: CHOLECALCIFEROL 25 MCG (1000 IU) TABLET PO SCH (11:54)
[2022-10-10] MEDS: LEVOTHYROXINE 112 MCG TAB PO SCH (05:32)
[2022-10-10] MEDS: LOSARTAN 50 MG TAB PO SCH (08:38)
[2022-10-10] MEDS: CHERRY FLAVOR 60 ML BOTTLE PO SCH ×4 (08:39→21:11)
[2022-10-10] MEDS: CHOLECALCIFEROL 25 MCG (1000 IU) TABLET PO SCH (08:39)
[2022-10-10] MEDS: MAGNESIUM OXIDE 400 MG TAB PO SCH (08:39)
[2022-10-10] MEDS: VANCOMYCIN ORAL SOLUTION 250 MG/5 ML BOTTLE PO SCH ×4 (08:39→21:11)
[2022-10-10] MEDS: SODIUM CHLORIDE 0.9% 1,000 ML IV SCH (08:40)
[2022-10-10] MEDS ORDERED: WARFARIN 5 MG TAB PO SCH (09:00)
[2022-10-10 09:15] LABS: HCT 40.3 % (39.6-50.0); MCH 30.7 pg (27.0-32.0); MCHC 32.3 g/dL (32.0-37.0); MCV 95.3 fL (80.0-97.0); Mean Platelet Volume 9.5 fL (9.5-12.2); NRBC Per 100 WBC 0 /100 WBCS (0.0-0.0); Platelet Count 621 X 10*3/uL (140-440); RBC 4.23 X 10*6/uL (4.40-5.60); RDW 14.2 % (11.5-14.5); WBC 39.26 X 10*3/uL (4.50-10.00)
[2022-10-10 11:06] LABS: African American GFR (CKD) 104.8 (60.0-200.0); Albumin 2.8 g/dL (3.8-4.9); Albumin/Globulin Ratio 1.33 (1.60-3.17); Anion Gap 13.2 mmol/L (10.00-18.00); BUN/Creat Ratio 25.86 Ratio (12.00-20.00); Blood Urea Nitrogen 18.1 mg/dL (9.0-27.0); Calcium 8.2 mg/dL (8.7-10.3); Carbon Dioxide 19.8 mmol/L (20.0-27.5); Globulin 2.1 g/dL (1.6-3.3); Non-African American GFR(CKD) 90.4 (60.0-200.0); Potassium 3.6 mmol/L (3.5-5.5); Total Bilirubin 0.5 mg/dL (0.30-1.20); Total Protein 4.9 g/dL (6.2-8.2)
[2022-10-10 12:29] LABS: Appearance,Urine Cloudy (Clear); Bilirubin,Urine Negative (Negative); Blood,Urine Negative (Negative); Color,Urine Yellow; Glucose,Urine (UA) Negative (Negative); Ketones,Urine Trace (Negative); Leukocyte Esterase,Urine Negative (Negative); Mucus,Urine Many /hpf; Nitrite,Urine Negative (Negative); PH, Urine 5.5 (5.0-8.0); Protein,Urine 1+ (Negative); RBC,Urine 5 /hpf (0-5); Specific Gravity,Urine 1.038 (1.001-1.035); Squamous Epithelial Cell,Urine <1 /hpf (0-4); Urobilinogen,Urine <2.0 mg/dL (<2.0); WBC,Urine 7 /hpf (0-5)
[2022-10-10 14:41] LABS: Basophils # (M) 0 X 10*3/uL (0.00-0.10); Eosinophils # (M) 0.39 X 10*3/uL (0.04-0.35); Lymphocytes # (M) 0.39 X 10*3/uL (0.90-5.00); Monocytes # (M) 2.75 X 10*3/uL (0.20-1.00); Neutrophils # (M) 35.73 X 10*3/uL (2.00-8.90); Neutrophils % (M) 91 %; RBC Morphology NORMAL
[2022-10-10] MEDS ORDERED: Potassium Replacement Protocol 1 EACH MISC MISCELLANE PRN (17:10)
[2022-10-10] MEDS ORDERED: Magnesium Replacement Protocol 1 EACH MISC MISCELLANE PRN (17:10)
[2022-10-10] MEDS: SODIUM CHLORIDE 0.9% 1,000 ML with POTASSIUM CHLORIDE 20 MEQ IV SCH ×2 (17:47)
--- NOTE | 2022-10-11 00:01 | PN ---
PROGRESS NOTE DATE OF SERVICE: 10/10/2022 SUBJECTIVE: This is a 77-year-old gentleman, who was admitted with acute C difficile colitis, is being closely monitored. No chest pain. No palpitations. No fever. The patient is still having diarrhea. OBJECTIVE: VITAL SIGNS: Pulse is 83, blood pressure 128/82, respirations 18. CHEST: Clear to auscultation. CARDIOVASCULAR: S1, S2. ABDOMEN: Soft, nontender. LABORATORY DATA: WBC 39.26. ASSESSMENT: 1. Acute Clostridium difficile colitis. 2. Leukocytosis and atrial fibrillation. 3. CP angle tumor. 4. Generalized weakness. RECOMMENDATIONS AND DISCUSSION: Recommend to continue current medications. Continue symptomatic treatment. I would recommend Infectious Disease evaluation because of the high WBC. We will closely monitor the patient. He is on vancomycin p.o. He will increase the dose to 250 mg and then continue to monitor. Further recommendations to follow. MMODL / IJN: [id number] /
[2022-10-11] MEDS: SODIUM CHLORIDE 0.9% 1,000 ML with POTASSIUM CHLORIDE 20 MEQ IV SCH ×4 (06:09→21:29)
[2022-10-11] MEDS: LEVOTHYROXINE 112 MCG TAB PO SCH (06:09)
[2022-10-11] MEDS: MAGNESIUM OXIDE 400 MG TAB PO SCH (08:23)
[2022-10-11] MEDS: PANTOPRAZOLE 40 MG TABLET PO SCH (08:23)
[2022-10-11] MEDS: ASPIRIN 81 MG PO SCH (08:24)
[2022-10-11] MEDS: VANCOMYCIN ORAL SOLUTION 250 MG/5 ML BOTTLE PO SCH ×4 (08:24→20:29)
[2022-10-11] MEDS: CHOLECALCIFEROL 25 MCG (1000 IU) TABLET PO SCH (08:24)
[2022-10-11] MEDS: LOSARTAN 50 MG TAB PO SCH (08:24)
[2022-10-11] MEDS: CHERRY FLAVOR 60 ML BOTTLE PO SCH ×4 (08:24→20:29)
[2022-10-11 09:28] LABS: Basophils # (A) 0.13 X 10*3/uL (0.00-0.10); Basophils % (A) 0.5 %; Eosinophils % (A) 1.5 %; HCT 40.1 % (39.6-50.0); HGB 12.9 g/dL (13.0-17.0); Immature Grans, Automated 1.5 %; Lymphocytes # (A) 0.85 X 10*3/uL (0.90-5.00); Lymphocytes % (A) 3.2 %; MCH 30.6 pg (27.0-32.0); MCHC 32.2 g/dL (32.0-37.0); Mean Platelet Volume 9.8 fL (9.5-12.2); Monocytes % (A) 9.4 %; NRBC Per 100 WBC 0 /100 WBCS (0.0-0.0); Neutrophils # (A) 22.41 X 10*3/uL (1.80-7.70); Neutrophils % (A) 83.9 %; Platelet Count 609 X 10*3/uL (140-440); RBC 4.22 X 10*6/uL (4.40-5.60); RDW 14.2 % (11.5-14.5); WBC 26.69 X 10*3/uL (4.50-10.00)
[2022-10-11 10:46] LABS: African American GFR (CKD) 108.2 (60.0-200.0); Albumin 2.8 g/dL (3.8-4.9); Albumin/Globulin Ratio 1.41 (1.60-3.17); Anion Gap 9.3 mmol/L (10.00-18.00); BUN/Creat Ratio 21.64 Ratio (12.00-20.00); Calcium 8.6 mg/dL (8.7-10.3); Carbon Dioxide 22.6 mmol/L (20.0-27.5); Magnesium 1.7 mg/dL (1.5-2.4); Non-African American GFR(CKD) 93.4 (60.0-200.0); Potassium 4.1 mmol/L (3.5-5.5); Total Bilirubin 0.4 mg/dL (0.30-1.20); Total Protein 4.7 g/dL (6.2-8.2)
--- NOTE | 2022-10-11 22:39 | P.CONS ---
History of Present Illness - Reason for Consult Consult date: 10/11/22 Leukocytosis, C. diff Requesting physician: Toshia Goldman - Chief Complaint Diarrhea x few days - History of Present Illness Patient is a 77-year-old male with a past medical history of atrial fibrillation hypertension hypothyroidism and diverticulitis patient is a jail resident patient was sent to the ER for evaluation of diarrhea and elevated white count patient mention that his diarrhea started on that is 2 days before presentation to the hospital have multiple episodes of loose stool patient denies having any blood or mucus in the stool has been complaining of some colicky lower abdominal pain 5-6 out of 10 no radiation patient abdominal pain has subsequently resolved, patient denies having any nausea no vomiting patient on presentation to the hospital was afebrile and no fever has been recorded subsequently patient did have a white count of 47,000 on admission that is down to 26.69 today patient did have a normal kidney function liver exams are normal urine was negative stool for significant back positive blood cultures obtained currently pending patient did have a CT of abdominal pelvis inflammatory proctocolitis chronic diverticulosis and cholelithiasis patient was started on oral vancomycin infectious disease was consulted because of his elevated white count and further management of his antibiotic therapy Review of Systems Positive point and negatives has been mentioned in the HPI, complete review of systems was performed and all other systems are negative Past Medical History Past Medical History: Atrial Fibrillation, Cancer, Hypertension, Thyroid Disorder Additional Past Medical History / Comment(s): neck cancer in remission. 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 then had diarrhea and sent here 10/09/22, C-DIFF History of Any Multi-Drug Resistant Organisms: None Reported Past Surgical History: Ablation Additional Past Surgical History / Comment(s): CYST REMOVED, COLONOSCOPY, BILATERAL CATARACT SURGERY, cardioversion X4, . cardiac ablation Past Anesthesia/Blood Transfusion Reactions: No Reported Reaction Past Psychological History: Anxiety Smoking Status: Former smoker Past Alcohol Use History: Daily Additional Past Alcohol Use History / Comment(s): STARTED SMOKING AT AGE 17, QUIT AT AGE 34, SMOKED 3/4 -1 PPD. Currently has 2 drinks per day. Past Drug Use History: None Reported - Past Family History Mother Family Medical History: No Reported History Medications and Allergies Home Medications Medication Instructions Recorded Confirmed Type Losartan [Cozaar] 50 mg PO DAILY@0800 01/30/20 10/09/22 History Magnesium Oxide [Mag-Ox] 400 mg PO DAILY@0800 01/30/20 10/09/22 History Levothyroxine Sodium [Synthroid] 112 mcg PO DAILY@0600 06/03/20 10/09/22 History Acetaminophen Tab [Tylenol] 650 mg PO Q4H PRN 10/09/22 10/09/22 History Aspirin 81 mg PO DAILY 10/09/22 10/09/22 History Ensure Enlive 237 ml PO TID@0800,1200,1700 10/09/22 10/09/22 History Lidocaine 5% Patch [Lidoderm 5% 1 patch TOPICAL DAILY@1700 10/09/22 10/09/22 History Patch] Magnesium Hydroxide [Milk of 7,200 mg PO DAILY PRN 10/09/22 10/09/22 History Magnesia Concentrate] Multivitamins, Thera [Multivitamin 1 tab PO DAILY@1200 10/09/22 10/09/22 History (formulary)] Na Phos,M-B/Na Phos,Di-Ba [Fleet 133 ml RECTAL DAILY PRN 10/09/22 10/09/22 History Adult] Pantoprazole [Protonix] 40 mg PO DAILY@0800 10/09/22 10/09/22 History bisacodyL [Dulcolax] 10 mg RECTAL DAILY PRN 10/09/22 10/09/22 History Vancomycin Oral Solution 250 mg PO QID 7 Days #140 ml 10/13/22 Rx Allergies Allergy/AdvReac Type Severity Reaction Status Date / Time No Known Allergies Allergy Verified 10/09/22 08:22 Physical Exam Vitals: Vital Signs Temp Pulse Pulse Resp BP Pulse Ox 10/11/22 07:23 97.8 F 89 18 120/59 95 10/11/22 02:12 98.5 F 69 19 121/78 94 L 10/10/22 20:27 97.3 F L 66 19 114/68 95 10/10/22 13:44 98.8 F 88 18 112/66 96 Intake and Output 10/10/22 10/11/22 10/11/22 22:59 06:59 14:59 Intake Total 825 Output Total 1 Balance 825 -1 Intake: Intake, IV Titration 825 Amount Sodium Chloride 0.9% 1, 825 000 ml @ 75 mls/hr IV . [id number] MATIAS with Potassium Chloride 20 meq Rx#:[id number] Output: Urine 1 Other: # Voids 3 1 # Bowel Movements 1 GENERAL DESCRIPTION: Elderly male lying in bed, no distress. No tachypnea or accessory muscle of respiration use. HEENT: Shows Pallor , no scleral icterus. Oral mucous membrane is dry. NECK: Trachea central, no thyromegaly. LUNGS: Unlabored breathing. Clear to auscultation anteriorly. No wheeze or crackle. HEART: S1, S2, regular rate and rhythm. No loud murmur ABDOMEN: Soft, no tenderness , guarding or rigidity EXTREMITIES: No edema of feet. SKIN: No rash, no masses palpable. NEUROLOGICAL: The patient is awake, alert, oriented x3, mood and affect normal. Results CBC & Chem 7: 10/13/22 04:41 10/13/22 04:41 Labs: Abnormal Lab Results - Last 24 Hours (Table) 10/10/22 10/11/22 10/11/22 Range/Units 06:34 06:49 06:49 WBC 26.69 H (4.50-10.00) X 10*3/uL RBC 4.22 L (4.40-5.60) X 10*6/uL Hgb 12.9 L (13.0-17.0) g/dL Plt Count 609 H (140-440) X 10*3/uL Plt Count Comment INCREASED A Immature Gran # 0.40 H (0.00-0.04) X 10*3/uL Neutrophils # 22.41 H (1.80-7.70) X 10*3/uL Neutrophils # (Manual) 35.73 H (2.00-8.90) X 10*3/uL Lymphocytes # 0.85 L (0.90-5.00) X 10*3/uL Lymphocytes # (Manual) 0.39 L (0.90-5.00) X 10*3/uL Monocytes # 2.50 H (0.20-1.00) X 10*3/uL Monocytes # (Manual) 2.75 H (0.20-1.00) X 10*3/uL Eosinophils # 0.40 H (0.04-0.35) X 10*3/uL Eosinophils # (Manual) 0.39 H (0.04-0.35) X 10*3/uL Basophils # 0.13 H (0.00-0.10) X 10*3/uL Anion Gap 9.30 L (10.00-18.00) mmol/L BUN/Creatinine Ratio 21.64 H (12.00-20.00) Ratio Calcium 8.6 L (8.7-10.3) mg/dL Total Protein 4.7 L (6.2-8.2) g/dL Albumin 2.8 L (3.8-4.9) g/dL Albumin/Globulin Ratio 1.41 L (1.60-3.17) g/dL Microbiology - Last 24 Hours (Table) 10/09/22 03:45 Stool Culture - Preliminary Stool 10/09/22 01:00 Blood Culture - Preliminary Blood 10/09/22 00:50 Blood Culture - Preliminary Blood Assessment and Plan (1) C. difficile colitis Current Visit: Yes Status: Acute Code(s): A04.72 - ENTEROCOLITIS D/T CLOSTRIDIUM DIFFICILE, NOT SPCF RECUR SNOMED Code(s): 841917139 (2) Leukocytosis Current Visit: Yes Status: Acute Code(s): D72.829 - ELEVATED WHITE BLOOD CELL COUNT, UNSPECIFIED SNOMED Code(s): 259360978 Plan: 1patient with significant leukocytosis in this patient with diarrhea with evidence of proctocolitis likely related to C. difficile colitis and the patient seem to have shown clinical response to the initial antibiotic therapy of oral vancomycin 2-patient to continue vancomycin 250 mg p.o. every 6 hours 3-avoid antimotility agent 4-patient has been encouraged to increase her probiotic and yogurt intake 5-strict contact isolation We will follow on clinical condition and cultures to further adjust medication if needed Thank you for this consultation we will follow the patient along with you Time with Patient: Greater than 30
--- NOTE | 2022-10-11 23:43 | PN ---
PROGRESS NOTE DATE OF SERVICE: 10/11/2022 SUBJECTIVE: This is a 77-year-old gentleman who was admitted with acute C. difficile colitis, has been closely monitored. No chest pain. No palpitations. No fever. OBJECTIVE: VITAL SIGNS: Pulse 83, blood pressure n, respirations 18. CHEST: Clear to auscultation. CARDIOVASCULAR: S1 and S2. ABDOMEN: Soft. NERVOUS SYSTEM: No focal deficits. LABORATORY DATA: WBC n ASSESSMENT: 1. Acute Clostridium difficile colitis. 2. Leukocytosis and leukemoid reaction. 3. Atrial fibrillation. 4. CP angle tumor history. 5. Generalized weakness. RECOMMENDATIONS: Recommend to continueotherwise closely follow with Infectious Disease. Follow the cultures. Repeat CBC, BMP. Continue with p.o. vancomycin. Dr. De Leon will follow. MMODL / IJN: [id number] / MTDD
[2022-10-12] MEDS: LEVOTHYROXINE 112 MCG TAB PO SCH (05:56)
[2022-10-12 08:36] LABS: Basophils # (A) 0.16 X 10*3/uL (0.00-0.10); Basophils % (A) 0.9 %; Eosinophils # (A) 0.49 X 10*3/uL (0.04-0.35); Eosinophils % (A) 2.7 %; HCT 42.9 % (39.6-50.0); HGB 13.7 g/dL (13.0-17.0); Immature Grans, Automated 1.2 %; Lymphocytes # (A) 1.19 X 10*3/uL (0.90-5.00); Lymphocytes % (A) 6.6 %; MCH 30.6 pg (27.0-32.0); MCHC 31.9 g/dL (32.0-37.0); Mean Platelet Volume 9.6 fL (9.5-12.2); Monocytes # (A) 1.87 X 10*3/uL (0.20-1.00); Monocytes % (A) 10.4 %; NRBC Per 100 WBC 0 /100 WBCS (0.0-0.0); Neutrophils # (A) 14.13 X 10*3/uL (1.80-7.70); Neutrophils % (A) 78.2 %; Platelet Count 720 X 10*3/uL (140-440); RBC 4.47 X 10*6/uL (4.40-5.60); RDW 14.1 % (11.5-14.5); WBC 18.06 X 10*3/uL (4.50-10.00)
[2022-10-12] MEDS: LOSARTAN 50 MG TAB PO SCH (08:45)
[2022-10-12] MEDS: MAGNESIUM OXIDE 400 MG TAB PO SCH (08:45)
[2022-10-12] MEDS: ASPIRIN 81 MG PO SCH (08:45)
[2022-10-12] MEDS: CHOLECALCIFEROL 25 MCG (1000 IU) TABLET PO SCH (08:45)
[2022-10-12] MEDS: PANTOPRAZOLE 40 MG TABLET PO SCH (08:45)
[2022-10-12] MEDS: VANCOMYCIN ORAL SOLUTION 250 MG/5 ML BOTTLE PO SCH ×4 (08:46→21:52)
--- NOTE | 2022-10-12 08:46 | P.PN ---
Subjective Progress Note Date: 10/12/22 Principal diagnosis: Diarrhea This a 77-year-old male who presented with complaints of diarrhea. He does have a history of a brain mass and is following with the neurosurgeon in [place]. Upon admission patient was found to have C. diff. His been tolerating oral vancomycin with no issues. This morning he is seen sitting in chair at bedside. He reports diarrhea is decreasing. He has not been eating much due to worry of having more diarrhea. His white count continues to be elevated. Objective - Vital Signs Vital signs: Vital Signs Temp 98.2 F 10/12/22 08:00 Pulse 64 10/12/22 08:00 Resp 17 10/12/22 08:00 BP 124/70 10/12/22 08:00 Pulse Ox 94 L 10/12/22 08:00 FiO2 Intake & Output 10/11/22 10/12/22 10/12/22 18:59 06:59 18:59 Intake Total 540 Output Total 1 Balance -1 540 Intake: Oral 540 Output: Urine 1 Other: # Voids 2 1 # Bowel Movements 1 - Constitutional General appearance: Present: cooperative, no acute distress - EENT Eyes: Present: EOMI, PERRLA - Neck Neck: Present: normal ROM. Absent: lymphadenopathy, rigidity - Respiratory Respiratory: bilateral: CTA - Cardiovascular Rhythm: irregularly irregular - Gastrointestinal General gastrointestinal: Present: hyperactive bowel sounds, soft - Psychiatric Psychiatric: Present: A&O x's 3, appropriate affect, intact judgment & insight - Labs CBC & Chem 7: 10/12/22 04:33 10/11/22 06:49 Labs: Abnormal Lab Results - Last 24 Hours (Table) 10/11/22 10/11/22 10/12/22 Range/Units 06:49 06:49 04:33 WBC 26.69 H 18.06 H (4.50-10.00) X 10*3/uL RBC 4.22 L (4.40-5.60) X 10*6/uL Hgb 12.9 L (13.0-17.0) g/dL MCHC 31.9 L (32.0-37.0) g/dL Plt Count 609 H 720 H (140-440) X 10*3/uL Immature Gran # 0.40 H 0.22 H (0.00-0.04) X 10*3/uL Neutrophils # 22.41 H 14.13 H (1.80-7.70) X 10*3/uL Lymphocytes # 0.85 L (0.90-5.00) X 10*3/uL Monocytes # 2.50 H 1.87 H (0.20-1.00) X 10*3/uL Eosinophils # 0.40 H 0.49 H (0.04-0.35) X 10*3/uL Basophils # 0.13 H 0.16 H (0.00-0.10) X 10*3/uL Anion Gap 9.30 L (10.00-18.00) mmol/L BUN/Creatinine Ratio 21.64 H (12.00-20.00) Ratio Calcium 8.6 L (8.7-10.3) mg/dL Total Protein 4.7 L (6.2-8.2) g/dL Albumin 2.8 L (3.8-4.9) g/dL Albumin/Globulin Ratio 1.41 L (1.60-3.17) g/dL Microbiology - Last 24 Hours (Table) 10/09/22 03:45 Stool Culture - Final Stool 10/09/22 01:00 Blood Culture - Preliminary Blood 10/09/22 00:50 Blood Culture - Preliminary Blood Assessment and Plan (1) C. difficile colitis Current Visit: Yes Status: Acute Code(s): A04.72 - ENTEROCOLITIS D/T CLOSTRIDIUM DIFFICILE, NOT SPCF RECUR SNOMED Code(s): 085501397 (2) Leukocytosis Current Visit: Yes Status: Acute Code(s): D72.829 - ELEVATED WHITE BLOOD CELL COUNT, UNSPECIFIED SNOMED Code(s): 805119364 (3) Atrial fibrillation Current Visit: No Status: Acute Code(s): I48.91 - UNSPECIFIED ATRIAL FIBRILLATION SNOMED Code(s): 46023602 (4) Cerebellopontine angle tumor Current Visit: No Status: Acute Code(s): D33.3 - BENIGN NEOPLASM OF CRANIAL NERVES SNOMED Code(s): 155130183 (5) Generalized weakness Current Visit: No Status: Acute Code(s): R53.1 - WEAKNESS SNOMED Code(s): 53628875 (6) Hypertension Current Visit: No Status: Acute Code(s): I10 - ESSENTIAL (PRIMARY) HYPERTENSION SNOMED Code(s): 57181922 Plan: Check CBC and CMP in the morning. If white count continues to trend down, possible discharge in the next 24-48 hours. Patient seen and evaluated by nurse practitioner, physician in agreement with plan
[2022-10-12 09:15] LABS: African American GFR (CKD) 104.8 (60.0-200.0); Anion Gap 10.2 mmol/L (10.00-18.00); BUN/Creat Ratio 16.14 Ratio (12.00-20.00); Blood Urea Nitrogen 11.3 mg/dL (9.0-27.0); Calcium 8.8 mg/dL (8.7-10.3); Carbon Dioxide 22.8 mmol/L (20.0-27.5); Non-African American GFR(CKD) 90.4 (60.0-200.0); Potassium 3.3 mmol/L (3.5-5.5)
--- NOTE | 2022-10-12 12:35 | P.PN ---
Subjective Progress Note Date: 10/12/22 Principal diagnosis: C. diff colitis Patient is a 77-year-old male who has been sent to the ER for evaluation of elevated white count and diarrhea patient stool for C. diff came back positive and did have a lot of 47,000 on admission. On today's evaluation that is 10/12/2022, the patient denies having any fever or any chills, patient denies having any chest pain shortness of breath or cough no nausea no vomiting denies any abdominal pain and did mention improvement in his diarrhea Objective - Vital Signs Vital signs: Vital Signs Temp 98.2 F 10/12/22 08:00 Pulse 64 10/12/22 08:46 Resp 17 10/12/22 08:46 BP 124/70 10/12/22 08:00 Pulse Ox 94 L 10/12/22 08:00 FiO2 Intake & Output 10/11/22 10/12/22 10/12/22 18:59 06:59 18:59 Intake Total 540 Output Total 1 Balance -1 540 Intake: Oral 540 Output: Urine 1 Other: # Voids 2 1 # Bowel Movements 1 - Exam GENERAL DESCRIPTION: An elderly male lying in bed in no distress RESPIRATORY SYSTEM: Unlabored breathing , decreased breath sounds at bases HEART: S1 S2 regular rate and rhythm , ABDOMEN: Soft , no tenderness EXTREMITIES: No edema feet - Labs CBC & Chem 7: 10/12/22 04:33 10/12/22 04:33 Labs: Abnormal Lab Results - Last 24 Hours (Table) 10/12/22 10/12/22 Range/Units 04:33 04:33 WBC 18.06 H (4.50-10.00) X 10*3/uL MCHC 31.9 L (32.0-37.0) g/dL Plt Count 720 H (140-440) X 10*3/uL Immature Gran # 0.22 H (0.00-0.04) X 10*3/uL Neutrophils # 14.13 H (1.80-7.70) X 10*3/uL Monocytes # 1.87 H (0.20-1.00) X 10*3/uL Eosinophils # 0.49 H (0.04-0.35) X 10*3/uL Basophils # 0.16 H (0.00-0.10) X 10*3/uL Potassium 3.3 L (3.5-5.5) mmol/L Microbiology - Last 24 Hours (Table) 10/09/22 03:45 Stool Culture - Final Stool 10/09/22 01:00 Blood Culture - Preliminary Blood 10/09/22 00:50 Blood Culture - Preliminary Blood Assessment and Plan (1) C. difficile colitis Current Visit: Yes Status: Acute Code(s): A04.72 - ENTEROCOLITIS D/T CLOSTRIDIUM DIFFICILE, NOT SPCF RECUR SNOMED Code(s): 595883844 (2) Leukocytosis Current Visit: Yes Status: Acute Code(s): D72.829 - ELEVATED WHITE BLOOD CELL COUNT, UNSPECIFIED SNOMED Code(s): 410279284 Plan: 1patient with significant leukocytosis in this patient with diarrhea with evidence of proctocolitis likely related to C. difficile colitis and the patient seem to have shown clinical response to the initial antibiotic therapy of oral vancomycin 2-patient WBC is down to 18,000 today, patient to continue vancomycin 250 mg p.o. every 6 hours 3--patient has been encouraged to increase her probiotic and yogurt intake Time with Patient: Less than 30
[2022-10-12] MEDS: CHERRY FLAVOR 60 ML BOTTLE PO SCH ×3 (14:41→21:52)
--- NOTE | 2022-10-12 17:20 | CDI ---
Documentation Clarification Form Date: 10/12/2022 5:08:54 PM From: Lorraine Christina RN, CCDS Admit Date: 10/09/2022 5:44:00 AM Patient Name: Aubrey Harris Visit Number: [id number] Discharge Date: ATTENTION: The Clinical Documentation Specialists (CDI) and [facility] Coding Staff appreciate your assistance in clarifying documentation. Please respond to the clarification below the line at the bottom and electronically sign. The CDI & [facility] Coding staff will review the response and follow-up if needed. Please note: Queries are made part of the Legal Health Record. If you have any questions, please contact the author of this message via ITS. Dr. Duy De Leon Atrial Fibrillation is documented in the H/P and subsequent progress notes with ongoing treatment. Additional clarification regarding the type of atrial fibrillation is requested. History/Risk Factors: AFIB CA HTN Thyroid disorder Clinical Indicators: 77-year-old male present with elevated white count and diarrhea. Patient complains of some left lower quadrant abdominal cramping and diarrhea. He has a past medial history at atrial fibrillation and is on Coumadin. 10/09 VS: 105/54 123 20 97.6 94 % RA 10/09/22 EKG/telemetry: Atrial fibrillation with rapid ventricular response at 105 BPM Treatment: ASA 81 MG PO Daily Coumadin 5MG JANI @0900 Please clarify the type of atrial fibrillation, if known: [ ] Chronic [ ] Permanent [ ] Paroxysmal [ x ] Persistent [ ] Other, please specify [ ] Unable to determine (Template Last Revised: September 2020) MTDD
[2022-10-12] MEDS: SODIUM CHLORIDE 0.9% 1,000 ML with POTASSIUM CHLORIDE 20 MEQ IV SCH ×2 (21:52)
[2022-10-13] MEDS: POTASSIUM CHLORIDE ER 20 MEQ TAB.ER PO SCH ×2 (00:01→01:10)
[2022-10-13] MEDS: SODIUM CHLORIDE 0.9% 1,000 ML with POTASSIUM CHLORIDE 20 MEQ IV SCH ×4 (00:03→12:22)
[2022-10-13] MEDS: LEVOTHYROXINE 112 MCG TAB PO SCH (06:10)
[2022-10-13 07:55] VITALS: BP 123/76; PULSE 61; RESP 17; TEMP 97.3
[2022-10-13] MEDS: LOSARTAN 50 MG TAB PO SCH (08:05)
[2022-10-13] MEDS: MAGNESIUM OXIDE 400 MG TAB PO SCH (08:05)
[2022-10-13] MEDS: ASPIRIN 81 MG PO SCH (08:05)
[2022-10-13] MEDS: PANTOPRAZOLE 40 MG TABLET PO SCH (08:05)
[2022-10-13] MEDS: CHOLECALCIFEROL 25 MCG (1000 IU) TABLET PO SCH (08:05)
[2022-10-13] MEDS: VANCOMYCIN ORAL SOLUTION 250 MG/5 ML BOTTLE PO SCH (08:06)
[2022-10-13] MEDS: CHERRY FLAVOR 60 ML BOTTLE PO SCH (08:06)
--- NOTE | 2022-10-13 08:34 | P.DS ---
Providers Date of admission: 10/09/22 05:44 Attending physician: Duy De Loen Consults: 10/10/22 17:09 Consult Physician Routine Consulting Provider: Toi Gr Consult Reason/Comments: c diff high wbc Do you want consulting provider notified?: Yes Primary care physician: Duy De Leon - Discharge Diagnosis(es) (1) C. difficile colitis Current Visit: Yes Status: Acute (2) Leukocytosis Current Visit: Yes Status: Acute (3) Atrial fibrillation Current Visit: No Status: Acute (4) Cerebellopontine angle tumor Current Visit: No Status: Acute (5) Generalized weakness Current Visit: No Status: Acute (6) Hypertension Current Visit: No Status: Acute Hospital Course: This is a 69-year-old male who was admitted with complaints of diarrhea and found to be positive for C. diff. Patient reports episodes of diarrhea have been decreasing and abdominal pain has improved. He is tolerating oral vancomycin with no issues. White count continues to trend down. He is tolerating diet and anxious to go home. Patient will be sent home with oral vancomycin prescription. Patient Condition at Discharge: Stable Plan - Discharge Summary New Discharge Prescriptions: New Vancomycin Oral Solution 250 mg PO QID 7 Days #140 ml Continue Magnesium Oxide [Mag-Ox] 400 mg PO DAILY@0800 Losartan [Cozaar] 50 mg PO DAILY@0800 Levothyroxine Sodium [Synthroid] 112 mcg PO DAILY@0600 bisacodyL [Dulcolax] 10 mg RECTAL DAILY PRN PRN Reason: Constipation Acetaminophen Tab [Tylenol] 650 mg PO Q4H PRN PRN Reason: Pain Or Fever > 100.5 Multivitamins, Thera [Multivitamin (formulary)] 1 tab PO DAILY@1200 Lidocaine 5% Patch [Lidoderm 5% Patch] 1 patch TOPICAL DAILY@1700 Aspirin 81 mg PO DAILY Na Phos,M-B/Na Phos,Di-Ba [Fleet Adult] 133 ml RECTAL DAILY PRN PRN Reason: Constipation Magnesium Hydroxide [Milk of Magnesia Concentrate] 7,200 mg PO DAILY PRN PRN Reason: Constipation Pantoprazole [Protonix] 40 mg PO DAILY@0800 Ensure Enlive 237 ml PO TID@0800,1200,1700 Discharge Medication List Losartan [Cozaar] 50 mg PO DAILY@0800 01/30/20 [History] Magnesium Oxide [Mag-Ox] 400 mg PO DAILY@0800 01/30/20 [History] Levothyroxine Sodium [Synthroid] 112 mcg PO DAILY@0600 06/03/20 [History] Acetaminophen Tab [Tylenol] 650 mg PO Q4H PRN 10/09/22 [History] Aspirin 81 mg PO DAILY 10/09/22 [History] Ensure Enlive 237 ml PO TID@0800,1200,1700 10/09/22 [History] Lidocaine 5% Patch [Lidoderm 5% Patch] 1 patch TOPICAL DAILY@17010/09/22 [History] Magnesium Hydroxide [Milk of Magnesia Concentrate] 7,200 mg PO DAILY PRN 10/09/22 [History] Multivitamins, Thera [Multivitamin (formulary)] 1 tab PO DAILY@1200 10/09/22 [History] Na Phos,M-B/Na Phos,Di-Ba [Fleet Adult] 133 ml RECTAL DAILY PRN 10/09/22 [History] Pantoprazole [Protonix] 40 mg PO DAILY@0800 10/09/22 [History] bisacodyL [Dulcolax] 10 mg RECTAL DAILY PRN 10/09/22 [History] Vancomycin Oral Solution 250 mg PO QID 7 Days #140 ml 10/13/22 [Rx] Follow up Appointment(s)/Referral(s): Duy De Leon MD [Primary Care Provider] - 1-2 days [facility], [NON-STAFF] - As Needed
[2022-10-13 08:55] LABS: HGB 13.4 g/dL (13.0-17.0); MCH 30.7 pg (27.0-32.0); MCHC 32.7 g/dL (32.0-37.0); MCV 93.8 fL (80.0-97.0); Mean Platelet Volume 9.4 fL (9.5-12.2); NRBC Per 100 WBC 0 /100 WBCS (0.0-0.0); Platelet Count 654 X 10*3/uL (140-440); RBC 4.37 X 10*6/uL (4.40-5.60)
[2022-10-13 08:58] LABS: African American GFR (CKD) 111.6 (60.0-200.0); Albumin 2.9 g/dL (3.8-4.9); Albumin/Globulin Ratio 1.53 (1.60-3.17); Anion Gap 8.6 mmol/L (10.00-18.00); BUN/Creat Ratio 17.67 Ratio (12.00-20.00); Blood Urea Nitrogen 10.6 mg/dL (9.0-27.0); Calcium 8.8 mg/dL (8.7-10.3); Carbon Dioxide 24.4 mmol/L (20.0-27.5); Globulin 1.9 g/dL (1.6-3.3); Non-African American GFR(CKD) 96.3 (60.0-200.0); Potassium 3.7 mmol/L (3.5-5.5); Total Bilirubin 0.4 mg/dL (0.30-1.20); Total Protein 4.8 g/dL (6.2-8.2)
--- NOTE | 2022-10-13 11:55 | P.PN ---
Subjective Progress Note Date: 10/13/22 Principal diagnosis: C. diff colitis Patient is a 77-year-old male who has been sent to the ER for evaluation of elevated white count and diarrhea patient stool for C. diff came back positive and did have a lot of 47,000 on admission. On today's evaluation that is 10/13/2022, the patient remains to be afebrile, patient denies chest pain shortness of breath or cough, the patient denies nausea no vomiting denies any abdominal pain and diarrhea has slowed down Objective - Vital Signs Vital signs: Vital Signs Temp 97.3 F L 10/13/22 07:54 Pulse 61 10/13/22 07:54 Resp 17 10/13/22 07:54 BP 123/76 10/13/22 07:54 Pulse Ox 97 10/13/22 07:54 FiO2 Intake & Output 10/12/22 10/13/22 10/13/22 18:59 06:59 18:59 Intake Total 480 Balance 480 Intake: Oral 480 Other: # Voids 3 3 # Bowel Movements 3 1 - Exam GENERAL DESCRIPTION: An elderly male lying in bed in no distress RESPIRATORY SYSTEM: Unlabored breathing , decreased breath sounds at bases HEART: S1 S2 regular rate and rhythm , ABDOMEN: Soft , no tenderness EXTREMITIES: No edema feet - Labs CBC & Chem 7: 10/13/22 04:41 10/13/22 04:41 Labs: Abnormal Lab Results - Last 24 Hours (Table) 10/13/22 10/13/22 Range/Units 04:41 04:41 WBC 12.50 H (4.50-10.00) X 10*3/uL RBC 4.37 L (4.40-5.60) X 10*6/uL Plt Count 654 H (140-440) X 10*3/uL MPV 9.4 L (9.5-12.2) fL Anion Gap 8.60 L (10.00-18.00) mmol/L Total Protein 4.8 L (6.2-8.2) g/dL Albumin 2.9 L (3.8-4.9) g/dL Albumin/Globulin Ratio 1.53 L (1.60-3.17) g/dL Microbiology - Last 24 Hours (Table) 10/09/22 01:00 Blood Culture - Preliminary Blood 10/09/22 00:50 Blood Culture - Preliminary Blood 10/09/22 03:45 Stool Culture - Final Stool Assessment and Plan (1) C. difficile colitis Current Visit: Yes Status: Acute Code(s): A04.72 - ENTEROCOLITIS D/T CLOSTRIDIUM DIFFICILE, NOT SPCF RECUR SNOMED Code(s): 211769736 (2) Leukocytosis Current Visit: Yes Status: Acute Code(s): D72.829 - ELEVATED WHITE BLOOD CELL COUNT, UNSPECIFIED SNOMED Code(s): 077727334 Plan: 1patient with significant leukocytosis in this patient with diarrhea with evidence of proctocolitis likely related to C. difficile colitis and the patient seem to have shown clinical response to the initial antibiotic therapy of oral vancomycin 2-patient WBC is down to 12,000 today, patient to continue vancomycin 250 mg p.o. every 6 hours 7-10 days to finish his course of therapy and close patient follow-up 3--patient has been encouraged to increase her probiotic and yogurt intake Time with Patient: Less than 30
== END 2022-10-13 13:30 | disposition home health service (06) | DRG 372 ==
LOC: EC 00:06 → 4SSUR 05:44
PROVIDERS: ADMIT Family Medicine; ATTEND Family Medicine
DX: A04.72 Enterocolitis due to Clostridium difficile, not specified as recurrent (principal); I48.19 Other persistent atrial fibrillation; Z20.822 Contact with and (suspected) exposure to COVID-19; D33.3 Benign neoplasm of cranial nerves; D72.823 Leukemoid reaction; F41.9 Anxiety disorder, unspecified; E03.9 Hypothyroidism, unspecified; R53.1 Weakness; K57.90 Diverticulosis of intestine, part unspecified, without perforation or abscess without bleeding; I10 Essential (primary) hypertension; D49.6 Neoplasm of unspecified behavior of brain; Z79.01 Long term (current) use of anticoagulants; Z79.82 Long term (current) use of aspirin; Z85.89 Personal history of malignant neoplasm of other organs and systems; Z79.890 Hormone replacement therapy; Z79.899 Other long term (current) drug therapy
CPT/HCPCS: 36415; 70450; 71046; 74177; 80048; 80053; 81001; 83605; 83630; 83735; 85025; 85027; 87040; 87045; 87046; 87324; 87636; 93005

== ENCOUNTER → 2022-10-21 | Outpatient (CLI) | payer MEDICARE ==
[2022-10-21 11:11] LABS: African American GFR (CKD) >90 (>60 ml/min/1.73 sqM); Blood Urea Nitrogen 11 mg/dL (9-20); Non-African American GFR(CKD) >90 (>60 ml/min/1.73 sqM)
--- NOTE | 2022-10-21 12:44 | CT ---
EXAMINATION TYPE: CT neck chest w con DATE OF EXAM: 10/21/2022 COMPARISON: CT neck and chest April 13, 2022 and older studies HISTORY: Follow up for squamous cell cancer of the neck. CT DLP: 705 mGycm. Automated Exposure Control for Dose Reduction was Utilized. TECHNIQUE: CT scan of the neck and thorax are performed following with IV Contrast, patient injected with 100ml mL of Isovue 300. FINDINGS: Neck: Airway: No gross abnormality seen. Parotid/submandibular glands: Slight asymmetric diminished size to left submandibular gland is redem onstrated. Carotid/Vascular Structures: Mild to moderate peripheral calcified plaque left carotid bulb extends i nto proximal internal carotid artery. There is more moderate peripheral calcified plaque in the right carotid bulb extending into proximal internal carotid artery . No significant stenosis. Osseous Structures: Slight grade 1 retrolisthesis C5 on C6 with moderate disc space narrowing and spu rring. Mild disc space narrowing with mild to moderate spurring at C6-C7 level. Slight grade 1 iztel listhesis C7 on T1 redemonstrated. Other: No new greater than 1 cm neck adenopathy. Chest: LUNGS: Slow growing 6 x 4 mm left lower lobe nodule axial image 29 is redemonstrated. Mild to moderat e posterior bibasilar linear scarring and/or atelectasis is again seen. No new greater than 5 mm pulm onary nodules. Mild underlying emphysematous change is redemonstrated. There is no pleural effusion or pneumothorax seen. The tracheobronchial tree is patent. MEDIASTINUM: There are no greater than 1 cm hilar or mediastinal lymph nodes. No cardiomegaly or pe ricardial effusion is seen. Coronary artery calcification and/or stents are redemonstrated. OTHER: There is 2.2 cm simple appearing thin-walled cyst posteriorly upper to mid pole of the right k idney axial image 66. There is S-shaped scoliosis with multilevel spurring throughout the spine. Depe ndent small calcified gallstones in gallbladder are noted. IMPRESSION: 1. Slow growing 6 mm superior left lower lobe pulmonary nodule remains suspicious. No new masses or a denopathy identified.
== END | disposition home or self-care (01) ==
LOC: RADCTMAIN 09:56
PROVIDERS: ATTEND Internal Medicine Hematology & Oncology
DX: C76.0 Malignant neoplasm of head, face and neck (principal); I10 Essential (primary) hypertension; M12.9 Arthropathy, unspecified; J43.9 Emphysema, unspecified; J98.11 Atelectasis; R91.1 Solitary pulmonary nodule
CPT/HCPCS: 82565; 84520; 70491; 71260; 36415; Q9967

== ENCOUNTER → 2022-11-02 | Outpatient (CLI) | payer MEDICARE ==
--- NOTE | 2022-11-02 12:42 | MR ---
EXAMINATION TYPE: MR brain wo/w con DATE OF EXAM: 11/02/2022 12:16 PM COMPARISON: NONE HISTORY: Abnormal CT. CONTRAST: Patient received 7 mL intravenous Gadavist gadolinium contrast. Multiplanar and multispin-echo imaging of the brain was performed . Pre and post contrast enhanced i mages are obtained. The ventricles, basal cisterns and sulci overlying the cerebral convexities are mildly enlarged. There is evidence of mild periventricular white matter ischemic demyelination. Remote deep white matter insults are also noted. No acute edema is seen on diffusion weighted imaging. There is no evidence for midline shift or mass effect. Acute intracranial hemorrhage or extra-axial collection is not evident. At the left cerebellopontine cistern angle there is a 1.9 x 1.1 cm lesion of increased signal on T2 w eighted imaging and peripheral increased signal on T1-weighted imaging. There is also a lesion noted in the region of the left middle cerebellar peduncle measuring 1.3 cm x 0.9 cm with similar MR signal intensity. Following contrast administration there is peripheral and some internal enhancement. Lesi ons are of uncertain etiology however metastatic disease is not excluded. The paranasal sinuses and mastoid air cells are well-aerated. IMPRESSION: 1. 2 lesions with similar MR signal characteristics are seen, one at the left cerebellopontine cister n angle and the second in the region of the left cerebellar middle peduncle. Given a history of head and neck squamous cell carcinoma metastatic disease is not excluded. 2. Age-related atrophic and chronic small vessel ischemic change.
== END | disposition home or self-care (01) ==
LOC: RADMRIMAIN 11:13
PROVIDERS: ATTEND Neurological Surgery
DX: D49.6 Neoplasm of unspecified behavior of brain (principal); I67.82 Cerebral ischemia; G31.9 Degenerative disease of nervous system, unspecified
CPT/HCPCS: 70553; A9585

== ENCOUNTER → 2023-01-05 | Outpatient (CLI) | payer MEDICARE ==
--- NOTE | 2023-01-05 12:49 | MR ---
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 TECHNIQUE: Multiplanar, multisequence images of the brain and brainstem is performed without and with IV contras t, utilizing 7 mL intravenous Gadavist . FINDINGS: Diffusion weighted images demonstrate no evidence of a recent infarct or other diffusion ab normality. There is no extra-axial fluid collection. Several stable periventricular white matter renetta nges. Similar right posterior frontal lobe 9 mm T2 hyperintense/FLAIR hyperintense white matter subco rtical lesion. Decrease in size of left CP angle mass measuring 1.4 x 0.7 cm (series 801, image 49), previously measured 2.1 x 1.5 cm. There is peripheral enhancement identified on today's exam with si milar characteristics to prior exam. Additionally there is decrease in size of left middle cerebellar peduncle T2/FLAIR hyperintense lesion measuring 0.6 cm (series 501, image 21), previously 1.4 cm. Th is does not demonstrate enhancement. No new or enlarging suspicious FLAIR signal abnormalities or enh ancing lesions. The ventricular system and cisternal spaces are normal in size and appearance. The b rain volume is age appropriate. Midline structures demonstrate normal morphology. The craniocervical junction appears within normal limits. The dural venous sinuses appear patent. The visualized sinuses are unremarkable. Bilateral ap hakia. IMPRESSION: 1. Positive response to therapy with decrease in size of left CP angle and left middle cerebellar pe duncle lesions from prior examination. No new or enlarging suspicious lesions. 2. Stable nonspecific white matter changes likely related to chronic small vessel ischemic disease.
== END | disposition home or self-care (01) ==
LOC: RADMRIMAIN 10:23
PROVIDERS: ATTEND Radiology Radiation Oncology
DX: Z08 Encounter for follow-up examination after completed treatment for malignant neoplasm (principal); C77.0 Secondary and unspecified malignant neoplasm of lymph nodes of head, face and neck; C01 Malignant neoplasm of base of tongue; C76.0 Malignant neoplasm of head, face and neck; G93.89 Other specified disorders of brain; R91.8 Other nonspecific abnormal finding of lung field; R90.82 White matter disease, unspecified; Z85.89 Personal history of malignant neoplasm of other organs and systems; Z92.3 Personal history of irradiation; Z87.891 Personal history of nicotine dependence
CPT/HCPCS: 70553; A9585

== ENCOUNTER → 2023-01-22 | Outpatient (CLI) | payer MEDICARE ==
[2023-01-22 10:36] LABS: African American GFR (CKD) >90 (>60 ml/min/1.73 sqM); Blood Urea Nitrogen 13 mg/dL (9-20); Non-African American GFR(CKD) 88 (>60 ml/min/1.73 sqM)
--- NOTE | 2023-01-22 14:28 | CT ---
EXAMINATION TYPE: CT neck chest w con DATE OF EXAM: 01/22/2023 11:03 AM COMPARISON: 10/21/2022 HISTORY: Malignant neoplasm of head, face and neck CT DLP: 635.9 mGycm Automated exposure control for dose reduction was used. CONTRAST: CT scan of the neck is performed following with IV Contrast, patient injected with 100 mL of Isovue 3 00. Axial images are obtained, coronal and sagittal reformatted images are reviewed. FINDINGS: CT neck: The thyroid gland is normal and symmetric.Focal mass. The larynx including the thyroid, arytenoid and cricoid cartilages are normal and symmetric without m ass. There is no mass the tongue base. There is dense calcification of the epiglottis there is mild persis tent asymmetry in the piriform sinuses which is stable. No parapharyngeal masses are seen. The right submandibular gland is normal.. There is a small amount of soft tissue the expected region of the left submandibular gland which is stable without recurrent mass. The great vessels the neck are normal in exception of mild arteriosclerotic changes of the carotid bi furcations. There is no adenopathy within the neck. Visualized osseous structures are intact. CT CHEST: The pulmonary nodule in the superior segment left lower lobe has decreased in size now measures appro ximately 4 mm. There is been interval development of diffuse groundglass density in the left lung base possibly with acute inflammatory process or acute neoplastic process is not excluded. There are moderate diffuse emphysematous changes. There is no pleural effusion or pneumothorax. The great vessels chest are normal is no mediastinal, hilar or axillary adenopathy. No focal osseous lesions are seen. IMPRESSION: 1. No evidence of recurrent or metastatic hepatic disease within the neck. 2. Abnormal findings in the left lung as described above. Findings could represent a decreasing left upper lobe pulmonary nodule with acute inflammation in the left lower lobe versus stable left lower l obe nodule with left lower lobe neoplasm. Short-term follow-up to resolution is recommended.
== END | disposition home or self-care (01) ==
LOC: RADCTMAIN 09:50
PROVIDERS: ATTEND Internal Medicine Hematology & Oncology
DX: C76.0 Malignant neoplasm of head, face and neck (principal); I10 Essential (primary) hypertension; M12.9 Arthropathy, unspecified; R91.8 Other nonspecific abnormal finding of lung field
CPT/HCPCS: 82565; 84520; 70491; 71260; 36415; Q9967

== ENCOUNTER → 2023-04-21 | Outpatient (CLI) | payer MEDICARE ==
[2023-04-21 13:19] LABS: African American GFR (CKD) >90 (>60 ml/min/1.73 sqM); Blood Urea Nitrogen 15 mg/dL (9-20); Non-African American GFR(CKD) 86 (>60 ml/min/1.73 sqM)
--- NOTE | 2023-04-22 09:47 | CT ---
EXAMINATION TYPE: CT neck chest w con CT DLP: 598.3 mGycm, Automated exposure control for dose reduction was used. DATE OF EXAM: 04/21/2023 1:41 PM COMPARISON: CT neck chest 01/22/2023. CLINICAL INDICATION:Male, 77 years old with history of C76.0 MALIGNANT NEOPLASM OF HEAD, FACE AND NEC K;, f/u MALIGNANT NEOPLASM OF HEAD, FACE AND NECK TECHNIQUE: Standard enhanced CT of the neck and chest. Axial sections with coronal and sagittal refo rmats were obtained. Contrast used:100 mL of Isovue 300 with IV Contrast, (none if empty) Oral contrast used: (none if empty) FINDINGS: Brain: Visualized portions are grossly unremarkable. Orbits: Bilateral aphakia. Sinuses: Grossly unremarkable. Spaces of the neck: Clear and symmetric. Musculoskeletal: No acute osseous pathology. Lymph nodes: Multiple nonenlarged lymph nodes are seen along both anterior chains of the neck. Vascular structures: Patent with atherosclerotic plaque of the internal carotid arteries at the bifur cation. Airway: Airway is patent. Soft tissues/Thyroid: Thyroid and remainder of the soft tissues are unremarkable. Other: none. LUNGS/ PLEURA: Unchanged left lower lobe superior segment 6 mm pulmonary nodule when measuring simila rly. No new pulmonary nodules or enlarging pulmonary nodules visualized. AIRWAY: Patent and unremarkable. HEART: Size within normal limits. MEDIASTINUM: Some ill-defined soft tissue and borderline enlarged lymph nodes are present throughout the mediastinum. Some of these lymph nodes appear larger compared to priors 10/21/2022 Infection larger than most recent prior 01/22/2023. Example includes a prevascular space lymph node pre viously 9 mm now measuring up to 12 mm series series 6 image 22. VASCULATURE: No aortic aneurysm. MUSCULOSKELETAL: No acute osseous abnormalities SOFT TISSUES/LYMPH NODES: Unremarkable. LOWER NECK: No significant findings. UPPER ABDOMEN: Gallstones are present within the gallbladder lumen. Partially visualized simple appea ring right renal cyst. IMPRESSION 1. Slowly mediastinal prevascular space lymph node when comparing to 10/21/2022. Findings could be re active versus thymic reactivation versus malignancy. Continued surveillance. 2. Stable Left lower lobe superior segment 6 mm pulmonary nodule.
== END | disposition home or self-care (01) ==
LOC: RADCTMAIN 12:32
PROVIDERS: ATTEND Internal Medicine Hematology & Oncology
DX: C76.0 Malignant neoplasm of head, face and neck (principal); I10 Essential (primary) hypertension; M12.9 Arthropathy, unspecified; R91.1 Solitary pulmonary nodule
CPT/HCPCS: 82565; 84520; 70491; 71260; 36415; Q9967

== ENCOUNTER → 2023-05-07 | Outpatient (CLI) | payer MEDICARE ==
--- NOTE | 2023-05-07 13:34 | MR ---
EXAMINATION TYPE: MR brain wo/w con DATE OF EXAM: 05/07/2023 11:22 AM CLINICAL INDICATION:Male, 77 years old with history of C77.0 SEC AND UNSP MALIG NEOPLASM OF NODES OF HEAD; PHH, Secondary neoplasm of lymph nodes of head, face and neck, disorder of brain COMPARISON: 01/06/2020 TECHNIQUE: Multi planar, multi sequence imaging was performed through the brain including: T1, T2, In version recovery, susceptibility weighted imaging and gradient echo imaging and Diffusion weighted im aging. The patient was then given intravenous contrast and multi planar, T1 fat-saturation images wer e obtained. IV Contrast: 7 cc Gadavist FINDINGS: Redemonstration of left extra-axial mass near the cerebellar pontine angle measuring 12 x 9 mm which is thought to be similar in size given differences in slice selection and technique. There is decreas e but persistent peripheral enhancement posterior laterally to the right. There is no new enhancing l esions identified. Mild cerebral atrophy with proportional dilation of ventricular system. Diffusion-weighted imaging s hows no evidence of restricted diffusion to suggest acute/subacute infarct. Intracranial arterial hussein w voids are maintained. Midline structures show no abnormality. Scattered foci of high T2 signal inte nsity are seen within the periventricular white matter. The susceptibility weighted images do not rev eal any evidence for micro-hemorrhage. The bone marrow signal is within normal limits. Paranasal sinuses and mastoid air cells: No significant paranasal sinus disease. Visualized orbits: Bilateral aphakia. Head PD signal seen within the left mission worker muscle. IMPRESSION: 1. 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 Suggest continued positive response to therapy. Stable right posterior frontal lo be white matter change. No new enhancing lesions identified. 2. Left mission worker edema suggesting muscle strain. 3. Scattered nonspecific white matter changes.
== END | disposition home or self-care (01) ==
LOC: RADMRIMAIN 10:27
PROVIDERS: ATTEND Radiology Radiation Oncology
DX: G93.89 Other specified disorders of brain (principal); C77.0 Secondary and unspecified malignant neoplasm of lymph nodes of head, face and neck; C76.0 Malignant neoplasm of head, face and neck; C01 Malignant neoplasm of base of tongue; R60.0 Localized edema; Z87.891 Personal history of nicotine dependence
CPT/HCPCS: 70553; A9585

== ENCOUNTER → 2023-06-22 | Outpatient (CLI) | payer MEDICARE ==
[2023-06-22 10:51] LABS: African American GFR (CKD) >90 (>60 ml/min/1.73 sqM); Blood Urea Nitrogen 14 mg/dL (9-20); Non-African American GFR(CKD) 85 (>60 ml/min/1.73 sqM)
--- NOTE | 2023-06-22 12:17 | CT ---
EXAMINATION TYPE: CT neck chest w con CT DLP: 890 mGycm, Automated exposure control for dose reduction was used. DATE OF EXAM: 06/22/2023 11:25 AM COMPARISON: CT neck chest 04/21/2023, 01/22/2023. CLINICAL INDICATION:Male, 78 years old with history of C76.0 HEAD AND NECK CANCER;, Head and Neck Can cer TECHNIQUE: Standard enhanced CT of the neck and chest. Axial sections with coronal and sagittal refo rmats were obtained. Contrast used:100 mL of Isovue 300 with IV Contrast, (none if empty) Oral contrast used: (none if empty) FINDINGS: Brain: Visualized portions are grossly unremarkable. Orbits: Bilateral aphakia. Sinuses: Grossly unremarkable. Spaces of the neck: The visualized tongue base mass. Stable asymmetry in the piriform sinuses on the left. Right subdural gland is normal. There is stable soft tissue in the expected region of the left submandibular gland. Musculoskeletal: No acute osseous pathology. Mild degenerative changes of the cervical spine. Lymph nodes: Multiple nonenlarged lymph nodes are seen along both anterior chains of the neck. Vascular structures: Patent with atherosclerotic plaque of the internal carotid arteries at the bifur cation. Airway: Airway is patent. Soft tissues/Thyroid: Thyroid and remainder of the soft tissues are unremarkable. Other: none. LUNGS/ PLEURA: Unchanged left lower lobe superior segment 6 mm pulmonary nodule when measuring simila rly (series 9, image 30). No new pulmonary nodules or enlarging pulmonary nodules visualized. AIRWAY: Patent and unremarkable. HEART: Size within normal limits. Coronary artery calcifications. MEDIASTINUM: Stable mildly prominent mediastinal lymph nodes. VASCULATURE: No aortic aneurysm. MUSCULOSKELETAL: No acute osseous abnormalities. No aggressive osseous lesion. SOFT TISSUES/LYMPH NODES: Unremarkable. LOWER NECK: No significant findings. UPPER ABDOMEN: Gallstones are present within the gallbladder lumen. Centimeter right hepatic lobe sta ble cyst. IMPRESSION 1. No evidence of recurrent or metastatic hepatic disease within the neck. 2. Stable left lower lobe superior segment 6 mm pulmonary nodule. No new or enlarging pulmonary nodu les. 3. Stable mildly prominent mediastinal lymph nodes. Attention on follow-up exam.
== END | disposition home or self-care (01) ==
LOC: RADCTMAIN 10:14
PROVIDERS: ATTEND Internal Medicine Hematology & Oncology
DX: R91.1 Solitary pulmonary nodule (principal); C76.0 Malignant neoplasm of head, face and neck; D45 Polycythemia vera; I10 Essential (primary) hypertension; D72.829 Elevated white blood cell count, unspecified; M12.9 Arthropathy, unspecified
CPT/HCPCS: 82565; 84520; 70491; 71260; 36415; Q9967

== ENCOUNTER → 2023-07-08 | Outpatient (CLI) | payer MEDICARE ==
[2023-07-09 02:56] LABS: BUN/Creat Ratio 15.44 Ratio (12.00-20.00); Blood Urea Nitrogen 13.9 mg/dL (9.0-27.0); Calcium 9.9 mg/dL (8.7-10.3); Carbon Dioxide 28.2 mmol/L (21.6-31.8); Chloride 102 mmol/L (96-109); Glucose 95 mg/dL (70-110); Potassium 5.2 mmol/L (3.5-5.5); Sodium 141 mmol/L (135-145)
[2023-07-09 03:32] LABS: Basophils # (A) 0.14 X 10*3/uL (0.00-0.10); Basophils % (A) 1.6 %; Eosinophils # (A) 0.63 X 10*3/uL (0.04-0.35); Eosinophils % (A) 7.3 %; HCT 45.3 % (39.6-50.0); Lymphocytes # (A) 1.64 X 10*3/uL (0.90-5.00); Lymphocytes % (A) 19.1 %; MCH 22.6 pg (27.0-32.0); MCHC 28.7 g/dL (32.0-37.0); MCV 78.9 FL (80.0-97.0); Mean Platelet Volume 9.4 FL (9.5-12.2); Monocytes # (A) 1.03 X 10*3/uL (0.20-1.00); NRBC Per 100 WBC 0 X 10*3/uL (0.00-0.01); Neutrophils # (A) 5.13 X 10*3/uL (1.80-7.70); Neutrophils % (A) 59.8 %; Platelet Count 1006 X 10*3/uL (140-440); RBC 5.74 X 10*6/uL (4.40-5.60); RDW 15.4 % (11.5-14.5); WBC 8.59 X 10*3/uL (4.50-10.00)
[2023-07-09 05:48] LABS: INR 1.08 sec (0.93-1.11); Prothrombin Time 11.6 sec (9.9-11.9)
== END | disposition home or self-care (01) ==
LOC: LABWHC1 15:17
PROVIDERS: ATTEND Student in an Organized Health Care Education/Training Program
DX: I48.91 Unspecified atrial fibrillation (principal)
CPT/HCPCS: 36415; 80048; 85025; 85610

== ENCOUNTER → 2023-10-01 | Outpatient (CLI) | payer MEDICARE ==
[2023-10-01 19:18] LABS: INR 1.08 sec (0.93-1.11); Prothrombin Time 11.6 sec (9.9-11.9)
[2023-10-01 19:54] LABS: Basophils # (A) 0.21 X 10*3/uL (0.00-0.10); Basophils % (A) 1.9 %; Eosinophils # (A) 0.73 X 10*3/uL (0.04-0.35); Eosinophils % (A) 6.5 %; HCT 46.4 % (39.6-50.0); MCH 20.6 pg (27.0-32.0); MCV 73.5 FL (80.0-97.0); Mean Platelet Volume 9.3 FL (9.5-12.2); Monocytes # (A) 1.23 X 10*3/uL (0.20-1.00); Monocytes % (A) 10.9 %; NRBC Per 100 WBC 0 X 10*3/uL (0.00-0.01); Neutrophils # (A) 7.39 X 10*3/uL (1.80-7.70); Neutrophils % (A) 65.3 %; Platelet Count 1069 X 10*3/uL (140-440); RBC 6.31 X 10*6/uL (4.40-5.60); RBC Morphology Normal (Normal); RDW 19.5 % (11.5-14.5); WBC 11.31 X 10*3/uL (4.50-10.00)
[2023-10-01 20:16] LABS: BUN/Creat Ratio 14.44 Ratio (12.00-20.00); Calcium 9.9 mg/dL (8.7-10.3); Carbon Dioxide 26.6 mmol/L (21.6-31.8); Chloride 103 mmol/L (96-109); Glucose 100 mg/dL (70-110); Potassium 5.5 mmol/L (3.5-5.5); Sodium 140 mmol/L (135-145)
== END | disposition home or self-care (01) ==
LOC: LABWHC1 10:40
PROVIDERS: ATTEND Student in an Organized Health Care Education/Training Program
DX: I48.0 Paroxysmal atrial fibrillation (principal)
CPT/HCPCS: 36415; 80048; 85025; 85610

== ENCOUNTER → 2023-10-26 | Outpatient (CLI) | payer MEDICARE ==
[2023-10-26 16:14] LABS: African American GFR (CKD) 89 (>60 ml/min/1.73 sqM); Blood Urea Nitrogen 19 mg/dL (9-20); Non-African American GFR(CKD) 77 (>60 ml/min/1.73 sqM)
--- NOTE | 2023-10-26 17:20 | CT ---
EXAMINATION TYPE: CT neck chest w con DATE OF EXAM: 10/26/2023 COMPARISON: 06/22/2023 HISTORY: 78-year-old male C7 6.0, hypertension, hx of neck ca TECHNIQUE: Contiguous axial scanning of the head and neck performed with IV Contrast, patient injecte d with 100ml mL of Isovue 300. Coronal/sagittal reconstructions performed. CT DLP: 679.20 mGycm Automated exposure control for dose reduction was used. FINDINGS: Neck: Some asymmetric soft tissue located below the left parotid gland extending to the left strap musculat ure is unchanged. Calcifications along the posterior surface of the epiglottis and at the level of th e false cords also unchanged. No new cervical adenopathy seen. Visualized intracranial structures, orbits and globes, paranasal sinuses, and mastoid air cells appea r clear. Nasopharynx and oropharynx appear clear. Thyroid, submandibular, and parotid glands appear atrophic. No cervical adenopathy is identified. Moderate spondylotic change mid to lower cervical spine. CHEST: The heart is normal size with small anterior basilar pericardial fluid. Left atrial appendage occlude r device is now noted. Three-vessel coronary artery calcifications. Mild aortic valvular calcificatio ns. Mild atherosclerotic arch calcifications with conventional branching anatomy. Scattered prominent mediastinal lymph nodes such as in the prevascular space measuring up to 1.0 cm r emain unchanged. No progressive thoracic adenopathy seen. Some mild groundglass and interstitial fibrosis at the posterior lung bases. Mild diffuse bronchial w all thickening and some mild posterior basilar bronchiolectasis. 6 mm posterior left midlung pulmonary nodule is unchanged. A 4 mm posterolateral right midlung pulmonary nodule, image 35, stable. * 4 mm posterior right midlung pulmonary nodule not well seen previously, axial image 32. * Adjacent 4 mm pulmonary nodule posterior right midlung, axial image 33. * 3 mm superior segment right lower lobe pulmonary nodule, image 34 also not well seen previously. Mild emphysematous change. No consolidation or pleural effusion. Visualized upper abdomen shows a few small dependent gallstones measuring up to 8 mm, slight thickeni ng of the left adrenal gland, and a benign 2.5 cm cyst in the posterior right kidney. Advanced degenerative disc disease present around especially mid and lower thoracic spine. IMPRESSION: NECK: 1. SOME ASYMMETRIC SOFT TISSUE ABUTTING THE LEFT-SIDED STRAP MUSCULATURE LOCATED BELOW THE LEFT MINOR BULAR GLAND REMAINS UNCHANGED, POSSIBLY SITE OF TREATED DISEASE. CLINICAL CORRELATE. 2. NO SUSPICIOUS CERVICAL ADENOPATHY OR RECURRENT DISEASE IDENTIFIED. CHEST: 3. COPD with mild emphysema. Some bibasilar chronic fibrosis. 4. A few pulmonary nodules measuring up to 4 mm at the right midlung not clearly seen previously. Pos sible post inflammatory etiology. Reassess at a three-month follow-up CT. 5. A few scattered prominent mediastinal lymph nodes measuring up to 1 cm are unchanged.
== END | disposition home or self-care (01) ==
LOC: RADCTMAIN 15:39
PROVIDERS: ATTEND Internal Medicine Hematology & Oncology
DX: C76.0 Malignant neoplasm of head, face and neck (principal); J44.9 Chronic obstructive pulmonary disease, unspecified; J43.9 Emphysema, unspecified; J84.10 Pulmonary fibrosis, unspecified; D45 Polycythemia vera; D72.829 Elevated white blood cell count, unspecified; I10 Essential (primary) hypertension
CPT/HCPCS: 82565; 84520; 70491; 71260; Q9967

== ENCOUNTER → 2023-11-15 | Outpatient (CLI) | payer MEDICARE ==
[2023-11-15 15:39] LABS: African American GFR (CKD) 89 (>60 ml/min/1.73 sqM); Blood Urea Nitrogen 17 mg/dL (9-20); Non-African American GFR(CKD) 77 (>60 ml/min/1.73 sqM)
--- NOTE | 2023-11-15 22:16 | CT ---
EXAMINATION TYPE: CT brain wo/w con DATE OF EXAM: 11/15/2023 COMPARISON: 10/09/2022 and 05/07/2023 HISTORY: 78-year-old male G93.9, C77.0, Secondary and unspecified malignant neoplasm of lymph nodes i n head. TECHNIQUE: CT of the head before and after administration of 80 mL Isovue 300 IV Contrast. Coronal a nd sagittal reconstructions performed. CT DLP: 2144.0 mGycm Automated exposure control for dose reduction was used. FINDINGS: There is no evidence of acute intracranial hemorrhage, acute ischemic changes, mass effect, or extra -axial fluid collection. There is no effacement of cerebral sulci or basal subarachnoid cisterns. T here is no hydrocephalus. There is no midline shift. Jacques-white matter distinction is preserved. Prominent atherosclerotic calcifications within the carotid siphons. Mild volume loss overlying the b ilateral cerebral convexities. Mild patchy white matter hypodensities in both cerebral hemispheres. Dural venous sinuses are patent. Mildly enhancing extra-axial lesion along the left CP angle measures 1.1 cm, smaller compared to 1.8 cm on 10/09/2022 and 1.2 cm on 05/07/2023. Otherwise, no additional abnormal enhancing intracranial le trino is seen. Paranasal sinuses and mastoid air cells are well pneumatized. Orbits and globes are intact. IMPRESSION: 1. Left CPA mass currently 1.1 cm versus 1.2 cm on 05/07/2023 and 1.8 cm on 10/09/2022. No new lesion is clearly identified by CT. 2. Mild cerebral cortical atrophy and mild burden of chronic small vessel ischemic disease.
== END | disposition home or self-care (01) ==
LOC: RADCTMAIN 14:43
PROVIDERS: ATTEND Radiology Radiation Oncology
DX: C77.0 Secondary and unspecified malignant neoplasm of lymph nodes of head, face and neck (principal); G93.9 Disorder of brain, unspecified; R91.8 Other nonspecific abnormal finding of lung field; Z85.89 Personal history of malignant neoplasm of other organs and systems; Z08 Encounter for follow-up examination after completed treatment for malignant neoplasm; C80.1 Malignant (primary) neoplasm, unspecified; C01 Malignant neoplasm of base of tongue; Z87.891 Personal history of nicotine dependence
CPT/HCPCS: 82565; 84520; 70470; 36415; Q9967

== ENCOUNTER → 2024-01-26 | Outpatient (CLI) | payer MEDICARE ==
[2024-01-26 14:32] LABS: African American GFR (CKD) >90 (>60 ml/min/1.73 sqM); Blood Urea Nitrogen 17 mg/dL (9-20); Non-African American GFR(CKD) 79 (>60 ml/min/1.73 sqM)
--- NOTE | 2024-01-29 10:45 | CT ---
EXAMINATION TYPE: CT chest w con CT DLP: 235.5 mGycm, Automated exposure control for dose reduction was used. DATE OF EXAM: 01/26/2024 2:51 PM COMPARISON: 10/26/2023 CLINICAL INDICATION: Male, 78 years old with history of C76.0 HEAD NECK CA; PHH, nodules, hx of throa t ca TECHNIQUE: Multiple axial images were obtained through the chest. Sagittal and coronal reformats were created for review. Contrast used:100 mL of Isovue 300 with IV Contrast (None if empty) Oral contrast used: (None if empty) FINDINGS: LUNGS/ PLEURA: Streaky atelectasis in the left lower lobe superior segment with nodular thickening ex ample series 7 image 93 which is a flat appearance. The nodule seen on prior measuring 7 mm is not si gnificantly changed. No additional findings. AIRWAY: Patent and unremarkable. HEART: Size within normal limits. Atrial appendage occlusion device. Atherosclerosis of the coronary arteries. MEDIASTINUM: No gross evidence of adenopathy. VASCULATURE: No aortic aneurysm. MUSCULOSKELETAL: Moderate disc degeneration changes are present throughout the thoracolumbar spine. L eft anterior rib 4 prior injury suggested. SOFT TISSUES/LYMPH NODES: Unremarkable. LOWER NECK: No significant findings. UPPER ABDOMEN: Gallstones in the gallbladder lumen. Right simple appearing renal cysts. IMPRESSION: 1. Streaky atelectasis with nodular thickening new from 10/26/2023. An age-indeterminate this time. Sh ort-term follow-up recommended to ensure stability. 2. Left lower lobe superior segment nodule 3. No evidence for lymphadenopathy. 4. Mild emphysema changes. 5. Cholelithiasis.
== END | disposition home or self-care (01) ==
LOC: RADCTMAIN 13:57
PROVIDERS: ATTEND Internal Medicine Hematology & Oncology
DX: C76.0 Malignant neoplasm of head, face and neck
CPT/HCPCS: 36415; 71260; 82565; 84520

== ENCOUNTER → 2024-04-25 | Outpatient (CLI) | payer MEDICARE ==
[2024-04-25 12:47] LABS: African American GFR (CKD) 86 (>60 ml/min/1.73 sqM); Blood Urea Nitrogen 25 mg/dL (9-20); Non-African American GFR(CKD) 75 (>60 ml/min/1.73 sqM)
--- NOTE | 2024-04-25 17:57 | CT ---
EXAMINATION TYPE: CT neck chest w con CT DLP: 714.70 mGycm, Automated exposure control for dose reduction was used. DATE OF EXAM: 04/25/2024 1:31 PM COMPARISON: CT chest 01/26/2024, CT neck chest 10/26/2023, 06/22/2023, 04/21/2023, 01/22/2023. CLINICAL INDICATION:Male, 78 years old with history of C76.0 HEAD NECK CANCER;, hx of neck ca TECHNIQUE: Standard enhanced CT of the neck and chest. Axial sections with coronal and sagittal refo rmats were obtained. Contrast used:100ml mL of Isovue 300 with IV Contrast, (none if empty) Oral contrast used: (none if empty) FINDINGS: Brain: Visualized portions are grossly unremarkable. Orbits: Bilateral aphakia. Sinuses: Grossly unremarkable. Spaces of the neck: No visualized tongue base mass. Stable asymmetry in the piriform sinuses on the l eft. Right subdural gland is normal. Stable soft tissue in the expected region of the left submandibu lar gland extending to the left strap musculature. Calcifications along the posterior surface of the epiglottis at the level of the falciform records is also unchanged. Musculoskeletal: No acute osseous pathology. Mild degenerative changes of the cervical spine. Lymph nodes: No pathologically enlarged lymph nodes within the neck. Vascular structures: Patent with atherosclerotic plaque of the internal carotid arteries at the bifur cation. Airway: Airway is patent. Soft tissues/Thyroid: Thyroid and remainder of the soft tissues are unremarkable. Other: none. LUNGS/ PLEURA: Unchanged left lower lobe superior segment 7 mm pulmonary nodule when measuring simila rly (series 6, image 31). Additional previously seen pulmonary nodules are not well appreciated on to day's exam. No new pulmonary nodules or enlarging pulmonary nodules visualized. No pleural effusion o r pneumothorax. Minimal bilateral lower lobe dependent subsegmental atelectasis. Mild centrilobular e mphysematous changes. AIRWAY: Patent and unremarkable. HEART: Size within normal limits. Coronary artery calcifications. Left atrial occlusion device. MEDIASTINUM: Stable mildly prominent mediastinal lymph nodes. VASCULATURE: No aortic aneurysm. MUSCULOSKELETAL: No acute osseous abnormalities. No aggressive osseous lesion. Multilevel degenerativ e disc disease of the thoracic spine. SOFT TISSUES/LYMPH NODES: Unremarkable. LOWER NECK: No significant findings. UPPER ABDOMEN: Gallstones are present within the gallbladder lumen. Subcentimeter right hepatic lobe stable cyst. Right renal 2.6 cm cyst. Colonic diverticulosis. IMPRESSION 1. Stable asymmetric soft tissue abutting the left-sided strap musculature below the left mandibular gland. Possibly site of treated disease. No other suspicious adenopathy or recurrent disease. 2. Stable left lower lobe superior segment 7 mm pulmonary nodules. Additional previously seen pulmon rosana nodules are no longer visualized and likely represented resolution of inflammatory nodularity. No new or enlarging pulmonary nodules. [facility], , 04/25/2024 5:55 PM
== END | disposition home or self-care (01) ==
LOC: RADCTMAIN 11:53
PROVIDERS: ATTEND Internal Medicine Hematology & Oncology
DX: C76.0 Malignant neoplasm of head, face and neck (principal); D45 Polycythemia vera; D72.829 Elevated white blood cell count, unspecified; I10 Essential (primary) hypertension; M12.9 Arthropathy, unspecified; R91.8 Other nonspecific abnormal finding of lung field; K57.30 Diverticulosis of large intestine without perforation or abscess without bleeding; K80.80 Other cholelithiasis without obstruction; K76.89 Other specified diseases of liver; N28.1 Cyst of kidney, acquired
CPT/HCPCS: 82565; 84520; 70491; 71260; 36415; Q9967

== ENCOUNTER 2024-05-02 15:13 | Emergency (ER) | payer MEDICARE ==
[2024-05-02 15:50] VITALS: BP 136/57; PULSE 62; RESP 16; TEMP 98.1
--- NOTE | 2024-05-02 15:54 | ED ---
Recheck HPI - General Source: patient, RN notes reviewed Mode of arrival: ambulatory Limitations: no limitations - History of Present Illness MD Complaint: abnormal lab Onset/Timin -: days(s) <hNan Gonzalez - Last Filed: 05/02/24 15:52> <Kimberly King - Last Filed: 05/02/24 21:25> - General Chief Complaint: Recheck/Abnormal Lab/Rx Stated Complaint: Low potassium Time Seen by Provider: 05/02/24 15:28 - History of Present Illness Initial Comments: Quick note: This is a 78-year-old male presenting with abnormal lab work. Patient states he was sent by Dr. Daniel following discovery of hypokalemia. Patient denies any endocrine symptoms. Denies chest pain, palpitations, dyspnea, dizziness. (Nhan Gonzalez) This is a 78-year-old male presenting to the emergency department for abnormal l aboratory studies. Patient states that he had outpatient labs ordered by his oncologist, Dr. Daniel, which were remarkable for hypokalemia. Patient was instructed by physician to report to the emergency department for further evaluation. Patient denies acute complaint such as chest pain, difficulty breathing, muscle weakness, shortness of breath, abdominal pain, nausea or vomiting. (Kimberly King) - Related Data Home Medications Medication Instructions Recorded Confirmed Losartan [Cozaar] 50 mg PO DAILY@0800 01/30/20 10/09/22 Magnesium Oxide [Mag-Ox] 400 mg PO DAILY@0800 01/30/20 10/09/22 Levothyroxine Sodium [Synthroid] 112 mcg PO DAILY@0600 06/03/20 10/09/22 Acetaminophen Tab [Tylenol] 650 mg PO Q4H PRN 10/09/22 10/09/22 Aspirin 81 mg PO DAILY 10/09/22 10/09/22 Ensure Enlive 237 ml PO TID@0800,1200,1700 10/09/22 10/09/22 Lidocaine 5% Patch [Lidoderm 5% 1 patch TOPICAL DAILY@17010/09/22 10/09/22 Patch] Magnesium Hydroxide [Milk of 7,200 mg PO DAILY PRN 10/09/22 10/09/22 Magnesia Concentrate] Multivitamins, Thera [Multivitamin 1 tab PO DAILY@1200 10/09/22 10/09/22 (formulary)] Na Phos,M-B/Na Phos,Di-Ba [Fleet 133 ml RECTAL DAILY PRN 10/09/22 10/09/22 Adult] Pantoprazole [Protonix] 40 mg PO DAILY@0800 10/09/22 10/09/22 bisacodyL [Dulcolax] 10 mg RECTAL DAILY PRN 10/09/22 10/09/22 Previous Rx's Medication Instructions Recorded Vancomycin Oral Solution 250 mg PO QID 7 Days #140 ml 10/13/22 [Vancomycin HCl Oral Soln] Allergies Allergy/AdvReac Type Severity Reaction Status Date / Time No Known Allergies Allergy Verified 05/02/24 15:50 Review of Systems ROS Other: All systems not noted in ROS Statement are negative. <Nhan Gonzalez - Last Filed: 05/02/24 15:52> ROS Other: All systems not noted in ROS Statement are negative. <Kimberly King - Last Filed: 05/02/24 21:25> ROS Statement: Those systems with pertinent positive or pertinent negative responses have been documented in the HPI. Past Medical History Past Medical History: Atrial Fibrillation, Cancer, Hypertension, Thyroid Disorder Additional Past Medical History / Comment(s): neck cancer in remission. 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 cardiac ablation Past Anesthesia/Blood Transfusion Reactions: No Reported Reaction Past Psychological History: Anxiety Smoking Status: Former smoker Past Alcohol Use History: Daily Past Drug Use History: None Reported - Past Family History Mother Family Medical History: No Reported History <Nhan Gonzalez - Last Filed: 05/02/24 15:52> General Exam Limitations: no limitations <Nhan Gonzalez - Last Filed: 05/02/24 15:52> General appearance: alert, in no apparent distress Eye exam: Present: normal appearance, PERRL, EOMI. Absent: scleral icterus, conjunctival injection, periorbital swelling Neck exam: Present: normal inspection. Absent: tenderness, meningismus, lymphadenopathy Respiratory exam: Present: normal lung sounds bilaterally. Absent: respiratory distress, wheezes, rales, rhonchi, stridor Cardiovascular Exam: Present: regular rate, normal rhythm, normal heart sounds. Absent: systolic murmur, diastolic murmur, rubs, gallop, clicks GI/Abdominal exam: Present: soft, normal bowel sounds. Absent: distended, tenderness, guarding, rebound, rigid Extremities exam: Present: normal inspection, full ROM, normal capillary refill. Absent: tenderness, pedal edema, joint swelling, calf tenderness Back exam: Present: normal inspection Skin exam: Present: warm, dry, intact, normal color. Absent: rash <Kimberly King - Last Filed: 05/02/24 21:25> - General Exam Comments Initial Comments: Visual Physical Exam Vital signs reviewed General: Well-appearing, nontoxic, no acute distress. Head: Normocephalic, atraumatic Eyes: PERRLA, EOMI ENT: Airway patent Chest: Nonlabored breathing Skin: No visual rash, normal skin tone Neuro: Alert and oriented 3 Musculoskeletal: No gross abnormalities (Nhan Gonzalez) Course Vital Signs 05/02/24 15:47 Temperature 98.1 F Pulse Rate 62 Respiratory 16 Rate Blood Pressure 136/57 O2 Sat by Pulse 99 Oximetry Medical Decision Making <Nhan Gonzalez - Last Filed: 05/02/24 15:52> - Lab Data Result diagrams: 05/02/24 16:08 05/02/24 16:08 <Kimberly King - Last Filed: 05/02/24 21:25> - Medical Decision Making I completed the quick note portion of this chart signed SUMIT Harrison (Nhan Gonzalez) Was pt. sent in by a medical professional or institution ([facility], CONTACT LENS LATHE OPERATOR, urgent c are, hospital, or usp...) When possible be specific @ -Patient was advised by oncologist to report to the emergency department for abnormal lab testing of hypokalemia Did you speak to anyone other than the patient for history (EMS, parent, family, police, friend...)? What history was obtained from this source @ -No Did you review nursing and triage notes (agree or disagree)? Why? @ -I reviewed and agree with nursing and triage notes Were old charts reviewed (outside hosp., previous admission, EMS record, old EKG, old radiological studies, urgent care reports/EKG's, usp records)? Report findings @ -No old charts were reviewed Differential Diagnosis (chest pain, altered mental status, abdominal pain women, abdominal pain men, vaginal bleeding, weakness, fever, dyspnea, syncope, headache, dizziness, GI bleed, back pain, seizure, CVA, palpatations, mental health, musculoskeletal)? @ -Hypokalemia, hypomagnesemia, hypophosphatemia, hemolyzed laboratory specimen, this list is not all inclusive EKG interpreted by me (3pts min.). @ -None X-rays interpreted by me (1pt min.). @ -None done CT interpreted by me (1pt min.). @ -None done U/S interpreted by me (1pt. min.). @ -None done What testing was considered but not performed or refused? (CT, X-rays, U/S, labs)? Why? @ -None What meds were considered but not given or refused? Why? @ -None Did you discuss the management of the patient with other professionals (professionals i.e. , PA, CONTACT LENS LATHE OPERATOR, lab, RT, psych nurse, social economist, mineral engineer, teacher, bank officer, pillowcase turner)? Give summary @ -No Was smoking cessation discussed for >3mins.? @ -No Was critical care preformed (if so, how long)? @ -No Were there social determinants of health that impacted care today? How? (Homelessness, low income, unemployed, alcoholism, drug addiction, transportation, low edu. Level, literacy, decrease access to med. care, care home, rehab)? @ -No Was there de-escalation of care discussed even if they declined (Discuss DNR or withdrawal of care, Hospice)? DNR status @ -No What co-morbidities impacted this encounter? (DM, HTN, Smoking, COPD, CAD, Cancer, CVA, ARF, Chemo, Hep., AIDS, mental health diagnosis, sleep apnea, morbid obesity)? @ -None Was patient admitted / discharged? Hospital course, mention meds given and route, prescriptions, significant lab abnormalities, going to OR and other pertinent info. @ -Discharge. 78-year-old male presenting for abnormal labs. Patient was urged evaluated as a quick note for laboratory studies were ordered. On my evaluation the patient is resting company no signs acute distress. Patient lab testing remarkable for elevated platelet count that appears chronic for the patient. Potassium is within normal limits. Patient stable for discharge and recommend he follows up with oncologist for further evaluation. Discussed with Dr. Cabrera Undiagnosed new problem with uncertain prognosis? @ -No Drug Therapy requiring intensive monitoring for toxicity (Heparin, Nitro, Insulin, Cardizem)? @ -No Were any procedures done? @ -No Diagnosis/symptom? @ -elevated platelets, history of abnormal lab testing Acute, or Chronic, or Acute on Chronic? @ -acute Uncomplicated (without systemic symptoms) or Complicated (systemic symptoms)? @ -uncomplicated Side effects of treatment? @ -No Exacerbation, Progression, or Severe Exacerbation? @ -No Poses a threat to life or bodily function? How? (Chest pain, [place], [place], pneumonia, PE, COPD, DKA, ARF, appy, cholecystitis, CVA, Diverticulitis, Homicidal, Suicidal, threat to staff... and all critical care pts) @ -No (Kimberly King) - Lab Data Lab Results 05/02/24 05/02/24 Range/Units 16:08 16:08 WBC 14.6 H (3.8-10.6) k/uL RBC 6.11 H (4.30-5.90) m/uL Hgb 11.3 L (13.0-17.5) gm/dL Hct 39.9 (39.0-53.0) % MCV 65.3 L (80.0-100.0) fL MCH 18.6 L (25.0-35.0) pg MCHC 28.4 L (31.0-37.0) g/dL RDW 16.1 H (11.5-15.5) % Plt Count 1014 H* (150-450) k/uL MPV 6.4 Neutrophils % 70 % Lymphocytes % 13 % Monocytes % 9 % Eosinophils % 5 % Basophils % 1 % Neutrophils # 10.3 H (1.3-7.7) k/uL Lymphocytes # 1.9 (1.0-4.8) k/uL Monocytes # 1.3 H (0-1.0) k/uL Eosinophils # 0.7 (0-0.7) k/uL Basophils # 0.1 (0-0.2) k/uL Manual Slide Review Performed Hypochromasia Marked Poikilocytosis (manual Present Anisocytosis Slight Microcytosis Marked Sodium 136 L (137-145) mmol/L Potassium 4.9 (3.5-5.1) mmol/L Chloride 102 (98-107) mmol/L Carbon Dioxide 25 (22-30) mmol/L Anion Gap 9 mmol/L BUN 17 (9-20) mg/dL Creatinine 0.88 (0.66-1.25) mg/dL Est GFR (CKD-EPI)AfAm >90 (>60 ml/min/1.73 sqM) Est GFR (CKD-EPI)NonAf 82 (>60 ml/min/1.73 sqM) Glucose 87 (74-99) mg/dL Calcium 9.5 (8.4-10.2) mg/dL Total Bilirubin 0.8 (0.2-1.3) mg/dL AST 24 (17-59) U/L ALT 11 (4-49) U/L Alkaline Phosphatase 64 (38-126) U/L Total Protein 7.6 (6.3-8.2) g/dL Albumin 4.9 (3.5-5.0) g/dL Disposition <Nhan Gonzalez - Last Filed: 05/02/24 15:52> Is patient prescribed a controlled substance at d/c from ED?: No Time of Disposition: 17:44 <Kimberly King - Last Filed: 05/02/24 21:25> Clinical Impression: Thrombocythemia Disposition: HOME SELF-CARE Condition: Good Additional Instructions: Please return to the Emergency Department if symptoms worsen or any other concer ns. Referrals: Duy De Leon MD [Primary Care Provider] - 1-2 days
[2024-05-02 16:37] LABS: Anisocytosis Slight; Basophils # (A) 0.1 k/uL (0-0.2); Basophils % (A) 1 %; Eosinophils # (A) 0.7 k/uL (0-0.7); Eosinophils % (A) 5 %; HCT 39.9 % (39.0-53.0); HGB 11.3 gm/dL (13.0-17.5); Hypochromasia Marked; Lymphocytes # (A) 1.9 k/uL (1.0-4.8); Lymphocytes % (A) 13 %; MCH 18.6 pg (25.0-35.0); MCHC 28.4 g/dL (31.0-37.0); MCV 65.3 fL (80.0-100.0); Mean Platelet Volume 6.4; Microcytosis Marked; Monocytes # (A) 1.3 k/uL (0-1.0); Monocytes % (A) 9 %; Neutrophils # (A) 10.3 k/uL (1.3-7.7); Neutrophils % (A) 70 %; RBC 6.11 m/uL (4.30-5.90); RDW 16.1 % (11.5-15.5); WBC 14.6 k/uL (3.8-10.6)
[2024-05-02 16:40] LABS: ALT 11 U/L (4-49); AST 24 U/L (17-59); African American GFR (CKD) >90 (>60 ml/min/1.73 sqM); Albumin 4.9 g/dL (3.5-5.0); Alkaline Phosphatase 64 U/L (38-126); Anion Gap 9 mmol/L; Blood Urea Nitrogen 17 mg/dL (9-20); Calcium 9.5 mg/dL (8.4-10.2); Carbon Dioxide 25 mmol/L (22-30); Chloride 102 mmol/L (98-107); Glucose 87 mg/dL (74-99); Non-African American GFR(CKD) 82 (>60 ml/min/1.73 sqM); Potassium 4.9 mmol/L (3.5-5.1); Sodium 136 mmol/L (137-145); Total Bilirubin 0.8 mg/dL (0.2-1.3); Total Protein 7.6 g/dL (6.3-8.2)
[2024-05-02 17:00] LABS: Poikilocytosis (M) Present
[2024-05-02 17:01] LABS: Platelet Count 1014 k/uL (150-450)
[2024-05-02] MEDS ORDERED: ASPIRIN 81 MG PO STA (17:06)
== END 2024-05-02 19:24 | disposition home or self-care (01) ==
LOC: EC 15:13
DX: D75.839 Thrombocytosis, unspecified (principal); Z87.891 Personal history of nicotine dependence
CPT/HCPCS: 36415; 80053; 85025; 93005; 99284